=== PATIENT | male | born 1935 | race Native Hawaiian/Other Pacific Islander ===

== ENCOUNTER 2018-02-07 10:33 | Inpatient (IN) ==
[2018-02-07 11:56] LABS: Baso % (Auto) 0.3 % (0.0-2.0); Eos % (Auto) 0.6 % (0.0-4.0); Hematocrit 24.8 % (39.0-51.0); Hemoglobin 8.3 gm/dL (13.0-17.0); Lymph # (Auto) 0.7 th/mm3 (1.0-4.8); Lymph % (Auto) 27.5 % (9.0-44.0); Mean Corpuscular HGB Conc 33.6 % (32.0-36.0); Mean Corpuscular Hemoglobin 29.7 pg (27.0-34.0); Mean Corpuscular Volume 88.5 fL (80.0-100.0); Mean Platelet Volume 10.7 fL (7.0-11.0); Mono # (Auto) 0.2 th/mm3 (0.0-0.9); Mono % (Auto) 7.7 % (0.0-8.0); Neut # (Auto) 1.6 th/mm3 (1.8-7.7); Neut % (Auto) 63.9 % (16.0-70.0); Platelet Count 56 th/mm3 (150-450); Red Cell Distribution Width 16.5 % (11.6-17.2); White Blood Count 2.5 th/mm3 (4.0-11.0)
[2018-02-07 12:13] LABS: Calcium 8.4 mg/dL (8.5-10.1); Carbon Dioxide 24.5 meq/L (21.0-32.0)
[2018-02-07 12:18] LABS: Activated Partial Thrombo Time 25.7 sec (23.4-31.7); INR 1.1 Ratio; Prothrombin Time 10.8 sec (9.8-11.6)
[2018-02-07 13:12] LABS: Blast Cells 1 % (0-0); Lymphocytes 36 % (9-44); Metamyelocytes 1 % (0-1); Monocytes 6 % (0-8); Myelocytes 3 % (0-0); Ovalocytes 2+; Platelet Morphology Normal (Normal); Tallied Nucleated RBC 1 (0-0)
--- NOTE | 2018-02-07 14:23 | P.CONCA ---
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 Patient reports for the past couple of weeks he has been having chest tightness with shortness of breath, he was in [place] last month,and symptoms developed shortly after he returned. Patient was scheduled for outpatient heart catheterization today however his preop labs revealed anemia and renal insufficiency. Hematology has been consulted. We will hold off on heart catheterization pending hematology workup. Review of Systems All other systems reviewed negative except as stated in HPI PMFSH - History History Provided By: Patient - Medical History Medical History: Medical History (Last Reviewed 02/07/18 @ 17:43 by Jose Miguel Weldon MD) Afib COPD (chronic obstructive pulmonary disease) Carotid stenosis Chest pain Diabetes Edema Fatigue Glaucoma HLD (hyperlipidemia) HTN (hypertension) Osteoarthritis of right knee SOB (shortness of breath) - Surgical History Surgical History: Surgical History (Last Reviewed 02/07/18 @ 17:43 by Jose Miguel Weldon MD) Hx of CABG - Social History I have reviewed the patient's Social History: Yes - Tobacco History Second Hand Smoke Exposure: No Tobacco Use In Past 30 Days: Yes (Chews loose leaf tobacco) Smoking Status: Never smoker - Alcohol History How Often Do You Have a Drink Containing Alcohol: Never - Travel History History of Recent Travel: Yes (Recent travel to [place]) Medications and Allergies Allergies Allergy/AdvReac Type Severity Reaction Status Date / Time No Known Allergies Allergy Verified 02/07/18 11:24 Home Medications Medication Instructions Recorded Confirmed Type Multi Vitamin 1 cap PO DAILY 02/07/18 02/07/18 History aspirin 81 mg PO DAILY 02/07/18 02/07/18 History atorvastatin 40 mg PO DAILY 02/07/18 02/07/18 History clonidine HCl 0.1 mg PO DAILY 02/07/18 02/07/18 History clopidogrel [Plavix] 75 mg PO DAILY 02/07/18 02/07/18 History enalapril maleate 20 mg PO BID 02/07/18 02/07/18 History famotidine 20 mg PO DAILY 02/07/18 02/07/18 History glipizide-metformin 1 tab PO BID 02/07/18 02/07/18 History isosorbide mononitrate 60 mg PO DAILY 02/07/18 02/07/18 History metoprolol tartrate 25 mg PO BID 02/07/18 02/07/18 History omeprazole 40 mg PO DAILY 02/07/18 02/07/18 History ranolazine [Ranexa] 500 mg PO Q12H 02/07/18 02/07/18 History ropinirole [Requip] 1 mg PO HS 02/07/18 02/07/18 History sitagliptin [Januvia] 100 mg PO DAILY 02/07/18 02/07/18 History solifenacin [Vesicare] 5 mg PO DAILY 02/07/18 02/07/18 History torsemide 20 mg PO DAILY 02/07/18 02/07/18 History umeclidinium-vilanterol [Anoro 1 inh INHALATION Q24H 02/07/18 02/07/18 History Ellipta] Active Medications: Active Medications Sodium Chloride (Ns Inj) 1,000 mls @ 30 mls/hr IV.SIG .Q24H [facility] Exam Vital signs: Vital Signs 02/07/18 11:20 Temperature 97.9 F Pulse Rate 49 L Respiratory Rate 16 Blood Pressure 104/52 L Pulse Oximetry 100 Intake & Output 02/06/18 02/07/18 02/07/18 18:59 06:59 18:59 Weight 68 kg Other: Weight On Admission 68 kg - Constitutional no acute distress, chronically ill appearing - Routine HEENT Exam Head: Present: normocephalic Eye: Present: PERRL, normal accommodation ENT: Present: mucous membranes moist - Routine Neck Exam Present: supple - Routine Respiratory Exam Present: CTA bilaterally - Routine Cardiovascular Exam Present: RRR - Routine Abdominal Exam Present: soft - Routine Skin Exam Present: intact - Routine Neurological Exam Present: alert, oriented X3 Results 02/07/18 11:15 02/07/18 11:15 Coagulation 02/07/18 Range/Units 11:15 PT 10.8 (9.8-11.6) sec APTT 25.7 (23.4-31.7) sec CBC 02/07/18 Range/Units 11:15 WBC 2.5 L (4.0-11.0) th/mm3 RBC 2.80 L (4.50-5.90) mil/mm3 Hgb 8.3 L (13.0-17.0) gm/dL Hct 24.8 L (39.0-51.0) % Plt Count 56 L (150-450) th/mm3 Neut # (Auto) 1.6 L (1.8-7.7) th/mm3 Lymph # (Auto) 0.7 L (1.0-4.8) th/mm3 [place] # (Auto) 0.2 (0.0-0.9) th/mm3 Eos # (Auto) 0.0 (0.0-0.4) th/mm3 Baso # (Auto) 0.0 (0.0-0.2) th/mm3 Comprehensive Metabolic Panel 02/07/18 Range/Units 11:15 Sodium 140 (136-145) meq/L Potassium 5.0 (3.5-5.1) meq/L Chloride 108 H (98-107) meq/L Carbon Dioxide 24.5 (21.0-32.0) meq/L BUN 54 H (7-18) mg/dL Creatinine 2.10 H (0.60-1.30) mg/dL Calcium 8.4 L (8.5-10.1) mg/dL Intake and Output 02/06/18 02/07/18 02/07/18 22:59 06:59 14:59 Other: Weight 68 kg Weight On Admission 68 kg Patient Weight 02/08/18 06:59 Weight 68 kg Assessment and Plan - Plan Assessment ASHD Chest pain HTN Pancytopenia-Anemia Renal insufficiency Carotid stenosis Afib Plan Will hold off on heart cath at this time, pending hematology workup. On Imdur Pending hematology evaluation. Will stop plavix due to low platelets. Creatinine increased today 2.10, increased risk for heart cath. Will avoid nephro toxic agents. Will also consult nephrology for evaluation. History of post op Afib-no known Afib since 2014. History of left CEA, continues on statin and aspirin. Will stop plavix due to low platelets and hgb. Patient was seen and evaluated by Dr. Pena who participated in care management and decision making. The exam, history, and the medical decision-making described in the above note were completed with the assistance of the mid-level provider. I reviewed and agree with the findings presented. I attest that I had a [id number] encounter with the patient on the same day, and personally performed and documented my assessment and findings in the medical record. Overall stable CV , ?cause of pancytopenia.
--- NOTE | 2018-02-07 16:07 | P.HP ---
History of Present Illness Service: [facility] Primary Care Physician: Dr Phil Gay Chief Complaint: Chest pain History of Present Illness: 82-year-old gentleman who is a patient of with PMHx significant for HTN, HLD, arthrosclerotic heart disease s/p CABG x3 vessels, left carotid stenosis, a.fib, COPD, OA, and prolonged chewing tobacco use. Per cardiology's note patient underwent Lexiscan stress test on 01/26 which revealed kash- infarct ischemia, for this reason he was scheduled for heart catheterization today. He had preop labs done which revealed pancytopenia as well as elevated creatinine. His catheterization has been place on hold for this reason. Hematology and nephrology services consulted. Patient is seen and examined in Docu with grandson present at bedside. Patient reports that for the past month he has been experiencing a "heaviness" in his chest that is more noticeable in the mornings and with activity. He reports that this heaviness will resolve with rest he also endorses SOB with these episodes. He denies any recent dizziness, lightheadedness, palpitations, headaches, vision changes, N/V/D or dysuria or trouble urinating. Patient does not report any black or tarry stools , no epistaxis or easy bruising. He does report that he has noticed that his voice has changed and is requesting to see an oncologist. He tells me he would like this looked at since this is new and is concerned for malignancy, he is a daily tobacco chewer. Review of Systems All other systems reviewed negative [facility] - History History Provided By: Patient, Medical Record - Medical History Medical History: Medical History (Last Updated 02/07/18 @ 16:16 by Ricardo Cobb) Afib COPD (chronic obstructive pulmonary disease) Carotid stenosis Chest pain Diabetes Edema Fatigue Glaucoma HLD (hyperlipidemia) HTN (hypertension) Osteoarthritis of right knee SOB (shortness of breath) - Surgical History Surgical History: Surgical History (Last Reviewed 02/07/18 @ 16:16 by Ricardo Cobb) Hx of CABG - Family History Family History: Family History (Last Updated 02/07/18 @ 16:16 by Ricardo Cobb) Mother Diabetes mellitus Mother Myocardial infarct - Social History I have reviewed the patient's Social History: Yes - Tobacco History Second Hand Smoke Exposure: No Tobacco Use In Past 30 Days: Yes (Chews loose leaf tobacco daily for 70yrs) Smoking Status: Never smoker - Alcohol History How Often Do You Have a Drink Containing Alcohol: Never - Travel History History of Recent Travel: Yes (Recent travel to [place]) Medications and Allergies Active Medications: Active Medications Atorvastatin Calcium (Lipitor) 40 mg PO DAILY [facility] Sodium Chloride (Ns Inj) 1,000 mls @ 30 mls/hr IV.SIG .Q24H [facility] Non-Formulary Medication (Multi Vitamin) 1 cap PO DAILY [facility] Non-Formulary Medication (Omeprazole [Omeprazole]) 40 mg PO DAILY [facility] Non-Formulary Medication (Solifenacin [Vesicare]) 5 mg PO DAILY [facility] Ropinirole HCl (Requip) 1 mg PO HS [facility] Umeclidinium/Vilanterol (Anoro-Ellipta 62.5/25 Mcg Inh) puff INH Q24H [facility] Allergies Allergy/AdvReac Type Severity Reaction Status Date / Time No Known Allergies Allergy Verified 02/07/18 11:24 Home Medications Medication Instructions Recorded Confirmed Type Multi Vitamin 1 cap PO DAILY 02/07/18 02/07/18 History aspirin 81 mg PO DAILY 02/07/18 02/07/18 History atorvastatin 40 mg PO DAILY 02/07/18 02/07/18 History clonidine HCl 0.1 mg PO DAILY 02/07/18 02/07/18 History clopidogrel [Plavix] 75 mg PO DAILY 02/07/18 02/07/18 History enalapril maleate 20 mg PO BID 02/07/18 02/07/18 History famotidine 20 mg PO DAILY 02/07/18 02/07/18 History glipizide-metformin 1 tab PO BID 02/07/18 02/07/18 History isosorbide mononitrate 60 mg PO DAILY 02/07/18 02/07/18 History metoprolol tartrate 25 mg PO BID 02/07/18 02/07/18 History omeprazole 40 mg PO DAILY 02/07/18 02/07/18 History ranolazine [Ranexa] 500 mg PO Q12H 02/07/18 02/07/18 History ropinirole [Requip] 1 mg PO HS 02/07/18 02/07/18 History sitagliptin [Januvia] 100 mg PO DAILY 02/07/18 02/07/18 History solifenacin [Vesicare] 5 mg PO DAILY 02/07/18 02/07/18 History torsemide 20 mg PO DAILY 02/07/18 02/07/18 History umeclidinium-vilanterol [Anoro 1 inh INHALATION Q24H 02/07/18 02/07/18 History Ellipta] Exam Vital signs: Vital Signs 02/07/18 11:20 Temperature 97.9 F Pulse Rate 49 L Respiratory Rate 16 Blood Pressure 104/52 L Pulse Oximetry 100 Intake & Output 02/06/18 02/07/18 02/07/18 18:59 06:59 18:59 Weight 68 kg Other: Weight On Admission 68 kg Narrative: GENERAL: Well nourished, well developed male resting in bed in no acute distress. SKIN: Warm and dry. HEAD: Atraumatic. Normocephalic. EYES: Pupils equal and round. No scleral icterus. No injection or drainage. ENT: No nasal bleeding or discharge. Mucous membranes pink and moist. NECK: Trachea midline. No JVD. CARDIOVASCULAR: Regular rate and rhythm. RESPIRATORY: No accessory muscle use. Clear to auscultation. Breath sounds equal bilaterally. GASTROINTESTINAL: Abdomen soft, non-tender, nondistended. + bowel sounds. MUSCULOSKELETAL: Extremities without clubbing, cyanosis, or edema. No obvious deformities. NEUROLOGICAL: Awake and alert, oriented x3. No obvious cranial nerve deficits. Motor grossly within normal limits. Five out of 5 muscle strength in the arms and legs. Normal speech. PSYCHIATRIC: Appropriate mood and affect; insight and judgment normal. Results - Labs CBC & Chem 7: 02/07/18 11:15 02/07/18 11:15 Labs: Laboratory Results - last 24 hr 02/07/18 02/07/18 02/07/18 11:15 11:15 11:15 WBC 2.5 L RBC 2.80 L Hgb 8.3 L Hct 24.8 L MCV 88.5 MCH 29.7 MCHC 33.6 RDW 16.5 Plt Count 56 L MPV 10.7 Prelim Diff (Auto) Slide review pending Neut % (Auto) 63.9 Lymph % (Auto) 27.5 Jay % (Auto) 7.7 Eos % (Auto) 0.6 Baso % (Auto) 0.3 Neut # (Auto) 1.6 L Lymph # (Auto) 0.7 L Jay # (Auto) 0.2 Eos # (Auto) 0.0 Baso # (Auto) 0.0 WBC Differential Manual diff final Seg Neuts % (Manual) 52 Band Neuts % (Manual) 1 Lymphocytes % (Manual) 36 Monocytes % (Manual) 6 Metamyelocytes % (Man) 1 Myelocytes % (Man) 3 H Blast Cells % (Manual) 1 H Abs Neuts (Manual) 1.4 L Nucleated RBCs/100 WBC 1 H Differential Comment . Platelet Estimate Low L Platelet Morphology Normal Ovalocytes 2+ H PT 10.8 INR 1.1 APTT 25.7 Sodium 140 Potassium 5.0 Chloride 108 H Carbon Dioxide 24.5 Anion Gap 8 BUN 54 H Creatinine 2.10 H Estimated GFR 30 L Random Glucose 187 H Calcium 8.4 L Caprini VTE Risk Assessment Caprini VTE Risk Assessment: Moderate/High Risk (score >= 2) VTE Pharmacological Exception Reason: High risk for bleeding Caprini Risk Assessment Model: Point Value = 1 Point Value = 2 Point Value = 3 Point Value = 5 Age 41-60 Minor surgery BMI > 25 kg/m2 Swollen legs Varicose veins or History of unexplained or recurrent spontaneous Oral contraceptives or hormone replacement Sepsis (< 1 month) Serious lung disease, including pneumonia (< 1 month) Abnormal pulmonary function Acute myocardial infarction Congestive heart failure (< 1 month) History of inflammatory bowel disease Medical patient at bed rest Age 61-74 Arthroscopic surgery Major open surgery (> 45 min) Laparoscopic surgery (> 45 min) Malignancy Confined to bed (> 72 hours) Immobilizing plaster cast Central venous access Age >= 75 History of VTE Family history of VTE Factor V Leiden Prothrombin [id number] Lupus anticoagulant Anticardiolipin antibodies Elevated serum homocysteine Heparin-induced thrombocytopenia Other congenital or acquired thrombophilia Stroke (< 1 month) Elective arthroplasty Hip, pelvis, or leg fracture Acute spinal cord injury (< 1 month) Prophylaxis Regimen: Total Risk Factor Score Risk Level Prophylaxis Regimen 0-1 Low Early ambulation 2 Moderate Order ONE of the following: *Sequential Compression Device (SCD) *Heparin 5000 units SQ BID 3-4 Higher Order ONE of the following medications: *Heparin 5000 units SQ TID *Enoxaparin/Lovenox 40 mg SQ daily (WT < 150 kg, CrCl > 30 mL/min) *Enoxaparin/Lovenox 30 mg SQ daily (WT < 150 kg, CrCl > 10-29 mL/min) *Enoxaparin/Lovenox 30 mg SQ BID (WT < 150 kg, CrCl > 30 mL/min) AND/OR *Sequential Compression Device (SCD) 5 or more Highest Order ONE of the following medications: *Heparin 5000 units SQ TID (Preferred with Epidurals) *Enoxaparin/Lovenox 40 mg SQ daily (WT < 150 kg, CrCl > 30 mL/min) *Enoxaparin/Lovenox 30 mg SQ daily (WT < 150 kg, CrCl > 10-29 mL/min) *Enoxaparin/Lovenox 30 mg SQ BID (WT < 150 kg, CrCl > 30 mL/min) AND *Sequential Compression Device (SCD) Assessment and Plan - Plan 82-year-old gentleman who is a patient of with PMHx significant for HTN, HLD, arthrosclerotic heart disease s/p CABG x3 vessels, left carotid stenosis, a.fib, COPD, OA, and prolonged chewing tobacco use who presents to [facility] [place] for scheduled heart catheterization. Preop labs revealed pancytopenia and elevated creatinine, heart cath place on hold. Angina - Per cardiology's note patient underwent Lexiscan stress test on 01/26 which revealed kash-infarct ischemia. Scheduled heart cath placed on hold due to the following below. - HR and BP on the lower side, will defer Ranexa, isosorbide, and metoprolol per cardiology recommendations. Pancytopenia - WBC 2.5, H&H 8.3/24.8 (normocytic), PLT's 56 -No reports of bleeding, check hemoccult stool, iron studies - Hematology consulted for further workup, appreciate assistance - Hold Plavix and ASA - Monitor for bleeding, CBC in a.m SHASHA - Creatine 2.1, BUN 54 no baseline labs in EMR - Hold metformin/glipizide, Januvia, enalapril - Consult to nephrology, appreciate assistance -Avoid nephrotoxins, follow renal function HTN, chronic HLD/CAD -HR and BP on low side, hold BB, and lisinopril - Continue Lipitor -PRN Clonidine - Monitor on tele DM -Hold oral diabetic meds due to SHASHA - cardia and diabetic diet - ISS with accu-checks for glycemic control Change in voice - No reported weight loss by patient - Hem/onc consulted, ? possibly related to anemia, patient with long history of chewing tobacco use. COPD, chronic but stable -Continue Anoro-Elipta, PRN nebs - PT eval and treat DVT prophylaxis-SCD's, no chemical prophylaxis due to thrombocytopenia Discussed Condition With: Patient and grandson at bedside.
[2018-02-07] MEDS ORDERED: Bisacodyl 10 MG Supp RECTAL PRN (16:08)
[2018-02-07] MEDS ORDERED: Acetaminophen 325 MG Tablet PO PRN (16:08)
[2018-02-07] MEDS ORDERED: Dextrose 50% in Water 50 ML Vial IV.PUSH PRN (16:40)
--- NOTE | 2018-02-07 17:46 | P.CONNP ---
History of Present Illness Service: Nephrology Consult date: 02/07/18 Requesting Physician: Lianna Pena Reason for Consult: Chronic kidney disease with acute renal failure Primary Care Provider: Dr Phil Gay Chief Complaint: Chest pain History of Present Illness: Patient is a 82-year-old male with history of diabetes which is long-standing, he said he has a AMI long time ago after that he has been feeling better however lately he has developed chest pain and shortness of breath, patient has history of chewing tobacco, he said he has chronic kidney disease but it was stable and he has not seen any kidney specialist, he does have a history of prostate cancer status post radiation and he said his PSA was 0. Review of Systems Constitutional: Denies anorexia, Denies body ache(s), Denies chills, Denies daytime sleepiness, Denies excessive sweating, Denies fatigue, Denies fever(s), Denies headache(s), Denies increased appetite, Denies lack of energy, Denies malaise, Denies night sweats, Denies weakness, Denies weight gain, Denies weight loss, Denies other Eyes: Denies blind spots, Denies blurry vision, Denies bulging eyes, Denies change in vision, Denies double vision, Denies discharge, Denies dry eyes, Denies floaters, Denies irritation, Denies itchy eyes, Denies loss of vision, Denies pain, Denies requires corrective lenses, Denies sensitivity to light, Denies other Ears, Nose, Mouth, and Throat: Denies abnormal hearing, Denies bleeding gums, Denies bad breath, Denies change in voice, Denies dental pain, Denies difficulty swallowing, Denies dizziness, Denies dry mouth, Denies ear discharge , Denies ear pain, Denies facial pain, Denies headache(s), Denies hearing loss, Denies hoarseness, Denies lip swelling, Denies nosebleed, Denies mouth lesions, Denies mouth pain, Denies nasal congestion, Denies nasal discharge, Denies nasal obstruction, Denies nasal trauma, Denies neck lump, Denies neck pain, Denies nose pain, Denies pain with swallowing, Denies poor balance, Denies post nasal drip, Denies ringing in the ears, Denies sinus pain, Denies sinus pressure , Denies sore throat, Denies throat swelling, Denies tongue swelling, Denies other Cardiovascular: Reports chest pain, Reports shortness of breath with activity Respiratory: Reports shortness of breath Genitourinary: Denies blood in semen, Denies blood in urine, Denies decreased urination, Denies difficulty urinating, Denies difficulty with ejaculations, Denies erectile dysfunction, Denies genital lesions, Denies genital pain, Denies painful urination, Denies side pain, Denies frequent nighttime urination , Denies painful ejaculations, Denies penile discharge, Denies scrotal swelling , Denies testicle lump, Denies testicle pain, Denies urinary frequency, Denies urinary hesitancy, Denies urinary incontinence, Denies urinary urgency, Denies other Musculoskeletal: Denies abnormal walking, Denies back pain, Denies body aches, Denies decreased muscle mass, Denies deformity, Denies joint pain, Denies joint swelling, Denies limited joint movement, Denies loss of height, Denies muscle cramps, Denies muscle weakness, Denies neck pain, Denies numbness, Denies radiating pain into limb, Denies stiffness, Denies tingling, Denies other Skin/Breast: Denies acne, Denies bleeding lesions, Denies boil, Denies breast swelling, Denies breast skin changes, Denies breast pain, Denies breast lump, Denies change in breast shape, Denies change in hair, Denies change in skin color, Denies changing lesions, Denies dry skin, Denies excessive hair growth, Denies hair loss, Denies itching, Denies lesions, Denies nail changes, Denies new lesions, Denies nipple discharge, Denies non-healing lesions, Denies redness , Denies sensitivity to light, Denies rash, Denies skin pain, Denies skin ulcer , Denies sores, Denies stretch moss, Denies unusual bruising, Denies wounds, Denies yellowing of the skin, Denies other Psychiatric: Denies abnormal sleep pattern, Denies anxiety, Denies behavioral changes, Denies change in appetite, Denies change in sex drive, Denies confusion , Denies depression, Denies difficulty concentrating, Denies hearing things others do not hear, Denies hopelessness, Denies irritability, Denies lack of enjoyment, Denies memory loss, Denies mood swings, Denies panic attacks, Denies paranoia, Denies seeing things others do not see, Denies sensing things others do not sense, Denies tactile hallucinations, Denies thoughts of hurting/killing others, Denies thoughts of hurting/killing yourself, Denies other Endocrine: Denies cold intolerance, Denies excessive sweating, Denies flushing, Denies heat intolerance, Denies increased hunger, Denies increased thirst, Denies increased urination, Denies rapid, pounding, or irregular heartbeat, Denies other Hematologic/Lymphatic: Denies easy bleeding, Denies easy bruising, Denies enlarged lymph nodes, Denies other Allergic/Immunologic: Denies GI upset with certain foods, Denies hives, Denies itchy eyes, Denies lip swelling, Denies seasonal runny nose, Denies throat swelling, Denies tongue swelling, Denies wheezing, Denies other PMFSH - History History Provided By: Patient, Medical Record - Medical History Medical History: Medical History (Last Reviewed 02/07/18 @ 17:43 by Jose Miguel Weldon MD) Afib COPD (chronic obstructive pulmonary disease) Carotid stenosis Chest pain Diabetes Edema Fatigue Glaucoma HLD (hyperlipidemia) HTN (hypertension) Osteoarthritis of right knee SOB (shortness of breath) - Surgical History Surgical History: Surgical History (Last Reviewed 02/07/18 @ 17:43 by Jose Miguel Weldon MD) Hx of CABG - Family History Family History: Family History (Last Reviewed 02/07/18 @ 17:43 by Jose Miguel Weldon MD) Mother Diabetes mellitus Mother Myocardial infarct - Social History I have reviewed the patient's Social History: Yes - Tobacco History Second Hand Smoke Exposure: No Tobacco Use In Past 30 Days: Yes (Chews loose leaf tobacco daily for 70yrs) Smoking Status: Never smoker - Alcohol History How Often Do You Have a Drink Containing Alcohol: Never - Travel History History of Recent Travel: Yes (Recent travel to [place]) Medications and Allergies Active Medications: Active Medications Acetaminophen (Tylenol) 650 mg PO Q4H PRN PRN Reason: Temp > 100.4 Atorvastatin Calcium (Lipitor) 40 mg PO DAILY ANDREA Bisacodyl (Dulcolax Supp) 10 mg RECTAL DAILY PRN PRN Reason: SEVERE CONSITIPATION Clonidine HCl (Catapres) 0.1 mg PO Q6H PRN PRN Reason: SBP>160, DBP>90 Dextrose (D50w Vial) 50 ml IV.PUSH UNSCH PRN PRN Reason: PER HYPOGLYCEMIA PROTOCOL Glucagon (Glucagon Inj) 1 mg OTHER PRN PRN PRN Reason: for Hypoglycemia Protocol Sodium Chloride (Ns Inj) 1,000 mls @ 30 mls/hr IV.SIG .Q24H [facility] Insulin Aspart (Novolog Insulin Correctional Sugar Inj) 0 unit SQ ACHS ANDREA; Protocol Lactulose (Lactulose Liq) 30 ml PO DAILY PRN PRN Reason: SEVERE CONSITIPATION Multivitamins (Theragran) 1 tab PO DAILY [facility] Ondansetron HCl (Zofran Inj) 4 mg IV.PUSH Q6H PRN PRN Reason: NAUSEA OR VOMITING Pantoprazole Sodium (Protonix) 40 mg PO DAILY [facility] Ropinirole HCl (Requip) 1 mg PO HS [facility] Senna/Docusate Sodium (Kyleigh-Colace) 1 tab PO BID [facility] Sennosides (Senokot) 17.2 mg PO Q12H PRN PRN Reason: Moderate Constipation Tolterodine Tartrate (Detrol La) 2 mg PO DAILY [facility] Umeclidinium/Vilanterol (Anoro-Ellipta 62.5/25 Mcg Inh) 1 puff INH Q24H [facility] Allergies Allergy/AdvReac Type Severity Reaction Status Date / Time No Known Allergies Allergy Verified 02/07/18 11:24 Home Medications Medication Instructions Recorded Confirmed Type Multi Vitamin 1 cap PO DAILY 02/07/18 02/07/18 History aspirin 81 mg PO DAILY 02/07/18 02/07/18 History atorvastatin 40 mg PO DAILY 02/07/18 02/07/18 History clonidine HCl 0.1 mg PO DAILY 02/07/18 02/07/18 History clopidogrel [Plavix] 75 mg PO DAILY 02/07/18 02/07/18 History enalapril maleate 20 mg PO BID 02/07/18 02/07/18 History famotidine 20 mg PO DAILY 02/07/18 02/07/18 History glipizide-metformin 1 tab PO BID 02/07/18 02/07/18 History isosorbide mononitrate 60 mg PO DAILY 02/07/18 02/07/18 History metoprolol tartrate 25 mg PO BID 02/07/18 02/07/18 History omeprazole 40 mg PO DAILY 02/07/18 02/07/18 History ranolazine [Ranexa] 500 mg PO Q12H 02/07/18 02/07/18 History ropinirole [Requip] 1 mg PO HS 02/07/18 02/07/18 History sitagliptin [Januvia] 100 mg PO DAILY 02/07/18 02/07/18 History solifenacin [Vesicare] 5 mg PO DAILY 02/07/18 02/07/18 History torsemide 20 mg PO DAILY 02/07/18 02/07/18 History umeclidinium-vilanterol [Anoro 1 inh INHALATION Q24H 02/07/18 02/07/18 History Ellipta] Exam Vital signs: Vital Signs 02/07/18 11:20 02/07/18 17:08 Temperature 97.9 F 97.4 F L Pulse Rate 49 L 63 Respiratory Rate 16 18 Blood Pressure 104/52 L 142/73 H Pulse Oximetry 100 100 Intake & Output 02/06/18 02/07/18 02/07/18 18:59 06:59 18:59 Weight 68 kg Other: Weight On Admission 68 kg Narrative: GENERAL: Well-nourished, well-developed patient. SKIN: Warm and dry. HEAD: Normocephalic. EYES: No scleral icterus. No injection or drainage. NECK: Supple, trachea midline. No JVD or lymphadenopathy. CARDIOVASCULAR: Regular rate and rhythm without murmurs, gallops, or rubs. RESPIRATORY: Breath sounds equal bilaterally. No accessory muscle use. GASTROINTESTINAL: Abdomen soft, non-tender, nondistended. EXTREMITIES: As above NEUROLOGICAL: Awake, alert, and oriented x 3. Non-focal. Results - Lab Results 02/08/18 07:35 02/08/18 07:35 Most recent lab results Calcium 8.4 mg/dL (8.5-10.1) L 02/07/18 11:15 Assessment and Plan - Assessment (1) Acute renal failure Code(s): N17.9 - Acute kidney failure, unspecified Status: Acute (2) Chronic kidney disease Code(s): N18.9 - Chronic kidney disease, unspecified Status: Acute (3) Diabetes Code(s): E11.9 - Type 2 diabetes mellitus without complications Status: Acute (4) Hypertension Code(s): I10 - Essential (primary) hypertension Status: Acute (5) Coronary artery disease Code(s): I25.10 - Atherosclerotic heart disease of [place] coronary artery without angina pectoris Status: Acute (6) Pancytopenia Code(s): D61.818 - Other pancytopenia Status: Acute - Plan Patient needs investigation and I ordered urine test, check for urine protein loss ultrasound of the kidney RAY protein electrophoresis Serum complements Asked him to hydrate himself Monitor kidney function was He will avoid nephrotoxic agents if possible Risk of dye study is associated with acute renal failure about 20-25% chance of worsening and 1% chance of dialysis Continue to monitor
[2018-02-07] MEDS: Insulin NovoLOG Aspart Correctional Sugar Inj SQ SCH ×2 (18:00→20:56)
[2018-02-07] MEDS: Sod Chloride 0.9% Inj 1,000 ML IV.SIG SCH (18:03)
[2018-02-07] MEDS: Umeclindinium 62.5 MCG/Vilanterol 25 MCG Inhaler INH SCH (18:03)
[2018-02-07 19:11] LABS: Bilirubin,Urine Negative (Negative); Clarity,Urine Clear (Clear); Color,Urine Yellow (Yellw/Straw); Glucose,Urine (UA) 50 mg/dL (Negative); Hyaline Casts,Urine 9 /lpf (0-3); Leukocyte Esterase,Urine Negative (Negative); Nitrite,Urine Negative (Negative); Specific Gravity,Urine 1.016 (1.002-1.035)
[2018-02-07 19:12] LABS: Protein/Creatinine Ratio,Urine 0.31 (0.00-0.14)
[2018-02-07 20:36] LABS: Activated Partial Thrombo Time 26.8 sec (23.4-31.7); INR 1.1 Ratio; Prothrombin Time 10.8 sec (9.8-11.6)
--- NOTE | 2018-02-07 20:38 | MB ---
cc: Shaye Valencia MD DATE: 02/07/2018 CHIEF COMPLAINT: 1. Pancytopenia. 2. Anemia. 3. Thrombocytopenia. 4. Leukopenia. 5. Early cells including blasts on differential. HISTORY OF PRESENT ILLNESS: Mr. Palacio is an 82-year-old gentleman with a history of hypertension, hyperlipidemia, coronary artery disease, status post 3-vessel CABG, left carotid artery stenosis, atrial fibrillation, COPD, osteoarthritis, who was sent to the hospital for evaluation of cardiac issues. He underwent a stress test which revealed kash-infarct ischemia and was scheduled for a heart catheterization. Preop labs showed pancytopenia and elevated creatinine and the heart catheterization was subsequently placed on hold. Nephrology service has been consulted and Dr. Weldon has stopped by to see the patient. The patient reports that he has been in his baseline state of health. He reports that he has chest heaviness and chest pressure. He denies any fever, chills, drenching night sweats, lymphadenopathy. He reports that he follows closely with a primary care doctor and has his labs checked regularly with no abnormalities. REVIEW OF SYSTEMS: As above in the HPI, all others negative. PAST MEDICAL HISTORY: Hypertension, hyperlipidemia, coronary artery disease, status post 3-vessel CABG, left carotid artery stenosis, atrial fibrillation, COPD, osteoarthritis, chewing tobacco. FAMILY HISTORY: No known family history of malignancy. SOCIAL HISTORY: The patient reports a good support system. He is chewing tobacco. Denies smoking tobacco and denies alcohol use. HOME MEDICATIONS: Include: 1. Atorvastatin. 2. Multivitamin. 3. Omeprazole. 4. VESIcare. 5. Ropinirole. 6. Anoro Ellipta. PHYSICAL EXAMINATION: VITAL SIGNS: Temperature 97.4, pulse 63, respiratory rate 18, blood pressure 142/73, pulse oximetry 100% on room air. GENERAL: Elderly man in no distress, resting comfortably in bed. HEAD: Normocephalic, atraumatic. EYES: PERRLA. EOMI. OROPHARYNX: Clear. NECK: Supple. No palpable lymphadenopathy. CARDIOVASCULAR: Regular rate and rhythm. No murmurs. RESPIRATORY: Clear to auscultation bilaterally. ABDOMEN: Protuberant but soft, nontender, nondistended. Bowel sounds present. EXTREMITIES: No edema. NEUROLOGIC: Grossly nonfocal. PSYCHIATRIC: Appropriate mood and affect. LABORATORY STUDIES: Significant for a creatinine of 2.1. Iron, total iron binding capacity and percent sat are within normal limits. Coags including PT, INR, PTT within normal limits. White blood cell count 2.5, hemoglobin 8.3, MCV 88.5, platelet count 56,000, ANC of 1.6. Metamyelocytes, myelocytes, blasts present on differential. ASSESSMENT: Pancytopenia. PLAN: We will check vitamin B12, folate, copper. He is on no medications that would cause pancytopenia. He is on no new medications. He does not have any history of alcohol abuse. We will check a CT-guided bone marrow as given early cells present on differential. This is highly suspicious for an underlying bone marrow disorder, especially acute leukemia. We will also check fibrinogen, uric acid, LDH, pathology for a peripheral smear review. Inpatient oncology service will continue to follow. MD MECHE Waggoner/joi , 06:48 PM , 06:56 PM
[2018-02-07 20:40] LABS: Albumin 3.3 g/dL (3.4-5.0); Uric Acid 10.1 mg/dl (2.6-7.2)
--- NOTE | 2018-02-07 20:51 | ECG ---
Date Performed: 02/07/2018 Time Performed: 10:53:18 PTAGE: 82 years EKG: Sinus bradycardia. IV conduction defect Inferior/lateral ST-T changes Abnormal ECG NO PREVIOUS TRACING DOCTOR: Natan Sherman Interpretating Date/Time 02/07/2018 20:50:54
[2018-02-07] MEDS: Senna/Docusate Sodium 8.6/50 MG Tablet PO SCH (20:56)
[2018-02-07 21:06] LABS: Folate 11.4 ng/mL (3.1-17.5); Total Protein 7.2 g/dL (6.4-8.2)
[2018-02-08] MEDS ORDERED: fentaNYL Citrate Inj 250 MCG/5 ML Ampul ONE (08:53)
[2018-02-08 09:00] LABS: Baso % (Auto) 0.3 % (0.0-2.0); Eos % (Auto) 0.1 % (0.0-4.0); Hematocrit 27.8 % (39.0-51.0); Lymph # (Auto) 0.8 th/mm3 (1.0-4.8); Lymph % (Auto) 21.5 % (9.0-44.0); Mean Corpuscular HGB Conc 32.4 % (32.0-36.0); Mean Corpuscular Hemoglobin 28.8 pg (27.0-34.0); Mean Corpuscular Volume 88.8 fL (80.0-100.0); Mean Platelet Volume 10.7 fL (7.0-11.0); Mono # (Auto) 0.4 th/mm3 (0.0-0.9); Mono % (Auto) 9.5 % (0.0-8.0); Neut # (Auto) 2.6 th/mm3 (1.8-7.7); Neut % (Auto) 68.6 % (16.0-70.0); Platelet Count 55 th/mm3 (150-450); Red Blood Count 3.13 mil/mm3 (4.50-5.90); Red Cell Distribution Width 16.6 % (11.6-17.2); White Blood Count 3.8 th/mm3 (4.0-11.0)
[2018-02-08 09:33] LABS: Calcium 8.8 mg/dL (8.5-10.1); Carbon Dioxide 22.9 meq/L (21.0-32.0); Phosphorus 3.3 mg/dL (2.5-4.9); Potassium 4.9 meq/L (3.5-5.1)
[2018-02-08 09:46] LABS: Burr Cells 1+; Dohle Bodies Present; Lymphocytes 20 % (9-44); Metamyelocytes 1 % (0-1); Monocytes 9 % (0-8); Myelocytes 2 % (0-0); Ovalocytes 2+; Promyelocyte 2 % (0-0); Tallied Nucleated RBC 1 (0-0); Toxic Granulation 1+
[2018-02-08 10:13] LABS: Hepatitits B Surface Antigen Nonreactive (Nonreactive)
[2018-02-08 10:42] LABS: Hepatitis A IgM Antibody Nonreactive (Nonreactive)
[2018-02-08 11:20] LABS: Iron Stain Bone Marrow Done
[2018-02-08] MEDS: Insulin NovoLOG Aspart Correctional Sugar Inj SQ SCH ×4 (11:48→20:33)
[2018-02-08] MEDS: Sod Chloride 0.9% Inj 1,000 ML IV.SIG SCH (11:49)
[2018-02-08] MEDS: Senna/Docusate Sodium 8.6/50 MG Tablet PO SCH ×2 (11:58→20:32)
[2018-02-08] MEDS: Tolterodine Tartrate LA 2 MG Capsule PO SCH (11:58)
--- NOTE | 2018-02-08 12:55 | US ---
EXAM DATE: 02/08/2018 12:46 PM EST AGE/SEX: 82 years / Male INDICATIONS: Increased BUN/Creatinine. CLINICAL DATA: This is the patient's initial encounter. Patient reports that signs and symptoms have been present for 1 day and indicates a pain score of 0/10. MEDICAL/SURGICAL HISTORY: Chronic obstructive pulmonary disease. Diabetes. Hypercholesterolem ia. Hypertension. Osteoarthritis of the right knee. Glaucoma. Edema. Left Carotid stenosis. Atria l fibrillation. CABG. COMPARISON: No prior exams available for comparison. MEASUREMENTS: Right Kidney:__8.0 x 4.1 x 4.2 cm Left Kidney:__10.3 x 5.4 x 4.7 cm FINDINGS: Right Kidney: The right kidney is small in size with cortical thinning. The echogenicity of the kidne y is equal to that of the adjacent liver. There is no focal mass or hydronephrosis. Left Kidney: The left kidney is larger than left with mild cortical thinning. There is no focal mass or hydronephrosis. Bladder: Within normal limits given the degree of distension. Other: None. CONCLUSION: 1. No hydronephrosis. 2. Increased echogenicity characteristic of medical renal disease. 3. Right kidney is small and atrophic in appearance. There is mild cortical thinning in the left kid sil. Electronically signed by: Osvaldo Corral MD 02/08/2018 12:53 PM EST
[2018-02-08] MEDS: Torsemide 20 MG Tablet PO SCH (13:50)
--- NOTE | 2018-02-08 15:00 | P.PNONC ---
Subjective Interval history: Afebrile. Patient status post bone marrow biopsy today. He has no complaints at this time. Denies pain. Denies bleeding. No N/V/D. Objective Vital Signs/Intake & Output: Vital Signs 02/07/18 17:08 02/07/18 20:00 02/08/18 00:00 Temperature 97.4 F L 98.4 F 98.6 F Pulse Rate 63 57 L 51 L Respiratory Rate 18 18 18 Blood Pressure 142/73 H 145/75 H 113/55 L Pulse Oximetry 100 99 98 02/08/18 04:00 02/08/18 07:00 02/08/18 08:04 Temperature 98.8 F 98.4 F Pulse Rate 62 66 74 Respiratory Rate 18 18 Blood Pressure 144/68 H 159/78 H Pulse Oximetry 98 93 L 02/08/18 10:05 02/08/18 10:20 02/08/18 10:35 Temperature 98.9 F Pulse Rate 74 93 H 85 Respiratory Rate 20 18 18 Blood Pressure 164/74 H 157/72 H 142/70 H Pulse Oximetry 93 L 97 02/08/18 11:00 02/08/18 11:17 02/08/18 11:59 Temperature 97.9 F Pulse Rate 135 H 70 Respiratory Rate 18 18 Blood Pressure 135/70 152/77 H Pulse Oximetry 97 91 L 02/08/18 13:49 Temperature Pulse Rate Respiratory Rate Blood Pressure 194/94 H Pulse Oximetry Intake & Output 02/07/18 02/08/18 02/08/18 18:59 06:59 18:59 Output Total 300 / 300 Balance -300 / -300 Weight 68 kg 68 kg Output: Urine 300 / 300 Other: Date of Last Bowel Movement 02/05/18 02/05/18 02/05/18 Weight On Admission 68 kg Result Diagrams: 02/08/18 07:35 02/08/18 07:35 Laboratory Results: Laboratory Results - last 24 hr 02/07/18 02/07/18 02/07/18 11:15 11:15 17:16 WBC RBC Hgb Hct MCV MCH MCHC RDW Plt Count MPV Prelim Diff (Auto) Neut % (Auto) Lymph % (Auto) [place] % (Auto) Eos % (Auto) Baso % (Auto) Neut # (Auto) Lymph # (Auto) [place] # (Auto) Eos # (Auto) Baso # (Auto) WBC Differential Seg Neuts % (Manual) Band Neuts % (Manual) Lymphocytes % (Manual) Monocytes % (Manual) Basophils % (Manual) Metamyelocytes % (Man) Myelocytes % (Man) Promyelocytes % (Man) Abs Neuts (Manual) Nucleated RBCs/100 WBC Differential Comment Toxic Granulation Dohle Bodies Platelet Estimate Platelet Morphology Ovalocytes Johnny Cells Smear Path Review Haptoglobin PT INR APTT Fibrinogen Sodium Potassium Chloride Carbon Dioxide Anion Gap BUN Creatinine Estimated GFR POC Glucose 260 H Random Glucose Uric Acid Calcium Phosphorus Iron 129 TIBC 274 % Saturation 47.0 Ferritin Total Bilirubin Direct Bilirubin Indirect Bilirubin AST ALT Alkaline Phosphatase Lactate Dehydrogenase Total Protein Total Protein (PEP) Albumin Vitamin B12 Folate PTH Intact Urine Color Urine Clarity Urine pH Ur Specific [place] Urine Protein Urine Glucose (UA) Urine Ketones Urine Occult Blood Urine Nitrate Urine Bilirubin Urine Urobilinogen Ur Leukocyte Esterase Urine RBC Urine WBC Hyaline Casts Micro UA Comment Ur Microscopic Review Urine Culture Comments Ur Random Creatinine U Random Total Protein Protein/Creatinin Ratio Complement C3 Complement C4 Hepatitis A IgM Ab Hep Bs Antigen Hep B Core IgM Ab Hep C IgG Ab 02/07/18 02/07/18 02/07/18 18:25 18:25 19:52 WBC RBC Hgb Hct MCV MCH MCHC RDW Plt Count MPV Prelim Diff (Auto) Neut % (Auto) Lymph % (Auto) [place] % (Auto) Eos % (Auto) Baso % (Auto) Neut # (Auto) Lymph # (Auto) [place] # (Auto) Eos # (Auto) Baso # (Auto) WBC Differential Seg Neuts % (Manual) Band Neuts % (Manual) Lymphocytes % (Manual) Monocytes % (Manual) Basophils % (Manual) Metamyelocytes % (Man) Myelocytes % (Man) Promyelocytes % (Man) Abs Neuts (Manual) Nucleated RBCs/100 WBC Differential Comment Toxic Granulation Dohle Bodies Platelet Estimate Platelet Morphology Ovalocytes Johnny Cells Smear Path Review Haptoglobin PT 10.8 INR 1.1 APTT 26.8 Fibrinogen 334 Sodium Potassium Chloride Carbon Dioxide Anion Gap BUN Creatinine Estimated GFR POC Glucose Random Glucose Uric Acid Calcium Phosphorus Iron TIBC % Saturation Ferritin Total Bilirubin Direct Bilirubin Indirect Bilirubin AST ALT Alkaline Phosphatase Lactate Dehydrogenase Total Protein Total Protein (PEP) Albumin Vitamin B12 Folate PTH Intact Urine Color Yellow Urine Clarity Clear Urine pH 5.0 Ur Specific [place] 1.016 Urine Protein Negative Urine Glucose (UA) 50 Urine Ketones Negative Urine Occult Blood Negative Urine Nitrate Negative Urine Bilirubin Negative Urine Urobilinogen Less than 2 Ur Leukocyte Esterase Negative Urine RBC 1 Urine WBC Less than 1 Hyaline Casts 9 Micro UA Comment Culture not ind Ur Microscopic Review Not Reportable Urine Culture Comments Culture not ind Ur Random Creatinine 93 U Random Total Protein 28.7 H Protein/Creatinin Ratio 0.31 H Complement C3 Complement C4 Hepatitis A IgM Ab Hep Bs Antigen Hep B Core IgM Ab Hep C IgG Ab 02/07/18 02/07/18 02/08/18 19:52 20:44 07:35 WBC 3.8 L D RBC 3.13 L Hgb 9.0 L Hct 27.8 L MCV 88.8 MCH 28.8 MCHC 32.4 RDW 16.6 Plt Count 55 L MPV 10.7 Prelim Diff (Auto) Slide review pending Neut % (Auto) 68.6 Lymph % (Auto) 21.5 [place] % (Auto) 9.5 H Eos % (Auto) 0.1 Baso % (Auto) 0.3 Neut # (Auto) 2.6 Lymph # (Auto) 0.8 L [place] # (Auto) 0.4 Eos # (Auto) 0.0 Baso # (Auto) 0.0 WBC Differential Manual diff final Seg Neuts % (Manual) 61 Band Neuts % (Manual) 4 Lymphocytes % (Manual) 20 Monocytes % (Manual) 9 H Basophils % (Manual) 1 Metamyelocytes % (Man) 1 Myelocytes % (Man) 2 H Promyelocytes % (Man) 2 H Abs Neuts (Manual) 2.7 Nucleated RBCs/100 WBC 1 H Differential Comment . Toxic Granulation 1+ H Dohle Bodies Present H Platelet Estimate Low L Platelet Morphology Enlarged H Ovalocytes 2+ H Johnny Cells 1+ H Smear Path Review Haptoglobin 322 H PT INR APTT Fibrinogen Sodium Potassium Chloride Carbon Dioxide Anion Gap BUN Creatinine Estimated GFR POC Glucose 208 H Random Glucose Uric Acid 10.1 H Calcium Phosphorus Iron TIBC % Saturation Ferritin 254 Total Bilirubin 0.4 Direct Bilirubin 0.2 Indirect Bilirubin 0.2 AST 6 L ALT 17 Alkaline Phosphatase 64 Lactate Dehydrogenase 133 Total Protein 7.2 Total Protein (PEP) Albumin 3.3 L Vitamin B12 606 Folate 11.4 PTH Intact Urine Color Urine Clarity Urine pH Ur Specific [place] Urine Protein Urine Glucose (UA) Urine Ketones Urine Occult Blood Urine Nitrate Urine Bilirubin Urine Urobilinogen Ur Leukocyte Esterase Urine RBC Urine WBC Hyaline Casts Micro UA Comment Ur Microscopic Review Urine Culture Comments Ur Random Creatinine U Random Total Protein Protein/Creatinin Ratio Complement C3 Complement C4 Hepatitis A IgM Ab Hep Bs Antigen Hep B Core IgM Ab Hep C IgG Ab 02/08/18 02/08/18 02/08/18 07:35 07:35 08:06 WBC RBC Hgb Hct MCV MCH MCHC RDW Plt Count MPV Prelim Diff (Auto) Neut % (Auto) Lymph % (Auto) [place] % (Auto) Eos % (Auto) Baso % (Auto) Neut # (Auto) Lymph # (Auto) [place] # (Auto) Eos # (Auto) Baso # (Auto) WBC Differential Seg Neuts % (Manual) Band Neuts % (Manual) Lymphocytes % (Manual) Monocytes % (Manual) Basophils % (Manual) Metamyelocytes % (Man) Myelocytes % (Man) Promyelocytes % (Man) Abs Neuts (Manual) Nucleated RBCs/100 WBC Differential Comment Toxic Granulation Dohle Bodies Platelet Estimate Platelet Morphology Ovalocytes Johnny Cells Smear Path Review Haptoglobin PT INR APTT Fibrinogen Sodium 141 Potassium 4.9 Chloride 107 Carbon Dioxide 22.9 Anion Gap 11 BUN 43 H Creatinine 1.66 H Estimated GFR 40 L POC Glucose 210 H Random Glucose 136 H Uric Acid Calcium 8.8 Phosphorus 3.3 Iron TIBC % Saturation Ferritin Total Bilirubin Direct Bilirubin Indirect Bilirubin AST ALT Alkaline Phosphatase Lactate Dehydrogenase Total Protein Total Protein (PEP) 7.4 Albumin Vitamin B12 Folate PTH Intact 82.8 H Urine Color Urine Clarity Urine pH Ur Specific [place] Urine Protein Urine Glucose (UA) Urine Ketones Urine Occult Blood Urine Nitrate Urine Bilirubin Urine Urobilinogen Ur Leukocyte Esterase Urine RBC Urine WBC Hyaline Casts Micro UA Comment Ur Microscopic Review Urine Culture Comments Ur Random Creatinine U Random Total Protein Protein/Creatinin Ratio Complement C3 111 Complement C4 32 Hepatitis A IgM Ab Nonreactive Hep Bs Antigen Nonreactive Hep B Core IgM Ab Nonreactive Hep C IgG Ab Nonreactive 02/08/18 11:19 WBC RBC Hgb Hct MCV MCH MCHC RDW Plt Count MPV Prelim Diff (Auto) Neut % (Auto) Lymph % (Auto) [place] % (Auto) Eos % (Auto) Baso % (Auto) Neut # (Auto) Lymph # (Auto) [place] # (Auto) Eos # (Auto) Baso # (Auto) WBC Differential Seg Neuts % (Manual) Band Neuts % (Manual) Lymphocytes % (Manual) Monocytes % (Manual) Basophils % (Manual) Metamyelocytes % (Man) Myelocytes % (Man) Promyelocytes % (Man) Abs Neuts (Manual) Nucleated RBCs/100 WBC Differential Comment Toxic Granulation Dohle Bodies Platelet Estimate Platelet Morphology Ovalocytes [place] Cells Smear Path Review Haptoglobin PT INR APTT Fibrinogen Sodium Potassium Chloride Carbon Dioxide Anion Gap BUN Creatinine Estimated GFR POC Glucose 181 H Random Glucose Uric Acid Calcium Phosphorus Iron TIBC % Saturation Ferritin Total Bilirubin Direct Bilirubin Indirect Bilirubin AST ALT Alkaline Phosphatase Lactate Dehydrogenase Total Protein Total Protein (PEP) Albumin Vitamin B12 Folate PTH Intact Urine Color Urine Clarity Urine pH Ur Specific [place] Urine Protein Urine Glucose (UA) Urine Ketones Urine Occult Blood Urine Nitrate Urine Bilirubin Urine Urobilinogen Ur Leukocyte Esterase Urine RBC Urine WBC Hyaline Casts Micro UA Comment Ur Microscopic Review Urine Culture Comments Ur Random Creatinine U Random Total Protein Protein/Creatinin Ratio Complement C3 Complement C4 Hepatitis A IgM Ab Hep Bs Antigen Hep B Core IgM Ab Hep C IgG Ab Imaging Studies: Impressions Abdomen/Bladder Ultrasound 02/08/18 00:00 CONCLUSION: 1. No hydronephrosis. 2. Increased echogenicity characteristic of medical renal disease. 3. Right kidney is small and atrophic in appearance. There is mild cortical thinning in the left kidney. Medications: Active Medications Generic Name Dose Route Start Last Admin Trade Name Freq PRN Reason Stop Dose Admin Atorvastatin Calcium 40 mg 02/08/18 09:00 02/08/18 12:01 Lipitor PO 40 mg DAILY ANDREA Administration Clonidine HCl 0.1 mg 02/07/18 16:40 02/08/18 13:50 Catapres PO 0.1 mg Q6H PRN Administration SBP>160, DBP>90 Sodium Chloride 1,000 mls @ 30 mls/hr 02/07/18 12:00 02/08/18 11:49 Ns Inj IV.SIG Not Given .Q24H ANDREA Insulin Aspart 0 unit 02/07/18 17:45 02/08/18 11:58 Novolog Insulin Correctional Sugar Inj SQ 1 unit ACHS ANDREA Administration Protocol Lactulose 30 ml 02/07/18 16:08 02/08/18 11:58 Lactulose Liq PO 30 ml DAILY PRN Administration SEVERE CONSITIPATION Multivitamins 1 tab 02/08/18 09:00 02/08/18 11:58 Theragran PO 1 tab DAILY ANDREA Administration Pantoprazole Sodium 40 mg 02/08/18 09:00 02/08/18 11:58 Protonix PO 40 mg DAILY ANDREA Administration Ropinirole HCl 1 mg 02/07/18 21:00 02/07/18 20:57 Requip PO 1 mg HS ANDREA Administration Senna/Docusate Sodium 1 tab 02/07/18 21:00 02/08/18 11:58 Kyleigh-Colace PO 1 tab BID ANDREA Administration Tolterodine Tartrate 2 mg 02/08/18 09:00 02/08/18 11:58 Detrol La PO 2 mg DAILY ANDREA Administration Torsemide 20 mg 02/08/18 10:00 02/08/18 13:50 Demadex PO 20 mg DAILY ANDREA Administration Umeclidinium/Vilanterol 1 puff 02/07/18 16:00 02/07/18 18:03 Anoro-Ellipta 62.5/25 Mcg Inh INH Not Given Q24H ANDREA Objective Remarks: GENERAL: Well-nourished, well-developed elderly male patient, in no acute distress. SKIN: Warm and dry. 2 x 2 gauze dressing to posterior iliac crest, dry/intact. No swelling, erythema. HEAD: Normocephalic. EYES: No scleral icterus. No injection or drainage. NECK: Supple, trachea midline. CARDIOVASCULAR: Regular rate and rhythm without murmurs. RESPIRATORY: Breath sounds equal bilaterally. No accessory muscle use. GASTROINTESTINAL: Abdomen soft, non-tender, nondistended. EXTREMITIES: No cyanosis, or edema. MUSCULOSKELETAL: Adequate muscle tone. NEUROLOGICAL: No obvious focal deficit. Awake, alert, and oriented x3. PSYCHIATRIC: Appropriate mood and affect; insight and judgment normal. Assessment/Plan - Plan Mr. Palacio is a pleasant 82-year-old gentleman with an extensive cardiac history. He was scheduled for heart catheterization when pre-op blood work revealed pancytopenia and elevated creatinine. Heme/Onc was consulted for pancytopenia. Recommendations: 1. Pancytopenia, with early cells present on differential, highly suspicious for an underlying bone marrow disorder especially leukemia. Patient underwent bone marrow biopsy this a.m. and we will await these results. 2. Elevated creatinine, nephrology consulted. 3. Disease, management per cardiology. 4. Repeat CBC in the a.m. - Attending Statement The exam, history, and the medical decision-making described in the above note were completed with the assistance of the mid-level provider. I reviewed and agree with the findings presented. I attest that I had a [id number] encounter with the patient on the same day, and personally performed and documented my assessment and findings in the medical record. Resting comfortably in bed, getting ready to work with physical therapy. He is s/pt bone marrow biopsy with results pending. Nephrology and Cardiology team following.
--- NOTE | 2018-02-08 15:04 | P.PNCA ---
Subjective Interval history: Pt resting in bed, denies any acute complaints overnight. He denies any chest pain or SOB at rest, however he reports chest pressure and SOB if he walks more than 15 feet. Bone marrow biopsy completed this AM, results pending. BP is elevated, will resume home BP med and isosorbide. Hematology and nephrology workup in progress. The exam, history, and the medical decision-making described in the above note were completed with the assistance of the mid-level provider. I reviewed and agree with the findings presented. I attest that I had a [id number] encounter with the patient on the same day, and personally performed and documented my assessment and findings in the medical record. Overall stable cv may have myelofibrosis or leukemia. Medications and Allergies Allergies Allergy/AdvReac Type Severity Reaction Status Date / Time No Known Allergies Allergy Verified 02/07/18 11:24 Home Medications Medication Instructions Recorded Confirmed Type Multi Vitamin 1 cap PO DAILY 02/07/18 02/07/18 History aspirin 81 mg PO DAILY 02/07/18 02/07/18 History atorvastatin 40 mg PO DAILY 02/07/18 02/07/18 History clonidine HCl 0.1 mg PO DAILY 02/07/18 02/07/18 History clopidogrel [Plavix] 75 mg PO DAILY 02/07/18 02/07/18 History enalapril maleate 20 mg PO BID 02/07/18 02/07/18 History famotidine 20 mg PO DAILY 02/07/18 02/07/18 History glipizide-metformin 1 tab PO BID 02/07/18 02/07/18 History isosorbide mononitrate 60 mg PO DAILY 02/07/18 02/07/18 History metoprolol tartrate 25 mg PO BID 02/07/18 02/07/18 History omeprazole 40 mg PO DAILY 02/07/18 02/07/18 History ranolazine [Ranexa] 500 mg PO Q12H 02/07/18 02/07/18 History ropinirole [Requip] 1 mg PO HS 02/07/18 02/07/18 History sitagliptin [Januvia] 100 mg PO DAILY 02/07/18 02/07/18 History solifenacin [Vesicare] 5 mg PO DAILY 02/07/18 02/07/18 History torsemide 20 mg PO DAILY 02/07/18 02/07/18 History umeclidinium-vilanterol [Anoro 1 inh INHALATION Q24H 02/07/18 02/07/18 History Ellipta] Active Medications: Active Medications Acetaminophen (Tylenol) 650 mg PO Q4H PRN PRN Reason: Temp > 100.4 Atorvastatin Calcium (Lipitor) 40 mg PO DAILY [facility] Last Admin: 02/08/18 12:01 Dose: 40 mg Bisacodyl (Dulcolax Supp) 10 mg RECTAL DAILY PRN PRN Reason: SEVERE CONSITIPATION Clonidine HCl (Catapres) 0.1 mg PO Q6H PRN PRN Reason: SBP>160, DBP>90 Last Admin: 02/08/18 13:50 Dose: 0.1 mg Dextrose (D50w Vial) 50 ml IV.PUSH UNSCH PRN PRN Reason: PER HYPOGLYCEMIA PROTOCOL Enalapril Maleate (Vasotec) 10 mg PO BID [facility] Glucagon (Glucagon Inj) 1 mg OTHER PRN PRN PRN Reason: for Hypoglycemia Protocol Sodium Chloride (Ns Inj) 1,000 mls @ 30 mls/hr IV.SIG .Q24H [facility] Last Admin: 02/08/18 11:49 Dose: Not Given Insulin Aspart (Novolog Insulin Correctional Sugar Inj) 0 unit SQ ACHS [facility]; Protocol Last Admin: 02/08/18 11:58 Dose: 1 unit Isosorbide Mononitrate (Imdur) 120 mg PO DAILY@0700 [facility] Lactulose (Lactulose Liq) 30 ml PO DAILY PRN PRN Reason: SEVERE CONSITIPATION Last Admin: 02/08/18 11:58 Dose: 30 ml Metoprolol Tartrate (Lopressor) 25 mg PO BID [facility] Multivitamins (Theragran) 1 tab PO DAILY [facility] Last Admin: 02/08/18 11:58 Dose: 1 tab Ondansetron HCl (Zofran Inj) 4 mg IV.PUSH Q6H PRN PRN Reason: NAUSEA OR VOMITING Pantoprazole Sodium (Protonix) 40 mg PO DAILY [facility] Last Admin: 02/08/18 11:58 Dose: 40 mg Ropinirole HCl (Requip) 1 mg PO HS [facility] Last Admin: 02/07/18 20:57 Dose: 1 mg Senna/Docusate Sodium ([place]igh-Colace) 1 tab PO BID [facility] Last Admin: 02/08/18 11:58 Dose: 1 tab Sennosides (Senokot) 17.2 mg PO Q12H PRN PRN Reason: Moderate Constipation Tolterodine Tartrate (Detrol La) 2 mg PO DAILY [facility] Last Admin: 02/08/18 11:58 Dose: 2 mg Torsemide (Demadex) 20 mg PO DAILY [facility] Last Admin: 02/08/18 13:50 Dose: 20 mg Umeclidinium/Vilanterol (Anoro-Ellipta 62.5/25 Mcg Inh) 1 puff INH Q24H [facility] Last Admin: 02/07/18 18:03 Dose: Not Given Physical Exam Vital signs: Vital Signs 02/07/18 17:08 02/07/18 20:00 02/08/18 00:00 Temperature 97.4 F L 98.4 F 98.6 F Pulse Rate 63 57 L 51 L Respiratory Rate 18 18 18 Blood Pressure 142/73 H 145/75 H 113/55 L Pulse Oximetry 100 99 98 02/08/18 04:00 02/08/18 07:00 02/08/18 08:04 Temperature 98.8 F 98.4 F Pulse Rate 62 66 74 Respiratory Rate 18 18 Blood Pressure 144/68 H 159/78 H Pulse Oximetry 98 93 L 02/08/18 10:05 02/08/18 10:20 02/08/18 10:35 Temperature 98.9 F Pulse Rate 74 93 H 85 Respiratory Rate 20 18 18 Blood Pressure 164/74 H 157/72 H 142/70 H Pulse Oximetry 93 L 97 02/08/18 11:00 02/08/18 11:17 02/08/18 11:59 Temperature 97.9 F Pulse Rate 135 H 70 Respiratory Rate 18 18 Blood Pressure 135/70 152/77 H Pulse Oximetry 97 91 L 02/08/18 13:49 Temperature Pulse Rate Respiratory Rate Blood Pressure 194/94 H Pulse Oximetry Intake & Output 02/07/18 02/08/18 02/08/18 18:59 06:59 18:59 Output Total 300 / 300 Balance -300 / -300 Weight 68 kg 68 kg Output: Urine 300 / 300 Other: Date of Last Bowel Movement 02/05/18 02/05/18 02/05/18 Weight On Admission 68 kg - Constitutional no acute distress, average body habitus, chronically ill appearing, cooperative - Routine HEENT Exam Head: Present: normocephalic, atraumatic Eye: Present: PERRL, normal accommodation ENT: Present: mucous membranes moist - Routine Neck Exam Present: supple - Routine Respiratory Exam Present: diminished air movement - Routine Cardiovascular Exam Present: RRR - Routine Abdominal Exam Present: soft - Routine Skin Exam Present: intact, ecchymosis - Routine Neurological Exam Present: alert, oriented X3 - Detailed Neurological Exam: Coma Scale Eye Opening: Spontaneous Verbal Response: Oriented Motor Response: Obey commands Grisel Coma Scale Total: 15 - Routine Psychiatric Exam Present: normal affect Results 02/08/18 07:35 02/08/18 07:35 Cardiac Enzymes 02/07/18 Range/Units 19:52 AST 6 L (15-37) U/L Lactate Dehydrogenase 133 (87-241) U/L Coagulation 02/07/18 02/07/18 Range/Units 11:15 19:52 PT 10.8 10.8 (9.8-11.6) sec APTT 25.7 26.8 (23.4-31.7) sec CBC 02/07/18 02/08/18 Range/Units 11:15 07:35 WBC 2.5 L 3.8 L D (4.0-11.0) th/mm3 RBC 2.80 L 3.13 L (4.50-5.90) mil/mm3 Hgb 8.3 L 9.0 L (13.0-17.0) gm/dL Hct 24.8 L 27.8 L (39.0-51.0) % Plt Count 56 L 55 L (150-450) th/mm3 Neut # (Auto) 1.6 L 2.6 (1.8-7.7) th/mm3 Lymph # (Auto) 0.7 L 0.8 L (1.0-4.8) th/mm3 [place] # (Auto) 0.2 0.4 (0.0-0.9) th/mm3 Eos # (Auto) 0.0 0.0 (0.0-0.4) th/mm3 Baso # (Auto) 0.0 0.0 (0.0-0.2) th/mm3 Comprehensive Metabolic Panel 02/07/18 02/07/18 02/08/18 Range/Units 11:15 19:52 07:35 Sodium 140 141 (136-145) meq/L Potassium 5.0 4.9 (3.5-5.1) meq/L Chloride 108 H 107 (98-107) meq/L Carbon Dioxide 24.5 22.9 (21.0-32.0) meq/L BUN 54 H 43 H (7-18) mg/dL Creatinine 2.10 H 1.66 H (0.60-1.30) mg/dL Calcium 8.4 L 8.8 (8.5-10.1) mg/dL Direct Bilirubin 0.2 (0.0-0.2) mg/dL Indirect Bilirubin 0.2 (0.0-0.8) mg/dL AST 6 L (15-37) U/L ALT 17 (12-78) U/L Alkaline Phosphatase 64 (45-117) U/L Total Protein 7.2 (6.4-8.2) g/dL Albumin 3.3 L (3.4-5.0) g/dL Intake and Output 02/07/18 02/08/18 02/08/18 22:59 06:59 14:59 Output Total 300 / 300 Balance -300 / -300 Output: Urine 300 / 300 Other: Date of Last Bowel Movement 02/05/18 02/05/18 Weight 68 kg - Imaging and Cardiology Imaging: Impressions Abdomen/Bladder Ultrasound 02/08/18 00:00 CONCLUSION: 1. No hydronephrosis. 2. Increased echogenicity characteristic of medical renal disease. 3. Right kidney is small and atrophic in appearance. There is mild cortical thinning in the left kidney. Assessment and Plan - Plan Assessment ASHD Chest pain HTN Pancytopenia-Anemia Renal insufficiency Carotid stenosis Afib Plan Will hold off on heart cath at this time, currently stable from a CV standpoint , pending hematology workup. Will resume imdur and home BP medications. Pending hematology evaluation. Per hematology, there is high suspicion for an underlying bone marrow disorder, especially acute leukemia. Bone marrow biopsy pending. Nephrology following. Will avoid nephro toxic agents. History of post op Afib-no known Afib since 2014. History of left CEA, continues on statin. ASA and plavix on hold due to pancytopenia. Appreciate hematologies input. Patient was seen and evaluated by Dr. Jamidar who participated in care management and decision making. Code Status: Full Code Discussed Condition With: BENJAMIN
--- NOTE | 2018-02-08 15:07 | P.PNNP ---
Subjective Interval history: had Bone marrow Biopsy Physical Exam Vital signs: Vital Signs 02/07/18 17:08 02/07/18 20:00 02/08/18 00:00 Temperature 97.4 F L 98.4 F 98.6 F Pulse Rate 63 57 L 51 L Respiratory Rate 18 18 18 Blood Pressure 142/73 H 145/75 H 113/55 L Pulse Oximetry 100 99 98 02/08/18 04:00 02/08/18 07:00 02/08/18 08:04 Temperature 98.8 F 98.4 F Pulse Rate 62 66 74 Respiratory Rate 18 18 Blood Pressure 144/68 H 159/78 H Pulse Oximetry 98 93 L 02/08/18 10:05 02/08/18 10:20 02/08/18 10:35 Temperature 98.9 F Pulse Rate 74 93 H 85 Respiratory Rate 20 18 18 Blood Pressure 164/74 H 157/72 H 142/70 H Pulse Oximetry 93 L 97 02/08/18 11:00 02/08/18 11:17 02/08/18 11:59 Temperature 97.9 F Pulse Rate 135 H 70 Respiratory Rate 18 18 Blood Pressure 135/70 152/77 H Pulse Oximetry 97 91 L 02/08/18 13:49 Temperature Pulse Rate Respiratory Rate Blood Pressure 194/94 H Pulse Oximetry Intake & Output 02/07/18 02/08/18 02/08/18 18:59 06:59 18:59 Output Total 300 / 300 Balance -300 / -300 Weight 68 kg 68 kg Output: Urine 300 / 300 Other: Date of Last Bowel Movement 02/05/18 02/05/18 02/05/18 Weight On Admission 68 kg Narrative: GENERAL: Well-nourished, well-developed patient. SKIN: Warm and dry. HEAD: Normocephalic. EYES: No scleral icterus. No injection or drainage. NECK: Supple, trachea midline. No JVD or lymphadenopathy. CARDIOVASCULAR: Regular rate and rhythm without murmurs, gallops, or rubs. RESPIRATORY: Breath sounds equal bilaterally. No accessory muscle use. GASTROINTESTINAL: Abdomen soft, non-tender, nondistended. EXTREMITIES: As above NEUROLOGICAL: Awake, alert, and oriented x 3. Non-focal. Assessment and Plan - Assessment (1) Acute renal failure Code(s): N17.9 - Acute kidney failure, unspecified Status: Acute (2) Chronic kidney disease Code(s): N18.9 - Chronic kidney disease, unspecified Status: Acute (3) Diabetes Code(s): E11.9 - Type 2 diabetes mellitus without complications Status: Acute (4) Hypertension Code(s): I10 - Essential (primary) hypertension Status: Acute (5) Coronary artery disease Code(s): I25.10 - Atherosclerotic heart disease of [place] coronary artery without angina pectoris Status: Acute (6) Pancytopenia Code(s): D61.818 - Other pancytopenia Status: Acute - Plan Patient told about ultrasound of the kidney smaller Rt kidney Bone marrow Biopsy done wait for results cr 1.6 improved Risk of dye study is associated with acute renal failure about 20-25% chance of worsening and 1% chance of dialysis Continue to monitor
[2018-02-08] MEDS: Umeclindinium 62.5 MCG/Vilanterol 25 MCG Inhaler INH SCH (15:28)
--- NOTE | 2018-02-08 15:51 | IR ---
EXAM DATE: 02/08/2018 10:08 AM EST AGE/SEX: 82 years / Male INDICATIONS: Patient presents with pancytopenia here for bone marrow biopsy for suspected leukemia. CLINICAL DATA: This is the patient's initial encounter. Patient reports that signs and symptoms have been present for 1 day and indicates a pain score of 0/10. MEDICAL/SURGICAL HISTORY: Chronic obstructive pulmonary disease. Diabetes. Hypertension. Carmen b, Carotid stenosis, Edema, Glaucoma, HLD, Osteoarthritis of right knee, SOB CABG. COMPARISON: No prior exams available for comparison. FLUORO TIME (min): 1.9 IMAGE SERIES: 2 SEDATION TIME (min): 30 MEDICATION(S): 1.5mg midazolam (Versed) IV 75mcg fentanyl (Sublimaze) IV DEVICE(s): 11 gauge bone biopsy needle SPECIMEN(S): Core specimen(s) obtained and submitted to laboratory for pathologic evaluation. . . PROCEDURE : 1. Fluoroscopically guided bone marrow aspirate and biopsy. 2. Conscious sedation with continuous EKG and Oximetry monitoring. The risks, benefits and alternatives to the procedure were explained and verbal and written consent w as obtained. The site was prepped in sterile fashion. Full sterile technique was used, including cap, mask, steri le gloves and gown and a large sterile sheet. Hand hygiene and 2% chlorhexidine and/or betadine/alco hol prep was utilized per protocol for cutaneous antisepsis. The skin and subcutaneous tissues were infiltrated with local anesthetic solution. With fluoroscopic guidance an 11-gauge bone marrow biopsy needle was advanced into the right iliac kajal ne and core biopsy was obtained. Next, 3 bone marrow aspirates were performed. All samples were submi tted to pathology. Conscious sedation was performed with the prescribed dosages and duration as above in the presence of an independent trained radiology nurse to assist in the monitoring of the patient. EKG and oximetry remained stable throughout the procedure. CONCLUSION: 1. Uncomplicated fluoroscopic guided bone marrow aspirate. 2. Uncomplicated fluoroscopic guided bone marrow biopsy. Electronically signed by: Demario Rodas MD 02/08/2018 3:50 PM EST
--- NOTE | 2018-02-08 18:51 | P.PNIM ---
Subjective Interval history: Patient is in no acute distress. He is sitting upright in bed eating dinner. He does not have any complaints currently. No complaints of chest pain no shortness of breath. Physical Exam Vital signs: Vital Signs 02/07/18 20:00 02/08/18 00:00 02/08/18 04:00 Temperature 98.4 F 98.6 F 98.8 F Pulse Rate 57 L 51 L 62 Respiratory Rate 18 18 18 Blood Pressure 145/75 H 113/55 L 144/68 H Pulse Oximetry 99 98 98 02/08/18 07:00 02/08/18 08:04 02/08/18 10:05 Temperature 98.4 F 98.9 F Pulse Rate 66 74 74 Respiratory Rate 18 20 Blood Pressure 159/78 H 164/74 H Pulse Oximetry 93 L 02/08/18 10:20 02/08/18 10:35 02/08/18 11:00 Temperature Pulse Rate 93 H 85 Respiratory Rate 18 18 18 Blood Pressure 157/72 H 142/70 H 135/70 Pulse Oximetry 93 L 97 97 02/08/18 11:17 02/08/18 11:59 02/08/18 13:49 Temperature 97.9 F Pulse Rate 135 H 70 Respiratory Rate 18 Blood Pressure 152/77 H 194/94 H Pulse Oximetry 91 L 02/08/18 15:00 02/08/18 15:26 Temperature 99.3 F Pulse Rate 68 69 Respiratory Rate 18 Blood Pressure 125/65 Pulse Oximetry 92 L Intake & Output 02/07/18 02/08/18 02/08/18 18:59 06:59 18:59 Intake Total 800 / 800 Output Total 300 / 300 400 / 400 Balance -300 / -300 400 / 400 Weight 68 kg 68 kg Intake: Oral 800 / 800 Output: Urine 300 / 300 400 / 400 Other: # Voids 1 Date of Last Bowel Movement 02/05/18 02/05/18 02/08/18 # Bowel Movements 1 Weight On Admission 68 kg Narrative: General patient in no acute distress HEENT extraocular movements are intact, clear oropharyngeal mucosa, no JVD Cardiovascular S1-S2 audible, RRR, no murmurs rubs or gallops Respiratory clear to auscultation bilaterally Abdomen soft, nontender, nondistended, normal bowel sounds Extremities no edema 2+ distal pulses in bilateral upper and lower extremities Neuro cranial nerves II through XII intact Results - Labs CBC & Chem 7: 02/08/18 07:35 02/08/18 07:35 Laboratory Results - last 24 hr 02/07/18 02/07/18 02/07/18 11:15 18:25 18:25 WBC RBC Hgb Hct MCV MCH MCHC RDW Plt Count MPV Prelim Diff (Auto) Neut % (Auto) Lymph % (Auto) [place] % (Auto) Eos % (Auto) Baso % (Auto) Neut # (Auto) Lymph # (Auto) [place] # (Auto) Eos # (Auto) Baso # (Auto) WBC Differential Seg Neuts % (Manual) Band Neuts % (Manual) Lymphocytes % (Manual) Monocytes % (Manual) Basophils % (Manual) Metamyelocytes % (Man) Myelocytes % (Man) Promyelocytes % (Man) Abs Neuts (Manual) Nucleated RBCs/100 WBC Differential Comment Toxic Granulation Dohle Bodies Platelet Estimate Platelet Morphology Ovalocytes [place] Cells Smear Path Review Haptoglobin PT INR APTT Fibrinogen Sodium Potassium Chloride Carbon Dioxide Anion Gap BUN Creatinine Estimated GFR POC Glucose Random Glucose Uric Acid Calcium Phosphorus Ferritin Total Bilirubin Direct Bilirubin Indirect Bilirubin AST ALT Alkaline Phosphatase Lactate Dehydrogenase Total Protein Total Protein (PEP) Albumin Vitamin B12 Folate PTH Intact Urine Color Yellow Urine Clarity Clear Urine pH 5.0 Ur Specific [place] 1.016 Urine Protein Negative Urine Glucose (UA) 50 Urine Ketones Negative Urine Occult Blood Negative Urine Nitrate Negative Urine Bilirubin Negative Urine Urobilinogen Less than 2 Ur Leukocyte Esterase Negative Urine RBC 1 Urine WBC Less than 1 Hyaline Casts 9 Micro UA Comment Culture not ind Ur Microscopic Review Not Reportable Urine Culture Comments Culture not ind Ur Random Creatinine 93 U Random Total Protein 28.7 H Protein/Creatinin Ratio 0.31 H Complement C3 Complement C4 Hepatitis A IgM Ab Hep Bs Antigen Hep B Core IgM Ab Hep C IgG Ab 02/07/18 02/07/18 02/07/18 19:52 19:52 20:44 WBC RBC Hgb Hct MCV MCH MCHC RDW Plt Count MPV Prelim Diff (Auto) Neut % (Auto) Lymph % (Auto) [place] % (Auto) Eos % (Auto) Baso % (Auto) Neut # (Auto) Lymph # (Auto) [place] # (Auto) Eos # (Auto) Baso # (Auto) WBC Differential Seg Neuts % (Manual) Band Neuts % (Manual) Lymphocytes % (Manual) Monocytes % (Manual) Basophils % (Manual) Metamyelocytes % (Man) Myelocytes % (Man) Promyelocytes % (Man) Abs Neuts (Manual) Nucleated RBCs/100 WBC Differential Comment Toxic Granulation Dohle Bodies Platelet Estimate Platelet Morphology Ovalocytes [place] Cells Smear Path Review Haptoglobin 322 H PT 10.8 INR 1.1 APTT 26.8 Fibrinogen 334 Sodium Potassium Chloride Carbon Dioxide Anion Gap BUN Creatinine Estimated GFR POC Glucose 208 H Random Glucose Uric Acid 10.1 H Calcium Phosphorus Ferritin 254 Total Bilirubin 0.4 Direct Bilirubin 0.2 Indirect Bilirubin 0.2 AST 6 L ALT 17 Alkaline Phosphatase 64 Lactate Dehydrogenase 133 Total Protein 7.2 Total Protein (PEP) Albumin 3.3 L Vitamin B12 606 Folate 11.4 PTH Intact Urine Color Urine Clarity Urine pH Ur Specific [place] Urine Protein Urine Glucose (UA) Urine Ketones Urine Occult Blood Urine Nitrate Urine Bilirubin Urine Urobilinogen Ur Leukocyte Esterase Urine RBC Urine WBC Hyaline Casts Micro UA Comment Ur Microscopic Review Urine Culture Comments Ur Random Creatinine U Random Total Protein Protein/Creatinin Ratio Complement C3 Complement C4 Hepatitis A IgM Ab Hep Bs Antigen Hep B Core IgM Ab Hep C IgG Ab 02/08/18 02/08/18 02/08/18 07:35 07:35 07:35 WBC 3.8 L D RBC 3.13 L Hgb 9.0 L Hct 27.8 L MCV 88.8 MCH 28.8 MCHC 32.4 RDW 16.6 Plt Count 55 L MPV 10.7 Prelim Diff (Auto) Slide review pending Neut % (Auto) 68.6 Lymph % (Auto) 21.5 [place] % (Auto) 9.5 H Eos % (Auto) 0.1 Baso % (Auto) 0.3 Neut # (Auto) 2.6 Lymph # (Auto) 0.8 L [place] # (Auto) 0.4 Eos # (Auto) 0.0 Baso # (Auto) 0.0 WBC Differential Manual diff final Seg Neuts % (Manual) 61 Band Neuts % (Manual) 4 Lymphocytes % (Manual) 20 Monocytes % (Manual) 9 H Basophils % (Manual) 1 Metamyelocytes % (Man) 1 Myelocytes % (Man) 2 H Promyelocytes % (Man) 2 H Abs Neuts (Manual) 2.7 Nucleated RBCs/100 WBC 1 H Differential Comment . Toxic Granulation 1+ H Dohle Bodies Present H Platelet Estimate Low L Platelet Morphology Enlarged H Ovalocytes 2+ H [place] Cells 1+ H Smear Path Review Haptoglobin PT INR APTT Fibrinogen Sodium 141 Potassium 4.9 Chloride 107 Carbon Dioxide 22.9 Anion Gap 11 BUN 43 H Creatinine 1.66 H Estimated GFR 40 L POC Glucose Random Glucose 136 H Uric Acid Calcium 8.8 Phosphorus 3.3 Ferritin Total Bilirubin Direct Bilirubin Indirect Bilirubin AST ALT Alkaline Phosphatase Lactate Dehydrogenase Total Protein Total Protein (PEP) 7.4 Albumin Vitamin B12 Folate PTH Intact 82.8 H Urine Color Urine Clarity Urine pH Ur Specific [place] Urine Protein Urine Glucose (UA) Urine Ketones Urine Occult Blood Urine Nitrate Urine Bilirubin Urine Urobilinogen Ur Leukocyte Esterase Urine RBC Urine WBC Hyaline Casts Micro UA Comment Ur Microscopic Review Urine Culture Comments Ur Random Creatinine U Random Total Protein Protein/Creatinin Ratio Complement C3 111 Complement C4 32 Hepatitis A IgM Ab Nonreactive Hep Bs Antigen Nonreactive Hep B Core IgM Ab Nonreactive Hep C IgG Ab Nonreactive 02/08/18 02/08/18 02/08/18 08:06 11:19 16:40 WBC RBC Hgb Hct MCV MCH MCHC RDW Plt Count MPV Prelim Diff (Auto) Neut % (Auto) Lymph % (Auto) [place] % (Auto) Eos % (Auto) Baso % (Auto) Neut # (Auto) Lymph # (Auto) [place] # (Auto) Eos # (Auto) Baso # (Auto) WBC Differential Seg Neuts % (Manual) Band Neuts % (Manual) Lymphocytes % (Manual) Monocytes % (Manual) Basophils % (Manual) Metamyelocytes % (Man) Myelocytes % (Man) Promyelocytes % (Man) Abs Neuts (Manual) Nucleated RBCs/100 WBC Differential Comment Toxic Granulation Dohle Bodies Platelet Estimate Platelet Morphology Ovalocytes [place] Cells Smear Path Review Haptoglobin PT INR APTT Fibrinogen Sodium Potassium Chloride Carbon Dioxide Anion Gap BUN Creatinine Estimated GFR POC Glucose 210 H 181 H 210 H Random Glucose Uric Acid Calcium Phosphorus Ferritin Total Bilirubin Direct Bilirubin Indirect Bilirubin AST ALT Alkaline Phosphatase Lactate Dehydrogenase Total Protein Total Protein (PEP) Albumin Vitamin B12 Folate PTH Intact Urine Color Urine Clarity Urine pH Ur Specific [place] Urine Protein Urine Glucose (UA) Urine Ketones Urine Occult Blood Urine Nitrate Urine Bilirubin Urine Urobilinogen Ur Leukocyte Esterase Urine RBC Urine WBC Hyaline Casts Micro UA Comment Ur Microscopic Review Urine Culture Comments Ur Random Creatinine U Random Total Protein Protein/Creatinin Ratio Complement C3 Complement C4 Hepatitis A IgM Ab Hep Bs Antigen Hep B Core IgM Ab Hep C IgG Ab - Imaging Impressions Abdomen/Bladder Ultrasound 02/08/18 00:00 CONCLUSION: 1. No hydronephrosis. 2. Increased echogenicity characteristic of medical renal disease. 3. Right kidney is small and atrophic in appearance. There is mild cortical thinning in the left kidney. Biopsy,Fluoroscopy Guided 02/08/18 00:00 CONCLUSION: 1. Uncomplicated fluoroscopic guided bone marrow aspirate. 2. Uncomplicated fluoroscopic guided bone marrow biopsy. Assessment and Plan - Plan This patient is a 82-year-old male with a diagnosis of hypertension, dyslipidemia, atherosclerotic heart disease status post CABG x3, left carotid artery stenosis, atrial fibrillation, COPD, osteoarthritis. The patient had a cardiac stress test which was positive. The patient is scheduled for a cardiac catheterization. 1. Angina 2. Acute kidney injury on CKD The patient currently does not have any chest pain. Recent Lexiscan was positive and the patient was admitted for cardiac catheterization. The patient presented with an elevated serum creatinine of 2.1. Baseline serum creatinine is unknown. Was on IV fluids and currently is serum creatinine has improved to 1.6. We will follow-up a.m. labs and continue to monitor his creatinine. Cardiology is also following the patient and is holding off on the cardiac catheterization at this time given the patient's acute kidney injury. I will follow-up with cardiology for the recommendations. Continue statin, beta-karoline, Imdur. Aspirin and Plavix are on hold currently due to pancytopenia. Platelet count 55,000. Will follow up with heme oncology further Recs. Nephrology following Avoid nephrotoxic agents 3. Pancytopenia Heme oncology following. There is a suspicion for an underlying bone marrow disorder, possibly leukemia. The patient underwent bone marrow biopsy today will await those results. We will follow-up with him oncology for the recommendations. Follow-up a.m. labs. No pharmacotherapy for DVT prophylaxis the patient is thrombocytopenic
[2018-02-08] MEDS: Metoprolol Tartrate 25 MG Tablet PO SCH (20:32)
[2018-02-09 05:14] LABS: Hematocrit 23.9 % (39.0-51.0); Hemoglobin 8.2 gm/dL (13.0-17.0); Mean Corpuscular HGB Conc 34.4 % (32.0-36.0); Mean Corpuscular Hemoglobin 29.6 pg (27.0-34.0); Mean Platelet Volume 10.4 fL (7.0-11.0); Platelet Count 52 th/mm3 (150-450); Red Blood Count 2.78 mil/mm3 (4.50-5.90); Red Cell Distribution Width 16.1 % (11.6-17.2)
[2018-02-09 05:29] LABS: Calcium 8.3 mg/dL (8.5-10.1); Carbon Dioxide 22.8 meq/L (21.0-32.0); Magnesium 2.4 mg/dL (1.5-2.5); Potassium 4.4 meq/L (3.5-5.1)
[2018-02-09] MEDS ORDERED: Isosorbide Mononitrate 60 MG ER 24HR Tablet (Imdur) PO SCH (07:00)
[2018-02-09 07:46] LABS: Lymphocytes 15 % (9-44); Metamyelocytes 3 % (0-1); Monocytes 8 % (0-8); Myelocytes 3 % (0-0); Tallied Nucleated RBC 3 (0-0)
[2018-02-09 07:47] LABS: Ovalocytes 2+; Platelet Morphology Normal (Normal)
[2018-02-09] MEDS: Isosorbide Mononitrate 60 MG ER 24HR Tablet (Imdur) PO SCH (09:47)
[2018-02-09] MEDS: Metoprolol Tartrate 25 MG Tablet PO SCH ×2 (09:48→20:28)
[2018-02-09] MEDS: Senna/Docusate Sodium 8.6/50 MG Tablet PO SCH ×2 (09:48→20:28)
[2018-02-09] MEDS: Tolterodine Tartrate LA 2 MG Capsule PO SCH (09:48)
[2018-02-09] MEDS: Insulin NovoLOG Aspart Correctional Sugar Inj SQ SCH ×4 (09:48→20:30)
[2018-02-09] MEDS: Torsemide 20 MG Tablet PO SCH (09:48)
--- NOTE | 2018-02-09 10:15 | P.PNONC ---
Subjective Interval history: T-max 100.7 F. Patient denies pain at biopsy site. Denies bleeding. No complaints at this time. Pathology pending. Objective Vital Signs/Intake & Output: Vital Signs 02/08/18 10:20 02/08/18 10:35 02/08/18 11:00 Temperature Pulse Rate 93 H 85 Respiratory Rate 18 18 18 Blood Pressure 157/72 H 142/70 H 135/70 Pulse Oximetry 93 L 97 97 02/08/18 11:17 02/08/18 11:59 02/08/18 13:49 Temperature 97.9 F Pulse Rate 135 H 70 Respiratory Rate 18 Blood Pressure 152/77 H 194/94 H Pulse Oximetry 91 L 02/08/18 15:00 02/08/18 15:26 02/08/18 19:00 Temperature 99.3 F Pulse Rate 68 69 84 Respiratory Rate 18 Blood Pressure 125/65 Pulse Oximetry 92 L 02/08/18 20:00 02/08/18 21:00 02/08/18 22:00 Temperature 99.9 F H Pulse Rate 80 82 78 Respiratory Rate 18 Blood Pressure 136/63 Pulse Oximetry 96 02/08/18 23:00 02/09/18 00:00 02/09/18 01:00 Temperature 100.7 F H Pulse Rate 72 75 68 Respiratory Rate 18 Blood Pressure 103/46 L Pulse Oximetry 97 02/09/18 02:00 02/09/18 03:00 02/09/18 04:00 Temperature 98.0 F Pulse Rate 69 69 73 Respiratory Rate 18 Blood Pressure 88/52 L Pulse Oximetry 95 02/09/18 05:00 02/09/18 06:00 02/09/18 08:26 Temperature 97.5 F L Pulse Rate 68 69 65 Respiratory Rate 16 Blood Pressure 112/62 Pulse Oximetry 98 Intake & Output 02/08/18 02/09/18 02/09/18 18:59 06:59 18:59 Intake Total 800 / 800 240 / 240 Output Total 400 / 400 250 / 250 Balance 400 / 400 -10 / -10 Weight 68.2 kg Intake: Oral 800 / 800 240 / 240 Output: Urine 400 / 400 250 / 250 Other: # Voids 1 1 Date of Last Bowel Movement 02/08/18 02/08/18 # Bowel Movements 1 Result Diagrams: 02/09/18 04:50 02/09/18 04:50 Laboratory Results: Laboratory Results - last 24 hr 02/08/18 02/08/18 02/08/18 07:35 11:19 16:40 WBC RBC Hgb Hct MCV MCH MCHC RDW Plt Count MPV Prelim Diff (Auto) WBC Differential Seg Neuts % (Manual) Band Neuts % (Manual) Lymphocytes % (Manual) Monocytes % (Manual) Metamyelocytes % (Man) Myelocytes % (Man) Abs Neuts (Manual) Nucleated RBCs/100 WBC Differential Comment Platelet Estimate Platelet Morphology Ovalocytes Sodium Potassium Chloride Carbon Dioxide Anion Gap BUN Creatinine Estimated GFR POC Glucose 181 H 210 H Random Glucose Calcium Magnesium PTH Intact 82.8 H Hepatitis A IgM Ab Nonreactive Hep Bs Antigen Nonreactive Hep B Core IgM Ab Nonreactive Hep C IgG Ab Nonreactive 02/08/18 02/09/18 02/09/18 19:51 04:50 04:50 WBC 6.0 D RBC 2.78 L Hgb 8.2 L Hct 23.9 L MCV 86.0 MCH 29.6 MCHC 34.4 RDW 16.1 Plt Count 52 L MPV 10.4 Prelim Diff (Auto) Manual diff required WBC Differential Manual diff final Seg Neuts % (Manual) 63 Band Neuts % (Manual) 8 H Lymphocytes % (Manual) 15 Monocytes % (Manual) 8 Metamyelocytes % (Man) 3 H Myelocytes % (Man) 3 H Abs Neuts (Manual) 4.6 Nucleated RBCs/100 WBC 3 H Differential Comment . Platelet Estimate Low L Platelet Morphology Normal Ovalocytes 2+ H Sodium 137 Potassium 4.4 Chloride 104 Carbon Dioxide 22.8 Anion Gap 10 BUN 39 H Creatinine 1.81 H Estimated GFR 36 L POC Glucose 309 H Random Glucose 203 H Calcium 8.3 L Magnesium 2.4 PTH Intact Hepatitis A IgM Ab Hep Bs Antigen Hep B Core IgM Ab Hep C IgG Ab 02/09/18 08:17 WBC RBC Hgb Hct MCV MCH MCHC RDW Plt Count MPV Prelim Diff (Auto) WBC Differential Seg Neuts % (Manual) Band Neuts % (Manual) Lymphocytes % (Manual) Monocytes % (Manual) Metamyelocytes % (Man) Myelocytes % (Man) Abs Neuts (Manual) Nucleated RBCs/100 WBC Differential Comment Platelet Estimate Platelet Morphology Ovalocytes Sodium Potassium Chloride Carbon Dioxide Anion Gap BUN Creatinine Estimated GFR POC Glucose 204 H Random Glucose Calcium Magnesium PTH Intact Hepatitis A IgM Ab Hep Bs Antigen Hep B Core IgM Ab Hep C IgG Ab Imaging Studies: Impressions Abdomen/Bladder Ultrasound 02/08/18 00:00 CONCLUSION: 1. No hydronephrosis. 2. Increased echogenicity characteristic of medical renal disease. 3. Right kidney is small and atrophic in appearance. There is mild cortical thinning in the left kidney. Biopsy,Fluoroscopy Guided 02/08/18 00:00 CONCLUSION: 1. Uncomplicated fluoroscopic guided bone marrow aspirate. 2. Uncomplicated fluoroscopic guided bone marrow biopsy. Medications: Active Medications Generic Name Dose Route Start Last Admin Trade Name Freq PRN Reason Stop Dose Admin Acetaminophen 650 mg 02/07/18 16:08 02/08/18 23:29 Tylenol PO 650 mg Q4H PRN Administration Temp > 100.4 Atorvastatin Calcium 40 mg 02/08/18 09:00 02/09/18 09:48 Lipitor PO 40 mg DAILY ANDREA Administration Clonidine HCl 0.1 mg 02/07/18 16:40 02/08/18 13:50 Catapres PO 0.1 mg Q6H PRN Administration SBP>160, DBP>90 Enalapril Maleate 5 mg 02/09/18 09:45 02/09/18 09:48 Vasotec PO 5 mg BID ANDREA Administration Sodium Chloride 1,000 mls @ 30 mls/hr 02/07/18 12:00 02/08/18 11:49 Ns Inj IV.SIG Not Given .Q24H [facility] Insulin Aspart 0 unit 02/07/18 17:45 02/09/18 09:48 Novolog Insulin Correctional Sugar Inj SQ 3 unit ACHS ANDREA Administration Protocol Isosorbide Mononitrate 60 mg 02/09/18 09:00 02/09/18 09:47 Imdur PO 60 mg DAILY@0900 ANDREA Administration Lactulose 30 ml 02/07/18 16:08 02/08/18 11:58 Lactulose Liq PO 30 ml DAILY PRN Administration [employer] Metoprolol Tartrate 25 mg 02/08/18 10:00 02/09/18 09:48 Lopressor PO Not Given BID [facility] Multivitamins 1 tab 02/08/18 09:00 02/09/18 09:47 Theragran PO 1 tab DAILY ANDREA Administration Pantoprazole Sodium 40 mg 02/08/18 09:00 02/09/18 09:48 Protonix PO 40 mg DAILY ANDREA Administration Ropinirole HCl 1 mg 02/07/18 21:00 02/08/18 21:39 Requip PO 1 mg HS ANDREA Administration Senna/Docusate Sodium 1 tab 02/07/18 21:00 02/09/18 09:48 Kyleigh-Colace PO 1 tab BID ANDREA Administration Tolterodine Tartrate 2 mg 02/08/18 09:00 02/09/18 09:48 Detrol La PO 2 mg DAILY ANDREA Administration Torsemide 20 mg 02/08/18 10:00 02/09/18 09:48 Demadex PO 20 mg DAILY ANDREA Administration Umeclidinium/Vilanterol 1 puff 02/07/18 16:00 02/08/18 15:28 Anoro-Ellipta 62.5/25 Mcg Inh INH 1 puff Q24H ANDREA Administration Objective Remarks: GENERAL: Well-nourished, well-developed elderly male patient, in no acute distress. SKIN: Warm and dry. 2 x 2 gauze dressing to posterior iliac crest, dry/intact. No swelling, erythema. HEAD: Normocephalic. EYES: No scleral icterus. No injection or drainage. NECK: Supple, trachea midline. CARDIOVASCULAR: Regular rate and rhythm without murmurs. RESPIRATORY: Breath sounds equal bilaterally. Nonlabored at rest. GASTROINTESTINAL: Abdomen soft, non-tender, nondistended. EXTREMITIES: No cyanosis, or edema. MUSCULOSKELETAL: Adequate muscle tone. NEUROLOGICAL: No obvious focal deficit. Awake, alert, and oriented x3. PSYCHIATRIC: Appropriate mood and affect; insight and judgment normal. Assessment/Plan - Plan Mr. Palacio is a pleasant 82-year-old gentleman with an extensive cardiac history. He was scheduled for heart catheterization when pre-op blood work revealed pancytopenia and elevated creatinine. Heme/Onc was consulted for pancytopenia. Recommendations: 1. Pancytopenia, with early cells present on differential, highly suspicious for an underlying bone marrow disorder especially leukemia. Patient underwent bone marrow biopsy yesterday, pathology pending. 2. Elevated creatinine, nephrology consulted. 3. Continue to monitor CBC. Monitor for bleeding. Await pathology findings. 4. Discussed with Dr. Valencia, pt may remain on asa and plavix, per cardiology recommendation, with current platelet count of 51,000. Continue to monitor and this may need to be adjusted if platelets continue to decrease. - Attending Statement The exam, history, and the medical decision-making described in the above note were completed with the assistance of the mid-level provider. I reviewed and agree with the findings presented. I attest that I had a [id number] encounter with the patient on the same day, and personally performed and documented my assessment and findings in the medical record. Resting comfortably in bed in no distress. Family at bedside. Discussed pathology and bone marrow with patient. MDS; chromosome report pending. Will need to initiate Vidaza in the outpatient setting. Will discuss cardiac cath and antiplatlet agents with Dr. Pena tomorrow.
[2018-02-09] MEDS: Sod Chloride 0.9% Inj 1,000 ML IV.SIG SCH (12:59)
--- NOTE | 2018-02-09 13:37 | P.PNIM ---
Subjective Interval history: Patient says he has poor appetite. No nausea, no vomiting. He denies any chest pain overnight. Physical Exam Vital signs: Vital Signs 02/08/18 13:49 02/08/18 15:00 02/08/18 15:26 Temperature 99.3 F Pulse Rate 68 69 Respiratory Rate 18 Blood Pressure 194/94 H 125/65 Pulse Oximetry 92 L 02/08/18 19:00 02/08/18 20:00 02/08/18 21:00 Temperature 99.9 F H Pulse Rate 84 80 82 Respiratory Rate 18 Blood Pressure 136/63 Pulse Oximetry 96 02/08/18 22:00 02/08/18 23:00 02/09/18 00:00 Temperature 100.7 F H Pulse Rate 78 72 75 Respiratory Rate 18 Blood Pressure 103/46 L Pulse Oximetry 97 02/09/18 01:00 02/09/18 02:00 02/09/18 03:00 Temperature Pulse Rate 68 69 69 Respiratory Rate Blood Pressure Pulse Oximetry 02/09/18 04:00 02/09/18 05:00 02/09/18 06:00 Temperature 98.0 F Pulse Rate 73 68 69 Respiratory Rate 18 Blood Pressure 88/52 L Pulse Oximetry 95 02/09/18 08:26 Temperature 97.5 F L Pulse Rate 65 Respiratory Rate 16 Blood Pressure 112/62 Pulse Oximetry 98 Intake & Output 02/08/18 02/09/18 02/09/18 18:59 06:59 18:59 Intake Total 800 / 800 240 / 240 Output Total 400 / 400 250 / 250 Balance 400 / 400 -10 / -10 Weight 68.2 kg Intake: Oral 800 / 800 240 / 240 Output: Urine 400 / 400 250 / 250 Other: # Voids 1 1 Date of Last Bowel Movement 02/08/18 02/08/18 # Bowel Movements 1 Narrative: General patient in no acute distress, no chest pain, no shortness of breath HEENT extraocular movements are intact, clear oropharyngeal mucosa, no JVD Cardiovascular S1-S2 audible, RRR, no murmurs rubs or gallops Respiratory clear to auscultation bilaterally Abdomen soft, nontender, nondistended, normal bowel sounds Extremities no edema 2+ distal pulses in bilateral upper and lower extremities Neuro cranial nerves II through XII intact Results - Labs CBC & Chem 7: 02/09/18 04:50 02/09/18 04:50 Laboratory Results - last 24 hr 02/08/18 02/08/18 02/09/18 16:40 19:51 04:50 WBC RBC Hgb Hct MCV MCH MCHC RDW Plt Count MPV Prelim Diff (Auto) WBC Differential Seg Neuts % (Manual) Band Neuts % (Manual) Lymphocytes % (Manual) Monocytes % (Manual) Metamyelocytes % (Man) Myelocytes % (Man) Abs Neuts (Manual) Nucleated RBCs/100 WBC Differential Comment Platelet Estimate Platelet Morphology Ovalocytes Sodium 137 Potassium 4.4 Chloride 104 Carbon Dioxide 22.8 Anion Gap 10 BUN 39 H Creatinine 1.81 H Estimated GFR 36 L POC Glucose 210 H 309 H Random Glucose 203 H Calcium 8.3 L Magnesium 2.4 02/09/18 02/09/18 02/09/18 04:50 08:17 12:15 WBC 6.0 D RBC 2.78 L Hgb 8.2 L Hct 23.9 L MCV 86.0 MCH 29.6 MCHC 34.4 RDW 16.1 Plt Count 52 L MPV 10.4 Prelim Diff (Auto) Manual diff required WBC Differential Manual diff final Seg Neuts % (Manual) 63 Band Neuts % (Manual) 8 H Lymphocytes % (Manual) 15 Monocytes % (Manual) 8 Metamyelocytes % (Man) 3 H Myelocytes % (Man) 3 H Abs Neuts (Manual) 4.6 Nucleated RBCs/100 WBC 3 H Differential Comment . Platelet Estimate Low L Platelet Morphology Normal Ovalocytes 2+ H Sodium Potassium Chloride Carbon Dioxide Anion Gap BUN Creatinine Estimated GFR POC Glucose 204 H 183 H Random Glucose Calcium Magnesium - Imaging Impressions Biopsy,Fluoroscopy Guided 02/08/18 00:00 CONCLUSION: 1. Uncomplicated fluoroscopic guided bone marrow aspirate. 2. Uncomplicated fluoroscopic guided bone marrow biopsy. Assessment and Plan - Plan This patient is a 82-year-old male with a diagnosis of hypertension, dyslipidemia, atherosclerotic heart disease status post CABG x3, left carotid artery stenosis, atrial fibrillation, COPD, osteoarthritis. The patient had a cardiac stress test which was positive. The patient is scheduled for a cardiac catheterization. 1. Angina 2. Acute kidney injury on CKD The patient currently does not have any chest pain. Recent Lexiscan was positive and the patient was admitted for cardiac catheterization. The patient presented with an elevated serum creatinine of 2.1. Baseline serum creatinine is unknown. Serum creatinine 1.8 today. IV fluids rate increased. We will follow-up a.m. labs and continue to monitor his creatinine. Nephrology following Continue statin, beta-karoline, Imdur. Restart aspirin. Plavix currently on hold. Will follow up with hem onc. Nephrology following Avoid nephrotoxic agents 3. Pancytopenia Heme oncology following. There is a suspicion for an underlying bone marrow disorder, possibly leukemia. The patient underwent bone marrow biopsy yesterday will await those results. We will follow-up with him oncology for the recommendations. Follow-up a.m. labs. No pharmacotherapy for DVT prophylaxis the patient is thrombocytopenic
--- NOTE | 2018-02-09 14:44 | P.PNCA ---
Subjective Interval history: Pt sitting up in bed. Family at bedside. He denies any acute complaints. Continues to have exertional chest discomfort and SOB, no discomfort with rest. Hematological workup in progress. Medications and Allergies Allergies Allergy/AdvReac Type Severity Reaction Status Date / Time No Known Allergies Allergy Verified 02/07/18 11:24 Home Medications Medication Instructions Recorded Confirmed Type Multi Vitamin 1 cap PO DAILY 02/07/18 02/07/18 History aspirin 81 mg PO DAILY 02/07/18 02/07/18 History atorvastatin 40 mg PO DAILY 02/07/18 02/07/18 History clonidine HCl 0.1 mg PO DAILY 02/07/18 02/07/18 History clopidogrel [Plavix] 75 mg PO DAILY 02/07/18 02/07/18 History enalapril maleate 20 mg PO BID 02/07/18 02/07/18 History famotidine 20 mg PO DAILY 02/07/18 02/07/18 History glipizide-metformin 1 tab PO BID 02/07/18 02/07/18 History isosorbide mononitrate 60 mg PO DAILY 02/07/18 02/07/18 History metoprolol tartrate 25 mg PO BID 02/07/18 02/07/18 History omeprazole 40 mg PO DAILY 02/07/18 02/07/18 History ranolazine [Ranexa] 500 mg PO Q12H 02/07/18 02/07/18 History ropinirole [Requip] 1 mg PO HS 02/07/18 02/07/18 History sitagliptin [Januvia] 100 mg PO DAILY 02/07/18 02/07/18 History solifenacin [Vesicare] 5 mg PO DAILY 02/07/18 02/07/18 History torsemide 20 mg PO DAILY 02/07/18 02/07/18 History umeclidinium-vilanterol [Anoro 1 inh INHALATION Q24H 02/07/18 02/07/18 History Ellipta] Active Medications: Active Medications Acetaminophen (Tylenol) 650 mg PO Q4H PRN PRN Reason: Temp > 100.4 Last Admin: 02/08/18 23:29 Dose: 650 mg Aspirin (Aspirin Chew) 81 mg PO DAILY [facility] Atorvastatin Calcium (Lipitor) 40 mg PO DAILY [facility] Last Admin: 02/09/18 09:48 Dose: 40 mg Bisacodyl (Dulcolax Supp) 10 mg RECTAL DAILY PRN PRN Reason: SEVERE CONSITIPATION Clonidine HCl (Catapres) 0.1 mg PO Q6H PRN PRN Reason: SBP>160, DBP>90 Last Admin: 02/08/18 13:50 Dose: 0.1 mg Dextrose (D50w Vial) 50 ml IV.PUSH UNSCH PRN PRN Reason: PER HYPOGLYCEMIA PROTOCOL Enalapril Maleate (Vasotec) 5 mg PO BID [facility] Last Admin: 02/09/18 09:48 Dose: 5 mg Glucagon (Glucagon Inj) 1 mg OTHER PRN PRN PRN Reason: for Hypoglycemia Protocol Sodium Chloride (Ns Inj) 1,000 mls @ 100 mls/hr IV.SIG .Q10H [facility] Last Admin: 02/09/18 12:59 Dose: 30 mls/hr Insulin Aspart (Novolog Insulin Correctional Sugar Inj) 0 unit SQ ACHS [facility]; Protocol Last Admin: 02/09/18 12:58 Dose: 1 unit Isosorbide Mononitrate (Imdur) 60 mg PO DAILY@0900 [facility] Last Admin: 02/09/18 09:47 Dose: 60 mg Lactulose (Lactulose Liq) 30 ml PO DAILY PRN PRN Reason: SEVERE CONSITIPATION Last Admin: 02/08/18 11:58 Dose: 30 ml Metoprolol Tartrate (Lopressor) 25 mg PO BID [facility] Last Admin: 02/09/18 09:48 Dose: Not Given Multivitamins (Theragran) 1 tab PO DAILY [facility] Last Admin: 02/09/18 09:47 Dose: 1 tab Ondansetron HCl (Zofran Inj) 4 mg IV.PUSH Q6H PRN PRN Reason: NAUSEA OR VOMITING Pantoprazole Sodium (Protonix) 40 mg PO DAILY [facility] Last Admin: 02/09/18 09:48 Dose: 40 mg Ropinirole HCl (Requip) 1 mg PO HS [facility] Last Admin: 02/08/18 21:39 Dose: 1 mg Senna/Docusate Sodium (Kyleigh-Colace) 1 tab PO BID [facility] Last Admin: 02/09/18 09:48 Dose: 1 tab Sennosides (Senokot) 17.2 mg PO Q12H PRN PRN Reason: Moderate Constipation Tolterodine Tartrate (Detrol La) 2 mg PO DAILY [facility] Last Admin: 02/09/18 09:48 Dose: 2 mg Torsemide (Demadex) 20 mg PO DAILY [facility] Last Admin: 02/09/18 09:48 Dose: 20 mg Umeclidinium/Vilanterol (Anoro-Ellipta 62.5/25 Mcg Inh) 1 puff INH Q24H [facility] Last Admin: 02/08/18 15:28 Dose: 1 puff Physical Exam Vital signs: Vital Signs 02/08/18 15:00 02/08/18 15:26 02/08/18 19:00 Temperature 99.3 F Pulse Rate 68 69 84 Respiratory Rate 18 Blood Pressure 125/65 Pulse Oximetry 92 L 02/08/18 20:00 02/08/18 21:00 02/08/18 22:00 Temperature 99.9 F H Pulse Rate 80 82 78 Respiratory Rate 18 Blood Pressure 136/63 Pulse Oximetry 96 02/08/18 23:00 02/09/18 00:00 02/09/18 01:00 Temperature 100.7 F H Pulse Rate 72 75 68 Respiratory Rate 18 Blood Pressure 103/46 L Pulse Oximetry 97 02/09/18 02:00 02/09/18 03:00 02/09/18 04:00 Temperature 98.0 F Pulse Rate 69 69 73 Respiratory Rate 18 Blood Pressure 88/52 L Pulse Oximetry 95 02/09/18 05:00 02/09/18 06:00 02/09/18 08:26 Temperature 97.5 F L Pulse Rate 68 69 65 Respiratory Rate 16 Blood Pressure 112/62 Pulse Oximetry 98 Intake & Output 02/08/18 02/09/18 02/09/18 18:59 06:59 18:59 Intake Total 800 / 800 240 / 240 Output Total 400 / 400 250 / 250 Balance 400 / 400 -10 / -10 Weight 68.2 kg Intake: Oral 800 / 800 240 / 240 Output: Urine 400 / 400 250 / 250 Other: # Voids 1 1 Date of Last Bowel Movement 02/08/18 02/08/18 # Bowel Movements 1 - Constitutional no acute distress - Routine HEENT Exam Head: Present: normocephalic, atraumatic Eye: Present: EOMI, PERRL, normal accommodation ENT: Present: mucous membranes moist - Routine Neck Exam Present: supple - Routine Respiratory Exam Present: CTA bilaterally - Routine Cardiovascular Exam Present: RRR - Routine Abdominal Exam Present: soft - Routine Skin Exam Present: intact - Routine Neurological Exam Present: alert, oriented X3 - Detailed Neurological Exam: Coma Scale Eye Opening: Spontaneous Verbal Response: Oriented Motor Response: Obey commands [place] Coma Scale Total: 15 - Routine Psychiatric Exam Present: normal affect Results 02/09/18 04:50 02/09/18 04:50 Cardiac Enzymes 02/07/18 Range/Units 19:52 AST 6 L (15-37) U/L Lactate Dehydrogenase 133 (87-241) U/L Coagulation 02/07/18 Range/Units 19:52 PT 10.8 (9.8-11.6) sec APTT 26.8 (23.4-31.7) sec CBC 02/08/18 02/09/18 Range/Units 07:35 04:50 WBC 3.8 L D 6.0 D (4.0-11.0) th/mm3 RBC 3.13 L 2.78 L (4.50-5.90) mil/mm3 Hgb 9.0 L 8.2 L (13.0-17.0) gm/dL Hct 27.8 L 23.9 L (39.0-51.0) % Plt Count 55 L 52 L (150-450) th/mm3 Neut # (Auto) 2.6 (1.8-7.7) th/mm3 Lymph # (Auto) 0.8 L (1.0-4.8) th/mm3 Centre # (Auto) 0.4 (0.0-0.9) th/mm3 Eos # (Auto) 0.0 (0.0-0.4) th/mm3 Baso # (Auto) 0.0 (0.0-0.2) th/mm3 Comprehensive Metabolic Panel 02/07/18 02/08/18 02/09/18 Range/Units 19:52 07:35 04:50 Sodium 141 137 (136-145) meq/L Potassium 4.9 4.4 (3.5-5.1) meq/L Chloride 107 104 (98-107) meq/L Carbon Dioxide 22.9 22.8 (21.0-32.0) meq/L BUN 43 H 39 H (7-18) mg/dL Creatinine 1.66 H 1.81 H (0.60-1.30) mg/dL Calcium 8.8 8.3 L (8.5-10.1) mg/dL Direct Bilirubin 0.2 (0.0-0.2) mg/dL Indirect Bilirubin 0.2 (0.0-0.8) mg/dL AST 6 L (15-37) U/L ALT 17 (12-78) U/L Alkaline Phosphatase 64 (45-117) U/L Total Protein 7.2 (6.4-8.2) g/dL Albumin 3.3 L (3.4-5.0) g/dL Intake and Output 02/08/18 02/09/18 02/09/18 22:59 06:59 14:59 Intake Total 800 / 800 240 / 240 Output Total 400 / 400 250 / 250 Balance 400 / 400 -10 / -10 Intake: Oral 800 / 800 240 / 240 Output: Urine 400 / 400 250 / 250 Other: # Voids 1 1 Date of Last Bowel Movement 02/08/18 # Bowel Movements 1 Weight 68.2 kg - Imaging and Cardiology Imaging: Impressions Abdomen/Bladder Ultrasound 02/08/18 00:00 CONCLUSION: 1. No hydronephrosis. 2. Increased echogenicity characteristic of medical renal disease. 3. Right kidney is small and atrophic in appearance. There is mild cortical thinning in the left kidney. Biopsy,Fluoroscopy Guided 02/08/18 00:00 CONCLUSION: 1. Uncomplicated fluoroscopic guided bone marrow aspirate. 2. Uncomplicated fluoroscopic guided bone marrow biopsy. Assessment and Plan - Plan Assessment ASHD Chest pain HTN Pancytopenia-Anemia Renal insufficiency Carotid stenosis Afib Plan Will hold off on heart cath at this time, currently stable from a CV standpoint , pending hematology workup. Continue Imdur. Pending hematology evaluation. Per hematology, there is high suspicion for an underlying bone marrow disorder, especially acute leukemia. Bone marrow biopsy pending. Nephrology following. Will avoid nephro toxic agents. History of post op Afib-no known Afib since 2014. History of left CEA, continues on statin. ASA and plavix on hold due to pancytopenia. Patient was seen and evaluated by Dr. Pena who participated in care management and decision making. The exam, history, and the medical decision-making described in the above note were completed with the assistance of the mid-level provider. I reviewed and agree with the findings presented. I attest that I had a [id number] encounter with the patient on the same day, and personally performed and documented my assessment and findings in the medical record.Overall doing better await hematological mahmood. Code Status: Full Code Discussed Condition With: Family, Dr. Pena, and RN
[2018-02-09] MEDS: Umeclindinium 62.5 MCG/Vilanterol 25 MCG Inhaler INH SCH (18:39)
[2018-02-10 07:23] LABS: Hematocrit 23.2 % (39.0-51.0); Hemoglobin 7.7 gm/dL (13.0-17.0); Mean Corpuscular HGB Conc 33.4 % (32.0-36.0); Mean Corpuscular Volume 86.8 fL (80.0-100.0); Mean Platelet Volume 9.8 fL (7.0-11.0); Platelet Count 39 th/mm3 (150-450); Red Blood Count 2.67 mil/mm3 (4.50-5.90); Red Cell Distribution Width 16.5 % (11.6-17.2); White Blood Count 2.3 th/mm3 (4.0-11.0)
[2018-02-10 07:55] LABS: Calcium 8.2 mg/dL (8.5-10.1); Carbon Dioxide 22.7 meq/L (21.0-32.0); Magnesium 2.3 mg/dL (1.5-2.5)
[2018-02-10 08:48] LABS: Lymphocytes 33 % (9-44); Metamyelocytes 3 % (0-1); Monocytes 10 % (0-8); Myelocytes 2 % (0-0); Ovalocytes 2+; Promyelocyte 1 % (0-0)
[2018-02-10 08:49] LABS: Platelet Morphology Normal (Normal)
[2018-02-10] MEDS: Torsemide 20 MG Tablet PO SCH (08:57)
[2018-02-10] MEDS: Tolterodine Tartrate LA 2 MG Capsule PO SCH (08:57)
[2018-02-10] MEDS: Isosorbide Mononitrate 60 MG ER 24HR Tablet (Imdur) PO SCH ×2 (08:57→21:37)
[2018-02-10] MEDS: Senna/Docusate Sodium 8.6/50 MG Tablet PO SCH ×2 (08:57→21:37)
[2018-02-10] MEDS: Metoprolol Tartrate 25 MG Tablet PO SCH ×2 (08:57→21:37)
[2018-02-10] MEDS ORDERED: Sodium Chlor 0.9% Inj 250 ML IV.SIG SCH (10:00)
[2018-02-10] MEDS: Insulin NovoLOG Aspart Correctional Sugar Inj SQ SCH ×4 (10:28→21:37)
--- NOTE | 2018-02-10 10:33 | P.PNONC ---
Subjective Interval history: Patient with no complaints at this time. He is aware of his pathology findings of MDS. Discussed blood transfusion per cardiology request for angina. Also discussed recommendations for 1 antiplatelet. Patient reports he is taking aspirin and Plavix for many years. Denies any bleeding. Objective Vital Signs/Intake & Output: Vital Signs 02/09/18 11:00 02/09/18 12:00 02/09/18 13:00 Temperature 98.0 F Pulse Rate 55 L 55 L 66 Respiratory Rate 16 Blood Pressure 147/67 H Pulse Oximetry 98 02/09/18 14:00 02/09/18 14:46 02/09/18 16:00 Temperature 98.1 F Pulse Rate 72 61 64 Respiratory Rate 18 Blood Pressure 151/75 H Pulse Oximetry 98 02/09/18 17:00 02/09/18 18:00 02/09/18 19:00 Temperature Pulse Rate 66 72 83 Respiratory Rate Blood Pressure Pulse Oximetry 02/09/18 20:00 02/09/18 21:00 02/09/18 22:00 Temperature 98.0 F Pulse Rate 86 76 66 Respiratory Rate 18 Blood Pressure 148/63 H Pulse Oximetry 98 02/09/18 23:00 02/10/18 00:00 02/10/18 01:00 Temperature 98.3 F Pulse Rate 68 67 65 Respiratory Rate 18 Blood Pressure 124/68 Pulse Oximetry 99 02/10/18 02:00 02/10/18 03:00 02/10/18 04:00 Temperature 98.2 F Pulse Rate 66 77 75 Respiratory Rate 18 Blood Pressure 112/53 L Pulse Oximetry 99 02/10/18 05:00 02/10/18 06:00 02/10/18 08:00 Temperature Pulse Rate 74 76 74 Respiratory Rate 20 Blood Pressure 171/72 H Pulse Oximetry 100 Intake & Output 02/09/18 02/10/18 02/10/18 18:59 06:59 18:59 Intake Total 1200 / 1200 240 / 240 Output Total 400 / 400 325 / 325 Balance 800 / 800 -85 / -85 Weight 68 kg Intake: Oral 1200 / 1200 240 / 240 Output: Urine 400 / 400 325 / 325 Other: Date of Last Bowel Movement 02/08/18 02/08/18 Result Diagrams: 02/10/18 06:57 02/10/18 06:57 Laboratory Results: Laboratory Results - last 24 hr 02/07/18 02/08/18 02/08/18 19:52 07:35 08:42 WBC RBC Hgb Hct MCV MCH MCHC RDW Plt Count MPV Prelim Diff (Auto) WBC Differential Seg Neuts % (Manual) Band Neuts % (Manual) Lymphocytes % (Manual) Monocytes % (Manual) Metamyelocytes % (Man) Myelocytes % (Man) Promyelocytes % (Man) Abs Neuts (Manual) Differential Comment Platelet Estimate Platelet Morphology Ovalocytes Sodium Potassium Chloride Carbon Dioxide Anion Gap BUN Creatinine Estimated GFR POC Glucose Random Glucose Calcium Magnesium Albumin (PEP) 3.96 Albumin/Globulin Ratio 1.15 L Qcufm-3-Qzidrobcn 0.26 Ntqci-6-Pgaobcnlk 1.19 H Beta Globulins 0.77 Gamma Globulins 1.22 Copper 107 Marrow Immunophenotype 02/09/18 02/09/18 02/09/18 12:15 18:39 19:46 WBC RBC Hgb Hct MCV MCH MCHC RDW Plt Count MPV Prelim Diff (Auto) WBC Differential Seg Neuts % (Manual) Band Neuts % (Manual) Lymphocytes % (Manual) Monocytes % (Manual) Metamyelocytes % (Man) Myelocytes % (Man) Promyelocytes % (Man) Abs Neuts (Manual) Differential Comment Platelet Estimate Platelet Morphology Ovalocytes Sodium Potassium Chloride Carbon Dioxide Anion Gap BUN Creatinine Estimated GFR POC Glucose 183 H 185 H 274 H Random Glucose Calcium Magnesium Albumin (PEP) Albumin/Globulin Ratio Nkqnf-4-Aiqngkmef Bhpgs-9-Pcnpfpiel Beta Globulins Gamma Globulins Copper Marrow Immunophenotype 02/10/18 02/10/18 06:57 06:57 WBC 2.3 L RBC 2.67 L Hgb 7.7 L Hct 23.2 L MCV 86.8 MCH 29.0 MCHC 33.4 RDW 16.5 Plt Count 39 L MPV 9.8 Prelim Diff (Auto) Manual diff required WBC Differential Manual diff final Seg Neuts % (Manual) 49 Band Neuts % (Manual) 2 Lymphocytes % (Manual) 33 Monocytes % (Manual) 10 H Metamyelocytes % (Man) 3 H Myelocytes % (Man) 2 H Promyelocytes % (Man) 1 H Abs Neuts (Manual) 1.3 L Differential Comment . Platelet Estimate Low L Platelet Morphology Normal Ovalocytes 2+ H Sodium 140 Potassium 4.0 Chloride 106 Carbon Dioxide 22.7 Anion Gap 11 BUN 38 H Creatinine 1.43 H Estimated GFR 47 L POC Glucose Random Glucose 166 H Calcium 8.2 L Magnesium 2.3 Albumin (PEP) Albumin/Globulin Ratio Dapcm-1-Ucxshmhcw Gcuik-1-Udwfnohpq Beta Globulins Gamma Globulins Copper Marrow Immunophenotype Medications: Active Medications Generic Name Dose Route Start Last Admin Trade Name Freq PRN Reason Stop Dose Admin Acetaminophen 650 mg 02/07/18 16:08 02/08/18 23:29 Tylenol PO 650 mg Q4H PRN Administration Temp > 100.4 Aspirin 81 mg 02/09/18 13:45 02/10/18 08:57 Aspirin Chew PO 81 mg DAILY [facility] Administration Atorvastatin Calcium 40 mg 02/08/18 09:00 02/10/18 08:57 Lipitor PO 40 mg DAILY [facility] Administration Clonidine HCl 0.1 mg 02/07/18 16:40 02/08/18 13:50 Catapres PO 0.1 mg Q6H PRN Administration SBP>160, DBP>90 Enalapril Maleate 5 mg 02/09/18 09:45 02/10/18 08:54 Vasotec PO 5 mg BID [facility] Administration Sodium Chloride 1,000 mls @ 100 mls/hr 02/07/18 12:00 02/09/18 12:59 Ns Inj IV.SIG 30 mls/hr .Q10H [facility] Administration Insulin Aspart 0 unit 02/07/18 17:45 02/09/18 20:30 Novolog Insulin Correctional Sugar Inj SQ 5 unit ACHS [facility] Administration Protocol Isosorbide Mononitrate 60 mg 02/09/18 09:00 02/10/18 08:57 Imdur PO 60 mg DAILY@0900 [facility] Administration Lactulose 30 ml 02/07/18 16:08 02/08/18 11:58 Lactulose Liq PO 30 ml DAILY PRN Administration SEVERE CONSITIPATION Metoprolol Tartrate 25 mg 02/08/18 10:00 02/10/18 08:57 Lopressor PO 25 mg BID [facility] Administration Multivitamins 1 tab 02/08/18 09:00 02/10/18 08:57 Theragran PO 1 tab DAILY [facility] Administration Pantoprazole Sodium 40 mg 02/08/18 09:00 02/10/18 08:57 Protonix PO 40 mg DAILY [facility] Administration Ropinirole HCl 1 mg 02/07/18 21:00 02/09/18 20:37 Requip PO 1 mg HS [facility] Administration Senna/Docusate Sodium 1 tab 02/07/18 21:00 02/10/18 08:57 Kyleigh-Colace PO 1 tab BID [facility] Administration Tolterodine Tartrate 2 mg 02/08/18 09:00 02/10/18 08:57 Detrol La PO 2 mg DAILY [facility] Administration Torsemide 20 mg 02/08/18 10:00 02/10/18 08:57 Demadex PO 20 mg DAILY [facility] Administration Umeclidinium/Vilanterol 1 puff 02/07/18 16:00 02/09/18 18:39 Anoro-Ellipta 62.5/25 Mcg Inh INH 1 puff Q24H [facility] Administration Objective Remarks: GENERAL: Well-nourished, well-developed elderly male patient, in no acute distress. SKIN: Warm and dry. HEAD: Normocephalic. EYES: No scleral icterus. No injection or drainage. NECK: Supple, trachea midline. CARDIOVASCULAR: Regular rate and rhythm without murmurs. RESPIRATORY: Breath sounds equal bilaterally. Nonlabored at rest. GASTROINTESTINAL: Abdomen soft, non-tender, nondistended. EXTREMITIES: No cyanosis, or edema. MUSCULOSKELETAL: Adequate muscle tone. NEUROLOGICAL: No obvious focal deficit. Awake, alert, and oriented x3. PSYCHIATRIC: Appropriate mood and affect; insight and judgment normal. Assessment/Plan - Plan Mr. Palacio is a pleasant 82-year-old gentleman with an extensive cardiac history. He was scheduled for heart catheterization when pre-op blood work revealed pancytopenia and elevated creatinine. Heme/Onc was consulted for pancytopenia. Recommendations: 1. 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 Patient will follow-up in the outpatient clinic for treatment. 2. Elevated creatinine, nephrology consulted. 3. Patient is cleared from oncology standpoint to proceed with cardiac treatment as determined by shoe maker. We recommend only 1 antiplatelet medication. Discussed with Dr. Pena. He has requested we transfuse the patient with 2 units PRBC for angina and then discharge and follow-up with him in his clinic. 4. Patient cleared for discharge from an oncology standpoint after he receives his 2 units PRBCs, he should follow-up with Dr Valencia in outpatient clinic in one week. Patient will continue to monitor for bleeding and notify MD immediately. - Attending Statement The exam, history, and the medical decision-making described in the above note were completed with the assistance of the mid-level provider. I reviewed and agree with the findings presented. I attest that I had a [id number] encounter with the patient on the same day, and personally performed and documented my assessment and findings in the medical record. 83 yoM with MDS, found to have pancytopenia on admission with bone marrow results showing MDS. Will treat in the outpatient setting with Vidaza. chromosome analysis pending.
[2018-02-10] MEDS: Sod Chloride 0.9% Inj 1,000 ML IV.SIG SCH (12:02)
--- NOTE | 2018-02-10 13:57 | P.PNCA ---
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 He denies any acute complaints. Continues to have chest tightness and SOB with minimal exertion, symptoms resolve with rest. Hgb and platelets continue to drop. Pathology findings reveal MDS. 2 units PRBCs ordered to see if it helps with patients current symptoms. Medications and Allergies Allergies Allergy/AdvReac Type Severity Reaction Status Date / Time No Known Allergies Allergy Verified 02/07/18 11:24 Home Medications Medication Instructions Recorded Confirmed Type Multi Vitamin 1 cap PO DAILY 02/07/18 02/07/18 History aspirin 81 mg PO DAILY 02/07/18 02/07/18 History atorvastatin 40 mg PO DAILY 02/07/18 02/07/18 History clonidine HCl 0.1 mg PO DAILY 02/07/18 02/07/18 History clopidogrel [Plavix] 75 mg PO DAILY 02/07/18 02/07/18 History enalapril maleate 20 mg PO BID 02/07/18 02/07/18 History famotidine 20 mg PO DAILY 02/07/18 02/07/18 History glipizide-metformin 1 tab PO BID 02/07/18 02/07/18 History isosorbide mononitrate 60 mg PO DAILY 02/07/18 02/07/18 History metoprolol tartrate 25 mg PO BID 02/07/18 02/07/18 History omeprazole 40 mg PO DAILY 02/07/18 02/07/18 History ranolazine [Ranexa] 500 mg PO Q12H 02/07/18 02/07/18 History ropinirole [Requip] 1 mg PO HS 02/07/18 02/07/18 History sitagliptin [Januvia] 100 mg PO DAILY 02/07/18 02/07/18 History solifenacin [Vesicare] 5 mg PO DAILY 02/07/18 02/07/18 History torsemide 20 mg PO DAILY 02/07/18 02/07/18 History umeclidinium-vilanterol [Anoro 1 inh INHALATION Q24H 02/07/18 02/07/18 History Ellipta] Active Medications: Active Medications Acetaminophen (Tylenol) 650 mg PO Q4H PRN PRN Reason: Temp > 100.4 Last Admin: 02/08/18 23:29 Dose: 650 mg Acetaminophen (Tylenol) 650 mg PO Q4H PRN PRN Reason: SEE LABEL COMMENTS Aspirin (Aspirin Chew) 81 mg PO DAILY [facility] Last Admin: 02/10/18 08:57 Dose: 81 mg Atorvastatin Calcium (Lipitor) 40 mg PO DAILY [facility] Last Admin: 02/10/18 08:57 Dose: 40 mg Bisacodyl (Dulcolax Supp) 10 mg RECTAL DAILY PRN PRN Reason: SEVERE CONSITIPATION Clonidine HCl (Catapres) 0.1 mg PO Q6H PRN PRN Reason: SBP>160, DBP>90 Last Admin: 02/08/18 13:50 Dose: 0.1 mg Dextrose (D50w Vial) 50 ml IV.PUSH UNSCH PRN PRN Reason: PER HYPOGLYCEMIA PROTOCOL Diphenhydramine HCl (Benadryl) 25 mg PO Q4H PRN PRN Reason: SEE LABEL COMMENTS Enalapril Maleate (Vasotec) 5 mg PO BID [facility] Last Admin: 02/10/18 08:54 Dose: 5 mg Glucagon (Glucagon Inj) 1 mg OTHER PRN PRN PRN Reason: for Hypoglycemia Protocol Sodium Chloride (Ns Inj) 1,000 mls @ 100 mls/hr IV.SIG .Q10H [facility] Last Admin: 02/10/18 12:02 Dose: Not Given Sodium Chloride (Ns Inj) 250 mls @ 15 mls/hr IV.SIG ONCE [facility] Stop: 02/11/18 02:39 Last Admin: 02/10/18 12:01 Dose: 15 mls/hr Insulin Aspart (Novolog Insulin Correctional Sugar Inj) 0 unit SQ ACHS [facility]; Protocol Last Admin: 02/10/18 13:39 Dose: Not Given Isosorbide Mononitrate (Imdur) 60 mg PO DAILY@0900 [facility] Last Admin: 02/10/18 08:57 Dose: 60 mg Lactulose (Lactulose Liq) 30 ml PO DAILY PRN PRN Reason: SEVERE CONSITIPATION Last Admin: 02/08/18 11:58 Dose: 30 ml Metoprolol Tartrate (Lopressor) 25 mg PO BID [facility] Last Admin: 02/10/18 08:57 Dose: 25 mg Multivitamins (Theragran) 1 tab PO DAILY [facility] Last Admin: 02/10/18 08:57 Dose: 1 tab Ondansetron HCl (Zofran Inj) 4 mg IV.PUSH Q6H PRN PRN Reason: NAUSEA OR VOMITING Pantoprazole Sodium (Protonix) 40 mg PO DAILY [facility] Last Admin: 02/10/18 08:57 Dose: 40 mg Ropinirole HCl (Requip) 1 mg PO HS [facility] Last Admin: 02/09/18 20:37 Dose: 1 mg Senna/Docusate Sodium (Kyleigh-Colace) 1 tab PO BID [facility] Last Admin: 02/10/18 08:57 Dose: 1 tab Sennosides (Senokot) 17.2 mg PO Q12H PRN PRN Reason: Moderate Constipation Tolterodine Tartrate (Detrol La) 2 mg PO DAILY [facility] Last Admin: 02/10/18 08:57 Dose: 2 mg Torsemide (Demadex) 20 mg PO DAILY [facility] Last Admin: 02/10/18 08:57 Dose: 20 mg Umeclidinium/Vilanterol (Anoro-Ellipta 62.5/25 Mcg Inh) 1 puff INH Q24H [facility] Last Admin: 02/09/18 18:39 Dose: 1 puff Physical Exam Vital signs: Vital Signs 02/09/18 14:00 02/09/18 14:46 02/09/18 16:00 Temperature 98.1 F Pulse Rate 72 61 64 Respiratory Rate 18 Blood Pressure 151/75 H Pulse Oximetry 98 02/09/18 17:00 02/09/18 18:00 02/09/18 19:00 Temperature Pulse Rate 66 72 83 Respiratory Rate Blood Pressure Pulse Oximetry 02/09/18 20:00 02/09/18 21:00 02/09/18 22:00 Temperature 98.0 F Pulse Rate 86 76 66 Respiratory Rate 18 Blood Pressure 148/63 H Pulse Oximetry 98 02/09/18 23:00 02/10/18 00:00 02/10/18 01:00 Temperature 98.3 F Pulse Rate 68 67 65 Respiratory Rate 18 Blood Pressure 124/68 Pulse Oximetry 99 02/10/18 02:00 02/10/18 03:00 02/10/18 04:00 Temperature 98.2 F Pulse Rate 66 77 75 Respiratory Rate 18 Blood Pressure 112/53 L Pulse Oximetry 99 02/10/18 05:00 02/10/18 06:00 02/10/18 08:00 Temperature Pulse Rate 74 76 74 Respiratory Rate 20 Blood Pressure 171/72 H Pulse Oximetry 100 02/10/18 11:44 Temperature 98.1 F Pulse Rate 76 Respiratory Rate 18 Blood Pressure 142/76 H Pulse Oximetry 98 Intake & Output 02/09/18 02/10/18 02/10/18 18:59 06:59 18:59 Intake Total 1200 / 1200 240 / 240 Output Total 400 / 400 325 / 325 Balance 800 / 800 -85 / -85 Weight 68 kg Intake: Oral 1200 / 1200 240 / 240 Output: Urine 400 / 400 325 / 325 Other: Date of Last Bowel Movement 02/08/18 02/08/18 - Constitutional no acute distress, average body habitus - Routine HEENT Exam Head: Present: normocephalic, atraumatic Eye: Present: EOMI, PERRL, normal accommodation ENT: Present: mucous membranes moist - Routine Neck Exam Present: supple - Routine Respiratory Exam Present: CTA bilaterally - Routine Cardiovascular Exam Present: RRR - Routine Abdominal Exam Present: soft - Routine Skin Exam Present: intact - Routine Neurological Exam Present: alert, oriented X3 - Detailed Neurological Exam: Coma Scale Eye Opening: Spontaneous Verbal Response: Oriented Motor Response: Obey commands Grisel Coma Scale Total: 15 - Routine Psychiatric Exam Present: normal affect Results 02/11/18 09:50 02/11/18 09:50 CBC 02/09/18 02/10/18 Range/Units 04:50 06:57 WBC 6.0 D 2.3 L (4.0-11.0) th/mm3 RBC 2.78 L 2.67 L (4.50-5.90) mil/mm3 Hgb 8.2 L 7.7 L (13.0-17.0) gm/dL Hct 23.9 L 23.2 L (39.0-51.0) % Plt Count 52 L 39 L (150-450) th/mm3 Comprehensive Metabolic Panel 02/09/18 02/10/18 Range/Units 04:50 06:57 Sodium 137 140 (136-145) meq/L Potassium 4.4 4.0 (3.5-5.1) meq/L Chloride 104 106 (98-107) meq/L Carbon Dioxide 22.8 22.7 (21.0-32.0) meq/L BUN 39 H 38 H (7-18) mg/dL Creatinine 1.81 H 1.43 H (0.60-1.30) mg/dL Calcium 8.3 L 8.2 L (8.5-10.1) mg/dL Intake and Output 02/09/18 02/10/18 02/10/18 22:59 06:59 14:59 Intake Total 1200 / 1200 240 / 240 Output Total 400 / 400 325 / 325 Balance 800 / 800 -85 / -85 Intake: Oral 1200 / 1200 240 / 240 Output: Urine 400 / 400 325 / 325 Other: Date of Last Bowel Movement 02/08/18 Weight 68 kg - Imaging and Cardiology Imaging: Impressions Biopsy,Fluoroscopy Guided 02/08/18 00:00 CONCLUSION: 1. Uncomplicated fluoroscopic guided bone marrow aspirate. 2. Uncomplicated fluoroscopic guided bone marrow biopsy. Assessment and Plan - Plan Assessment ASHD Chest pain HTN Pancytopenia Renal insufficiency Carotid stenosis Afib MDS Plan -Continues to have exertional chest tightness and SOB. EKGS reviewed by Dr. Pena. 2 units PRBCs ordered to see if his angina symptoms improve. Long discussion had with patient and family. If symptoms persist despite transfusion will consider heart cath tomorrow. Pt and family understands that he is at a high risk due to renal insufficiency, low hgb, low platelets. Will hold NPO. -Pathology reveals MDS, pt aware of findings. Plan for outpatient treatment. -Nephrology following. Will avoid nephro toxic agents. Creatinine is stable, 1.43 today. -History of post op Afib-no known Afib since 2014. -History of left CEA, continues on statin. Aspirin resumed. Patient was seen and evaluated by Dr. Pena who participated in care management and decision making. The exam, history, and the medical decision-making described in the above note were completed with the assistance of the mid-level provider. I reviewed and agree with the findings presented. I attest that I had a [id number] encounter with the patient on the same day, and personally performed and documented my assessment and findings in the medical record. At high risk for cath with MDS and high creatinine and low platelets Code Status: Full Code Discussed Condition With: Dr. Pena, Ling SEYMOUR, and BENJAMIN
[2018-02-10] MEDS: Acetaminophen 325 MG Tablet PO PRN ×2 (14:25→18:19)
[2018-02-10] MEDS: Umeclindinium 62.5 MCG/Vilanterol 25 MCG Inhaler INH SCH (16:48)
--- NOTE | 2018-02-10 17:13 | P.PNNP ---
Subjective Interval history: Patient having packed red blood cell was diagnosed with MDS Physical Exam Vital signs: Vital Signs 02/09/18 18:00 02/09/18 19:00 02/09/18 20:00 Temperature 98.0 F Pulse Rate 72 83 86 Respiratory Rate 18 Blood Pressure 148/63 H Pulse Oximetry 98 02/09/18 21:00 02/09/18 22:00 02/09/18 23:00 Temperature Pulse Rate 76 66 68 Respiratory Rate Blood Pressure Pulse Oximetry 02/10/18 00:00 02/10/18 01:00 02/10/18 02:00 Temperature 98.3 F Pulse Rate 67 65 66 Respiratory Rate 18 Blood Pressure 124/68 Pulse Oximetry 99 02/10/18 03:00 02/10/18 04:00 02/10/18 05:00 Temperature 98.2 F Pulse Rate 77 75 74 Respiratory Rate 18 Blood Pressure 112/53 L Pulse Oximetry 99 02/10/18 06:00 02/10/18 08:00 02/10/18 11:44 Temperature 98.1 F Pulse Rate 76 74 76 Respiratory Rate 20 18 Blood Pressure 171/72 H 142/76 H Pulse Oximetry 100 98 02/10/18 14:54 02/10/18 15:13 Temperature 97.9 F 97.8 F Pulse Rate 71 89 Respiratory Rate 18 18 Blood Pressure 169/78 H 137/70 Pulse Oximetry 99 96 Intake & Output 02/09/18 02/10/18 02/10/18 18:59 06:59 18:59 Intake Total 1200 / 1200 240 / 240 0 / 0 Output Total 400 / 400 325 / 325 Balance 800 / 800 -85 / -85 0 / 0 Weight 68 kg Intake: Oral 1200 / 1200 240 / 240 Intake (Blood Product) Amt 0 / 0 Rbc As-3 Leukoreduced Unit 0 / 0 [id number] Output: Urine 400 / 400 325 / 325 Other: Date of Last Bowel Movement 02/08/18 02/08/18 02/10/18 Narrative: General patient in no acute distress, no chest pain, no shortness of breath HEENT extraocular movements are intact, clear oropharyngeal mucosa, no JVD Cardiovascular S1-S2 audible, RRR, no murmurs rubs or gallops Respiratory clear to auscultation bilaterally Abdomen soft, nontender, nondistended, normal bowel sounds Extremities no edema 2+ distal pulses in bilateral upper and lower extremities Neuro cranial nerves II through XII intact Assessment and Plan - Assessment (1) Acute renal failure Code(s): N17.9 - Acute kidney failure, unspecified Status: Acute (2) Chronic kidney disease Code(s): N18.9 - Chronic kidney disease, unspecified Status: Acute (3) Diabetes Code(s): E11.9 - Type 2 diabetes mellitus without complications Status: Acute (4) Hypertension Code(s): I10 - Essential (primary) hypertension Status: Acute (5) Coronary artery disease Code(s): I25.10 - Atherosclerotic heart disease of [place] coronary artery without angina pectoris Status: Acute (6) Pancytopenia Code(s): D61.818 - Other pancytopenia Status: Acute - Plan Patient told about ultrasound of the kidney smaller Rt kidney Bone marrow Biopsy done showed MDS hematology is following cr 1.4 improved Risk of dye study is associated with acute renal failure about 20-25% chance of worsening and 1% chance of dialysis Possible heart catheterization tomorrow keep him well-hydrated Getting packed red blood cell Continue to monitor
[2018-02-11 00:39] VITALS: RESP 16
[2018-02-11] MEDS: Sod Chloride 0.9% Inj 1,000 ML IV.SIG SCH ×2 (00:43→10:20)
[2018-02-11 04:47] VITALS: BP 155/85; PULSE 65; TEMP 97.4; O2SAT 98
[2018-02-11] MEDS: Isosorbide Mononitrate 60 MG ER 24HR Tablet (Imdur) PO SCH (06:17)
--- NOTE | 2018-02-11 08:05 | P.PNCA ---
Subjective Interval history: Patient resting in bed comfortably this morning. He reports he was able to ambulate in the hallways last night and back and forth to the bathroom with no chest tightness or shortness of breath. A.m. labs are still pending. If labs are stable, will plan to discharge home and see in office next week. Medications and Allergies Allergies Allergy/AdvReac Type Severity Reaction Status Date / Time No Known Allergies Allergy Verified 02/07/18 11:24 Home Medications Medication Instructions Recorded Confirmed Type Multi Vitamin 1 cap PO DAILY 02/07/18 02/07/18 History aspirin 81 mg PO DAILY 02/07/18 02/07/18 History atorvastatin 40 mg PO DAILY 02/07/18 02/07/18 History clonidine HCl 0.1 mg PO DAILY 02/07/18 02/07/18 History clopidogrel [Plavix] 75 mg PO DAILY 02/07/18 02/07/18 History enalapril maleate 20 mg PO BID 02/07/18 02/07/18 History famotidine 20 mg PO DAILY 02/07/18 02/07/18 History glipizide-metformin 1 tab PO BID 02/07/18 02/07/18 History isosorbide mononitrate 60 mg PO DAILY 02/07/18 02/07/18 History metoprolol tartrate 25 mg PO BID 02/07/18 02/07/18 History omeprazole 40 mg PO DAILY 02/07/18 02/07/18 History ranolazine [Ranexa] 500 mg PO Q12H 02/07/18 02/07/18 History ropinirole [Requip] 1 mg PO HS 02/07/18 02/07/18 History sitagliptin [Januvia] 100 mg PO DAILY 02/07/18 02/07/18 History solifenacin [Vesicare] 5 mg PO DAILY 02/07/18 02/07/18 History torsemide 20 mg PO DAILY 02/07/18 02/07/18 History umeclidinium-vilanterol [Anoro 1 inh INHALATION Q24H 02/07/18 02/07/18 History Ellipta] Active Medications: Active Medications Acetaminophen (Tylenol) 650 mg PO Q4H PRN PRN Reason: Temp > 100.4 Last Admin: 02/08/18 23:29 Dose: 650 mg Aspirin (Aspirin Chew) 81 mg PO DAILY [facility] Last Admin: 02/10/18 08:57 Dose: 81 mg Atorvastatin Calcium (Lipitor) 40 mg PO DAILY [facility] Last Admin: 02/10/18 08:57 Dose: 40 mg Bisacodyl (Dulcolax Supp) 10 mg RECTAL DAILY PRN PRN Reason: SEVERE CONSITIPATION Clonidine HCl (Catapres) 0.1 mg PO Q6H PRN PRN Reason: SBP>160, DBP>90 Last Admin: 02/08/18 13:50 Dose: 0.1 mg Dextrose (D50w Vial) 50 ml IV.PUSH UNSCH PRN PRN Reason: PER HYPOGLYCEMIA PROTOCOL Enalapril Maleate (Vasotec) 5 mg PO BID [facility] Last Admin: 02/10/18 21:37 Dose: 5 mg Glucagon (Glucagon Inj) 1 mg OTHER PRN PRN PRN Reason: for Hypoglycemia Protocol Sodium Chloride (Ns Inj) 1,000 mls @ 100 mls/hr IV.SIG .Q10H [facility] Last Infusion: 02/11/18 06:17 Dose: 30 mls/hr Insulin Aspart (Novolog Insulin Correctional Sugar Inj) 0 unit SQ ACHS [facility]; Protocol Last Admin: 02/10/18 21:37 Dose: 5 unit Isosorbide Mononitrate (Imdur) 60 mg PO BID@0700,2100 [facility] Last Admin: 02/11/18 06:17 Dose: 60 mg Lactulose (Lactulose Liq) 30 ml PO DAILY PRN PRN Reason: SEVERE CONSITIPATION Last Admin: 02/08/18 11:58 Dose: 30 ml Metoprolol Tartrate (Lopressor) 25 mg PO BID [facility] Last Admin: 02/10/18 21:37 Dose: 25 mg Multivitamins (Theragran) 1 tab PO DAILY [facility] Last Admin: 02/10/18 08:57 Dose: 1 tab Ondansetron HCl (Zofran Inj) 4 mg IV.PUSH Q6H PRN PRN Reason: NAUSEA OR VOMITING Pantoprazole Sodium (Protonix) 40 mg PO DAILY [facility] Last Admin: 02/10/18 08:57 Dose: 40 mg Ropinirole HCl (Requip) 1 mg PO HS [facility] Last Admin: 02/10/18 21:37 Dose: 1 mg Senna/Docusate Sodium (Kyleigh-Colace) 1 tab PO BID [facility] Last Admin: 02/10/18 21:37 Dose: 1 tab Sennosides (Senokot) 17.2 mg PO Q12H PRN PRN Reason: Moderate Constipation Tolterodine Tartrate (Detrol La) 2 mg PO DAILY [facility] Last Admin: 02/10/18 08:57 Dose: 2 mg Torsemide (Demadex) 20 mg PO DAILY [facility] Last Admin: 02/10/18 08:57 Dose: 20 mg Umeclidinium/Vilanterol (Anoro-Ellipta 62.5/25 Mcg Inh) 1 puff INH Q24H [facility] Last Admin: 02/10/18 16:48 Dose: 1 puff Physical Exam Vital signs: Vital Signs 02/10/18 11:44 02/10/18 14:54 02/10/18 15:13 Temperature 98.1 F 97.9 F 97.8 F Pulse Rate 76 71 89 Respiratory Rate 18 18 18 Blood Pressure 142/76 H 169/78 H 137/70 Pulse Oximetry 98 99 96 02/10/18 18:14 02/10/18 20:00 02/10/18 21:57 Temperature 98.1 F 97.7 F Pulse Rate 79 67 78 Respiratory Rate 18 20 Blood Pressure 180/81 H 164/77 H Pulse Oximetry 97 100 02/11/18 00:00 02/11/18 04:00 Temperature 98 F 97.4 F L Pulse Rate 51 L 65 Respiratory Rate 16 16 Blood Pressure 145/73 H 155/85 H Pulse Oximetry 100 98 Intake & Output 02/10/18 02/11/18 02/11/18 18:59 06:59 18:59 Intake Total 1660 / 1660 2399 / 2399 Output Total 350 / 350 Balance 1660 / 1660 2049 / 2049 Weight 64.4 kg Intake: IV 1519 / 1519 NS Inj 1,000 ML @ 100 mls/hr IV 1269 / 1269 .SIG .Q10H [facility] Rx#:[id number] NS Inj 250 ML @ 15 mls/hr IV. 250 / 250 SIG ONCE [facility] Rx#:[id number] Oral 1260 / 1260 480 / 480 Intake (Blood Product) Amt 400 / 400 400 / 400 Rbc As-3 Leukoreduced Unit 400 / 400 [id number] Rbc As-3 Leukoreduced Unit 0 / 0 400 / 400 [id number] Output: Urine 350 / 350 Other: # Voids 5 1 Date of Last Bowel Movement 02/10/18 02/10/18 # Bowel Movements 1 0 - Constitutional no acute distress, average body habitus - Routine HEENT Exam Head: Present: normocephalic, atraumatic Eye: Present: EOMI, PERRL, normal accommodation ENT: Present: mucous membranes moist - Routine Neck Exam Present: supple - Routine Respiratory Exam Present: CTA bilaterally - Routine Cardiovascular Exam Present: RRR - Routine Abdominal Exam Present: soft - Routine Skin Exam Present: intact - Routine Neurological Exam Present: alert, oriented X3 - Detailed Neurological Exam: Coma Scale Eye Opening: Spontaneous Verbal Response: Oriented Motor Response: Obey commands Grisel Coma Scale Total: 15 - Routine Psychiatric Exam Present: normal affect Results 02/11/18 09:50 02/11/18 09:50 CBC 02/10/18 Range/Units 06:57 WBC 2.3 L (4.0-11.0) th/mm3 RBC 2.67 L (4.50-5.90) mil/mm3 Hgb 7.7 L (13.0-17.0) gm/dL Hct 23.2 L (39.0-51.0) % Plt Count 39 L (150-450) th/mm3 Comprehensive Metabolic Panel 02/10/18 Range/Units 06:57 Sodium 140 (136-145) meq/L Potassium 4.0 (3.5-5.1) meq/L Chloride 106 (98-107) meq/L Carbon Dioxide 22.7 (21.0-32.0) meq/L BUN 38 H (7-18) mg/dL Creatinine 1.43 H (0.60-1.30) mg/dL Calcium 8.2 L (8.5-10.1) mg/dL Intake and Output 02/10/18 02/11/18 02/11/18 22:59 06:59 14:59 Intake Total 3060 / 3060 999 / 999 Output Total 350 / 350 Balance 3060 / 3060 649 / 649 Intake: IV 1000 / 1000 519 / 519 NS Inj 1,000 ML @ 100 mls/hr IV 1000 / 1000 269 / 269 .SIG .Q10H [facility] Rx#:[id number] NS Inj 250 ML @ 15 mls/hr IV. 250 / 250 SIG ONCE [facility] Rx#:[id number] Oral 1260 / 1260 480 / 480 Intake (Blood Product) Amt 800 / 800 Rbc As-3 Leukoreduced Unit 400 / 400 [id number] Rbc As-3 Leukoreduced Unit 400 / 400 [id number] Output: Urine 350 / 350 Other: # Voids 5 1 Date of Last Bowel Movement 02/10/18 # Bowel Movements 1 0 Weight 64.4 kg Assessment and Plan - Plan Assessment ASHD Chest pain HTN Pancytopenia Renal insufficiency Carotid stenosis Afib MDS Plan -Patient received 2 units of packed red blood cells yesterday, reports he was able to ambulate in the hallway into the restroom with no exertional chest tightness or shortness of breath. Pending a.m. lab results, will plan to discharge home and follow-up in office next week. -Pathology reveals MDS, pt aware of findings. Plan for outpatient treatment. -Nephrology following. Will avoid nephro toxic agents. Creatinine improved -History of post op Afib-no known Afib since 2014. -History of left CEA, continues on statin. Aspirin resumed. DC home on isosorbide, ASA, BB, MAGDALENE, and statin. Will see in office next week. Patient was seen and evaluated by Dr. Pena who participated in care management and decision making. The exam, history, and the medical decision-making described in the above note were completed with the assistance of the mid-level provider. I reviewed and agree with the findings presented. I attest that I had a [id number] encounter with the patient on the same day, and personally performed and documented my assessment and findings in the medical record. Overall no chest pain. will try medical rx if faila and has angina will proceed with high risk cath. Code Status: Full Code Discussed Condition With: Dr. Pena, RN
[2018-02-11] MEDS: Metoprolol Tartrate 25 MG Tablet PO SCH (08:24)
[2018-02-11] MEDS: Tolterodine Tartrate LA 2 MG Capsule PO SCH (08:24)
[2018-02-11] MEDS: Senna/Docusate Sodium 8.6/50 MG Tablet PO SCH (08:24)
[2018-02-11] MEDS: Torsemide 20 MG Tablet PO SCH (08:24)
--- NOTE | 2018-02-11 08:49 | P.PNIM ---
Subjective Interval history: Nursing denies any acute changes overnight, however patient did complain of some acute chest pain today. EKG was performed which and apparently reviewed which showed no significant change from the prior EKG. Patient himself confirms that the chest pain is better now and affirms/identifies it when I palpate heavily on his sternum. Physical Exam Vital signs: Vital Signs 02/10/18 11:44 02/10/18 14:54 02/10/18 15:13 Temperature 98.1 F 97.9 F 97.8 F Pulse Rate 76 71 89 Respiratory Rate 18 18 18 Blood Pressure 142/76 H 169/78 H 137/70 Pulse Oximetry 98 99 96 02/10/18 18:14 02/10/18 20:00 02/10/18 21:57 Temperature 98.1 F 97.7 F Pulse Rate 79 67 78 Respiratory Rate 18 20 Blood Pressure 180/81 H 164/77 H Pulse Oximetry 97 100 02/11/18 00:00 02/11/18 04:00 Temperature 98 F 97.4 F L Pulse Rate 51 L 65 Respiratory Rate 16 16 Blood Pressure 145/73 H 155/85 H Pulse Oximetry 100 98 Intake & Output 02/10/18 02/11/18 02/11/18 18:59 06:59 18:59 Intake Total 1660 / 1660 2399 / 2399 Output Total 350 / 350 Balance 1660 / 1660 2049 / 2049 Weight 64.4 kg Intake: IV 1519 / 1519 NS Inj 1,000 ML @ 100 mls/hr IV 1269 / 1269 .SIG .Q10H ANDREA Rx#:[id number] NS Inj 250 ML @ 15 mls/hr IV. 250 / 250 SIG ONCE ANDREA Rx#:[id number] Oral 1260 / 1260 480 / 480 Intake (Blood Product) Amt 400 / 400 400 / 400 Rbc As-3 Leukoreduced Unit 400 / 400 [id number] Rbc As-3 Leukoreduced Unit 0 / 0 400 / 400 [id number] Output: Urine 350 / 350 Other: # Voids 5 1 Date of Last Bowel Movement 02/10/18 02/10/18 # Bowel Movements 1 0 Narrative: Tenderness noted upon sternal palpation Otherwise heart sounds regular rate rhythm, no murmurs Clear lungs bilaterally, unlabored breathing Sitting up in bed at this time, no acute distress, Results - Labs CBC & Chem 7: 02/10/18 06:57 02/10/18 06:57 Laboratory Results - last 24 hr 02/08/18 02/10/18 02/10/18 07:35 06:57 11:47 Prelim Diff (Auto) Manual diff required WBC Differential Manual diff final Seg Neuts % (Manual) 49 Band Neuts % (Manual) 2 Lymphocytes % (Manual) 33 Monocytes % (Manual) 10 H Metamyelocytes % (Man) 3 H Myelocytes % (Man) 2 H Promyelocytes % (Man) 1 H Abs Neuts (Manual) 1.3 L Platelet Estimate Low L Platelet Morphology Normal Ovalocytes 2+ H POC Glucose 363 H PEP Pathologist Comment Blood Type Antibody Screen MTS Gel Crossmatch Bld Prod Order Comment 02/10/18 02/10/18 02/10/18 12:32 16:46 20:52 Prelim Diff (Auto) WBC Differential Seg Neuts % (Manual) Band Neuts % (Manual) Lymphocytes % (Manual) Monocytes % (Manual) Metamyelocytes % (Man) Myelocytes % (Man) Promyelocytes % (Man) Abs Neuts (Manual) Platelet Estimate Platelet Morphology Ovalocytes POC Glucose 433 H 293 H PEP Pathologist Comment Blood Type AB Positive Antibody Screen Negative MTS Gel Crossmatch See Detail Bld Prod Order Comment Y 02/11/18 08:22 Prelim Diff (Auto) WBC Differential Seg Neuts % (Manual) Band Neuts % (Manual) Lymphocytes % (Manual) Monocytes % (Manual) Metamyelocytes % (Man) Myelocytes % (Man) Promyelocytes % (Man) Abs Neuts (Manual) Platelet Estimate Platelet Morphology Ovalocytes POC Glucose 177 H PEP Pathologist Comment Blood Type Antibody Screen MTS Gel Crossmatch Bld Prod Order Comment Microbiology 02/09/18 00:30 Blood - Peripheral Aerobic Blood Culture - Preliminary No growth in 1 day 02/09/18 00:30 Blood - Peripheral Anaerobic Blood Culture - Preliminary No growth in 1 day Assessment and Plan - Plan This patient is a 82-year-old male with a diagnosis of hypertension, dyslipidemia, atherosclerotic heart disease status post CABG x3, left carotid artery stenosis, atrial fibrillation, COPD, osteoarthritis. The patient had a cardiac stress test which was positive. The patient is scheduled for a cardiac catheterization. Angina Acute kidney injury on CKD -Kidney function improved with IV fluids -Nephrology following -Cardiology following, will reassess patient once transfusion is done -Continue statin, beta-karoline, Imdur, aspirin, enalapril CP - costochondritis, supportive care Pancytopenia -Heme oncology following, can follow palpation. Status post bone marrow biopsy, showing myelodysplastic syndrome Cleared to be placed on one antiplatelet per oncology should patient warrant antiplatelet therapy per cardiology No pharmacotherapy for DVT prophylaxis the patient is thrombocytopenic SCDs
[2018-02-11 10:19] LABS: Hematocrit 33.7 % (39.0-51.0); Hemoglobin 11.3 gm/dL (13.0-17.0); Mean Corpuscular HGB Conc 33.6 % (32.0-36.0); Mean Corpuscular Volume 86.3 fL (80.0-100.0); Mean Platelet Volume 10.1 fL (7.0-11.0); Platelet Count 47 th/mm3 (150-450); Red Cell Distribution Width 15.6 % (11.6-17.2)
[2018-02-11] MEDS: Insulin NovoLOG Aspart Correctional Sugar Inj SQ SCH ×2 (10:20→12:50)
[2018-02-11 10:28] LABS: Activated Partial Thrombo Time 28.1 sec (23.4-31.7); INR 1.1 Ratio; Prothrombin Time 10.7 sec (9.8-11.6)
[2018-02-11 10:33] LABS: Calcium 8.2 mg/dL (8.5-10.1); Carbon Dioxide 26.3 meq/L (21.0-32.0); Potassium 4.4 meq/L (3.5-5.1)
[2018-02-11 10:55] LABS: Monocytes 3 % (0-8); Myelocytes 5 % (0-0); Tallied Nucleated RBC 1 (0-0)
[2018-02-11 10:56] LABS: Dohle Bodies Present; Lymphocytes 18 % (9-44)
[2018-02-11 10:57] LABS: Acanthocytes Occ; Burr Cells 1+
[2018-02-11 10:58] LABS: Platelet Morphology Normal (Normal)
--- NOTE | 2018-02-11 14:46 | P.PNNP ---
Subjective Interval history: Patient is being discharged no procedure was done his chest pain has improved Physical Exam Vital signs: Vital Signs 02/10/18 14:54 02/10/18 15:13 02/10/18 18:14 Temperature 97.9 F 97.8 F 98.1 F Pulse Rate 71 89 79 Respiratory Rate 18 18 18 Blood Pressure 169/78 H 137/70 180/81 H Pulse Oximetry 99 96 97 02/10/18 20:00 02/10/18 21:57 02/11/18 00:00 Temperature 97.7 F 98 F Pulse Rate 67 78 51 L Respiratory Rate 20 16 Blood Pressure 164/77 H 145/73 H Pulse Oximetry 100 100 02/11/18 04:00 Temperature 97.4 F L Pulse Rate 65 Respiratory Rate 16 Blood Pressure 155/85 H Pulse Oximetry 98 Intake & Output 02/10/18 02/11/18 02/11/18 18:59 06:59 18:59 Intake Total 1660 / 1660 2399 / 2399 Output Total 350 / 350 Balance 1660 / 1660 2049 / 2049 Weight 64.4 kg Intake: IV 1519 / 1519 NS Inj 1,000 ML @ 100 mls/hr IV 1269 / 1269 .SIG .Q10H ANDREA Rx#:[id number] NS Inj 250 ML @ 15 mls/hr IV. 250 / 250 SIG ONCE ANDREA Rx#:[id number] Oral 1260 / 1260 480 / 480 Intake (Blood Product) Amt 400 / 400 400 / 400 Rbc As-3 Leukoreduced Unit 400 / 400 [id number] Rbc As-3 Leukoreduced Unit 0 / 0 400 / 400 [id number] Output: Urine 350 / 350 Other: # Voids 5 1 Date of Last Bowel Movement 02/10/18 02/10/18 02/10/18 # Bowel Movements 1 0 Narrative: Tenderness noted upon sternal palpation Otherwise heart sounds regular rate rhythm, no murmurs Clear lungs bilaterally, unlabored breathing Sitting up in bed at this time, no acute distress, Assessment and Plan - Assessment (1) Acute renal failure Code(s): N17.9 - Acute kidney failure, unspecified Status: Acute (2) Chronic kidney disease Code(s): N18.9 - Chronic kidney disease, unspecified Status: Acute (3) Diabetes Code(s): E11.9 - Type 2 diabetes mellitus without complications Status: Acute (4) Hypertension Code(s): I10 - Essential (primary) hypertension Status: Acute (5) Coronary artery disease Code(s): I25.10 - Atherosclerotic heart disease of [place] coronary artery without angina pectoris Status: Acute (6) Pancytopenia Code(s): D61.818 - Other pancytopenia Status: Acute - Plan Patient told about ultrasound of the kidney smaller Rt kidney Bone marrow Biopsy done showed MDS hematology is following cr 1.38 improved Risk of dye study is associated with acute renal failure about 20-25% chance of worsening and 1% chance of dialysis Possible heart catheterization postponed Hemoglobin improved Discussed with him not to take nonsteroidal anti-inflammatory drugs Follow-up as outpatient
--- NOTE | 2018-02-11 15:58 | ECG ---
Date Performed: 02/10/2018 Time Performed: 10:53:32 PTAGE: 82 years EKG: CONSIDER ACUTE ST ELEVATION VA Sinus rhythm . Leftward axis IV conduction defect Inferior ST elevation, CONSIDER ACUTE INFARCT Ant/septal and lat eral ST-T changes may be due to myocardial ischemia Compared to previous tracing, HR has increased so mewhat and some ST depression anteriorly suggestive of ischemia Abnormal ECG NO PREVIOUS TRACING DOCTOR: Lianna Pena Interpretating Date/Time 02/11/2018 15:57:04
--- NOTE | 2018-02-12 08:28 | P.DS ---
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 Per cardiology's note patient underwent Lexiscan stress test on 01/26 which revealed kash- infarct ischemia, for this reason he was scheduled for heart catheterization today. He had preop labs done which revealed pancytopenia as well as elevated creatinine. His catheterization has been place on hold for this reason. Hematology and nephrology services consulted. Patient is seen and examined in Docu with grandson present at bedside. Patient reports that for the past month he has been experiencing a "heaviness" in his chest that is more noticeable in the mornings and with activity. He reports that this heaviness will resolve with rest he also endorses SOB with these episodes. He denies any recent dizziness, lightheadedness, palpitations, headaches, vision changes, N/V/D or dysuria or trouble urinating. Patient does not report any black or tarry stools , no epistaxis or easy bruising. He does report that he has noticed that his voice has changed and is requesting to see an oncologist. He tells me he would like this looked at since this is new and is concerned for malignancy, he is a daily tobacco chewer. DS: Medications - Discharge Medications Prescriptions: enalapril maleate 5 mg PO BID #30 tab DS: Summary Hospital Course: Patient was admitted after being found out to have pancytopenia that he was getting prepared for heart catheterization. Hematology was consulted, ultimately diagnosed myelodysplastic syndrome after bone marrow biopsy. Nephrology had been consulted for renal insufficiency, initiated medical renal disease workup with blood work. Patient's chest pain remained stable and eventually improved. Patient remained thrombocytopenic but his platelets remained in the 40s-50s. Patient did not demonstrate any signs of unstable angina while in-house after receiving a unit of blood. Ultimately cardiology opted to follow-up with patient closely as an outpatient. Patient has met maximal benefit from hospitalization is clinically stable for discharge. - Time Spent with Patient Total time spent providing and/or coordinating discharge services: Less than 30 minutes - Quality: VTE Deep Vein Thrombosis/Pulmonary Embolism Present on Admission: No Exam Vital signs: Intake & Output 02/11/18 02/12/18 02/12/18 18:59 06:59 18:59 Other: Date of Last Bowel Movement 02/10/18 Narrative: Heart sounds regular rate rhythm, no murmurs clear lungs bilaterally, unlabored breathing Results Procedures completed during hospitalization: Bone marrow biopsy Labs on day of discharge: Labs from last 24 hours 02/11/18 02/11/18 02/11/18 12:45 09:50 09:50 WBC RBC Hgb Hct MCV MCH MCHC RDW Plt Count MPV Prelim Diff (Auto) WBC Differential Seg Neuts % (Manual) Band Neuts % (Manual) Lymphocytes % (Manual) Monocytes % (Manual) Basophils % (Manual) Myelocytes % (Man) Abs Neuts (Manual) Nucleated RBCs/100 WBC Differential Comment Dohle Bodies Platelet Estimate Platelet Morphology Johnny Cells Acanthocytes (Spur) PT 10.7 INR 1.1 APTT 28.1 Sodium 141 Potassium 4.4 Chloride 108 H Carbon Dioxide 26.3 Anion Gap 7 BUN 30 H Creatinine 1.38 H Estimated GFR 49 L POC Glucose 354 H Random Glucose 167 H Calcium 8.2 L 02/11/18 02/11/18 09:50 08:22 WBC 3.0 L RBC 3.90 L Hgb 11.3 L D Hct 33.7 L MCV 86.3 MCH 29.0 MCHC 33.6 RDW 15.6 Plt Count 47 L MPV 10.1 Prelim Diff (Auto) Manual diff required WBC Differential Manual diff final Seg Neuts % (Manual) 69 Band Neuts % (Manual) 4 Lymphocytes % (Manual) 18 Monocytes % (Manual) 3 Basophils % (Manual) 1 Myelocytes % (Man) 5 H Abs Neuts (Manual) 2.3 Nucleated RBCs/100 WBC 1 H Differential Comment . Dohle Bodies Present H Platelet Estimate Low L Platelet Morphology Normal Johnny Cells 1+ H Acanthocytes (Spur) Occ H PT INR APTT Sodium Potassium Chloride Carbon Dioxide Anion Gap BUN Creatinine Estimated GFR POC Glucose 177 H Random Glucose Calcium Preliminary micro results at discharge 02/09/18 00:30 Aerobic Blood Culture - Preliminary Blood - Peripheral No growth in 2 days Anaerobic Blood Culture - Preliminary No growth in 2 days - Impressions ITS Impressions Abdomen/Bladder Ultrasound 02/08/18 00:00 CONCLUSION: 1. No hydronephrosis. 2. Increased echogenicity characteristic of medical renal disease. 3. Right kidney is small and atrophic in appearance. There is mild cortical thinning in the left kidney. Biopsy,Fluoroscopy Guided 02/08/18 00:00 CONCLUSION: 1. Uncomplicated fluoroscopic guided bone marrow aspirate. 2. Uncomplicated fluoroscopic guided bone marrow biopsy. Discharge Plan - Discharge Disposition Patient Disposition: Discharge Home - Discharge Condition Condition: Stable - Discharge Order Discharge Orders: Discharge Order (Routine); Ordered 02/11/18 Ordered By: Salvador oLpez Cardiology Clear for Discharge (Routine); Ordered 02/11/18 Ordered By: Lesli Ortiz - Physicians Team Attending Provider: Salvador Lopez Other Providers: Jose Miguel Weldon MD ; Shaye Valencia ; Lianna Pena MD ; Apofore - Rxs /Orders / Referrals /Forms Prescriptions: New enalapril maleate 10 mg Tablet 5 mg PO BID Qty: 30 RF: 0 Continue aspirin 81 mg Tablet,Chewable 81 mg PO DAILY atorvastatin 40 mg Tablet 40 mg PO DAILY clonidine HCl 0.1 mg Tablet 0.1 mg PO DAILY famotidine 20 mg Tablet 20 mg PO DAILY glipizide-metformin 5-500 mg Tablet 1 tab PO BID isosorbide mononitrate 60 mg Tablet Extended Release 24 Hr 60 mg PO DAILY metoprolol tartrate 25 mg Tablet 25 mg PO BID Multi Vitamin 1 cap PO DAILY omeprazole 40 mg Capsule,Delayed Release(Dr/Ec) 40 mg PO DAILY ranolazine [Ranexa] 500 mg Tablet Extended Release 12 Hr 500 mg PO Q12H ropinirole [Requip] 1 mg Tablet 1 mg PO HS sitagliptin [Januvia] 100 mg Tablet 100 mg PO DAILY solifenacin [Vesicare] 5 mg Tablet 5 mg PO DAILY torsemide 20 mg Tablet 20 mg PO DAILY umeclidinium-vilanterol [Anoro Ellipta] 62.5-25 mcg/actuation Blister With Device 1 inh INHALATION Q24H Discontinued clopidogrel [Plavix] 75 mg Tablet 75 mg PO DAILY enalapril maleate 20 mg Tablet 20 mg PO BID Referrals: Dr Phil Gay MD [Other] - See Instructions Lianna Pena MD [Physician] - See Instructions (Follow up in one week. Please call for an appointment.) Shaye Valencia [Physician] - See Instructions (Follow up in clinic in one week. Call for an appointment.) - Discharge Instructions Patient Printed Instructions: Enalapril (By mouth), Costochondritis (DC), Myelodysplastic Syndromes (GEN), Heart Catheterization (DC), Pancytopenia (GEN)
== END 2018-02-11 15:24 | disposition home or self-care (01) ==
LOC: HDOC 10:33 → HDIC 10:38 → HCIN 17:25
PROVIDERS: ADMIT Hospitalist; ATTEND Hospitalist

== ENCOUNTER 2018-03-01 11:43 | Inpatient (IN) ==
[2018-03-01] MEDS ORDERED: Dextrose 50% in Water 50 ML Vial IV.PUSH PRN (20:22)
[2018-03-01] MEDS ORDERED: Bisacodyl 10 MG Supp RECTAL PRN (20:22)
--- NOTE | 2018-03-01 20:42 | P.HP ---
History of Present Illness Service: [facility] Primary Care Physician: UNKNOWN History of Present Illness: 82-year-old male with a past medical history significant for A. fib, myelodysplastic syndrome, coronary artery disease, congestive heart failure, COPD, diabetes, hypertension and hyperlipidemia presents to the emergency department as a direct admission. The patient reports that he was sent by both Dr. Pena and Dr. Valencia for evaluation of anemia prior to a planned cardiac catheterization tomorrow. The patient reports that he had routine lab work done yesterday and was called stating that he needed to come to the hospital for transfusion prior to his catheterization. He does not have his lab work results with him and reports that they were done at an outside lab. Patient denies any chest pain at this time. He endorses shortness of breath that is worse with exertion. No abdominal pain. No nausea/vomiting/diarrhea. No focal neurologic deficits. The patient has required multiple transfusions in the past for anemia, most recently on 02/22 for a hemoglobin of 7.9. Inpatient Certification: I certify that the inpatient services were ordered in accordance with Medicare regulations governing the order. This includes certification that hospital inpatient services are reasonable and necessary and in the case of services not specified as inpatient-only under 42 CFR 419.22(n), that they are appropriately provided as inpatient services in accordance to with the 2-midnight benchmark under 43 CFR 412.3(e) Estimated Total Length of Stay (Days): 2 Plans for Post Hospital Care: Not yet determined Review of Systems All other systems reviewed negative except as stated in [facility] - History History Provided By: Patient, Family Member, Medical Record - Medical History Medical History: Medical History (Last Reviewed 03/01/18 @ 20:37 by Alda Hayes MD) Abnormal nuclear stress test Anemia Arteriosclerotic heart disease (ASHD) CHF (congestive heart failure) Lower extremity edema Myelodysplastic syndrome Afib COPD (chronic obstructive pulmonary disease) Carotid stenosis Chest pain Diabetes Edema Fatigue Glaucoma HLD (hyperlipidemia) HTN (hypertension) Osteoarthritis of right knee SOB (shortness of breath) - Surgical History Surgical History: Surgical History (Last Reviewed 03/01/18 @ 20:37 by Alda Hayes MD) Stented coronary artery Hx of CABG - Family History Family History: Family History (Last Reviewed 03/01/18 @ 20:37 by Alda Hayes MD) Mother Diabetes mellitus Mother Myocardial infarct - Tobacco History Second Hand Smoke Exposure: No Smoking Status: Never smoker - Alcohol History How Often Do You Have a Drink Containing Alcohol: Never - Substance Use History Substance History: No History of Abuse - Travel History History of Recent Travel: Yes (Recent travel to [place]) - Immunization History Tetanus Immunization: >5 Years Hx Influenza Vaccine This Season: Yes Medications and Allergies Active Medications: Active Medications Acetaminophen (Tylenol) 650 mg PO Q4H PRN PRN Reason: Temp > 100.4 Al Hydroxide/Mg Hydroxide (Milk Of Magnesia Liq) 30 ml PO Q12H PRN PRN Reason: Mild Constipation Aspirin (Aspirin Chew) 81 mg PO DAILY [facility] Atorvastatin Calcium (Lipitor) 40 mg PO DAILY [facility] Bisacodyl (Dulcolax Supp) 10 mg RECTAL DAILY PRN PRN Reason: SEVERE CONSITIPATION Clonidine HCl (Clonidine (Nicu) 20 Mcg/Ml Liq) 100 mcg PO DAILY [facility] Clopidogrel Bisulfate (Plavix) 75 mg PO DAILY [facility] Dextrose (D50w Vial) 50 ml IV.PUSH UNSCH PRN PRN Reason: PER HYPOGLYCEMIA PROTOCOL Famotidine (Pepcid) 20 mg PO DAILY [facility] Glucagon (Glucagon Inj) 1 mg OTHER PRN PRN PRN Reason: for Hypoglycemia Protocol Insulin Aspart (Novolog Insulin Correctional Sugar Inj) 0 unit SQ ACHS AND 3AM ANDREA; Protocol Isosorbide Mononitrate (Imdur) 120 mg PO DAILY [facility] Lactulose (Lactulose Liq) 30 ml PO DAILY PRN PRN Reason: SEVERE CONSITIPATION Metoprolol Tartrate (Lopressor) 25 mg PO BID [facility] Non-Formulary Medication (Enalapril Maleate [Enalapril Maleate]) 20 mg PO BID [facility] Non-Formulary Medication (Omeprazole [Omeprazole]) 40 mg PO DAILY [facility] Ondansetron HCl (Zofran Inj) 4 mg IV.PUSH Q6H PRN PRN Reason: NAUSEA OR VOMITING Ranolazine (Ranexa) 500 mg PO Q12H [facility] Ropinirole HCl (Requip) 1 mg PO HS [facility] Senna/Docusate Sodium (Kyleigh-Colace) 1 tab PO BID [facility] Sennosides (Senokot) 17.2 mg PO Q12H PRN PRN Reason: Moderate Constipation Torsemide (Demadex) 20 mg PO DAILY [facility] Umeclidinium/Vilanterol (Anoro-Ellipta 62.5/25 Mcg Inh) inhalation INH Q24H [facility] Allergies Allergy/AdvReac Type Severity Reaction Status Date / Time No Known Allergies Allergy Verified 02/07/18 11:24 Home Medications Medication Instructions Recorded Confirmed Type Multi Vitamin 1 cap PO DAILY 02/07/18 03/01/18 History aspirin 81 mg PO DAILY 02/07/18 03/01/18 History atorvastatin 40 mg PO DAILY 02/07/18 03/01/18 History clonidine HCl 0.1 mg PO DAILY 02/07/18 03/01/18 History clopidogrel [Plavix] 75 mg PO DAILY 02/07/18 02/07/18 History enalapril maleate 20 mg PO BID 02/07/18 03/01/18 History famotidine 20 mg PO DAILY 02/07/18 03/01/18 History glipizide-metformin 1 tab PO BID 02/07/18 03/01/18 History isosorbide mononitrate 120 mg PO DAILY 02/07/18 03/01/18 History metoprolol tartrate 25 mg PO BID 02/07/18 03/01/18 History omeprazole 40 mg PO DAILY 02/07/18 03/01/18 History ranolazine [Ranexa] 500 mg PO Q12H 02/07/18 03/01/18 History ropinirole [Requip] 1 mg PO HS 02/07/18 03/01/18 History sitagliptin [Januvia] 100 mg PO DAILY 02/07/18 03/01/18 History solifenacin [Vesicare] 5 mg PO DAILY 02/07/18 03/01/18 History torsemide 20 mg PO DAILY 02/07/18 03/01/18 History umeclidinium-vilanterol [Anoro 1 inh INHALATION Q24H 02/07/18 03/01/18 History Ellipta] clopidogrel [Plavix] 75 mg PO DAILY 03/01/18 03/01/18 History Exam Vital signs: Vital Signs 03/01/18 20:00 Temperature 97.7 F Pulse Rate 77 Respiratory Rate 16 Blood Pressure 125/58 L Pulse Oximetry 95 Intake & Output 03/01/18 03/01/18 03/02/18 06:59 18:59 06:59 Weight 67.132 kg Other: Weight On Admission 67.261 kg Narrative: Gen.: No acute distress Head: Normocephalic. Atraumatic. EENT: Pupils equal round and reactive to light. Nose without drainage. Airway intact. Throat without injection. Cardiovascular: Regular rate and rhythm. No murmurs, rubs or gallops. Respiratory: Lungs clear to auscultation bilaterally. No wheezes or rhonchi. Abdomen: Soft, nontender, nondistended. No peritoneal signs. Musculoskeletal: No gross deformities. No edema. Skin: No obvious rashes or erythema. Neuro: Sensory and motor grossly intact. Cranial nerves II through XII grossly intact. Caprini VTE Risk Assessment Caprini VTE Risk Assessment: Moderate/High Risk (score >= 2) Caprini Risk Assessment Model: Point Value = 1 Point Value = 2 Point Value = 3 Point Value = 5 Age 41-60 Minor surgery BMI > 25 kg/m2 Swollen legs Varicose veins or History of unexplained or recurrent spontaneous Oral contraceptives or hormone replacement Sepsis (< 1 month) Serious lung disease, including pneumonia (< 1 month) Abnormal pulmonary function Acute myocardial infarction Congestive heart failure (< 1 month) History of inflammatory bowel disease Medical patient at bed rest Age 61-74 Arthroscopic surgery Major open surgery (> 45 min) Laparoscopic surgery (> 45 min) Malignancy Confined to bed (> 72 hours) Immobilizing plaster cast Central venous access Age >= 75 History of VTE Family history of VTE Factor V Leiden Prothrombin [id number] Lupus anticoagulant Anticardiolipin antibodies Elevated serum homocysteine Heparin-induced thrombocytopenia Other congenital or acquired thrombophilia Stroke (< 1 month) Elective arthroplasty Hip, pelvis, or leg fracture Acute spinal cord injury (< 1 month) Prophylaxis Regimen: Total Risk Factor Score Risk Level Prophylaxis Regimen 0-1 Low Early ambulation 2 Moderate Order ONE of the following: *Sequential Compression Device (SCD) *Heparin 5000 units SQ BID 3-4 Higher Order ONE of the following medications: *Heparin 5000 units SQ TID *Enoxaparin/Lovenox 40 mg SQ daily (WT < 150 kg, CrCl > 30 mL/min) *Enoxaparin/Lovenox 30 mg SQ daily (WT < 150 kg, CrCl > 10-29 mL/min) *Enoxaparin/Lovenox 30 mg SQ BID (WT < 150 kg, CrCl > 30 mL/min) AND/OR *Sequential Compression Device (SCD) 5 or more Highest Order ONE of the following medications: *Heparin 5000 units SQ TID (Preferred with Epidurals) *Enoxaparin/Lovenox 40 mg SQ daily (WT < 150 kg, CrCl > 30 mL/min) *Enoxaparin/Lovenox 30 mg SQ daily (WT < 150 kg, CrCl > 10-29 mL/min) *Enoxaparin/Lovenox 30 mg SQ BID (WT < 150 kg, CrCl > 30 mL/min) AND *Sequential Compression Device (SCD) Assessment and Plan - Plan Assessment/plan: 1. Myelodysplastic syndrome/anemia Stat CBC pending, transfuse if needed Patient's oncologist consulted, Dr. Valencia, appreciate assistance 2. Coronary artery disease Plan for cardiac catheterization tomorrow with Dr. Pena Continue home aspirin/Plavix 3. Atrial fibrillation Patient not on systemic anticoagulation Continue home metoprolol 4. CHF Cardiology consulted as above Continue home medications 5. COPD/hypertension/ Continue home medications FEN N.p.o. Electrolytes: Pending Holding pharmacologic anticoagulation for MDS/anemia
[2018-03-01 21:46] LABS: Hematocrit 24.7 % (39.0-51.0); Hemoglobin 8.4 gm/dL (13.0-17.0); Mean Corpuscular HGB Conc 33.9 % (32.0-36.0); Mean Corpuscular Hemoglobin 30.1 pg (27.0-34.0); Mean Corpuscular Volume 88.7 fL (80.0-100.0); Mean Platelet Volume 11.2 fL (7.0-11.0); Platelet Count 42 th/mm3 (150-450); Red Blood Count 2.79 mil/mm3 (4.50-5.90); Red Cell Distribution Width 15.7 % (11.6-17.2); White Blood Count 4.7 th/mm3 (4.0-11.0)
[2018-03-01 21:59] LABS: Activated Partial Thrombo Time 31.4 sec (23.4-31.7); INR 1.1 Ratio; Prothrombin Time 11.3 sec (9.8-11.6)
[2018-03-01 22:15] LABS: Albumin 2.7 g/dL (3.4-5.0); Anion Gap 9 meq/L (5-15); Aspartate Aminotransferase 22 U/L (15-37); Blood Urea Nitrogen 60 mg/dL (7-18); Calcium 8.3 mg/dL (8.5-10.1); Carbon Dioxide 19.7 meq/L (21.0-32.0); Chloride 108 meq/L (98-107); Glomerular Filtration Rate 37 mL/min (>89); Glucose,Random 134 mg/dL (74-106); Potassium 4.9 meq/L (3.5-5.1); Sodium 137 meq/L (136-145)
[2018-03-01 22:16] LABS: Alanine Aminotransferase 30 U/L (12-78)
[2018-03-01 22:18] LABS: Alkaline Phosphatase 54 U/L (45-117); Total Protein 6.9 g/dL (6.4-8.2)
[2018-03-01] MEDS: Insulin NovoLOG Aspart Correctional Sugar Inj SQ SCH (22:20)
[2018-03-01] MEDS ORDERED: Acetaminophen 325 MG Tablet PO PRN (22:31)
[2018-03-01 22:42] LABS: Blast Cells 2 % (0-0); Lymphocytes 19 % (9-44); Monocytes 12 % (0-8); Tallied Nucleated RBC 5 (0-0)
[2018-03-01 22:45] LABS: Acanthocytes 1+; Dohle Bodies Present; Ovalocytes 1+; Toxic Granulation 1+
[2018-03-01 22:46] LABS: Platelet Morphology Normal (Normal)
[2018-03-01] MEDS: Umeclindinium 62.5 MCG/Vilanterol 25 MCG Inhaler INH SCH (23:10)
[2018-03-01] MEDS: Metoprolol Tartrate 25 MG Tablet PO SCH (23:11)
[2018-03-01] MEDS: Senna/Docusate Sodium 8.6/50 MG Tablet PO SCH (23:12)
[2018-03-01] MEDS: Ranolazine 500 MG 12HR ER Tablet PO SCH (23:42)
[2018-03-02] MEDS: Sodium Chlor 0.9% Inj 250 ML IV.SIG SCH ×2 (02:03→11:50)
[2018-03-02] MEDS: Insulin NovoLOG Aspart Correctional Sugar Inj SQ SCH ×5 (04:28→21:53)
[2018-03-02 08:17] LABS: Baso % (Auto) 0.1 % (0.0-2.0); Eos % (Auto) 0.1 % (0.0-4.0); Hematocrit 26.4 % (39.0-51.0); Hemoglobin 9.1 gm/dL (13.0-17.0); Lymph # (Auto) 0.9 th/mm3 (1.0-4.8); Lymph % (Auto) 24.6 % (9.0-44.0); Mean Corpuscular HGB Conc 34.4 % (32.0-36.0); Mean Corpuscular Hemoglobin 30.3 pg (27.0-34.0); Mean Corpuscular Volume 88.1 fL (80.0-100.0); Mean Platelet Volume 11.6 fL (7.0-11.0); Mono # (Auto) 0.4 th/mm3 (0.0-0.9); Mono % (Auto) 9.4 % (0.0-8.0); Neut # (Auto) 2.5 th/mm3 (1.8-7.7); Neut % (Auto) 65.8 % (16.0-70.0); Platelet Count 39 th/mm3 (150-450); Red Blood Count 2.99 mil/mm3 (4.50-5.90); Red Cell Distribution Width 15.5 % (11.6-17.2); White Blood Count 3.9 th/mm3 (4.0-11.0)
[2018-03-02 08:37] LABS: Alkaline Phosphatase 48 U/L (45-117); Total Protein 6.2 g/dL (6.4-8.2)
[2018-03-02 08:43] LABS: Alanine Aminotransferase 23 U/L (12-78); Albumin 2.4 g/dL (3.4-5.0); Anion Gap 10 meq/L (5-15); Aspartate Aminotransferase 11 U/L (15-37); Blood Urea Nitrogen 59 mg/dL (7-18); Calcium 8.4 mg/dL (8.5-10.1); Carbon Dioxide 20.3 meq/L (21.0-32.0); Chloride 109 meq/L (98-107); Glomerular Filtration Rate 43 mL/min (>89); Glucose,Random 130 mg/dL (74-106); Potassium 5.3 meq/L (3.5-5.1); Sodium 139 meq/L (136-145)
[2018-03-02 09:21] LABS: Blast Cells 2 % (0-0); Lymphocytes 24 % (9-44); Metamyelocytes 2 % (0-1); Monocytes 10 % (0-8); Myelocytes 5 % (0-0); Platelet Morphology Normal (Normal); Tallied Nucleated RBC 1 (0-0)
[2018-03-02 09:22] LABS: Acanthocytes Occ; Burr Cells 1+; Ovalocytes 1+
--- NOTE | 2018-03-02 09:22 | P.CONCA ---
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 Weldon, non insulin dependent DM, hypertension, hyperlipidemia, carotid stenosis, shortness of breath, recent abnormal nuclear stress test showing moderate kyleigh-infarct ischemia, patient was also recently diagnosed with MDS, he is following with Dr. Shaye Valencia. Patient was recently in the hospital, scheduled for outpatient heart catheterization when he was found to have pancytopenia, on his last admission patient's chest pain resolved after receiving blood transfusion. Patient was seen in our office on February 18, he reported that he continued to have episodes of chest pain and elected to proceed with heart catheterization. Patient continues to have low platelets, he was instructed to come to the hospital yesterday for blood transfusion. Patient received 1 unit of PRBCs last night, platelets are [address] Pena will transfuse 1 additional unit of PRBCs. Upon examination patient does not appear to be in any acute distress. Creatinine is 1.56 this a.m. Risk of heart cath discussed in detail with patient and family member, patient elects to proceed. Review of Systems Cardiovascular: Reports chest pain with activity, Reports shortness of breath with activity PMFSH - History History Provided By: Patient, Family Member, Medical Record - Medical History Medical History: Medical History (Last Reviewed 03/01/18 @ 20:37 by Alda Hayes MD) Abnormal nuclear stress test Anemia Arteriosclerotic heart disease (ASHD) CHF (congestive heart failure) Lower extremity edema Myelodysplastic syndrome Afib COPD (chronic obstructive pulmonary disease) Carotid stenosis Chest pain Diabetes Edema Fatigue Glaucoma HLD (hyperlipidemia) HTN (hypertension) Osteoarthritis of right knee SOB (shortness of breath) - Surgical History Surgical History: Surgical History (Last Reviewed 03/01/18 @ 20:37 by Alda Hayes MD) Stented coronary artery Hx of CABG - Family History Family History: Family History (Last Reviewed 03/01/18 @ 20:37 by Alda Hayes MD) Mother Diabetes mellitus Mother Myocardial infarct - Tobacco History Second Hand Smoke Exposure: No Smoking Status: Never smoker - Alcohol History How Often Do You Have a Drink Containing Alcohol: Never - Substance Use History Substance History: No History of Abuse - Travel History History of Recent Travel: Yes (Recent travel to [place]) Recent Travel in the [place] Within the Last 8 Weeks: No Recent Travel Out of the Country Within the Last 8 Weeks: No - Immunization History Tetanus Immunization: >5 Years Hx Influenza Vaccine This Season: Yes Medications and Allergies Allergies Allergy/AdvReac Type Severity Reaction Status Date / Time No Known Allergies Allergy Verified 02/07/18 11:24 Home Medications Medication Instructions Recorded Confirmed Type Multi Vitamin 1 cap PO DAILY 02/07/18 03/01/18 History aspirin 81 mg PO DAILY 02/07/18 03/01/18 History atorvastatin 40 mg PO DAILY 02/07/18 03/01/18 History clonidine HCl 0.1 mg PO DAILY 02/07/18 03/01/18 History clopidogrel [Plavix] 75 mg PO DAILY 02/07/18 03/02/18 History enalapril maleate 20 mg PO BID 02/07/18 03/01/18 History famotidine 20 mg PO DAILY 02/07/18 03/01/18 History glipizide-metformin 1 tab PO BID 02/07/18 03/01/18 History isosorbide mononitrate 120 mg PO DAILY 02/07/18 03/01/18 History metoprolol tartrate 25 mg PO BID 02/07/18 03/01/18 History omeprazole 40 mg PO DAILY 02/07/18 03/01/18 History ranolazine [Ranexa] 500 mg PO Q12H 02/07/18 03/01/18 History ropinirole [Requip] 1 mg PO HS 02/07/18 03/01/18 History sitagliptin [Januvia] 100 mg PO DAILY 02/07/18 03/01/18 History solifenacin [Vesicare] 5 mg PO DAILY 02/07/18 03/01/18 History torsemide 20 mg PO DAILY 02/07/18 03/01/18 History umeclidinium-vilanterol [Anoro 1 inh INHALATION Q24H 02/07/18 03/01/18 History Ellipta] clopidogrel [Plavix] 75 mg PO DAILY 03/01/18 03/01/18 History Active Medications: Active Medications Acetaminophen (Tylenol) 650 mg PO Q4H PRN PRN Reason: Temp > 100.4 Acetaminophen (Tylenol) 650 mg PO Q4H PRN PRN Reason: SEE LABEL COMMENTS Al Hydroxide/Mg Hydroxide (Milk Of Magnesia Liq) 30 ml PO Q12H PRN PRN Reason: Mild Constipation Aspirin (Aspirin Chew) 81 mg PO DAILY [facility] Atorvastatin Calcium (Lipitor) 40 mg PO DAILY [facility] Bisacodyl (Dulcolax Supp) 10 mg RECTAL DAILY PRN PRN Reason: SEVERE CONSITIPATION Clonidine HCl (Catapres) 0.1 mg PO DAILY [facility] Clopidogrel Bisulfate (Plavix) 75 mg PO DAILY [facility] Dextrose (D50w Vial) 50 ml IV.PUSH UNSCH PRN PRN Reason: PER HYPOGLYCEMIA PROTOCOL Diphenhydramine HCl (Benadryl) 25 mg PO Q4H PRN PRN Reason: SEE LABEL COMMENTS Diphenhydramine HCl (Benadryl) 50 mg PO BOTTLE PACKER [facility] Stop: 03/06/18 09:14 Enalapril Maleate (Vasotec) 20 mg PO BID [facility] Last Admin: 03/01/18 23:12 Dose: 20 mg Famotidine (Pepcid) 20 mg PO DAILY [facility] Glucagon (Glucagon Inj) 1 mg OTHER PRN PRN PRN Reason: for Hypoglycemia Protocol Sodium Chloride (Ns Inj) 250 mls @ 15 mls/hr IV.SIG ONCE ANDREA Stop: 03/02/18 15:39 Last Infusion: 03/02/18 04:38 Dose: Infused Sodium Chloride (Ns Inj) 250 mls @ 15 mls/hr IV.SIG ONCE ANDREA Stop: 03/03/18 02:39 Insulin Aspart (Novolog Insulin Correctional Sugar Inj) 0 unit SQ ACHS AND 3AM ANDREA; Protocol Last Admin: 03/02/18 08:33 Dose: Not Given Isosorbide Mononitrate (Imdur) 120 mg PO DAILY [facility] Lactulose (Lactulose Liq) 30 ml PO DAILY PRN PRN Reason: SEVERE CONSITIPATION Metoprolol Tartrate (Lopressor) 25 mg PO BID [facility] Last Admin: 03/01/18 23:11 Dose: 25 mg Ondansetron HCl (Zofran Inj) 4 mg IV.PUSH Q6H PRN PRN Reason: NAUSEA OR VOMITING Pantoprazole Sodium (Protonix) 40 mg PO DAILY [facility] Ranolazine (Ranexa) 500 mg PO Q12HR [facility] Last Admin: 03/01/18 23:42 Dose: 500 mg Ropinirole HCl (Requip) 1 mg PO HS [facility] Last Admin: 03/01/18 23:11 Dose: 1 mg Senna/Docusate Sodium (Kyleigh-Colace) 1 tab PO BID [facility] Last Admin: 03/01/18 23:12 Dose: 1 tab Sennosides (Senokot) 17.2 mg PO Q12H PRN PRN Reason: Moderate Constipation Torsemide (Demadex) 20 mg PO DAILY [facility] Umeclidinium/Vilanterol (Anoro-Ellipta 62.5/25 Mcg Inh) 1 inhalation INH Q24H [facility] Last Admin: 03/01/18 23:10 Dose: 1 inhalation Exam Vital signs: Vital Signs 03/01/18 20:00 03/02/18 00:00 03/02/18 01:56 Temperature 97.7 F 97.9 F 98.1 F Pulse Rate 77 70 71 Respiratory Rate 16 12 16 Blood Pressure 125/58 L 109/56 L 110/59 L Pulse Oximetry 95 89 L 97 03/02/18 02:13 03/02/18 04:00 03/02/18 07:36 Temperature 97.9 F 97.6 F 97.8 F Pulse Rate 69 60 71 Respiratory Rate 15 16 16 Blood Pressure 115/60 113/58 L 139/61 Pulse Oximetry 95 100 99 Intake & Output 03/01/18 03/02/18 03/02/18 18:59 06:59 18:59 Intake Total 895 / 895 Balance 895 / 895 Weight 67.132 kg 67.132 kg Intake: IV 15 NS Inj 250 ML @ 15 mls/hr IV. 15 15 SIG ONCE [facility] Rx#:[id number] Oral 480 / 480 Intake (Blood Product) Amt 400 / 400 Rbc As-3 Leukoreduced Unit 400 / 400 [id number] Other: # Voids 0 Date of Last Bowel Movement 03/01/18 Weight On Admission 67.261 kg - Constitutional no acute distress, chronically ill appearing - Routine HEENT Exam Head: Present: normocephalic Eye: Present: EOMI, PERRL, normal accommodation ENT: Present: mucous membranes moist - Routine Neck Exam Present: supple - Routine Respiratory Exam Present: diminished air movement - Routine Cardiovascular Exam Present: RRR - Routine Abdominal Exam Present: soft - Routine Skin Exam Present: intact - Routine Neurological Exam Present: alert, oriented X3 Results 03/02/18 08:07 03/02/18 08:07 Cardiac Enzymes 03/01/18 03/02/18 Range/Units 21:40 08:07 AST 22 11 L (15-37) U/L Coagulation 03/01/18 03/01/18 Range/Units 21:40 21:40 PT 11.3 (9.8-11.6) sec APTT 31.4 Cancelled (23.4-31.7) sec CBC 03/01/18 03/02/18 Range/Units 21:40 08:07 WBC 4.7 3.9 L (4.0-11.0) th/mm3 RBC 2.79 L 2.99 L (4.50-5.90) mil/mm3 Hgb 8.4 L 9.1 L (13.0-17.0) gm/dL Hct 24.7 L 26.4 L (39.0-51.0) % Plt Count 42 L 39 L (150-450) th/mm3 Neut # (Auto) 2.5 (1.8-7.7) th/mm3 Lymph # (Auto) 0.9 L (1.0-4.8) th/mm3 Gilliam # (Auto) 0.4 (0.0-0.9) th/mm3 Eos # (Auto) 0.0 (0.0-0.4) th/mm3 Baso # (Auto) 0.0 (0.0-0.2) th/mm3 Comprehensive Metabolic Panel 03/01/18 03/02/18 Range/Units 21:40 08:07 Sodium 137 139 (136-145) meq/L Potassium 4.9 5.3 H (3.5-5.1) meq/L Chloride 108 H 109 H (98-107) meq/L Carbon Dioxide 19.7 L 20.3 L (21.0-32.0) meq/L BUN 60 H 59 H (7-18) mg/dL Creatinine 1.79 H 1.56 H (0.60-1.30) mg/dL Calcium 8.3 L 8.4 L (8.5-10.1) mg/dL AST 22 11 L (15-37) U/L ALT 30 23 (12-78) U/L Alkaline Phosphatase 54 48 (45-117) U/L Total Protein 6.9 6.2 L D (6.4-8.2) g/dL Albumin 2.7 L 2.4 L (3.4-5.0) g/dL Intake and Output 03/01/18 03/02/18 03/02/18 22:59 06:59 14:59 Intake Total 895 / 895 Balance 895 / 895 Intake: IV NS Inj 250 ML @ 15 mls/hr IV. SIG ONCE [facility] Rx#:[id number] Oral 480 / 480 Intake (Blood Product) Amt 400 / 400 Rbc As-3 Leukoreduced Unit 400 / 400 [id number] Other: # Voids 0 Date of Last Bowel Movement 03/01/18 Weight 67.132 kg 67.132 kg Weight On Admission 67.261 kg Assessment and Plan - Plan ASHD Chest pain Myelodysplastic syndrome CKD We will plan to proceed with heart catheterization today. 1 additional unit of PRBCs ordered we will plan to recheck CBC. Creatinine at patient's baseline 1.56, will monitor closely. Patient and family member understand the risk of heart catheterization including bleeding stroke renal failure heart attack, and elect to proceed. Patient was seen and evaluated by Dr. Pena who participated in care management and decision making. The exam, history, and the medical decision-making described in the above note were completed with the assistance of the mid-level provider. I reviewed and agree with the findings presented. I attest that I had a [id number] encounter with the patient on the same day, and personally performed and documented my assessment and findings in the medical record. Very sick pt with MDS thrombocytopenia with angina and sob , will transfuse one more unit and proceed with cath. Code Status: Full code Discussed Condition With: Dr. Pena, RN and patients family member
[2018-03-02] MEDS: Isosorbide Mononitrate 60 MG ER 24HR Tablet (Imdur) PO SCH (09:27)
[2018-03-02] MEDS: Pantoprazole Sodium 20 MG DR Tablet PO SCH (09:28)
[2018-03-02] MEDS: Metoprolol Tartrate 25 MG Tablet PO SCH ×2 (09:28→21:52)
[2018-03-02] MEDS: Ranolazine 500 MG 12HR ER Tablet PO SCH ×2 (09:28→21:52)
[2018-03-02] MEDS: Famotidine 20 MG Tablet PO SCH (09:28)
[2018-03-02] MEDS: Senna/Docusate Sodium 8.6/50 MG Tablet PO SCH ×2 (09:28→21:52)
[2018-03-02] MEDS: Torsemide 20 MG Tablet PO SCH (09:28)
[2018-03-02] MEDS ORDERED: Sodium Chlor 0.9% Inj 250 ML IV.SIG SCH ×2 (10:00→11:00)
--- NOTE | 2018-03-02 11:47 | P.PNIM ---
Subjective Interval history: Heart catheterization pending for today. No complaints of chest pain or new complaints of the patient when seen today. No reports of active bleed. Physical Exam Vital signs: Vital Signs 03/01/18 20:00 03/02/18 00:00 03/02/18 01:56 Temperature 97.7 F 97.9 F 98.1 F Pulse Rate 77 70 71 Respiratory Rate 16 12 16 Blood Pressure 125/58 L 109/56 L 110/59 L Pulse Oximetry 95 89 L 97 03/02/18 02:13 03/02/18 04:00 03/02/18 07:36 Temperature 97.9 F 97.6 F 97.8 F Pulse Rate 69 60 71 Respiratory Rate 15 16 16 Blood Pressure 115/60 113/58 L 139/61 Pulse Oximetry 95 100 99 Intake & Output 03/01/18 03/02/18 03/02/18 18:59 06:59 18:59 Intake Total 895 / 895 Balance 895 / 895 Weight 67.132 kg 67.132 kg Intake: IV 15 15 NS Inj 250 ML @ 15 mls/hr IV. 15 15 SIG ONCE [facility] Rx#:[id number] Oral 480 / 480 Intake (Blood Product) Amt 400 / 400 Rbc As-3 Leukoreduced Unit 400 / 400 [id number] Other: # Voids 0 Date of Last Bowel Movement 03/01/18 Weight On Admission 67.261 kg Narrative: GENERAL: NAD, A&Ox3 HEAD: Normocephalic. NECK: Supple, trachea midline. No lymphadenopathy. EYES: No scleral icterus. No injection or drainage. CARDIOVASCULAR: Regular rate and rhythm without murmurs, gallops, or rubs. RESPIRATORY: Breath sounds equal bilaterally. No accessory muscle use. GASTROINTESTINAL: Abdomen soft, non-tender, nondistended. MUSCULOSKELETAL: No cyanosis, or edema. SKIN: Warm and dry. NEURO: No focal neurological deficits. Results - Labs CBC & Chem 7: 03/02/18 08:07 03/02/18 08:07 Laboratory Results - last 24 hr 03/01/18 03/01/18 03/01/18 21:40 21:40 21:40 WBC 4.7 RBC 2.79 L Hgb 8.4 L Hct 24.7 L MCV 88.7 MCH 30.1 MCHC 33.9 RDW 15.7 Plt Count 42 L MPV 11.2 H Prelim Diff (Auto) Manual diff required Neut % (Auto) Lymph % (Auto) Barren % (Auto) Eos % (Auto) Baso % (Auto) Neut # (Auto) Lymph # (Auto) Barren # (Auto) Eos # (Auto) Baso # (Auto) WBC Differential Manual diff final Seg Neuts % (Manual) 65 Band Neuts % (Manual) 1 Lymphocytes % (Manual) 19 Monocytes % (Manual) 12 H Basophils % (Manual) 1 Metamyelocytes % (Man) Myelocytes % (Man) Blast Cells % (Manual) 2 H Abs Neuts (Manual) 3.1 Nucleated RBCs/100 WBC 5 H Differential Comment . Toxic Granulation 1+ H Dohle Bodies Present H Platelet Estimate Low L Platelet Morphology Normal Ovalocytes 1+ H Johnny Cells Acanthocytes (Spur) 1+ H PT 11.3 INR 1.1 APTT 31.4 Sodium 137 Potassium 4.9 Chloride 108 H Carbon Dioxide 19.7 L Anion Gap 9 BUN 60 H Creatinine 1.79 H Estimated GFR 37 L POC Glucose Random Glucose 134 H Calcium 8.3 L Total Bilirubin 0.8 AST 22 ALT 30 Alkaline Phosphatase 54 Total Protein 6.9 Albumin 2.7 L Blood Type Antibody Screen MTS Gel Crossmatch Bld Prod Order Comment 03/01/18 03/01/18 03/02/18 21:40 23:15 04:07 WBC RBC Hgb Hct MCV MCH MCHC RDW Plt Count MPV Prelim Diff (Auto) Neut % (Auto) Lymph % (Auto) Barren % (Auto) Eos % (Auto) Baso % (Auto) Neut # (Auto) Lymph # (Auto) Barren # (Auto) Eos # (Auto) Baso # (Auto) WBC Differential Seg Neuts % (Manual) Band Neuts % (Manual) Lymphocytes % (Manual) Monocytes % (Manual) Basophils % (Manual) Metamyelocytes % (Man) Myelocytes % (Man) Blast Cells % (Manual) Abs Neuts (Manual) Nucleated RBCs/100 WBC Differential Comment Toxic Granulation Dohle Bodies Platelet Estimate Platelet Morphology Ovalocytes Johnny Cells Acanthocytes (Spur) PT INR APTT Cancelled Sodium Potassium Chloride Carbon Dioxide Anion Gap BUN Creatinine Estimated GFR POC Glucose 154 H Random Glucose Calcium Total Bilirubin AST ALT Alkaline Phosphatase Total Protein Albumin Blood Type AB Positive Antibody Screen Negative MTS Gel Crossmatch See Detail Bld Prod Order Comment 03/02/18 03/02/18 03/02/18 08:07 08:07 08:16 WBC 3.9 L RBC 2.99 L Hgb 9.1 L Hct 26.4 L MCV 88.1 MCH 30.3 MCHC 34.4 RDW 15.5 Plt Count 39 L MPV 11.6 H Prelim Diff (Auto) Slide review pending Neut % (Auto) 65.8 Lymph % (Auto) 24.6 Barren % (Auto) 9.4 H Eos % (Auto) 0.1 Baso % (Auto) 0.1 Neut # (Auto) 2.5 Lymph # (Auto) 0.9 L Barren # (Auto) 0.4 Eos # (Auto) 0.0 Baso # (Auto) 0.0 WBC Differential Manual diff final Seg Neuts % (Manual) 53 Band Neuts % (Manual) 4 Lymphocytes % (Manual) 24 Monocytes % (Manual) 10 H Basophils % (Manual) Metamyelocytes % (Man) 2 H Myelocytes % (Man) 5 H Blast Cells % (Manual) 2 H Abs Neuts (Manual) 2.5 Nucleated RBCs/100 WBC 1 H Differential Comment . Toxic Granulation Dohle Bodies Platelet Estimate Low L Platelet Morphology Normal Ovalocytes 1+ H Windsor Cells 1+ H Acanthocytes (Spur) Occ H PT INR APTT Sodium 139 Potassium 5.3 H Chloride 109 H Carbon Dioxide 20.3 L Anion Gap 10 BUN 59 H Creatinine 1.56 H Estimated GFR 43 L POC Glucose 149 H Random Glucose 130 H Calcium 8.4 L Total Bilirubin 1.3 H AST 11 L ALT 23 Alkaline Phosphatase 48 Total Protein 6.2 L D Albumin 2.4 L Blood Type Antibody Screen MTS Gel Crossmatch Bld Prod Order Comment 03/02/18 10:37 WBC RBC Hgb Hct MCV MCH MCHC RDW Plt Count MPV Prelim Diff (Auto) Neut % (Auto) Lymph % (Auto) Barren % (Auto) Eos % (Auto) Baso % (Auto) Neut # (Auto) Lymph # (Auto) Barren # (Auto) Eos # (Auto) Baso # (Auto) WBC Differential Seg Neuts % (Manual) Band Neuts % (Manual) Lymphocytes % (Manual) Monocytes % (Manual) Basophils % (Manual) Metamyelocytes % (Man) Myelocytes % (Man) Blast Cells % (Manual) Abs Neuts (Manual) Nucleated RBCs/100 WBC Differential Comment Toxic Granulation Dohle Bodies Platelet Estimate Platelet Morphology Ovalocytes Johnny Cells Acanthocytes (Spur) PT INR APTT Sodium Potassium Chloride Carbon Dioxide Anion Gap BUN Creatinine Estimated GFR POC Glucose Random Glucose Calcium Total Bilirubin AST ALT Alkaline Phosphatase Total Protein Albumin Blood Type Antibody Screen MTS Gel Crossmatch See Detail Bld Prod Order Comment Assessment and Plan - Plan 82-year-old male admitted secondary to known coronary artery disease with chest symptoms in the presence of acute myelodysplastic syndrome. Myelodysplastic syndrome anemia Upward trend in hemoglobin level today Platelet count remains low follow CBC Transfuse if needed Oncology following Coronary artery disease Heart catheterization planned for today Cardiology following Continue aspirin Continue Plavix Atrial fibrillation CHF Due to anemia no systemic anticoagulation at this point Metoprolol on hold COPD hypertension Continue home medications DVT prophylaxis No anticoagulations due to degree of anemia
[2018-03-02] MEDS ORDERED: Lidocaine PF 1% Inj 30 ML Vial ONE (13:19)
[2018-03-02] MEDS ORDERED: fentaNYL Citrate Inj 100 MCG/2 ML Ampul ONE (13:20)
[2018-03-02] MEDS ORDERED: Heparin/NS PF Inj 500 ML ONE (13:20)
--- NOTE | 2018-03-02 14:35 | CATHPROC ---
[facility] HIS Report Study Information Study Number Admission Scheduled Start Study Start [id number] Mar 01 2018 5:38PM 03/02/2018 Mar 02 2018 1:06PM [place] [facility] Electrophysiology Study Admit Source Facility Department Other [facility] - Sap Administrator Physician and Clinical Staff Initial MD Pena, Lianna Supervisor Speech Sosa Marion,BENJAMIN Other cathlab, cathlab Recorder Gertrudis Conde,RT(R) TECH2 Scrub Theo Mckeon,RT(R) Procedures Performed Procedure Location (Site) Vessel Name Coronary Angiograms LCA Left Coronary Coronary Angiograms RCA Right Coronary Coronary Angiograms CONCEPCION-LAD Left Coronary Coronary Angiograms Gft. Stump 1 SVG Graft Coronary Angiograms Gft. Stump 2 SVG Graft Wire insertion Fem Art (right) Femoral Art Equipment Time Aeroplane Pilot Description Size Mfg Part Number Used/Scraped CATHETER, FR4 JOSE [id number] 13:38 ANGIO-DYNAMICS FR 4 Used 65CM *[id number] TRANSDUCER, TRUWAVE [id number] 13:18 TrumpIT * Used W/STOCKCOCK *[id number] INTRODUCER SET, 13:18 [employer] FR 5 [id number] *[id number] Used MICROPUNCTURE STIFF 538-476 *[id number] 538-460 *[id number] 538-420 *[id number] 670-084-00 *[id number] 538-442 *[id number] 538-453S *[id number] 538-453S *[id number] 13:18 [employer] BLANKET,WARM AIR CCL * Used *[id number] 13:18 [employer] PACK, CCL CUSTOM * Used *[id number] 13:18 Xapo PACER PEN, SKIN DUAL W/ RULER * Used *[id number] 13:18 Ritot WIRE, 3MMJ .035 180CM 180CM Used *[id number] PROBE COVER, STERILE [id number] 13:18 [employer] * Used ULTRASOUND W/ GEL *[id number] 13:18 NAMIC MANIFOLD, 4 PORT * Used *[id number] 13:18 NYCOMED OMNIPAQUE, 350 MG, 150ML 150ML [id number] Used [id number] 13:18 TERUMO MEDICAL SHEATH, FR4 TERUMO (10CM) FR 4 Used *[id number] History: Current Medications Medication Dosage/Unit Route Frequency Last Date/Time Taken ASA PLAVIX Beta Geoff Imdur LIPITOR LOPRESSOR History: Allergies Allergy Reaction No Known Allergies History: Risk Factors Family History of Hypertension Dyslipidemia Previous DC Previous Heart Failure Premature CAD Yes Yes Yes No Yes Prior Valve Prior PCI Prior CABG Prior CABGDate Surgery No No Yes 04/05/2014 Cerebrovascular Peripheral Artery Chronic Lung On Dialysis Diabetes Diabetes Therapy Disease Disease Disease Yes No No Yes Yes Oral History: Symptoms/Diagnosis Selection Items Chest pain History: CV Disease Selection Items Known CAD History: Stress Tests Stress or Imaging Studies Performed Yes Standard Exercise Stress Test No Stress Echo No Stress Test SPECT Stress Test SPECT Result Stress Test SPECT Ischemia Risk/Extent Yes Positive Intermediate Stress Test CMR No Cardiac CTA Coronary Calcium Score No No History: Other Disease Selection Items CAD COPD HTN History: Other Current Smoker No Labs Hgb (g/dl) Hct (%) WBC (l/cumm) Platelets (thousands) 11.60-17.00 35.00-51.00 4.00-11.00 150.00-450.00 9.1 26.4 3.9 39 Glucose (mg/dl) BUN (mg/dl) Creatinine (mg/dl) BUN:Creatinine (1:x) 74.00-106.00 7.00-18.00 0.50-1.30 10.00-20.00 130 59 1.5 39.3 Na (meq/l) K (meq/l) 136.00-145.00 3.50-5.10 139 5.3 PT (sec) PTT (sec) INR (PTT:PT) 9.80-11.60 24.30-30.10 0.90-1.10 11.3 31.4 1.1 CPK-MB (ng/ML) 0.50-3.60 Not Drawn Medication Medication Total Dose (Bolus/Oral) Medication Total Dosage/Unit 1% XYLOCAINE 20 mL FENTANYL 50 mcg VERSED 1 mg Medications (Bolus/Oral) Medication Time Given Dosage/Unit Administered By Reason VERSED 03/02/2018 1:35:47 PM 1 mg Sosa Marion 1 mg VERSED given in lab by Sosa Marion RN in Left Antecubital via Peripheral IV. FENTANYL 03/02/2018 1:36:03 PM 25 mcg Sosa Marion 25 mcg FENTANYL given in lab by Sosa Marion RN in Right Antecubital via Peripheral IV. 1% XYLOCAINE 03/02/2018 1:39:58 PM 20 mL Lianna Pena 20 mL 1% XYLOCAINE given in lab by Lianna Pena in Right Groin via Subcutaneous. FENTANYL 03/02/2018 2:01:05 PM 25 mcg Sosa Marion 25 mcg FENTANYL given in lab by Sosa Marion RN in Right Antecubital via Peripheral IV. Medication (Drip) Medication Time Given Dosage/Unit Concentration/Unit Diluent (ml) Solution IV Solutions 03/02/2018 1:05:54 PM 0 mL (IV) 500 NaCl .9 Patient arrived on IV Solutions via Peripheral IV. Pump/Drip Flow = 20 ml/hr using NaCl .9. IV Solutions 03/02/2018 1:14:45 PM 0 mL (IV) 500 NaCl .9 IV Solutions given in lab by Sosa Marion RN in Right Antecubital via Peripheral IV. Pump/Drip Willem w = 20 ml/hr using NaCl .9. Initial Case Assessment Cardiovascular HR Rhythm NIBP Chest Pain 61 sr 128/67 0 Edema Present Skin color Skin None Normal Warm Dry Circulatory - Right Pulses Dorsalis Pedis Femoral 2 2 Scale (0,1,2,3,4,d) Circulatory - Left Pulses Dorsalis Pedis Femoral 2 2 Scale (0,1,2,3,4,d) Neurological State Oriented to time-place- Alert Moves all extremities person Respiration - General Respiration Rate SpO2 (%) (B/min) 15 100 Final Case Assessment Cardiovascular HR Rhythm NIBP Chest Pain 67 sr 126/70 0 Edema Present Skin color Skin None Normal Warm Dry Circulatory - Right Pulses Dorsalis Pedis Femoral 2 2 Scale (0,1,2,3,4,d) Circulatory - Left Pulses Dorsalis Pedis Femoral 2 2 Scale (0,1,2,3,4,d) Neurological State Oriented to time-place- Alert Moves all extremities person Respiration - General Respiration Rate SpO2 (%) (B/min) 18 100 Chronological Log Time Study Chronological Log 13:05:39 Patient arrived via Bed. 13:05:40 Patient Name, D.O.B, / Armband Verified By R.N. 13:05:40 Consent signed by the physician and the patient and verified by the Sap Administrator staff. 13:05:41 Pre-op and post- op instructions given; patient acknowledges understanding of instructions. 13:05:45 Presedation assessment performed by Sap Administrator RN. 13:05:48 Patient has been NPO for More than 6Hrs. 13:05:49 Skin Breakdown-none per patient 13:05:50 Patient Warmer Placed on the Table. 13:05:51 Shane Prominences Protected 13:05:53 A # 20 IV was noted in the Antecubital (right). Grade = 0 13:05:54 Patient arrived on IV Solutions via Peripheral IV. Pump/Drip Flow = 20 ml/hr using NaCl .9. 13:05:55 History and physical on the chart or being dictated. Assessment: Initial Case, HR=61 BPM, Rhythm=sr, EMRM=962/67 mmhg, Chest Pain=0, Edema=None, Col or=Normal, Skin = Warm, Dry Right Pulses: Farshad Ped=2, Femoral=2 13:05:56 Left Pulses: Farshad Ped=2, Femoral=2 Neurological: State=Alert, Ox3, GONZALES Respiration: Resp=15 B/min, TmN0=420 % 13:08:58 Pt arrived with a blood infusion in progress. 13:12:40 Sosa Rodriguez will be starting a new IV in the right arm. Vitals capture started with the following parameters, Patient=Adult, Interval=5 min, Initial Pr pkoclo=278 mmHg, 13:13:05 Deflation Rate=5 mmHg, Cuff placed on Left Arm 13:13:34 A # 20 IV was noted in the Antecubital (right). Grade = 0 13:14:24 HR=93 bpm, EFPF=134/39 mmhg, SpO2=96.0 %, Resp=15 B/min, Pain=0, Adriano=10, Deluca=2 IV Solutions given in lab by Sosa Marion, RN in Right Antecubital via Peripheral IV. Pump/Dr ip Flow = 20 ml/hr using 14:45 NaCl .9. 13:15:00 Reference ECG taken 13:18:36 HR=63 bpm, DNWG=386/77 mmhg, SpO2=95.0 %, Resp=17 B/min, Pain=0, Adriano=10, Deluca=2 13:23:41 HR=62 bpm, ZNWJ=765/72 mmhg, SpO2=97.0 %, Resp=20 B/min, Pain=0, Adriano=10, Deluca=2 13:28:14 paged 13:28:38 HR=62 bpm, YKIG=813/67 mmhg, SpO2=97.0 %, Resp=21 B/min, Pain=0, Adriano=10, Deluca=2 13:29:24 Pressure channel 1 zeroed. 13:33:39 HR=60 bpm, RTBK=975/64 mmhg, KjP6=838.0 %, Resp=15 B/min, Pain=0, Adriano=10, Deluca=2 13:34:20 MD arrived. 13:35:47 1 mg VERSED given in lab by Sosa Marion RN in Left Antecubital via Peripheral IV. 13:36:03 25 mcg FENTANYL given in lab by Sosa Marion, BENJAMIN in Right Antecubital via Peripheral IV. 13:38:34 HR=64 bpm, SHGO=872/88 mmhg, SpO2=99 %, Resp=20 B/min, Pain=0, Adriano=10, Deluca=2 Time Out. Correct patient, correct procedure, correct physician, labs, allergies, and equipment verified with crime laboratory analyst 13:39:48 team present. Fire risk assesment completed (see hard stop sheet for coding). Time Out Conc urred by and individual staff in procedure. 13:39:58 20 mL 1% XYLOCAINE given in lab by Lianna Pena in Right Groin via Subcutaneous. 13:40:52 Case Start 13:42:00 Access site was Right Femoral Artery. A SHEATH, FR4 TERUMO (10CM) FR 4 was advanced into the Fem Art (right) using the Percutaneous t echnique. 13:42:07 obtained with a micropuncture kit. A JL 4.0 INFINITI CATHETER FR 4 was advanced over a wire. OMNIPAQUE, 350 MG, 150ML 150ML was us ed for 13:42:28 injections. 13:43:35 HR=63 bpm, ZJCO=892/67 mmhg, SpO2=99.0 %, Resp=20 B/min, Pain=0, Adriano=10, Deluca=2 Recorded Pressure: Ao, HR=63, Condition=Condition 1 13:43:43 (Aorta) Ao 106/50/71 13:44:01 The LCA was injected and visualized at various angles. OMNIPAQUE, 350 MG, 150ML 150ML used . 13:47:07 Catheter was removed A 3DRC INFINITI CATHETER FR 4 was advanced over a wire. OMNIPAQUE, 350 MG, 150ML 150ML was used for 13:47:36 injections. 13:48:30 The RCA was injected and visualized at various angles. OMNIPAQUE, 350 MG, 150ML 150ML used . 13:48:36 HR=62 bpm, WFYS=451/71 mmhg, SpO2=99.0 %, Resp=22 B/min, Pain=0, Adriano=10, Deluca=2 13:53:41 HR=65 bpm, QISY=091/60 mmhg, SpO2=98.0 %, Resp=18 B/min, Pain=0, Adriano=10, Deluca=2 13:54:18 The Gft. Stump 1 was injected and visualized at various angles. OMNIPAQUE, 350 MG, 150ML 15 0ML used. 13:54:41 Catheter was removed A MPA-2 INFINITI CATHETER FR 4 was advanced over a wire. OMNIPAQUE, 350 MG, 150ML 150ML was use d for 13:54:43 injections. 13:55:36 The Gft. Stump 2 was injected and visualized at various angles. OMNIPAQUE, 350 MG, 150ML 15 0ML used. 13:57:44 A WIRE, 3MMJ .035 180CM 180CM was inserted via Fem Art (right). Recorded Pressure: LV, HR=65, Condition=Condition 1 13:58:17 (Left Ventricle) LV 108/12/26 13:58:38 HR=64 bpm, NXET=474/61 mmhg, SpO2=99.0 %, Resp=18 B/min, Pain=0, Adriano=10, Deluca=2 Recorded Pressure: LV, Ao, HR=65, Condition=Condition 1 13:59:30 (Left Ventricle) LV 106/15/29, (Aorta) Ao 105/50/72 13:59:56 Catheter was removed 14:01:05 25 mcg FENTANYL given in lab by Sosa Marion, RN in Right Antecubital via Peripheral IV. 14:01:11 A IM INFINITI CATHETER FR 4 was advanced over a wire. OMNIPAQUE, 350 MG, 150ML 150ML was u sed for injections. 14:01:53 The CONCEPCION-LAD was injected and visualized at various angles. OMNIPAQUE, 350 MG, 150ML 150ML used. 14:04:12 HR=65 bpm, KZHZ=425/72 mmhg, SpO2=98.0 %, Resp=20 B/min, Pain=0, Adriano=10, Deluca=2 14:06:57 Catheter was removed 14:07:17 Case End (Physician broke scrub) 14:07:22 Cine recording checked. 14:07:25 Sheath removed; pressure applied to access site by Theo RED 14:07:38 Catheter(s) removed without difficulty 14:08:38 HR=65 bpm, XOUU=989/71 mmhg, SpO2=99.0 %, Resp=23 B/min, Pain=0, Adriano=10, Deluca=2 14:13:41 HR=66 bpm, ENAV=827/70 mmhg, SpO2=98.0 %, Resp=24 B/min, Pain=0, Adriano=10, Deluca=2 Assessment: Final Case, HR=67 BPM, Rhythm=sr, REMQ=016/70 mmhg, Chest Pain=0, Edema=None, Snow r=Normal, Skin = Warm, Dry Right Pulses: Farshad Ped=2, Femoral=2 14:14:43 Left Pulses: Farshad Ped=2, Femoral=2 Neurological: State=Alert, Ox3, GONZALES Respiration: Resp=18 B/min, YiY4=243 % 14:15:20 No case complications noted. 14:15:24 Bedside Report will be given. 14:17:28 DOCU notified procedure complete, and will be returning soon. 14:18:40 HR=66 bpm, QKCL=414/77 mmhg, SpO2=99.0 %, Resp=21 B/min, Pain=0, Adriano=10, Deluca=2 14:19:56 [facility] 14:20:16 Vitals capture stopped. End Study - Contrast Media Used In Study Contrast Total Opened (mL) Total Used (mL) Total Wasted (mL) Omnipaque 65 65 0 End Study - Maximum Contrast Load Max Contrast Load (mL) 223.6 End Study - Radiation Exposure Fluoro Time (minutes) 7.7 End Study - Patient Disposition Complications Transferred To Telemetry Bed
[2018-03-02] MEDS ORDERED: Iohexol 350 MG/ML 100 ML Vial (for Cath Lab) IVCONTRAST ONE (15:31)
[2018-03-02] MEDS: Umeclindinium 62.5 MCG/Vilanterol 25 MCG Inhaler INH SCH (21:52)
--- NOTE | 2018-03-03 07:23 | MA ---
cc: Lianna Pena MD,Shaye Solano MD DATE: 03/02/2018 INDICATIONS FOR CATHETERIZATION: 1. Increasing angina. 2. 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 3. Increasing angina. 4. Left heart catheterization. 5. Internal mammary graft injection. 6. Saphenous vein graft injections. 7. LV gram. 8. Sedation with fentanyl and Versed. PROCEDURE: The patient was draped and prepped in usual manner. Right femoral artery was entered using a micropuncture needle with ultrasound via the 4-Divehi sheath. Left and right coronary catheters were used to evaluate the left and right coronary arteries. A multipurpose catheter was used to evaluate the left ventricle. Multiple angiograph views were carried out. At the end of the catheterization procedure, all catheters and sheaths were removed. Manual pressure was applied until good hemostasis was achieved. The patient returned to his room in stable condition. FINDINGS: LV gram: EF 40 to 45% INF basilar akinesis Coronaries: Left main had a distal left main stenosis of 90%. There was a large left anterior descending artery, which filled competitively via the internal mammary graft. See below. There was diffuse disease of all the branches of the left main. There was a medium sized OM1 and a medium sized intermediate ramus vessel, both of which had ostial disease about 90%. There was a large diagonal branch that was non-grafted that bifurcated into 2 sub branches. The ostium of the diagonal branch was 75% stenosis. The right coronary artery was a large, dominant vessel, diffusely diseased throughout its length. There was medium sized RV branch. There was evidence of a medium sized posterior descending artery and a medium to large posterolateral branch. Saphenous vein grafts. 1. Saphenous vein graft to the OM has had evidence of a prior stent that was totally occluded. 2. Saphenous vein graft to the right coronary. This also had evidence of an occluded stump. Internal mammary graft to the LAD. This had evidence of a kink in the proximal LAD that unkinked during inspiration ( see films). 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 Patent Claire graft. Discussed with Dr Maya and Dr Valencia in detail. PLAN: Consider bypass surgery to the first diagonal, the intermediate ramus, the OM, and either the posterior descending artery or the posterolateral branch. MD DANELLE Traylor/robert/deepali , 02:18 PM , 02:30 PM JACQUE
[2018-03-03 08:02] LABS: Hematocrit 31.1 % (39.0-51.0); Hemoglobin 10.4 gm/dL (13.0-17.0); Mean Corpuscular HGB Conc 33.5 % (32.0-36.0); Mean Corpuscular Hemoglobin 29.1 pg (27.0-34.0); Mean Corpuscular Volume 86.7 fL (80.0-100.0); Mean Platelet Volume 11.3 fL (7.0-11.0); Platelet Count 30 th/mm3 (150-450); Red Blood Count 3.59 mil/mm3 (4.50-5.90); Red Cell Distribution Width 16.8 % (11.6-17.2); White Blood Count 5.7 th/mm3 (4.0-11.0)
[2018-03-03] MEDS: Insulin NovoLOG Aspart Correctional Sugar Inj SQ SCH ×5 (08:34→22:25)
[2018-03-03 08:36] LABS: Calcium 8.5 mg/dL (8.5-10.1); Carbon Dioxide 19.6 meq/L (21.0-32.0); Potassium 5.4 meq/L (3.5-5.1)
[2018-03-03 08:43] LABS: Lymphocytes 9 % (9-44); Monocytes 7 % (0-8); Myelocytes 5 % (0-0); Tallied Nucleated RBC 5 (0-0)
[2018-03-03 08:44] LABS: Acanthocytes 1+; Ovalocytes 2+
[2018-03-03] MEDS: Metoprolol Tartrate 25 MG Tablet PO SCH ×2 (09:01→22:24)
[2018-03-03] MEDS: Isosorbide Mononitrate 60 MG ER 24HR Tablet (Imdur) PO SCH (09:01)
[2018-03-03] MEDS: Pantoprazole Sodium 20 MG DR Tablet PO SCH (09:02)
[2018-03-03] MEDS: Ranolazine 500 MG 12HR ER Tablet PO SCH ×2 (09:03→22:24)
[2018-03-03] MEDS: Torsemide 20 MG Tablet PO SCH (09:03)
[2018-03-03] MEDS: Senna/Docusate Sodium 8.6/50 MG Tablet PO SCH ×2 (09:04→22:25)
[2018-03-03] MEDS: Famotidine 20 MG Tablet PO SCH (09:04)
--- NOTE | 2018-03-03 10:07 | P.PN ---
Physical Exam Vital signs: Vital Signs 03/02/18 11:51 03/02/18 11:52 03/02/18 12:09 Temperature 97.7 F 97.7 F 97.7 F Pulse Rate 60 60 54 L Respiratory Rate 16 16 16 Blood Pressure 111/55 L 111/55 L 105/52 L Pulse Oximetry 94 L 95 03/02/18 14:32 03/02/18 18:45 03/02/18 19:00 Temperature 97.8 F Pulse Rate 77 77 Respiratory Rate 16 Blood Pressure 149/86 H Pulse Oximetry 99 93 L 03/02/18 20:00 03/02/18 21:00 03/02/18 22:00 Temperature 98.1 F Pulse Rate 74 72 69 Respiratory Rate 16 Blood Pressure 138/78 Pulse Oximetry 94 L 03/02/18 23:00 03/03/18 00:00 03/03/18 01:00 Temperature 97.8 F Pulse Rate 74 76 69 Respiratory Rate 16 Blood Pressure 142/81 H Pulse Oximetry 93 L 03/03/18 02:00 03/03/18 03:00 03/03/18 04:00 Temperature 98.2 F Pulse Rate 70 73 73 Respiratory Rate 18 Blood Pressure 123/67 Pulse Oximetry 92 L 03/03/18 05:00 03/03/18 06:00 Temperature Pulse Rate 62 75 Respiratory Rate Blood Pressure Pulse Oximetry Intake & Output 03/02/18 03/03/18 03/03/18 18:59 06:59 18:59 Intake Total 0 / 0 480 / 480 Output Total 700 / 700 Balance 0 / 0 -220 / -220 Weight 68.7 kg Intake: Oral 480 / 480 Intake (Blood Product) Amt 0 / 0 Rbc As-3 Leukoreduced Unit 0 / 0 [id number] Output: Urine 700 / 700 Results - Labs CBC & Chem 7: 03/03/18 07:11 03/03/18 07:11 Laboratory Results - last 24 hr 03/01/18 03/02/18 03/02/18 23:15 10:37 12:28 WBC RBC Hgb Hct MCV MCH MCHC RDW Plt Count MPV Prelim Diff (Auto) WBC Differential Seg Neuts % (Manual) Band Neuts % (Manual) Lymphocytes % (Manual) Monocytes % (Manual) Myelocytes % (Man) Abs Neuts (Manual) Nucleated RBCs/100 WBC Differential Comment Platelet Estimate Platelet Morphology Ovalocytes Acanthocytes (Spur) Keratocytes Sodium Potassium Chloride Carbon Dioxide Anion Gap BUN Creatinine Estimated GFR POC Glucose 170 H Random Glucose Calcium MTS Gel Crossmatch See Detail See Detail Bld Prod Order Comment 03/02/18 03/02/18 03/03/18 16:24 20:21 03:50 WBC RBC Hgb Hct MCV MCH MCHC RDW Plt Count MPV Prelim Diff (Auto) WBC Differential Seg Neuts % (Manual) Band Neuts % (Manual) Lymphocytes % (Manual) Monocytes % (Manual) Myelocytes % (Man) Abs Neuts (Manual) Nucleated RBCs/100 WBC Differential Comment Platelet Estimate Platelet Morphology Ovalocytes Acanthocytes (Spur) Keratocytes Sodium Potassium Chloride Carbon Dioxide Anion Gap BUN Creatinine Estimated GFR POC Glucose 177 H 193 H 216 H Random Glucose Calcium MTS Gel Crossmatch Bld Prod Order Comment 03/03/18 03/03/18 03/03/18 07:11 07:11 08:00 WBC 5.7 RBC 3.59 L Hgb 10.4 L Hct 31.1 L MCV 86.7 MCH 29.1 MCHC 33.5 RDW 16.8 Plt Count 30 L MPV 11.3 H Prelim Diff (Auto) Manual diff required WBC Differential Manual diff final Seg Neuts % (Manual) 78 H Band Neuts % (Manual) 1 Lymphocytes % (Manual) 9 Monocytes % (Manual) 7 Myelocytes % (Man) 5 H Abs Neuts (Manual) 4.8 Nucleated RBCs/100 WBC 5 H Differential Comment . Platelet Estimate Low L Platelet Morphology Enlarged H Ovalocytes 2+ H Acanthocytes (Spur) 1+ H Keratocytes Occ H Sodium 138 Potassium 5.4 H Chloride 108 H Carbon Dioxide 19.6 L Anion Gap 10 BUN 54 H Creatinine 1.61 H Estimated GFR 41 L POC Glucose 178 H Random Glucose 177 H Calcium 8.5 MTS Gel Crossmatch Bld Prod Order Comment
--- NOTE | 2018-03-03 10:18 | P.PN ---
Subjective Interval history: seen with daughter in law no complainsof chest pain/SOB at rest no melena /hematochezia./no reported bleeding Physical Exam Vital signs: Vital Signs 03/02/18 11:51 03/02/18 11:52 03/02/18 12:09 Temperature 97.7 F 97.7 F 97.7 F Pulse Rate 60 60 54 L Respiratory Rate 16 16 16 Blood Pressure 111/55 L 111/55 L 105/52 L Pulse Oximetry 94 L 95 03/02/18 14:32 03/02/18 18:45 03/02/18 19:00 Temperature 97.8 F Pulse Rate 77 77 Respiratory Rate 16 Blood Pressure 149/86 H Pulse Oximetry 99 93 L 03/02/18 20:00 03/02/18 21:00 03/02/18 22:00 Temperature 98.1 F Pulse Rate 74 72 69 Respiratory Rate 16 Blood Pressure 138/78 Pulse Oximetry 94 L 03/02/18 23:00 03/03/18 00:00 03/03/18 01:00 Temperature 97.8 F Pulse Rate 74 76 69 Respiratory Rate 16 Blood Pressure 142/81 H Pulse Oximetry 93 L 03/03/18 02:00 03/03/18 03:00 03/03/18 04:00 Temperature 98.2 F Pulse Rate 70 73 73 Respiratory Rate 18 Blood Pressure 123/67 Pulse Oximetry 92 L 03/03/18 05:00 03/03/18 06:00 Temperature Pulse Rate 62 75 Respiratory Rate Blood Pressure Pulse Oximetry Intake & Output 03/02/18 03/03/18 03/03/18 18:59 06:59 18:59 Intake Total 0 / 0 480 / 480 Output Total 700 / 700 Balance 0 / 0 -220 / -220 Weight 68.7 kg Intake: Oral 480 / 480 Intake (Blood Product) Amt 0 / 0 Rbc As-3 Leukoreduced Unit 0 / 0 [id number] Output: Urine 700 / 700 Narrative: GENERAL: NAD, A&Ox3 HEAD: Normocephalic. NECK: Supple, EYES: No scleral icterus. No injection or drainage. CARDIOVASCULAR: Regular rate RESPIRATORY: Breath sounds equal bilaterally. No accessory muscle use. GASTROINTESTINAL: Abdomen soft, non-tender, nondistended. MUSCULOSKELETAL: No cyanosis, or edema. SKIN: Warm and dry.no petechia right groin- no hematoma NEURO: No focal neurological deficits. Results - Labs CBC & Chem 7: 03/06/18 05:38 03/05/18 02:50 Laboratory Results - last 24 hr 03/01/18 03/02/18 03/02/18 23:15 10:37 12:28 WBC RBC Hgb Hct MCV MCH MCHC RDW Plt Count MPV Prelim Diff (Auto) WBC Differential Seg Neuts % (Manual) Band Neuts % (Manual) Lymphocytes % (Manual) Monocytes % (Manual) Myelocytes % (Man) Abs Neuts (Manual) Nucleated RBCs/100 WBC Differential Comment Platelet Estimate Platelet Morphology Ovalocytes Acanthocytes (Spur) Keratocytes Sodium Potassium Chloride Carbon Dioxide Anion Gap BUN Creatinine Estimated GFR POC Glucose 170 H Random Glucose Calcium MTS Gel Crossmatch See Detail See Detail Bld Prod Order Comment 03/02/18 03/02/18 03/03/18 16:24 20:21 03:50 WBC RBC Hgb Hct MCV MCH MCHC RDW Plt Count MPV Prelim Diff (Auto) WBC Differential Seg Neuts % (Manual) Band Neuts % (Manual) Lymphocytes % (Manual) Monocytes % (Manual) Myelocytes % (Man) Abs Neuts (Manual) Nucleated RBCs/100 WBC Differential Comment Platelet Estimate Platelet Morphology Ovalocytes Acanthocytes (Spur) Keratocytes Sodium Potassium Chloride Carbon Dioxide Anion Gap BUN Creatinine Estimated GFR POC Glucose 177 H 193 H 216 H Random Glucose Calcium MTS Gel Crossmatch Bld Prod Order Comment 03/03/18 03/03/18 03/03/18 07:11 07:11 08:00 WBC 5.7 RBC 3.59 L Hgb 10.4 L Hct 31.1 L MCV 86.7 MCH 29.1 MCHC 33.5 RDW 16.8 Plt Count 30 L MPV 11.3 H Prelim Diff (Auto) Manual diff required WBC Differential Manual diff final Seg Neuts % (Manual) 78 H Band Neuts % (Manual) 1 Lymphocytes % (Manual) 9 Monocytes % (Manual) 7 Myelocytes % (Man) 5 H Abs Neuts (Manual) 4.8 Nucleated RBCs/100 WBC 5 H Differential Comment . Platelet Estimate Low L Platelet Morphology Enlarged H Ovalocytes 2+ H Acanthocytes (Spur) 1+ H Keratocytes Occ H Sodium 138 Potassium 5.4 H Chloride 108 H Carbon Dioxide 19.6 L Anion Gap 10 BUN 54 H Creatinine 1.61 H Estimated GFR 41 L POC Glucose 178 H Random Glucose 177 H Calcium 8.5 MTS Gel Crossmatch Bld Prod Order Comment - Procedures 03/02- cardiac cath- severe 3V disease Assessment and Plan - Plan 82-year-old male admitted secondary to known coronary artery disease with chest symptoms in the presence of acute myelodysplastic syndrome. Myelodysplastic syndrome anemia -H H stable Platelet count remains low follow CBC Transfuse if needed Oncology following Coronary artery disease- severe 3V disease -on cath 03/02 Hypertension Cardiology following Continue aspirin/Lipitor 40 mg hs, LOpressor 25 mg bid, Enalapril 20 mg bid, Imdur 120 mg daily, Clonidine 0,1 mg daily, Ranexa,Demadex CVS consulted Atrial fibrillation- currently in SR CHF- not in failure Due to anemia no systemic anticoagulation at this point CKD -creatinine stable COPD hypertension Continue home medications DVT prophylaxis No anticoagulations due to degree of anemia continuebhome PPI, DC Pepcid with low platelet
--- NOTE | 2018-03-03 14:52 | P.PNCA ---
Subjective Interval history: Pt resting in bed, multiple family members in room with him. Pt reports he continues to have significant SOB with minimal exertion. He is pending evaluation with Dr. Maya, he also requests consultation with Dr. Shaye Valencia. Medications and Allergies Active Medications: Active Medications Acetaminophen (Tylenol) 650 mg PO Q4H PRN PRN Reason: Temp > 100.4 Acetaminophen (Tylenol) 650 mg PO Q4H PRN PRN Reason: SEE LABEL COMMENTS Al Hydroxide/Mg Hydroxide (Milk Of Magnesia Liq) 30 ml PO Q12H PRN PRN Reason: Mild Constipation Aspirin (Aspirin Chew) 81 mg PO DAILY [facility] Last Admin: 03/03/18 09:01 Dose: 81 mg Atorvastatin Calcium (Lipitor) 40 mg PO DAILY [facility] Last Admin: 03/03/18 09:03 Dose: 40 mg Bisacodyl (Dulcolax Supp) 10 mg RECTAL DAILY PRN PRN Reason: SEVERE CONSITIPATION Clonidine HCl (Catapres) 0.1 mg PO DAILY [facility] Last Admin: 03/03/18 09:03 Dose: 0.1 mg Dextrose (D50w Vial) 50 ml IV.PUSH UNSCH PRN PRN Reason: PER HYPOGLYCEMIA PROTOCOL Diphenhydramine HCl (Benadryl) 25 mg PO Q4H PRN PRN Reason: SEE LABEL COMMENTS Diphenhydramine HCl (Benadryl) 50 mg PO TEST [employer] [facility] Stop: 03/06/18 09:14 Enalapril Maleate (Vasotec) 20 mg PO BID [facility] Last Admin: 03/03/18 09:02 Dose: 20 mg Glucagon (Glucagon Inj) 1 mg OTHER PRN PRN PRN Reason: for Hypoglycemia Protocol Insulin Aspart (Novolog Insulin Correctional Sugar Inj) 0 unit SQ ACHS AND 3AM ANDREA; Protocol Last Admin: 03/03/18 12:29 Dose: 3 unit Isosorbide Mononitrate (Imdur) 120 mg PO DAILY [facility] Last Admin: 03/03/18 09:01 Dose: 120 mg Lactulose (Lactulose Liq) 30 ml PO DAILY PRN PRN Reason: SEVERE CONSITIPATION Last Admin: 03/03/18 11:17 Dose: 30 ml Metoprolol Tartrate (Lopressor) 25 mg PO BID [facility] Last Admin: 03/03/18 09:01 Dose: 25 mg Ondansetron HCl (Zofran Inj) 4 mg IV.PUSH Q6H PRN PRN Reason: NAUSEA OR VOMITING Pantoprazole Sodium (Protonix) 40 mg PO DAILY [facility] Last Admin: 03/03/18 09:02 Dose: 40 mg Ranolazine (Ranexa) 500 mg PO Q12HR [facility] Last Admin: 03/03/18 09:03 Dose: 500 mg Ropinirole HCl (Requip) 1 mg PO HS [facility] Last Admin: 03/02/18 21:52 Dose: 1 mg Senna/Docusate Sodium (Kyleigh-Colace) 1 tab PO BID [facility] Last Admin: 03/03/18 09:04 Dose: 1 tab Sennosides (Senokot) 17.2 mg PO Q12H PRN PRN Reason: Moderate Constipation Torsemide (Demadex) 20 mg PO DAILY [facility] Last Admin: 03/03/18 09:03 Dose: 20 mg Umeclidinium/Vilanterol (Anoro-Ellipta 62.5/25 Mcg Inh) 1 inhalation INH Q24H [facility] Last Admin: 03/02/18 21:52 Dose: 1 inhalation Allergies Allergy/AdvReac Type Severity Reaction Status Date / Time No Known Allergies Allergy Verified 02/07/18 11:24 Home Medications Medication Instructions Recorded Confirmed Type Multi Vitamin 1 cap PO DAILY 02/07/18 03/01/18 History aspirin 81 mg PO DAILY 02/07/18 03/01/18 History atorvastatin 40 mg PO DAILY 02/07/18 03/01/18 History clonidine HCl 0.1 mg PO DAILY 02/07/18 03/01/18 History clopidogrel [Plavix] 75 mg PO DAILY 02/07/18 03/02/18 History enalapril maleate 20 mg PO BID 02/07/18 03/01/18 History famotidine 20 mg PO DAILY 02/07/18 03/01/18 History glipizide-metformin 1 tab PO BID 02/07/18 03/01/18 History isosorbide mononitrate 120 mg PO DAILY 02/07/18 03/01/18 History metoprolol tartrate 25 mg PO BID 02/07/18 03/01/18 History omeprazole 40 mg PO DAILY 02/07/18 03/01/18 History ranolazine [Ranexa] 500 mg PO Q12H 02/07/18 03/01/18 History ropinirole [Requip] 1 mg PO HS 02/07/18 03/01/18 History sitagliptin [Januvia] 100 mg PO DAILY 02/07/18 03/01/18 History solifenacin [Vesicare] 5 mg PO DAILY 02/07/18 03/01/18 History torsemide 20 mg PO DAILY 02/07/18 03/01/18 History umeclidinium-vilanterol [Anoro 1 inh INHALATION Q24H 02/07/18 03/01/18 History Ellipta] clopidogrel [Plavix] 75 mg PO DAILY 03/01/18 03/01/18 History Physical Exam Vital signs: Vital Signs 03/02/18 18:45 03/02/18 19:00 03/02/18 20:00 Temperature 97.8 F 98.1 F Pulse Rate 77 77 74 Respiratory Rate 16 16 Blood Pressure 149/86 H 138/78 Pulse Oximetry 93 L 94 L 03/02/18 21:00 03/02/18 22:00 03/02/18 23:00 Temperature Pulse Rate 72 69 74 Respiratory Rate Blood Pressure Pulse Oximetry 03/03/18 00:00 03/03/18 01:00 03/03/18 02:00 Temperature 97.8 F Pulse Rate 76 69 70 Respiratory Rate 16 Blood Pressure 142/81 H Pulse Oximetry 93 L 03/03/18 03:00 03/03/18 04:00 03/03/18 05:00 Temperature 98.2 F Pulse Rate 73 73 62 Respiratory Rate 18 Blood Pressure 123/67 Pulse Oximetry 92 L 03/03/18 06:00 03/03/18 07:00 03/03/18 08:00 Temperature 98.2 F Pulse Rate 75 74 76 Respiratory Rate 20 Blood Pressure 138/77 Pulse Oximetry 93 L 03/03/18 09:00 03/03/18 10:00 03/03/18 11:00 Temperature Pulse Rate 78 74 67 Respiratory Rate Blood Pressure Pulse Oximetry 03/03/18 12:00 03/03/18 13:00 03/03/18 14:00 Temperature 97.7 F Pulse Rate 58 L 74 66 Respiratory Rate 18 Blood Pressure 138/76 Pulse Oximetry 92 L Intake & Output 03/02/18 03/03/18 03/03/18 18:59 06:59 18:59 Intake Total 0 / 0 480 / 480 Output Total 700 / 700 Balance 0 / 0 -220 / -220 Weight 68.7 kg Intake: Oral 480 / 480 Intake (Blood Product) Amt 0 / 0 Rbc As-3 Leukoreduced Unit 0 / 0 [id number] Output: Urine 700 / 700 Other: Date of Last Bowel Movement 03/01/18 - Constitutional no acute distress - Routine HEENT Exam Head: Present: normocephalic, atraumatic Eye: Present: EOMI, PERRL, normal accommodation ENT: Present: mucous membranes moist - Routine Neck Exam Present: supple - Routine Respiratory Exam Present: CTA bilaterally - Routine Cardiovascular Exam Present: RRR - Routine Abdominal Exam Present: soft - Routine Skin Exam Present: intact - Routine Neurological Exam Present: alert, oriented X3 - Detailed Neurological Exam: Coma Scale Eye Opening: Spontaneous Verbal Response: Oriented Motor Response: Obey commands Delta Coma Scale Total: 15 - Routine Psychiatric Exam Present: normal affect Results 03/03/18 07:11 03/03/18 07:11 Cardiac Enzymes 03/01/18 03/02/18 Range/Units 21:40 08:07 AST 22 11 L (15-37) U/L Coagulation 03/01/18 03/01/18 Range/Units 21:40 21:40 PT 11.3 (9.8-11.6) sec APTT 31.4 Cancelled (23.4-31.7) sec CBC 03/01/18 03/02/18 03/03/18 Range/Units 21:40 08:07 07:11 WBC 4.7 3.9 L 5.7 (4.0-11.0) th/mm3 RBC 2.79 L 2.99 L 3.59 L (4.50-5.90) mil/mm3 Hgb 8.4 L 9.1 L 10.4 L (13.0-17.0) gm/dL Hct 24.7 L 26.4 L 31.1 L (39.0-51.0) % Plt Count 42 L 39 L 30 L (150-450) th/mm3 Neut # (Auto) 2.5 (1.8-7.7) th/mm3 Lymph # (Auto) 0.9 L (1.0-4.8) th/mm3 [place] # (Auto) 0.4 (0.0-0.9) th/mm3 Eos # (Auto) 0.0 (0.0-0.4) th/mm3 Baso # (Auto) 0.0 (0.0-0.2) th/mm3 Comprehensive Metabolic Panel 03/01/18 03/02/18 03/03/18 Range/Units 21:40 08:07 07:11 Sodium 137 139 138 (136-145) meq/L Potassium 4.9 5.3 H 5.4 H (3.5-5.1) meq/L Chloride 108 H 109 H 108 H (98-107) meq/L Carbon Dioxide 19.7 L 20.3 L 19.6 L (21.0-32.0) meq/L BUN 60 H 59 H 54 H (7-18) mg/dL Creatinine 1.79 H 1.56 H 1.61 H (0.60-1.30) mg/dL Calcium 8.3 L 8.4 L 8.5 (8.5-10.1) mg/dL AST 22 11 L (15-37) U/L ALT 30 23 (12-78) U/L Alkaline Phosphatase 54 48 (45-117) U/L Total Protein 6.9 6.2 L D (6.4-8.2) g/dL Albumin 2.7 L 2.4 L (3.4-5.0) g/dL Intake and Output 03/02/18 03/03/18 03/03/18 22:59 06:59 14:59 Intake Total 480 / 480 Output Total 700 / 700 Balance -220 / -220 Intake: Oral 480 / 480 Output: Urine 700 / 700 Other: Date of Last Bowel Movement 03/01/18 Weight 68.7 kg Assessment and Plan - Plan Assessment ASHD Chest pain Myelodysplastic syndrome CKD Plan Status post heart cath yesterday. Results and options discussed with patient and family. Awaiting consult with Dr. Zulma Valencia consulted. Will continue to follow renal function. The patient was seen and evaluated by Dr. Pena who participated in care, management and decision making. Code Status: Full Code Discussed Condition With: Dr. ePna, patient and family
[2018-03-03] MEDS ORDERED: Sodium Polystyrene Sulfonate/Sorbitol Liq 15 GM/60 ML UDC PO ONE (16:42)
[2018-03-03] MEDS: Umeclindinium 62.5 MCG/Vilanterol 25 MCG Inhaler INH SCH (22:24)
--- NOTE | 2018-03-03 22:35 | MB ---
cc: Shaye Valencia MD DATE: 03/03/2018 CHIEF COMPLAINT: 1. Myelodysplastic syndrome. 2. Anemia. 3. Thrombocytopenia. HISTORY OF PRESENT ILLNESS: Mr. Palacio is an 82-year-old gentleman with a history of coronary artery disease, status post CABG in 2014, stent placement in 2014; chronic kidney disease; diabetes; hypertension; hyperlipidemia; carotid stenosis and myelodysplastic syndrome, who was admitted to the hospital for shortness of breath and heart catheterization. He was recently hospitalized and scheduled for outpatient heart catheterization when he was found to have pancytopenia and was admitted for chest pain. He is followed by Dr. Pena and was found to have a positive outpatient stress. Bone marrow biopsy performed from 02/08/2018 showed myelodysplastic syndrome with excess blasts. Flow cytometry shows left-sided myelopoiesis, increased myeloblasts, 9% of analyzed cells concerning for a high-grade myeloid neoplasm. Morphologic findings include increased cellularity for age with dysmorphic myeloid, erythroid and megakaryocytic maturation. Blasts are estimated at 5% of cells and ring sideroblasts are noted in the aspirate iron. Cytogenetics from that time with normal karyotype of 46 XY. He is admitted to the hospital with progressively worsening shortness of breath. He underwent heart catheterization under the direction of Dr. Pena and was found to have severe 3-vessel coronary artery disease with occluded grafts x 2. CT surgery consult is pending. PAST MEDICAL HISTORY: Myelodysplastic syndrome, atrial fibrillation, diabetes, hypertension, hyperlipidemia. PAST SURGICAL HISTORY: History of coronary artery stent placement, history of CABG. FAMILY HISTORY: Diabetes and heart disease. SOCIAL HISTORY: Denies tobacco, alcohol, or illegal drug use. ROS as above in HPI HOSPITAL MEDICATIONS: Include: 1. Clonidine. 2. Plavix. 3. Enalapril. 4. Famotidine. 5. Imdur. 6. Metoprolol. 7. Protonix. 8. Ropinirole. 9. Docusate. 10. Senna. 11. Torsemide. PHYSICAL EXAMINATION: VITAL SIGNS: Temperature 97.4, pulse 68, respiratory rate 18, blood pressure 123/75. GENERAL: Chronically ill-appearing man, in no distress. HEENT: Head is normocephalic, atraumatic. Eyes: PERRLA, EOMI. No scleral icterus. NECK: Supple. No palpable lymphadenopathy. CARDIOVASCULAR: Regular rate and rhythm. No murmurs. RESPIRATORY: Clear to auscultation bilaterally. ABDOMEN: Soft, nontender, nondistended. Bowel sounds present. EXTREMITIES: No edema. NEUROLOGIC: Grossly nonfocal. PSYCHIATRIC: Appropriate mood and affect. LABORATORY STUDIES: White blood cell count 5.7, hemoglobin 10.4, platelet count is 30,000. Chemistry studies with a creatinine of 1.61. ASSESSMENT AND PLAN: 1. Myelodysplastic syndrome, IPSS-R score of 5, which places the patient at high risk of disease, median survival in the absence of therapy is about 1-1/2 years. We have discussed with the patient and family treatment with Vidaza therapy. Discussed that this disease is not curable, but it is treatable. Discussed treatment with Vidaza therapy. Discussed that given heart disease, advanced age and kidney disease, the patient would not be an ideal candidate for bone marrow transplant. 2. Cytopenias due to disease. We would recommend keeping hemoglobin approximately 10 due to heart disease and symptoms, if he gets lower. 3. Chronic kidney disease. The patient's kidney disease is currently at his baseline. 4. Severe coronary artery disease. CT surgery consult is currently pending. Inpatient hematology service will continue to follow. MD MECHE Waggoner/sv/do , 07:26 PM , 07:34 PM JACQUE
[2018-03-04] MEDS: Insulin NovoLOG Aspart Correctional Sugar Inj SQ SCH ×5 (03:07→21:34)
[2018-03-04 06:25] LABS: Hematocrit 28.3 % (39.0-51.0); Hemoglobin 9.5 gm/dL (13.0-17.0); Mean Corpuscular HGB Conc 33.4 % (32.0-36.0); Mean Corpuscular Hemoglobin 29.2 pg (27.0-34.0); Mean Corpuscular Volume 87.4 fL (80.0-100.0); Mean Platelet Volume 10.3 fL (7.0-11.0); Platelet Count 22 th/mm3 (150-450); Red Blood Count 3.24 mil/mm3 (4.50-5.90); Red Cell Distribution Width 16.4 % (11.6-17.2); White Blood Count 4.2 th/mm3 (4.0-11.0)
[2018-03-04 06:51] LABS: Calcium 7.9 mg/dL (8.5-10.1); Carbon Dioxide 18.7 meq/L (21.0-32.0)
--- NOTE | 2018-03-04 08:39 | P.PNCA ---
Subjective Interval history: Patient resting in bed comfortably this a.m. no acute complaints overnight. Pending consult with CV surgery. Platelets are down to 28 this a.m. creatinine up to 1.65. Hematology is following. Medications and Allergies Active Medications: Active Medications Acetaminophen (Tylenol) 650 mg PO Q4H PRN PRN Reason: Temp > 100.4 Acetaminophen (Tylenol) 650 mg PO Q4H PRN PRN Reason: SEE LABEL COMMENTS Al Hydroxide/Mg Hydroxide (Milk Of Magnesia Liq) 30 ml PO Q12H PRN PRN Reason: Mild Constipation Aspirin (Aspirin Chew) 81 mg PO DAILY [facility] Last Admin: 03/03/18 09:01 Dose: 81 mg Atorvastatin Calcium (Lipitor) 40 mg PO DAILY [facility] Last Admin: 03/03/18 09:03 Dose: 40 mg Bisacodyl (Dulcolax Supp) 10 mg RECTAL DAILY PRN PRN Reason: SEVERE CONSITIPATION Clonidine HCl (Catapres) 0.1 mg PO DAILY [facility] Last Admin: 03/03/18 09:03 Dose: 0.1 mg Dextrose (D50w Vial) 50 ml IV.PUSH UNSCH PRN PRN Reason: PER HYPOGLYCEMIA PROTOCOL Diphenhydramine HCl (Benadryl) 25 mg PO Q4H PRN PRN Reason: SEE LABEL COMMENTS Diphenhydramine HCl (Benadryl) 50 mg PO [employer] [facility] Stop: 03/06/18 09:14 Enalapril Maleate (Vasotec) 20 mg PO BID [facility] Last Admin: 03/03/18 22:25 Dose: 20 mg Glucagon (Glucagon Inj) 1 mg OTHER PRN PRN PRN Reason: for Hypoglycemia Protocol Insulin Aspart (Novolog Insulin Correctional Sugar Inj) 0 unit SQ ACHS AND 3AM ANDREA; Protocol Last Admin: 03/04/18 03:07 Dose: Not Given Isosorbide Mononitrate (Imdur) 120 mg PO DAILY [facility] Last Admin: 03/03/18 09:01 Dose: 120 mg Lactulose (Lactulose Liq) 30 ml PO DAILY PRN PRN Reason: SEVERE CONSITIPATION Last Admin: 03/03/18 11:17 Dose: 30 ml Metoprolol Tartrate (Lopressor) 25 mg PO BID [facility] Last Admin: 03/03/18 22:24 Dose: 25 mg Ondansetron HCl (Zofran Inj) 4 mg IV.PUSH Q6H PRN PRN Reason: NAUSEA OR VOMITING Pantoprazole Sodium (Protonix) 40 mg PO DAILY [facility] Last Admin: 03/03/18 09:02 Dose: 40 mg Ranolazine (Ranexa) 500 mg PO Q12HR [facility] Last Admin: 03/03/18 22:24 Dose: 500 mg Ropinirole HCl (Requip) 1 mg PO HS [facility] Last Admin: 03/03/18 22:25 Dose: 1 mg Senna/Docusate Sodium (Kyleigh-Colace) 1 tab PO BID [facility] Last Admin: 03/03/18 22:25 Dose: 1 tab Sennosides (Senokot) 17.2 mg PO Q12H PRN PRN Reason: Moderate Constipation Torsemide (Demadex) 20 mg PO DAILY [facility] Last Admin: 03/03/18 09:03 Dose: 20 mg Umeclidinium/Vilanterol (Anoro-Ellipta 62.5/25 Mcg Inh) 1 inhalation INH Q24H [facility] Last Admin: 03/03/18 22:24 Dose: 1 inhalation Allergies Allergy/AdvReac Type Severity Reaction Status Date / Time No Known Allergies Allergy Verified 02/07/18 11:24 Home Medications Medication Instructions Recorded Confirmed Type Multi Vitamin 1 cap PO DAILY 02/07/18 03/01/18 History aspirin 81 mg PO DAILY 02/07/18 03/01/18 History atorvastatin 40 mg PO DAILY 02/07/18 03/01/18 History clonidine HCl 0.1 mg PO DAILY 02/07/18 03/01/18 History clopidogrel [Plavix] 75 mg PO DAILY 02/07/18 03/02/18 History enalapril maleate 20 mg PO BID 02/07/18 03/01/18 History famotidine 20 mg PO DAILY 02/07/18 03/01/18 History glipizide-metformin 1 tab PO BID 02/07/18 03/01/18 History isosorbide mononitrate 120 mg PO DAILY 02/07/18 03/01/18 History metoprolol tartrate 25 mg PO BID 02/07/18 03/01/18 History omeprazole 40 mg PO DAILY 02/07/18 03/01/18 History ranolazine [Ranexa] 500 mg PO Q12H 02/07/18 03/01/18 History ropinirole [Requip] 1 mg PO HS 02/07/18 03/01/18 History sitagliptin [Januvia] 100 mg PO DAILY 02/07/18 03/01/18 History solifenacin [Vesicare] 5 mg PO DAILY 02/07/18 03/01/18 History torsemide 20 mg PO DAILY 02/07/18 03/01/18 History umeclidinium-vilanterol [Anoro 1 inh INHALATION Q24H 02/07/18 03/01/18 History Ellipta] clopidogrel [Plavix] 75 mg PO DAILY 03/01/18 03/01/18 History Physical Exam Vital signs: Vital Signs 03/03/18 09:00 03/03/18 10:00 03/03/18 11:00 Temperature Pulse Rate 78 74 67 Respiratory Rate Blood Pressure Pulse Oximetry 03/03/18 12:00 03/03/18 13:00 03/03/18 14:00 Temperature 97.7 F Pulse Rate 58 L 74 66 Respiratory Rate 18 Blood Pressure 138/76 Pulse Oximetry 92 L 03/03/18 15:00 03/03/18 16:00 03/03/18 17:00 Temperature 97.4 F L Pulse Rate 62 68 75 Respiratory Rate 18 Blood Pressure 123/75 Pulse Oximetry 96 03/03/18 18:00 03/03/18 19:00 03/03/18 20:00 Temperature 97.3 F L Pulse Rate 69 71 73 Respiratory Rate 18 Blood Pressure 148/81 H Pulse Oximetry 92 L 03/03/18 21:00 03/03/18 22:00 03/03/18 23:00 Temperature Pulse Rate 71 78 82 Respiratory Rate Blood Pressure Pulse Oximetry 03/04/18 00:00 03/04/18 01:00 03/04/18 02:00 Temperature 98.0 F Pulse Rate 82 76 80 Respiratory Rate 16 Blood Pressure 143/69 H Pulse Oximetry 93 L 03/04/18 03:00 03/04/18 04:00 03/04/18 05:00 Temperature 98.6 F Pulse Rate 81 88 79 Respiratory Rate 16 Blood Pressure 108/63 Pulse Oximetry 93 L 03/04/18 06:00 03/04/18 08:00 Temperature 98.3 F Pulse Rate 77 84 Respiratory Rate 18 Blood Pressure 131/57 L Pulse Oximetry 92 L Intake & Output 03/03/18 03/04/18 03/04/18 18:59 06:59 18:59 Intake Total 720 / 720 480 / 480 Output Total 450 / 450 Balance 270 / 270 480 / 480 Weight 67.3 kg Intake: Oral 720 / 720 480 / 480 Output: Urine 450 / 450 Other: # Voids 1 3 Date of Last Bowel Movement 03/03/18 03/04/18 03/04/18 # Bowel Movements 2 2 - Constitutional no acute distress - Routine HEENT Exam Head: Present: normocephalic, atraumatic Eye: Present: EOMI, PERRL, normal accommodation ENT: Present: mucous membranes moist - Routine Neck Exam Present: supple - Routine Respiratory Exam Present: CTA bilaterally - Routine Cardiovascular Exam Present: RRR - Routine Abdominal Exam Present: soft - Routine Skin Exam Present: intact - Routine Neurological Exam Present: alert, oriented X3 - Detailed Neurological Exam: Coma Scale Eye Opening: Spontaneous Verbal Response: Oriented Motor Response: Obey commands Grisel Coma Scale Total: 15 - Routine Psychiatric Exam Present: normal affect Results 03/04/18 05:56 03/04/18 05:56 Cardiac Enzymes 03/02/18 Range/Units 08:07 AST 11 L (15-37) U/L CBC 03/02/18 03/03/18 03/04/18 Range/Units 08:07 07:11 05:56 WBC 3.9 L 5.7 4.2 (4.0-11.0) th/mm3 RBC 2.99 L 3.59 L 3.24 L (4.50-5.90) mil/mm3 Hgb 9.1 L 10.4 L 9.5 L (13.0-17.0) gm/dL Hct 26.4 L 31.1 L 28.3 L (39.0-51.0) % Plt Count 39 L 30 L 22 L (150-450) th/mm3 Neut # (Auto) 2.5 (1.8-7.7) th/mm3 Lymph # (Auto) 0.9 L (1.0-4.8) th/mm3 [place] # (Auto) 0.4 (0.0-0.9) th/mm3 Eos # (Auto) 0.0 (0.0-0.4) th/mm3 Baso # (Auto) 0.0 (0.0-0.2) th/mm3 Comprehensive Metabolic Panel 03/02/18 03/03/18 03/04/18 Range/Units 08:07 07:11 05:56 Sodium 139 138 138 (136-145) meq/L Potassium 5.3 H 5.4 H 4.0 D (3.5-5.1) meq/L Chloride 109 H 108 H 109 H (98-107) meq/L Carbon Dioxide 20.3 L 19.6 L 18.7 L (21.0-32.0) meq/L BUN 59 H 54 H 50 H (7-18) mg/dL Creatinine 1.56 H 1.61 H 1.65 H (0.60-1.30) mg/dL Calcium 8.4 L 8.5 7.9 L (8.5-10.1) mg/dL AST 11 L (15-37) U/L ALT 23 (12-78) U/L Alkaline Phosphatase 48 (45-117) U/L Total Protein 6.2 L D (6.4-8.2) g/dL Albumin 2.4 L (3.4-5.0) g/dL Intake and Output 03/03/18 03/04/18 03/04/18 22:59 06:59 14:59 Intake Total 720 / 720 480 / 480 Output Total 450 / 450 Balance 270 / 270 480 / 480 Intake: Oral 720 / 720 480 / 480 Output: Urine 450 / 450 Other: # Voids 1 3 Date of Last Bowel Movement 03/04/18 03/04/18 03/04/18 # Bowel Movements 2 2 Weight 67.3 kg Assessment and Plan - Plan Assessment ASHD Chest pain Myelodysplastic syndrome CKD Plan Awaiting CV consult. All options discussed in detail with patient and family. Hematology is following, platelets down to 22 this a.m. Will continue to follow renal function closely. The patient was seen and evaluated by Dr. Pena who participated in care, management and decision making. Code Status: Full Code Discussed Condition With: Dr. Pena, RN
[2018-03-04] MEDS: Pantoprazole Sodium 20 MG DR Tablet PO SCH (08:55)
[2018-03-04] MEDS: Ranolazine 500 MG 12HR ER Tablet PO SCH ×2 (08:56→21:33)
[2018-03-04] MEDS: Torsemide 20 MG Tablet PO SCH (08:56)
[2018-03-04] MEDS: Metoprolol Tartrate 25 MG Tablet PO SCH ×2 (08:57→21:33)
[2018-03-04] MEDS: Isosorbide Mononitrate 60 MG ER 24HR Tablet (Imdur) PO SCH (08:57)
[2018-03-04] MEDS: Senna/Docusate Sodium 8.6/50 MG Tablet PO SCH ×2 (08:57→21:33)
--- NOTE | 2018-03-04 09:57 | P.PN ---
Subjective Interval history: awake and alert, in no pain, no shrtness of breth no reported bleeding Physical Exam Vital signs: Vital Signs 03/03/18 10:00 03/03/18 11:00 03/03/18 12:00 Temperature 97.7 F Pulse Rate 74 67 58 L Respiratory Rate 18 Blood Pressure 138/76 Pulse Oximetry 92 L 03/03/18 13:00 03/03/18 14:00 03/03/18 15:00 Temperature Pulse Rate 74 66 62 Respiratory Rate Blood Pressure Pulse Oximetry 03/03/18 16:00 03/03/18 17:00 03/03/18 18:00 Temperature 97.4 F L Pulse Rate 68 75 69 Respiratory Rate 18 Blood Pressure 123/75 Pulse Oximetry 96 03/03/18 19:00 03/03/18 20:00 03/03/18 21:00 Temperature 97.3 F L Pulse Rate 71 73 71 Respiratory Rate 18 Blood Pressure 148/81 H Pulse Oximetry 92 L 03/03/18 22:00 03/03/18 23:00 03/04/18 00:00 Temperature 98.0 F Pulse Rate 78 82 82 Respiratory Rate 16 Blood Pressure 143/69 H Pulse Oximetry 93 L 03/04/18 01:00 03/04/18 02:00 03/04/18 03:00 Temperature Pulse Rate 76 80 81 Respiratory Rate Blood Pressure Pulse Oximetry 03/04/18 04:00 03/04/18 05:00 03/04/18 06:00 Temperature 98.6 F Pulse Rate 88 79 77 Respiratory Rate 16 Blood Pressure 108/63 Pulse Oximetry 93 L 03/04/18 07:00 03/04/18 08:00 03/04/18 09:00 Temperature 98.3 F Pulse Rate 76 78 87 Respiratory Rate 18 Blood Pressure 131/57 L Pulse Oximetry 92 L Intake & Output 03/03/18 03/04/18 03/04/18 18:59 06:59 18:59 Intake Total 720 / 720 480 / 480 Output Total 450 / 450 Balance 270 / 270 480 / 480 Weight 67.3 kg Intake: Oral 720 / 720 480 / 480 Output: Urine 450 / 450 Other: # Voids 1 3 Date of Last Bowel Movement 03/03/18 03/04/18 03/04/18 # Bowel Movements 2 2 Narrative: GENERAL: NAD, A&Ox3 HEAD: Normocephalic. NECK: Supple, EYES: No scleral icterus. No injection or drainage. CARDIOVASCULAR: Regular rate RESPIRATORY: Breath sounds equal bilaterally. No accessory muscle use. GASTROINTESTINAL: Abdomen soft, non-tender, nondistended. MUSCULOSKELETAL: No cyanosis, or edema. SKIN: Warm and dry.no petechia right groin- no hematoma NEURO: No focal neurological deficits. Results - Labs CBC & Chem 7: 03/06/18 05:38 03/05/18 02:50 Laboratory Results - last 24 hr 03/03/18 03/03/18 03/03/18 11:17 17:14 21:44 WBC RBC Hgb Hct MCV MCH MCHC RDW Plt Count MPV Sodium Potassium Chloride Carbon Dioxide Anion Gap BUN Creatinine Estimated GFR POC Glucose 202 H 162 H 233 H Random Glucose Calcium 03/04/18 03/04/18 03/04/18 05:56 05:56 07:32 WBC 4.2 RBC 3.24 L Hgb 9.5 L Hct 28.3 L MCV 87.4 MCH 29.2 MCHC 33.4 RDW 16.4 Plt Count 22 L MPV 10.3 Sodium 138 Potassium 4.0 D Chloride 109 H Carbon Dioxide 18.7 L Anion Gap 10 BUN 50 H Creatinine 1.65 H Estimated GFR 40 L POC Glucose 185 H Random Glucose 160 H Calcium 7.9 L - Procedures 03/02- cardiac cath- severe 3V disease Assessment and Plan - Plan 82-year-old male admitted secondary to known coronary artery disease with chest symptoms in the presence of acute myelodysplastic syndrome. Myelodysplastic syndrome anemia -H H stable Platelet count remains low follow CBC Transfuse if needed Oncology following Coronary artery disease- severe 3V disease -on cath 03/02 Hypertension Cardiology following Continue aspirin/Lipitor 40 mg hs, LOpressor 25 mg bid, Enalapril 20 mg bid, Imdur 120 mg daily, Clonidine 0,1 mg daily, Ranexa,Demadex [facility] consulted Atrial fibrillation- currently in SR CHF- not in failure Due to anemia no systemic anticoagulation at this point CKD- creatinine sable COPD hypertension Continue home medications DVT prophylaxis No anticoagulations due to degree of anemia continuebhome PPI, DC Pepcid with low platelet
--- NOTE | 2018-03-04 14:30 | P.PNCV ---
- Note Subjective/Hospital Course: pt seen and evaluated / full consult to follow sts risk score RISK SCORES Procedure: Isolated CAB CALCULATE Risk of Mortality: 5.369% Renal Failure: 10.692% Permanent Stroke: 0.678% Prolonged Ventilation: 12.823% DSW Infection: 0.528% Reoperation: 4.493% Morbidity or Mortality: 21.192% Short Length of Stay: 17.520% Long Length of Stay: 18.282% Objective: Vital Signs - 24 hr 03/03/18 15:00 03/03/18 16:00 03/03/18 17:00 Temperature 97.4 F L Pulse Rate 62 68 75 Respiratory Rate 18 Blood Pressure 123/75 Pulse Oximetry 96 03/03/18 18:00 03/03/18 19:00 03/03/18 20:00 Temperature 97.3 F L Pulse Rate 69 71 73 Respiratory Rate 18 Blood Pressure 148/81 H Pulse Oximetry 92 L 03/03/18 21:00 03/03/18 22:00 03/03/18 23:00 Temperature Pulse Rate 71 78 82 Respiratory Rate Blood Pressure Pulse Oximetry 03/04/18 00:00 03/04/18 01:00 03/04/18 02:00 Temperature 98.0 F Pulse Rate 82 76 80 Respiratory Rate 16 Blood Pressure 143/69 H Pulse Oximetry 93 L 03/04/18 03:00 03/04/18 04:00 03/04/18 05:00 Temperature 98.6 F Pulse Rate 81 88 79 Respiratory Rate 16 Blood Pressure 108/63 Pulse Oximetry 93 L 03/04/18 06:00 03/04/18 07:00 03/04/18 08:00 Temperature 98.3 F Pulse Rate 77 76 78 Respiratory Rate 18 Blood Pressure 131/57 L Pulse Oximetry 92 L 03/04/18 09:00 03/04/18 10:00 03/04/18 12:44 Temperature 97.9 F Pulse Rate 87 65 63 Respiratory Rate 20 Blood Pressure 109/59 L Pulse Oximetry 94 L 03/04/18 13:00 Temperature 98.2 F Pulse Rate 85 Respiratory Rate 20 Blood Pressure 115/65 Pulse Oximetry 95 Labs: Laboratory Results - last 12 hr 03/02/18 03/04/18 03/04/18 10:37 05:56 05:56 WBC 4.2 RBC 3.24 L Hgb 9.5 L Hct 28.3 L MCV 87.4 MCH 29.2 MCHC 33.4 RDW 16.4 Plt Count 22 L MPV 10.3 Sodium 138 Potassium 4.0 D Chloride 109 H Carbon Dioxide 18.7 L Anion Gap 10 BUN 50 H Creatinine 1.65 H Estimated GFR 40 L POC Glucose Random Glucose 160 H Calcium 7.9 L MTS Gel Crossmatch See Detail Bld Prod Order Comment 03/04/18 03/04/18 03/04/18 07:32 09:52 11:05 WBC RBC Hgb Hct MCV MCH MCHC RDW Plt Count MPV Sodium Potassium Chloride Carbon Dioxide Anion Gap BUN Creatinine Estimated GFR POC Glucose 185 H 260 H Random Glucose Calcium MTS Gel Crossmatch Bld Prod Order Comment Result Diagrams: 03/04/18 05:56 03/04/18 05:56
--- NOTE | 2018-03-04 15:23 | MB ---
cc: Peace Maya MD DATE: 03/04/2018 HISTORY OF PRESENT ILLNESS: This is an 82-year-old male who was apparently recently in the hospital, was scheduled for outpatient cardiac catheterization when he was found to have pancytopenia on his last admission. He had some chest pain, which resolved after receiving some blood transfusions. The patient was apparently followed by Hematology/Oncology. The patient presented to the emergency room as a direct admit and was told that he needed to come into the hospital for transfusion prior to his cardiac catheterization. The patient received 2 units of packed RBCs, 1 unit of platelets for initial hemoglobin of 8.4, hematocrit of 24, platelet count was 42. He underwent a cardiac catheterization by Dr. Pena and showed a 90% left main, mid distal LAD 95%. The CONCEPCION graft was patent to the LAD. The circumflex was 100%. The RCA had 2 spots of stenosis of 90% and the ramus was 95%. Further catheterization showed saphenous vein graft to the OM had evidence of prior stent that was totally occluded. The saphenous vein graft to the RCA showed evidence of an occluded stump. We were consulted to evaluate for redo coronary artery bypass grafting. His prior surgery was in 2014. He had a CABG x 3 with a CONCEPCION to the LAD, reverse saphenous vein graft to the distal RCA, reverse saphenous vein graft to the OM1. He also had a stent placed in 2014. PAST MEDICAL HISTORY: Includes paroxysmal atrial fibrillation, non-insulin dependent diabetes mellitus, hypertension, hyperlipidemia, carotid stenosis. He was recently diagnosed with myelodysplastic syndrome and is followed by Dr. Shaye Valencia and there is discussion of when to start chemotherapy with the patient. Other history includes diabetes mellitus type 2, COPD. PAST SURGICAL HISTORY: Coronary artery bypass grafting. He has had a stent placed. ALLERGIES: PATIENT HAS NO KNOWN ALLERGIES. HOME MEDICATIONS: 1. Plavix. 2. Enalapril. 3. Multivitamin. 4. Januvia. 5. VESIcare. 6. Glipizide/metformin. 7. Aspirin 81. 8. Atorvastatin 40. 9. Clonidine daily 0.1. 10. Imdur. 11. Metoprolol 25. 12. Omeprazole. 13. Ranexa. 14. Requip. 15. Demadex. 16. Anoro Ellipta. FAMILY HISTORY: Mother had [place]. Father had diabetes mellitus. SOCIAL HISTORY: Nonsmoker. No tobacco. Recent travel to [place]. REVIEW OF SYSTEMS: As above in HPI. The 12-system is unremarkable. PHYSICAL EXAMINATION: VITAL SIGNS: Blood pressure 115/60, heart rate of 80, afebrile. GENERAL: The patient is awake, alert. He does get short of breath with short sentences and speaks in short sentences. HEENT: Head is normocephalic, atraumatic. Pupils are equal and reactive. Oral mucosa pink. Tongue is very dry. NECK: Supple. No JVD. HEART: Heart sounds S1, S2. Regular rate and rhythm. No audible rubs, murmurs, or gallops. LUNGS: Clear to auscultation. No wheezes, rales or rhonchi. ABDOMEN: Soft, nontender. No masses or organomegaly. EXTREMITIES: Reveal trace edema with good distal pulses. LABORATORY DATA: Repeat lab work includes hemoglobin of 9.5, hematocrit of 28, white cell count of 4.2, platelet count of 22. The patient is to receive platelets this morning. INR 1.1. Chemistry reveals a sodium of 138, potassium 4.0, BUN of 50 with a creatinine of 1.65, glucose 160-260, AST of 11, ALT of 23. IMPRESSION: This is a patient with previous coronary artery bypass grafting in 2015 x 3, followed by stent placement in 2015. Also, history of atrial fibrillation, ejection fraction 40%, chronic kidney disease, diabetes mellitus on oral medication, hypertension, hyperlipidemia now status post heart catheterization showing a patent left internal mammary artery to the left anterior descending. He does have a saphenous vein graft to the obtuse marginal 1 occluded and the saphenous vein graft to the right coronary artery occluded. The patient's STS risk score of 6.28. He is very high risk with his myelodysplastic disorder. Again, further plan as per Dr. Maya. Possibly evaluate, sending the patient to a tertiary center for further evaluation. Dictated by Janny Gutierrez APRN Patient examined and chart reviewed on 03/04/2018. Findings discussed with the patient and his numerous family members. Agree with above. At this point, given his myelodysplasia, pancytopenia, chronic kidney disease, as well as other significant medical comorbidities, I think reoperative surgical intervention will carry a significant risk. He has a patent CONCEPCION to LAD as well , and there is a chance of injury to this graft during reentry. However, after lengthy discussion with the patient, he does not wish to go on the way he is with his significant limitations with the chest pain and shortness of breath and wishes to have any surgical intervention performed despite the increased risk. Will also send his imaging studies and chart to [place] for a second opinion. In the meantime will obtain a chest CT, vein mapping and preoperative testing. Thank you for allowing me to participate in the care of this very pleasant patient. MD REINA Ewing/tello , 02:41 PM , 02:50 PM MTDD
--- NOTE | 2018-03-04 17:35 | US ---
EXAM DATE: 03/04/2018 5:29 PM EST AGE/SEX: 82 years / Male INDICATIONS: Pre op Cardiac. CLINICAL DATA: This is the patient's initial encounter. Patient reports that signs and symptoms have been present for 1 day and indicates a pain score of 0/10. MEDICAL/SURGICAL HISTORY: Hypertension. Diabetes. Anemia. AFIB. ASHD. Carotid stenosis. COPD . Hyperlipedemia. Myelodyspastic syndrome. SOB. CABG. Stented coronary artery. COMPARISON: TLI, CTA CAROTID ARTERIES, 09/24/2015. . VELOCITY PARAMETERS: ICA/CCA Ratio: Right 2.59 , Left 1.44 ICA: Right 252 cm/sec, Left 231 cm/sec CCA: Right 97 cm/sec, Left 160 cm/sec ECA: Right 245 cm/sec, Left 179 cm/sec Vertebral: Right 77 cm/sec antegrade, Left 96 cm/sec antegrade FINDINGS: Right Carotid: Mild arteriosclerotic plaque is visualized.The waveforms are within normal limits. Th ere is elevated peak systolic velocity in the internal carotid artery and elevated ICA/CCA ratio. Left Carotid: Mild arteriosclerotic plaque is visualized. The waveforms are within normal limits. Th ere is elevated peak systolic velocity in the internal carotid artery. The ICA/CCA ratio is normal. Other: None. CONCLUSION: Mild plaque is seen in the grayscale images of the carotids bilaterally. However, there is elevated p eak systolic velocity in the internal carotid arteries bilaterally and elevated ICA/CCA ratio on the right. A more significant stenosis may be present. The carotid system could be further evaluated with a CTA of the neck. Electronically signed by: Oli Duek MD 03/04/2018 5:33 PM EST
--- NOTE | 2018-03-04 17:38 | US ---
EXAM DATE: 03/04/2018 5:34 PM EST AGE/SEX: 82 years / Male INDICATIONS: Pre op Cardiac. CLINICAL DATA: This is the patient's initial encounter. Patient reports that signs and symptoms have been present for 1 day and indicates a pain score of 0/10. MEDICAL/SURGICAL HISTORY: Hypertension. Diabetes. Anemia. AFIB. ASHD. Carotid stenosis. COPD . Hyperlipedemia. Myelodyspastic syndrome. SOB. CABG. Stented coronary artery. COMPARISON: No prior exams available for comparison. TECHNIQUE: Venous ultrasound of both lower extremities was performed from the inguinal ligament to t he proximal calf. Real-time, color Doppler and spectral tracing, compression and augmentation techni ques were used. FINDINGS: Right Leg: Normal compression of the deep venous system from the inguinal region to the proximal rikki f. No echogenic clot is seen. Normal response of the venous system to augmentation and respiration. Left Leg: Normal compression of the deep venous system from the inguinal region to the proximal calf . No echogenic clot is seen. Normal response of the venous system to augmentation and respiration. Other: None. CONCLUSION: 1. The study is negative for bilateral lower extremity deep venous thrombosis. Electronically signed by: Shin Ferguson MD 03/04/2018 5:36 PM EST
--- NOTE | 2018-03-04 17:45 | US ---
EXAM DATE: 03/04/2018 5:37 PM EST AGE/SEX: 82 years / Male INDICATIONS: Pre op Cardiac. CLINICAL DATA: This is the patient's initial encounter. Patient reports that signs and symptoms have been present for 1 day and indicates a pain score of 0/10. MEDICAL/SURGICAL HISTORY: Diabetes. Hypertension. Anemia. AFIB. ASHD. Carotid stenosis. COPD . Hyperlipedemia. Myelodyspastic syndrome. SOB. CABG. Stented coronary artery. COMPARISON: No prior exams available for comparison. MEASUREMENTS: RIGHT THIGH: Proximal:__2 mm Mid:__ 2 mm Distal:__2 mm LEFT THIGH: Proximal:__3 mm Mid:__2 mm Distal:__2 mm RIGHT CALF: Proximal:__1 mm Mid:__1 mm Distal:__1 mm LEFT CALF: Proximal:__Non-visualized Mid:__Non-visualized Distal:__Non-visualized FINDINGS: The venous system of the lower extremities are patent by color Doppler imaging. Measurements of the leg veins (in mm) are listed above. CONCLUSION: 1. Greater saphenous vein mapping has been performed with measurements above. Saphenous veins are sm all in caliber bilaterally. There is nonvisualization of the saphenous vein within the left calf. Electronically signed by: Shin Ferguson MD 03/04/2018 5:43 PM EST
--- NOTE | 2018-03-04 17:52 | P.PNONC ---
Subjective Interval history: Sitting in wheelchair. No distress. Looking forward to CT surgery consultation. Objective Vital Signs/Intake & Output: Vital Signs 03/03/18 18:00 03/03/18 19:00 03/03/18 20:00 Temperature 97.3 F L Pulse Rate 69 71 73 Respiratory Rate 18 Blood Pressure 148/81 H Pulse Oximetry 92 L 03/03/18 21:00 03/03/18 22:00 03/03/18 23:00 Temperature Pulse Rate 71 78 82 Respiratory Rate Blood Pressure Pulse Oximetry 03/04/18 00:00 03/04/18 01:00 03/04/18 02:00 Temperature 98.0 F Pulse Rate 82 76 80 Respiratory Rate 16 Blood Pressure 143/69 H Pulse Oximetry 93 L 03/04/18 03:00 03/04/18 04:00 03/04/18 05:00 Temperature 98.6 F Pulse Rate 81 88 79 Respiratory Rate 16 Blood Pressure 108/63 Pulse Oximetry 93 L 03/04/18 06:00 03/04/18 07:00 03/04/18 08:00 Temperature 98.3 F Pulse Rate 77 76 78 Respiratory Rate 18 Blood Pressure 131/57 L Pulse Oximetry 92 L 03/04/18 09:00 03/04/18 10:00 03/04/18 11:00 Temperature Pulse Rate 87 65 66 Respiratory Rate Blood Pressure Pulse Oximetry 03/04/18 12:00 03/04/18 12:44 03/04/18 13:00 Temperature 98.2 F 97.9 F 98.2 F Pulse Rate 64 63 64 Respiratory Rate 20 20 20 Blood Pressure 111/60 109/59 L 115/65 Pulse Oximetry 94 L 94 L 95 03/04/18 14:00 03/04/18 15:00 03/04/18 16:00 Temperature 98.3 F Pulse Rate 66 71 64 Respiratory Rate 18 Blood Pressure 121/66 Pulse Oximetry 97 Intake & Output 03/03/18 03/04/18 03/04/18 18:59 06:59 18:59 Intake Total 720 / 720 480 / 480 268 / 268 Output Total 450 / 450 Balance 270 / 270 480 / 480 268 / 268 Weight 67.3 kg Intake: Oral 720 / 720 480 / 480 Intake (Blood Product) Amt 268 / 268 Plt Pheresis B Leukoreduced 268 / 268 Unit [id number] Output: Urine 450 / 450 Other: # Voids 1 3 Date of Last Bowel Movement 03/03/18 03/04/18 03/04/18 # Bowel Movements 2 2 Result Diagrams: 03/06/18 05:38 03/07/18 05:38 Laboratory Results: Laboratory Results - last 24 hr 03/02/18 03/03/18 03/04/18 10:37 21:44 05:56 WBC 4.2 RBC 3.24 L Hgb 9.5 L Hct 28.3 L MCV 87.4 MCH 29.2 MCHC 33.4 RDW 16.4 Plt Count 22 L MPV 10.3 Sodium Potassium Chloride Carbon Dioxide Anion Gap BUN Creatinine Estimated GFR POC Glucose 233 H Random Glucose Calcium MTS Gel Crossmatch See Detail Bld Prod Order Comment 03/04/18 03/04/18 03/04/18 05:56 07:32 09:52 WBC RBC Hgb Hct MCV MCH MCHC RDW Plt Count MPV Sodium 138 Potassium 4.0 D Chloride 109 H Carbon Dioxide 18.7 L Anion Gap 10 BUN 50 H Creatinine 1.65 H Estimated GFR 40 L POC Glucose 185 H Random Glucose 160 H Calcium 7.9 L MTS Gel Crossmatch Bld Prod Order Comment 03/04/18 03/04/18 11:05 17:11 WBC RBC Hgb Hct MCV MCH MCHC RDW Plt Count MPV Sodium Potassium Chloride Carbon Dioxide Anion Gap BUN Creatinine Estimated GFR POC Glucose 260 H 175 H Random Glucose Calcium MTS Gel Crossmatch Bld Prod Order Comment Imaging Studies: Impressions Carotid Doppler Study 03/04/18 15:05 CONCLUSION: Mild plaque is seen in the grayscale images of the carotids bilaterally. However , there is elevated peak systolic velocity in the internal carotid arteries bilaterally and elevated ICA/CCA ratio on the right. A more significant stenosis may be present. The carotid system could be further evaluated with a CTA of the neck. Lower Extremity Ultrasound 03/04/18 15:05 CONCLUSION: 1. Greater saphenous vein mapping has been performed with measurements above. Saphenous veins are small in caliber bilaterally. There is nonvisualization of the saphenous vein within the left calf. Venous Doppler Study 03/04/18 15:05 CONCLUSION: 1. The study is negative for bilateral lower extremity deep venous thrombosis. Medications: Active Medications Generic Name Dose Route Start Last Admin Trade Name Freq PRN Reason Stop Dose Admin Aspirin 81 mg 03/02/18 09:00 03/04/18 10:01 Aspirin Chew PO 81 mg DAILY ANDREA Administration Atorvastatin Calcium 40 mg 03/02/18 09:00 03/04/18 08:55 Lipitor PO 40 mg DAILY ANDREA Administration Clonidine HCl 0.1 mg 03/02/18 09:00 03/04/18 08:56 Catapres PO 0.1 mg DAILY ANDREA Administration Enalapril Maleate 20 mg 03/01/18 21:00 03/04/18 08:54 Vasotec PO 20 mg BID ANDREA Administration Insulin Aspart 0 unit 03/01/18 21:00 03/04/18 17:21 Novolog Insulin Correctional Sugar Inj SQ 1 unit ACHS AND 3AM ANDREA Administration Protocol Isosorbide Mononitrate 120 mg 03/02/18 09:00 03/04/18 08:57 Imdur PO 120 mg DAILY ANDREA Administration Lactulose 30 ml 03/01/18 20:22 03/03/18 11:17 Lactulose Liq PO 30 ml DAILY PRN Administration SE[employer]ERE [employer]IP[employer] Metoprolol Tartrate 25 mg 03/01/18 21:00 03/04/18 08:57 Lopressor PO 25 mg BID ANDREA Administration Pantoprazole Sodium 40 mg 03/02/18 09:00 03/04/18 08:55 Protonix PO 40 mg DAILY ANDREA Administration Ranolazine 500 mg 03/01/18 21:45 03/04/18 08:56 Ranexa PO 500 mg Q12HR ANDREA Administration Ropinirole HCl 1 mg 03/01/18 21:00 03/03/18 22:25 Requip PO 1 mg HS ANDREA Administration Senna/Docusate Sodium 1 tab 03/01/18 21:00 03/04/18 08:57 Ykleigh-Colace PO Not Given BID [facility] Torsemide 20 mg 03/02/18 09:00 03/04/18 08:56 Demadex PO 20 mg DAILY ANDREA Administration Umeclidinium/Vilanterol 1 inhalation 03/01/18 21:00 03/03/18 22:24 Anoro-Ellipta 62.5/25 Mcg Inh INH 1 inhalation Q24H ANDREA Administration Objective Remarks: GENERAL: elderly man in no distress SKIN: Warm and dry. HEAD: Normocephalic. EYES: No scleral icterus. No injection or drainage. RESPIRATORY: No accessory muscle use. GASTROINTESTINAL: Abdomen soft, non-tender, nondistended. EXTREMITIES: No cyanosis, or edema. MUSCULOSKELETAL: Adequate muscle tone. NEUROLOGICAL: No obvious focal deficit. Awake, alert, and oriented x3. PSYCHIATRIC: Appropriate mood and affect; insight and judgment normal. Assessment/Plan - Plan 1. High risk MDS: Not a candidate for intensive chemotherapy or allo stem cell transplant due to age, CKD, heart disease. Holding initiation of Vidaza therapy due to cardiac disease. continue to follow. 2. Cytopenias: due to disease. Goal hemoglobin 10. Judicious transfusion. On antiplatelet agents. 3. Chronic renal disease: at baseline continue to trend. 4. 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 CT surgery following.
--- NOTE | 2018-03-04 18:25 | CT ---
EXAM DATE: 03/04/2018 6:12 PM EST AGE/SEX: 82 years / Male INDICATIONS: Shortness of breath. CLINICAL DATA: This is the patient's initial encounter. Patient reports that signs and symptoms have been present for 1 day and indicates a pain score of 0/10. MEDICAL/SURGICAL HISTORY: Diabetes. Chronic obstructive pulmonary disease. Cardiovascular disease . CABG. Coronary artery stent. RADIATION DOSE: 8.91 CTDI (mGy) COMPARISON: . TECHNIQUE: Multiple contiguous axial images were obtained through the chest without contrast. Image s were obtained in suspended respiration using multiple row detector helical technique. Using automa fatemeh exposure control and adjustment of the mA and/or kV according to patient size, radiation dose was kept as low as reasonably achievable to obtain optimal diagnostic quality images. DICOM format imag e data is available electronically for review and comparison. FINDINGS: Lungs: Bilateral alveolar infiltrates are present throughout both lungs right greater than left. Mediastinum: The patient is status post median sternotomy with postsurgical changes. Coronary artery calcifications are present. There is no adenopathy. The heart size is mildly enlarged. Pleurae: There are small bilateral pleural effusions right greater than left. Axillae: Unremarkable. Bony Structures: Osteopenia, degenerative change and mild scoliosis are present. There are postsurgi rikki changes status post median sternotomy. Miscellaneous: The examination was extended to include the upper abdomen, and both adrenal glands ar e normal in size and configuration. CONCLUSION: 1. Bilateral alveolar infiltrates right greater than left. This has an appearance most characteristi c of pulmonary edema. The findings could indicate congestive heart failure. 2. Bilateral pleural effusions right greater than left. 3. Status post median sternotomy. Electronically signed by: Osvaldo Corral MD 03/04/2018 6:23 PM EST
[2018-03-04] MEDS: Umeclindinium 62.5 MCG/Vilanterol 25 MCG Inhaler INH SCH (21:34)
[2018-03-05] MEDS: Insulin NovoLOG Aspart Correctional Sugar Inj SQ SCH ×4 (03:31→17:26)
[2018-03-05 03:40] LABS: Hematocrit 23.8 % (39.0-51.0); Hemoglobin 8.1 gm/dL (13.0-17.0); Mean Corpuscular HGB Conc 33.9 % (32.0-36.0); Mean Corpuscular Hemoglobin 29.3 pg (27.0-34.0); Mean Corpuscular Volume 86.5 fL (80.0-100.0); Mean Platelet Volume 10.7 fL (7.0-11.0); Platelet Count 25 th/mm3 (150-450); Red Blood Count 2.75 mil/mm3 (4.50-5.90); Red Cell Distribution Width 16.1 % (11.6-17.2); White Blood Count 3.6 th/mm3 (4.0-11.0)
[2018-03-05 04:11] LABS: Calcium 7.6 mg/dL (8.5-10.1); Carbon Dioxide 23.2 meq/L (21.0-32.0); Potassium 3.7 meq/L (3.5-5.1)
[2018-03-05] MEDS: Pantoprazole Sodium 20 MG DR Tablet PO SCH (09:25)
[2018-03-05] MEDS: Metoprolol Tartrate 25 MG Tablet PO SCH ×2 (09:26→22:40)
[2018-03-05] MEDS: Ranolazine 500 MG 12HR ER Tablet PO SCH ×2 (09:26→22:40)
[2018-03-05] MEDS: Torsemide 20 MG Tablet PO SCH (09:27)
[2018-03-05] MEDS: Isosorbide Mononitrate 60 MG ER 24HR Tablet (Imdur) PO SCH (09:27)
[2018-03-05] MEDS: Senna/Docusate Sodium 8.6/50 MG Tablet PO SCH ×2 (09:28→22:41)
--- NOTE | 2018-03-05 11:21 | P.PNONC ---
Subjective Interval history: Afebrile Patient not having any bleeding Has some mild shortness of breath Still unsure of the plan Asking questions about starting chemotherapy Objective Vital Signs/Intake & Output: Vital Signs 03/04/18 12:00 03/04/18 12:44 03/04/18 13:00 Temperature 98.2 F 97.9 F 98.2 F Pulse Rate 64 63 64 Respiratory Rate 20 20 20 Blood Pressure 111/60 109/59 L 115/65 Pulse Oximetry 94 L 94 L 95 03/04/18 14:00 03/04/18 15:00 03/04/18 16:00 Temperature 98.3 F Pulse Rate 66 71 64 Respiratory Rate 18 Blood Pressure 121/66 Pulse Oximetry 97 03/04/18 17:00 03/04/18 18:00 03/04/18 19:00 Temperature Pulse Rate 80 86 78 Respiratory Rate Blood Pressure Pulse Oximetry 03/04/18 20:00 03/04/18 21:00 03/04/18 22:00 Temperature 97.4 F L Pulse Rate 78 80 70 Respiratory Rate 18 Blood Pressure 135/72 Pulse Oximetry 96 03/04/18 23:00 03/05/18 00:00 03/05/18 01:00 Temperature 98.7 F Pulse Rate 59 L 62 65 Respiratory Rate 18 Blood Pressure 109/47 L Pulse Oximetry 97 03/05/18 02:00 03/05/18 03:00 03/05/18 04:00 Temperature 98.1 F Pulse Rate 63 72 74 Respiratory Rate 18 Blood Pressure 108/58 L Pulse Oximetry 97 03/05/18 05:00 03/05/18 06:00 03/05/18 07:00 Temperature Pulse Rate 86 70 76 Respiratory Rate Blood Pressure Pulse Oximetry 03/05/18 08:00 03/05/18 09:00 03/05/18 10:00 Temperature 99.0 F Pulse Rate 80 96 H 96 H Respiratory Rate 16 Blood Pressure 126/62 Pulse Oximetry 95 Intake & Output 03/04/18 03/05/18 03/05/18 18:59 06:59 18:59 Intake Total 1228 / 1228 720 / 720 Output Total 1150 / 1150 Balance 78 / 78 720 / 720 Weight 153 lb 14.122 oz Intake: Oral 960 / 960 720 / 720 Intake (Blood Product) Amt 268 / 268 Plt Pheresis B Leukoreduced 268 / 268 Unit [id number] Output: Urine 1150 / 1150 Other: # Voids 1 Date of Last Bowel Movement 03/04/18 03/04/18 Result Diagrams: 03/05/18 02:50 03/05/18 02:50 Laboratory Results: Laboratory Results - last 24 hr 03/02/18 03/04/18 03/04/18 10:37 09:52 17:11 WBC RBC Hgb Hct MCV MCH MCHC RDW Plt Count MPV Sodium Potassium Chloride Carbon Dioxide Anion Gap BUN Creatinine Estimated GFR POC Glucose 175 H Random Glucose Calcium Nasal Screen MRSA (PCR) MTS Gel Crossmatch See Detail Bld Prod Order Comment 03/04/18 03/04/18 03/05/18 21:26 23:30 02:50 WBC RBC Hgb Hct MCV MCH MCHC RDW Plt Count MPV Sodium 140 Potassium 3.7 Chloride 107 Carbon Dioxide 23.2 Anion Gap 10 BUN 45 H Creatinine 1.52 H Estimated GFR 44 L POC Glucose 274 H Random Glucose 144 H Calcium 7.6 L Nasal Screen MRSA (PCR) Not detected MTS Gel Crossmatch Bld Prod Order Comment 03/05/18 03/05/18 03/05/18 02:50 03:21 08:51 WBC 3.6 L RBC 2.75 L Hgb 8.1 L Hct 23.8 L MCV 86.5 MCH 29.3 MCHC 33.9 RDW 16.1 Plt Count 25 L MPV 10.7 Sodium Potassium Chloride Carbon Dioxide Anion Gap BUN Creatinine Estimated GFR POC Glucose 157 H 198 H Random Glucose Calcium Nasal Screen MRSA (PCR) MTS Gel Crossmatch Bld Prod Order Comment Imaging Studies: Impressions Chest CT 03/04/18 00:00 CONCLUSION: 1. Bilateral alveolar infiltrates right greater than left. This has an appearance most characteristic of pulmonary edema. The findings could indicate congestive heart failure. 2. Bilateral pleural effusions right greater than left. 3. Status post median sternotomy. Carotid Doppler Study 03/04/18 15:05 CONCLUSION: Mild plaque is seen in the grayscale images of the carotids bilaterally. However , there is elevated peak systolic velocity in the internal carotid arteries bilaterally and elevated ICA/CCA ratio on the right. A more significant stenosis may be present. The carotid system could be further evaluated with a CTA of the neck. Lower Extremity Ultrasound 03/04/18 15:05 CONCLUSION: 1. Greater saphenous vein mapping has been performed with measurements above. Saphenous veins are small in caliber bilaterally. There is nonvisualization of the saphenous vein within the left calf. Venous Doppler Study 03/04/18 15:05 CONCLUSION: 1. The study is negative for bilateral lower extremity deep venous thrombosis. Medications: Active Medications Generic Name Dose Route Start Last Admin Trade Name Freq PRN Reason Stop Dose Admin Aspirin 81 mg 03/02/18 09:00 03/05/18 09:27 Aspirin Chew PO 81 mg DAILY ANDREA Administration Atorvastatin Calcium 40 mg 03/02/18 09:00 03/05/18 09:27 Lipitor PO 40 mg DAILY ANDREA Administration Clonidine HCl 0.1 mg 03/02/18 09:00 03/05/18 09:30 Catapres PO 0.1 mg DAILY ANDREA Administration Enalapril Maleate 20 mg 03/01/18 21:00 03/05/18 09:26 Vasotec PO 20 mg BID ANDREA Administration Insulin Aspart 0 unit 03/01/18 21:00 03/05/18 09:25 Novolog Insulin Correctional Sugar Inj SQ 1 unit ACHS AND 3AM ANDREA Administration Protocol Isosorbide Mononitrate 120 mg 03/02/18 09:00 03/05/18 09:27 Imdur PO 120 mg DAILY ANDREA Administration Lactulose 30 ml 03/01/18 20:22 03/04/18 21:34 Lactulose Liq PO 30 ml DAILY PRN Administration SEVERE CONSITIPATION Metoprolol Tartrate 25 mg 03/01/18 21:00 03/05/18 09:26 Lopressor PO 25 mg BID ANDREA Administration Pantoprazole Sodium 40 mg 03/02/18 09:00 03/05/18 09:25 Protonix PO 40 mg DAILY ANDREA Administration Ranolazine 500 mg 03/01/18 21:45 03/05/18 09:26 Ranexa PO 500 mg Q12HR ANDREA Administration Ropinirole HCl 1 mg 03/01/18 21:00 03/04/18 21:33 Requip PO 1 mg HS ANDREA Administration Senna/Docusate Sodium 1 tab 03/01/18 21:00 03/05/18 09:28 Kyleigh-Colace PO Not Given BID ANDREA Sodium Chloride 2 ml 03/04/18 21:00 03/05/18 09:28 Ns Flush IV.FLUSH 2 ml BID ANDREA Administration Torsemide 20 mg 03/02/18 09:00 03/05/18 09:27 Demadex PO 20 mg DAILY ANDREA Administration Umeclidinium/Vilanterol 1 inhalation 03/01/18 21:00 03/04/18 21:34 Anoro-Ellipta 62.5/25 Mcg Inh INH 1 inhalation Q24H ANDREA Administration Objective Remarks: GENERAL: Older gentleman sitting up in bed watching TV in no acute distress SKIN: Warm and dry. HEAD: Normocephalic. EYES: No scleral icterus. No injection or drainage. NECK: Supple, trachea midline. No JVD or lymphadenopathy. CARDIOVASCULAR: Regular rate and rhythm without murmurs. RESPIRATORY: Breath sounds equal bilaterally. No accessory muscle use. GASTROINTESTINAL: Abdomen soft, non-tender, nondistended. EXTREMITIES: No cyanosis, or edema. MUSCULOSKELETAL: Adequate muscle tone. NEUROLOGICAL: No obvious focal deficit. Awake, alert, and oriented x3. 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 He has heart disease and needs CABG redo. 1. High risk MDS: Not a candidate for intensive chemotherapy or allo stem cell transplant due to age, CKD, heart disease. Holding initiation of Vidaza therapy due to cardiac disease. 2. Cytopenias: due to disease. Goal hemoglobin 10. Goal platelet count 50K. Judicious transfusion. On antiplatelet agents. 3. Chronic renal disease: at baseline continue to trend. 4. 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 CT surgery following for possible redo. According to notes patient may get transferred to [facility] for procedure. - Attending Statement The exam, history, and the medical decision-making described in the above note were completed with the assistance of the mid-level provider. I reviewed and agree with the findings presented. I attest that I had a [id number] encounter with the patient on the same day, and personally performed and documented my assessment and findings in the medical record. Patient still has chest pressure. He denies any bleeding. Platelet count trended down to 25, 000. His white blood cell count is stable and he is not neutropenic. Patient has some question regarding chemotherapy which we discussed. I told him the Vidaza may take months to see a response. He may be thinking about going to [facility] for the redo CABG procedure. We will give him transfusion if his platelets were below 20,000.
--- NOTE | 2018-03-05 13:06 | P.PN ---
Subjective Interval history: seen wioth daughter at bedside patient feels beter with 02NC no melena or hemaotchezia regported Physical Exam Vital signs: Vital Signs 03/04/18 14:00 03/04/18 15:00 03/04/18 16:00 Temperature 98.3 F Pulse Rate 66 71 64 Respiratory Rate 18 Blood Pressure 121/66 Pulse Oximetry 97 03/04/18 17:00 03/04/18 18:00 03/04/18 19:00 Temperature Pulse Rate 80 86 78 Respiratory Rate Blood Pressure Pulse Oximetry 03/04/18 20:00 03/04/18 21:00 03/04/18 22:00 Temperature 97.4 F L Pulse Rate 78 80 70 Respiratory Rate 18 Blood Pressure 135/72 Pulse Oximetry 96 03/04/18 23:00 03/05/18 00:00 03/05/18 01:00 Temperature 98.7 F Pulse Rate 59 L 62 65 Respiratory Rate 18 Blood Pressure 109/47 L Pulse Oximetry 97 03/05/18 02:00 03/05/18 03:00 03/05/18 04:00 Temperature 98.1 F Pulse Rate 63 72 74 Respiratory Rate 18 Blood Pressure 108/58 L Pulse Oximetry 97 03/05/18 05:00 03/05/18 06:00 03/05/18 07:00 Temperature Pulse Rate 86 70 76 Respiratory Rate Blood Pressure Pulse Oximetry 03/05/18 08:00 03/05/18 09:00 03/05/18 10:00 Temperature 99.0 F Pulse Rate 80 96 H 96 H Respiratory Rate 16 Blood Pressure 126/62 Pulse Oximetry 95 Intake & Output 03/04/18 03/05/18 03/05/18 18:59 06:59 18:59 Intake Total 1228 / 1228 720 / 720 Output Total 1150 / 1150 Balance 78 / 78 720 / 720 Weight 69.8 kg Intake: Oral 960 / 960 720 / 720 Intake (Blood Product) Amt 268 / 268 Plt Pheresis B Leukoreduced 268 / 268 Unit [id number] Output: Urine 1150 / 1150 Other: # Voids 1 Date of Last Bowel Movement 03/04/18 03/04/18 Narrative: GENERAL: NAD, A&Ox3, no acute distress EYES: anciteric CARDIOVASCULAR: Regular rate RESPIRATORY: Breath sounds equal bilaterally. No accessory muscle use. GASTROINTESTINAL: Abdomen soft, non-tender, nondistended. MUSCULOSKELETAL: No cyanosis, or edema. SKIN: Warm and dry.no petechia right groin- no hematoma NEURO: No focal neurological deficits. Results - Labs CBC & Chem 7: 03/06/18 05:38 03/05/18 02:50 Laboratory Results - last 24 hr 03/02/18 03/04/18 03/04/18 10:37 17:11 21:26 WBC RBC Hgb Hct MCV MCH MCHC RDW Plt Count MPV Sodium Potassium Chloride Carbon Dioxide Anion Gap BUN Creatinine Estimated GFR POC Glucose 175 H 274 H Random Glucose Calcium Nasal Screen MRSA (PCR) MTS Gel Crossmatch See Detail 03/04/18 03/05/18 03/05/18 23:30 02:50 02:50 WBC 3.6 L RBC 2.75 L Hgb 8.1 L Hct 23.8 L MCV 86.5 MCH 29.3 MCHC 33.9 RDW 16.1 Plt Count 25 L MPV 10.7 Sodium 140 Potassium 3.7 Chloride 107 Carbon Dioxide 23.2 Anion Gap 10 BUN 45 H Creatinine 1.52 H Estimated GFR 44 L POC Glucose Random Glucose 144 H Calcium 7.6 L Nasal Screen MRSA (PCR) Not detected MTS Gel Crossmatch 03/05/18 03/05/18 03/05/18 03:21 08:51 11:42 WBC RBC Hgb Hct MCV MCH MCHC RDW Plt Count MPV Sodium Potassium Chloride Carbon Dioxide Anion Gap BUN Creatinine Estimated GFR POC Glucose 157 H 198 H 307 H Random Glucose Calcium Nasal Screen MRSA (PCR) MTS Gel Crossmatch - Imaging Impressions Chest CT 03/04/18 00:00 CONCLUSION: 1. Bilateral alveolar infiltrates right greater than left. This has an appearance most characteristic of pulmonary edema. The findings could indicate congestive heart failure. 2. Bilateral pleural effusions right greater than left. 3. Status post median sternotomy. Carotid Doppler Study 03/04/18 15:05 CONCLUSION: Mild plaque is seen in the grayscale images of the carotids bilaterally. However , there is elevated peak systolic velocity in the internal carotid arteries bilaterally and elevated ICA/CCA ratio on the right. A more significant stenosis may be present. The carotid system could be further evaluated with a CTA of the neck. Lower Extremity Ultrasound 03/04/18 15:05 CONCLUSION: 1. Greater saphenous vein mapping has been performed with measurements above. Saphenous veins are small in caliber bilaterally. There is nonvisualization of the saphenous vein within the left calf. Venous Doppler Study 03/04/18 15:05 CONCLUSION: 1. The study is negative for bilateral lower extremity deep venous thrombosis. - Procedures 03/02- cardiac cath- severe 3V disease Assessment and Plan - Plan 82-year-old male admitted secondary to known coronary artery disease with chest symptoms in the presence of acute myelodysplastic syndrome. Myelodysplastic syndrome anemia -H H stable Platelet count remains low follow CBC blood production transfusion orders per Hematology Oncology following Coronary artery disease- severe 3V disease -on cath 03/02 Hypertension Cardiology following Continue aspirin/Lipitor 40 mg hs, LOpressor 25 mg bid, Enalapril 20 mg bid, Imdur 120 mg daily, Clonidine 0,1 mg daily, Ranexa,Demadex [facility] ff- ? Plan for eventual CABG but high risk Atrial fibrillation- currently in SR CHF- not in failure Due to anemia no systemic anticoagulation at this point CKD - creatinine stable COPD hypertension Continue home medications 02 NC 2 LPM we will do a walk test prior to DC if qualifies for home 02 DVT prophylaxis No anticoagulations due to degree of anemia continue home PPI, DC Pepcid with low platelet
[2018-03-05] MEDS: Umeclindinium 62.5 MCG/Vilanterol 25 MCG Inhaler INH SCH (22:41)
[2018-03-06] MEDS: Insulin NovoLOG Aspart Correctional Sugar Inj SQ SCH ×6 (00:11→21:25)
[2018-03-06 06:10] LABS: Hematocrit 24.5 % (39.0-51.0); Hemoglobin 8.2 gm/dL (13.0-17.0); Mean Corpuscular HGB Conc 33.4 % (32.0-36.0); Mean Corpuscular Hemoglobin 29.3 pg (27.0-34.0); Mean Corpuscular Volume 87.7 fL (80.0-100.0); Mean Platelet Volume 9.9 fL (7.0-11.0); Platelet Count 20 th/mm3 (150-450); Red Cell Distribution Width 16.3 % (11.6-17.2); White Blood Count 4.8 th/mm3 (4.0-11.0)
[2018-03-06 06:59] LABS: Blast Cells 2 % (0-0); Lymphocytes 14 % (9-44); Metamyelocytes 3 % (0-1); Monocytes 10 % (0-8); Ovalocytes 1+; Tallied Nucleated RBC 3 (0-0); Tear Drop Cells 1+
[2018-03-06 07:00] LABS: Acanthocytes Occ; Platelet Morphology Normal (Normal)
[2018-03-06] MEDS: Pantoprazole Sodium 20 MG DR Tablet PO SCH (09:00)
[2018-03-06] MEDS: Ranolazine 500 MG 12HR ER Tablet PO SCH ×2 (09:00→21:24)
[2018-03-06] MEDS: Isosorbide Mononitrate 60 MG ER 24HR Tablet (Imdur) PO SCH (09:00)
[2018-03-06] MEDS: Metoprolol Tartrate 25 MG Tablet PO SCH ×2 (09:01→21:24)
[2018-03-06] MEDS: Torsemide 20 MG Tablet PO SCH (09:01)
[2018-03-06] MEDS: Senna/Docusate Sodium 8.6/50 MG Tablet PO SCH ×2 (09:02→22:06)
--- NOTE | 2018-03-06 10:35 | P.PN ---
Subjective Interval history: awake and alert no chest pain at rest gets "tire", short of breath with minimal exertion afebrile, no reported melena or hematochezia, or any sings of bleeding Physical Exam Vital signs: Vital Signs 03/05/18 11:00 03/05/18 12:00 03/05/18 13:00 Temperature 98.0 F Pulse Rate 71 76 78 Respiratory Rate 16 Blood Pressure 100/54 L Pulse Oximetry 94 L 03/05/18 14:00 03/05/18 15:00 03/05/18 15:46 Temperature 98.1 F Pulse Rate 72 68 69 Respiratory Rate 18 Blood Pressure 107/58 L Pulse Oximetry 90 L 03/05/18 16:00 03/05/18 16:01 03/05/18 17:00 Temperature Pulse Rate 84 70 Respiratory Rate Blood Pressure Pulse Oximetry 96 03/05/18 18:00 03/05/18 19:00 03/05/18 20:00 Temperature Pulse Rate 93 H 83 84 Respiratory Rate Blood Pressure Pulse Oximetry 03/05/18 20:04 03/05/18 21:00 03/05/18 22:00 Temperature Pulse Rate 97 H 98 H Respiratory Rate Blood Pressure Pulse Oximetry 97 03/05/18 22:53 03/05/18 23:00 03/06/18 00:00 Temperature 96.2 F L Pulse Rate 78 106 H 100 H Respiratory Rate 18 Blood Pressure 129/79 Pulse Oximetry 93 L 03/06/18 01:00 03/06/18 02:00 03/06/18 03:00 Temperature Pulse Rate 80 82 85 Respiratory Rate Blood Pressure Pulse Oximetry 03/06/18 04:00 03/06/18 05:00 03/06/18 06:00 Temperature 98.9 F Pulse Rate 86 64 83 Respiratory Rate 20 Blood Pressure 105/65 Pulse Oximetry 92 L 03/06/18 07:00 03/06/18 08:00 03/06/18 08:59 Temperature 98.2 F Pulse Rate 83 88 82 Respiratory Rate 18 Blood Pressure 104/50 L 128/68 Pulse Oximetry 94 L 93 L 03/06/18 09:00 Temperature Pulse Rate Respiratory Rate Blood Pressure Pulse Oximetry 93 L Intake & Output 03/05/18 03/06/18 03/06/18 18:59 06:59 18:59 Intake Total 1020 / 1020 360 / 360 Output Total 1420 / 1420 200 / 200 Balance -400 / -400 160 / 160 Weight 69.4 kg Intake: Oral 1020 / 1020 360 / 360 Output: Urine 1420 / 1420 200 / 200 Other: Date of Last Bowel Movement 03/05/18 03/05/18 03/05/18 # Bowel Movements 1 Narrative: NAD, A&Ox3 HEAD: Normocephalic. NECK: Supple, EYES: No scleral icterus. No injection or drainage. CARDIOVASCULAR: Regular rate RESPIRATORY: Breath sounds equal bilaterally. No accessory muscle use. GASTROINTESTINAL: Abdomen soft, non-tender, nondistended. MUSCULOSKELETAL: No cyanosis, or edema. SKIN: Warm and dry.no petechia right groin- no hematoma NEURO: No focal neurological deficits. Results - Labs CBC & Chem 7: 03/06/18 05:38 03/05/18 02:50 Laboratory Results - last 24 hr 03/05/18 03/05/18 03/05/18 11:42 16:43 22:40 WBC RBC Hgb Hct MCV MCH MCHC RDW Plt Count MPV Prelim Diff (Auto) WBC Differential Seg Neuts % (Manual) Band Neuts % (Manual) Lymphocytes % (Manual) Monocytes % (Manual) Metamyelocytes % (Man) Blast Cells % (Manual) Abs Neuts (Manual) Nucleated RBCs/100 WBC Differential Comment Platelet Estimate Platelet Morphology Tear Drop Cells Ovalocytes Acanthocytes (Spur) Keratocytes POC Glucose 307 H 203 H 322 H 03/06/18 03/06/18 03/06/18 00:03 04:14 05:38 WBC 4.8 RBC 2.80 L Hgb 8.2 L Hct 24.5 L MCV 87.7 MCH 29.3 MCHC 33.4 RDW 16.3 Plt Count 20 L MPV 9.9 Prelim Diff (Auto) Manual diff required WBC Differential Manual diff final Seg Neuts % (Manual) 68 Band Neuts % (Manual) 3 Lymphocytes % (Manual) 14 Monocytes % (Manual) 10 H Metamyelocytes % (Man) 3 H Blast Cells % (Manual) 2 H Abs Neuts (Manual) 3.6 Nucleated RBCs/100 WBC 3 H Differential Comment . Platelet Estimate Low L Platelet Morphology Normal Tear Drop Cells 1+ H Ovalocytes 1+ H Acanthocytes (Spur) Occ H Keratocytes Occ H POC Glucose 265 H 203 H 03/06/18 08:17 WBC RBC Hgb Hct MCV MCH MCHC RDW Plt Count MPV Prelim Diff (Auto) WBC Differential Seg Neuts % (Manual) Band Neuts % (Manual) Lymphocytes % (Manual) Monocytes % (Manual) Metamyelocytes % (Man) Blast Cells % (Manual) Abs Neuts (Manual) Nucleated RBCs/100 WBC Differential Comment Platelet Estimate Platelet Morphology Tear Drop Cells Ovalocytes Acanthocytes (Spur) Keratocytes POC Glucose 198 H - Procedures 03/02- cardiac cath- severe 3V disease Assessment and Plan - Plan 82-year-old male admitted secondary to known coronary artery disease with chest symptoms in the presence of acute myelodysplastic syndrome. Myelodysplastic syndrome anemia -H H stable Platelet count remains low follow CBC Transfuse if needed Oncology following Coronary artery disease- severe 3V disease -on cath 03/02 Hypertension Cardiology following Continue aspirin/Lipitor 40 mg hs, LOpressor 25 mg bid, Enalapril 20 mg bid, Imdur 120 mg daily, Clonidine 0,1 mg daily, Ranexa,Demadex [facility] consulted d/w him- patient states was seen by Dr. Maya ? referral to another center [place] Atrial fibrillation- currently in SR CHF- not in failure Due to anemia no systemic anticoagulation at this point CKD -creatinine stable COPD hypertension Continue home medications arrange for home DC- will ask CM for assistance DVT prophylaxis No anticoagulations due to degree of anemia continue home PPI, DC Pepcid with low platelet
--- NOTE | 2018-03-06 11:06 | P.PNONC ---
Subjective Interval history: Afebrile No bleeding Patient reports he still has chest tightness only with exertion No other acute complaints Objective Vital Signs/Intake & Output: Vital Signs 03/05/18 12:00 03/05/18 13:00 03/05/18 14:00 Temperature 98.0 F Pulse Rate 76 78 72 Respiratory Rate 16 Blood Pressure 100/54 L Pulse Oximetry 94 L 03/05/18 15:00 03/05/18 15:46 03/05/18 16:00 Temperature 98.1 F Pulse Rate 68 69 84 Respiratory Rate 18 Blood Pressure 107/58 L Pulse Oximetry 90 L 03/05/18 16:01 03/05/18 17:00 03/05/18 18:00 Temperature Pulse Rate 70 93 H Respiratory Rate Blood Pressure Pulse Oximetry 96 03/05/18 19:00 03/05/18 20:00 03/05/18 20:04 Temperature Pulse Rate 83 84 Respiratory Rate Blood Pressure Pulse Oximetry 97 03/05/18 21:00 03/05/18 22:00 03/05/18 22:53 Temperature 96.2 F L Pulse Rate 97 H 98 H 78 Respiratory Rate 18 Blood Pressure 129/79 Pulse Oximetry 93 L 03/05/18 23:00 03/06/18 00:00 03/06/18 01:00 Temperature Pulse Rate 106 H 100 H 80 Respiratory Rate Blood Pressure Pulse Oximetry 03/06/18 02:00 03/06/18 03:00 03/06/18 04:00 Temperature 98.9 F Pulse Rate 82 85 86 Respiratory Rate 20 Blood Pressure 105/65 Pulse Oximetry 92 L 03/06/18 05:00 03/06/18 06:00 03/06/18 07:00 Temperature Pulse Rate 64 83 83 Respiratory Rate Blood Pressure Pulse Oximetry 03/06/18 08:00 03/06/18 08:59 03/06/18 09:00 Temperature 98.2 F Pulse Rate 78 82 86 Respiratory Rate 18 Blood Pressure 104/50 L 128/68 Pulse Oximetry 94 L 93 L 93 L 03/06/18 10:00 Temperature Pulse Rate 74 Respiratory Rate Blood Pressure Pulse Oximetry Intake & Output 03/05/18 03/06/18 03/06/18 18:59 06:59 18:59 Intake Total 1020 / 1020 360 / 360 Output Total 1420 / 1420 200 / 200 Balance -400 / -400 160 / 160 Weight 153 lb 0.013 oz Intake: Oral 1020 / 1020 360 / 360 Output: Urine 1420 / 1420 200 / 200 Other: Date of Last Bowel Movement 03/05/18 03/05/18 03/05/18 # Bowel Movements 1 Result Diagrams: 03/06/18 05:38 03/05/18 02:50 Laboratory Results: Laboratory Results - last 24 hr 03/05/18 03/05/18 03/05/18 11:42 16:43 22:40 WBC RBC Hgb Hct MCV MCH MCHC RDW Plt Count MPV Prelim Diff (Auto) WBC Differential Seg Neuts % (Manual) Band Neuts % (Manual) Lymphocytes % (Manual) Monocytes % (Manual) Metamyelocytes % (Man) Blast Cells % (Manual) Abs Neuts (Manual) Nucleated RBCs/100 WBC Differential Comment Platelet Estimate Platelet Morphology Tear Drop Cells Ovalocytes Acanthocytes (Spur) Keratocytes POC Glucose 307 H 203 H 322 H 03/06/18 03/06/18 03/06/18 00:03 04:14 05:38 WBC 4.8 RBC 2.80 L Hgb 8.2 L Hct 24.5 L MCV 87.7 MCH 29.3 MCHC 33.4 RDW 16.3 Plt Count 20 L MPV 9.9 Prelim Diff (Auto) Manual diff required WBC Differential Manual diff final Seg Neuts % (Manual) 68 Band Neuts % (Manual) 3 Lymphocytes % (Manual) 14 Monocytes % (Manual) 10 H Metamyelocytes % (Man) 3 H Blast Cells % (Manual) 2 H Abs Neuts (Manual) 3.6 Nucleated RBCs/100 WBC 3 H Differential Comment . Platelet Estimate Low L Platelet Morphology Normal Tear Drop Cells 1+ H Ovalocytes 1+ H Acanthocytes (Spur) Occ H Keratocytes Occ H POC Glucose 265 H 203 H 03/06/18 08:17 WBC RBC Hgb Hct MCV MCH MCHC RDW Plt Count MPV Prelim Diff (Auto) WBC Differential Seg Neuts % (Manual) Band Neuts % (Manual) Lymphocytes % (Manual) Monocytes % (Manual) Metamyelocytes % (Man) Blast Cells % (Manual) Abs Neuts (Manual) Nucleated RBCs/100 WBC Differential Comment Platelet Estimate Platelet Morphology Tear Drop Cells Ovalocytes Acanthocytes (Spur) Keratocytes POC Glucose 198 H Medications: Active Medications Generic Name Dose Route Start Last Admin Trade Name Freq PRN Reason Stop Dose Admin Aspirin 81 mg 03/02/18 09:00 03/06/18 09:01 Aspirin Chew PO 81 mg DAILY ANDREA Administration Atorvastatin Calcium 40 mg 03/02/18 09:00 03/06/18 09:01 Lipitor PO 40 mg DAILY ANDREA Administration Clonidine HCl 0.1 mg 03/02/18 09:00 03/05/18 09:30 Catapres PO 0.1 mg DAILY ANDREA Administration Enalapril Maleate 20 mg 03/01/18 21:00 03/06/18 09:02 Vasotec PO 20 mg BID ANDREA Administration Insulin Aspart 0 unit 03/01/18 21:00 03/06/18 09:01 Novolog Insulin Correctional Sugar Inj SQ 1 unit ACHS AND 3AM ANDREA Administration Protocol Isosorbide Mononitrate 120 mg 03/02/18 09:00 03/06/18 09:00 Imdur PO 120 mg DAILY ANDREA Administration Lactulose 30 ml 03/01/18 20:22 03/04/18 21:34 Lactulose Liq PO 30 ml DAILY PRN Administration SEVERE CONSITIPATION Metoprolol Tartrate 25 mg 03/01/18 21:00 03/06/18 09:01 Lopressor PO 25 mg BID ANDREA Administration Pantoprazole Sodium 40 mg 03/02/18 09:00 03/06/18 09:00 Protonix PO 40 mg DAILY ANDREA Administration Ranolazine 500 mg 03/01/18 21:45 03/06/18 09:00 Ranexa PO 500 mg Q12HR ANDREA Administration Ropinirole HCl 1 mg 03/01/18 21:00 03/05/18 22:40 Requip PO 1 mg HS ANDREA Administration Senna/Docusate Sodium 1 tab 03/01/18 21:00 03/06/18 09:02 Kyleigh-Colace PO Not Given BID [facility] Sodium Chloride 2 ml 03/04/18 21:00 03/06/18 09:02 Ns Flush IV.FLUSH 2 ml BID ANDREA Administration Torsemide 20 mg 03/02/18 09:00 03/06/18 09:01 Demadex PO 20 mg DAILY ANDREA Administration Umeclidinium/Vilanterol 1 inhalation 03/01/18 21:00 03/05/18 22:41 Anoro-Ellipta 62.5/25 Mcg Inh INH 1 inhalation Q24H ANDREA Administration Objective Remarks: GENERAL: Older gentleman sitting up in bed watching TV in no acute distress SKIN: Warm and dry. HEAD: Normocephalic. EYES: No scleral icterus. No injection or drainage. NECK: Supple, trachea midline. No JVD or lymphadenopathy. CARDIOVASCULAR: Regular rate and rhythm without murmurs. RESPIRATORY: Breath sounds equal bilaterally. No accessory muscle use. GASTROINTESTINAL: Abdomen soft, non-tender, nondistended. EXTREMITIES: No cyanosis, or edema. MUSCULOSKELETAL: Adequate muscle tone. NEUROLOGICAL: No obvious focal deficit. Awake, alert, and oriented x3. 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 He has heart disease and needs CABG redo. 1. 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 2. Platelet count 20,000 today. He is not having any bleeding. Plan to transfuse if he drops any further or for any bleeding. 3. Monitor CBC. Continue supportive care. - Attending Statement The exam, history, and the medical decision-making described in the above note were completed with the assistance of the mid-level provider. I reviewed and agree with the findings presented. I attest that I had a [id number] encounter with the patient on the same day, and personally performed and documented my assessment and findings in the medical record. Patient still has intermittent chest pain. He denies any bleeding. Platelet count trended down to 20,000. He does not need transfusion today unless he has signs of bleeding or if platelet count trended below 15,000. His daughter is at the bedside and she has many question regarding treatment of MDS which we discussed. We will discuss further with Dr. Valencia tomorrow regarding further management of the MDS. Continue monitor CBC.
[2018-03-06] MEDS: Umeclindinium 62.5 MCG/Vilanterol 25 MCG Inhaler INH SCH (21:25)
[2018-03-07] MEDS: Insulin NovoLOG Aspart Correctional Sugar Inj SQ SCH ×5 (04:06→23:05)
[2018-03-07 07:39] LABS: Carbon Dioxide 22.9 meq/L (21.0-32.0); Potassium 4.2 meq/L (3.5-5.1)
[2018-03-07] MEDS: Pantoprazole Sodium 20 MG DR Tablet PO SCH ×2 (09:10→18:43)
[2018-03-07] MEDS: Isosorbide Mononitrate 60 MG ER 24HR Tablet (Imdur) PO SCH (09:11)
[2018-03-07] MEDS: Ranolazine 500 MG 12HR ER Tablet PO SCH ×2 (09:11→20:13)
[2018-03-07] MEDS: Senna/Docusate Sodium 8.6/50 MG Tablet PO SCH ×2 (09:11→20:17)
[2018-03-07] MEDS: Metoprolol Tartrate 25 MG Tablet PO SCH ×2 (09:12→20:16)
[2018-03-07] MEDS: Torsemide 20 MG Tablet PO SCH (09:12)
--- NOTE | 2018-03-07 11:50 | P.PN ---
Subjective Interval history: no acute distress, at bedside Vs stable telemetry in SR some atypical chest pain - fleeting no nausea or vomiting Physical Exam Vital signs: Vital Signs 03/06/18 11:51 03/06/18 12:00 03/06/18 13:00 Temperature Pulse Rate 78 76 Respiratory Rate Blood Pressure Pulse Oximetry 94 L 03/06/18 13:15 03/06/18 14:00 03/06/18 15:00 Temperature Pulse Rate 74 82 Respiratory Rate Blood Pressure Pulse Oximetry 94 L 03/06/18 16:00 03/06/18 17:00 03/06/18 18:00 Temperature 97.8 F Pulse Rate 84 82 90 Respiratory Rate 18 Blood Pressure 125/67 Pulse Oximetry 96 03/06/18 19:00 03/06/18 20:00 03/06/18 21:00 Temperature 98.8 F Pulse Rate 94 H 96 H 102 H Respiratory Rate 20 Blood Pressure 151/83 H Pulse Oximetry 90 L 03/06/18 22:00 03/06/18 23:00 03/06/18 23:49 Temperature 99.1 F Pulse Rate 96 H 85 93 H Respiratory Rate 24 Blood Pressure 123/62 Pulse Oximetry 89 L 03/07/18 00:00 03/07/18 01:00 03/07/18 02:00 Temperature Pulse Rate 88 89 85 Respiratory Rate Blood Pressure Pulse Oximetry 03/07/18 03:00 03/07/18 04:00 03/07/18 04:12 Temperature 97.8 F Pulse Rate 84 88 Respiratory Rate 22 Blood Pressure 102/53 L Pulse Oximetry 94 L 93 L 03/07/18 05:00 03/07/18 06:00 03/07/18 07:00 Temperature Pulse Rate 80 93 H 96 H Respiratory Rate Blood Pressure Pulse Oximetry 03/07/18 08:00 03/07/18 09:00 03/07/18 10:00 Temperature 97.8 F Pulse Rate 69 78 68 Respiratory Rate 20 Blood Pressure 112/72 Pulse Oximetry 93 L 03/07/18 11:00 Temperature Pulse Rate 70 Respiratory Rate Blood Pressure Pulse Oximetry Intake & Output 03/06/18 03/07/18 03/07/18 18:59 06:59 18:59 Intake Total 980 / 980 300 / 300 Output Total 500 / 500 500 / 500 Balance 480 / 480 -200 / -200 Weight 69.9 kg Intake: Oral 980 / 980 300 / 300 Output: Urine 500 / 500 500 / 500 Other: Date of Last Bowel Movement 03/05/18 03/05/18 03/05/18 Narrative: NAD, A&Ox3 HEAD: Normocephalic. NECK: Supple, EYES: No scleral icterus. No injection or drainage. CARDIOVASCULAR: Regular rate RESPIRATORY: Breath sounds equal bilaterally. No accessory muscle use. GASTROINTESTINAL: Abdomen soft, non-tender, nondistended. MUSCULOSKELETAL: No cyanosis, or edema. SKIN: Warm and dry.no petechia right groin- no hematoma NEURO: No focal neurological deficits. Results - Labs CBC & Chem 7: 03/07/18 12:53 03/07/18 05:38 Laboratory Results - last 24 hr 03/06/18 03/06/18 03/06/18 11:49 17:20 21:20 Sodium Potassium Chloride Carbon Dioxide Anion Gap BUN Creatinine Estimated GFR POC Glucose 235 H 260 H 264 H Random Glucose Calcium 03/07/18 03/07/18 03/07/18 03:45 05:38 08:07 Sodium 137 Potassium 4.2 Chloride 106 Carbon Dioxide 22.9 Anion Gap 8 BUN 39 H Creatinine 1.49 H Estimated GFR 45 L POC Glucose 200 H 205 H Random Glucose 175 H Calcium 8.0 L - Procedures 03/02- cardiac cath- severe 3V disease Assessment and Plan - Plan 82-year-old male admitted secondary to known coronary artery disease with chest symptoms in the presence of acute myelodysplastic syndrome. Myelodysplastic syndrome anemia -H H stable. CBC now Platelet count remains low Transfuse if needed Oncology following- Dr. Valencia ff Coronary artery disease- severe 3V disease -on cath 03/02 Hypertension Cardiology following- Dr. Pena Continue aspirin/Lipitor 40 mg hs, LOpressor 25 mg bid, Enalapril 20 mg bid, Imdur 120 mg daily, Clonidine 0,1 mg daily, Ranexa,Demadex [facility] consulted- seen 03/04- awaiting final recommendations . records sent to [facility] for possible transfer [place] Atrial fibrillation- currently in SR CHF- not in failure Due to anemia no systemic anticoagulation at this point CKD -creatinine stable, non oliguric COPD hypertension Continue home medications arrange for home 02 on DC- will ask for assistance DVT prophylaxis No anticoagulations due to degree of anemia continue home PPI, DC Pepcid with low platelet
[2018-03-07 13:32] LABS: Hemoglobin 8.1 gm/dL (13.0-17.0); Mean Corpuscular HGB Conc 32.3 % (32.0-36.0); Mean Corpuscular Hemoglobin 29.5 pg (27.0-34.0); Mean Corpuscular Volume 91.2 fL (80.0-100.0); Mean Platelet Volume 10.5 fL (7.0-11.0); Red Blood Count 2.75 mil/mm3 (4.50-5.90); Red Cell Distribution Width 16.9 % (11.6-17.2); White Blood Count 12.7 th/mm3 (4.0-11.0)
[2018-03-07 13:39] LABS: Platelet Count 16 th/mm3 (150-450)
[2018-03-07 14:13] LABS: Blast Cells 1 % (0-0); Lymphocytes 8 % (9-44); Monocytes 14 % (0-8); Ovalocytes 1+; Tallied Nucleated RBC 6 (0-0); Toxic Granulation 1+
[2018-03-07 14:14] LABS: Acanthocytes Occ
--- NOTE | 2018-03-07 14:26 | P.PNCA ---
Subjective Interval history: Patient reports significant increase in SOB, symptoms started yesterday. Upon exam, pt is de-sating, in the 70s on 6 L nasal cannula. Resp paged STAT for breathing treatment. Chest xray and IV lasix ordered. Platelets down to 16 today. Medications and Allergies Allergies Allergy/AdvReac Type Severity Reaction Status Date / Time No Known Allergies Allergy Verified 02/07/18 11:24 Home Medications Medication Instructions Recorded Confirmed Type Multi Vitamin 1 cap PO DAILY 02/07/18 03/01/18 History aspirin 81 mg PO DAILY 02/07/18 03/01/18 History atorvastatin 40 mg PO DAILY 02/07/18 03/01/18 History clonidine HCl 0.1 mg PO DAILY 02/07/18 03/01/18 History clopidogrel [Plavix] 75 mg PO DAILY 02/07/18 03/02/18 History enalapril maleate 20 mg PO BID 02/07/18 03/01/18 History famotidine 20 mg PO DAILY 02/07/18 03/01/18 History glipizide-metformin 1 tab PO BID 02/07/18 03/01/18 History isosorbide mononitrate 120 mg PO DAILY 02/07/18 03/01/18 History metoprolol tartrate 25 mg PO BID 02/07/18 03/01/18 History omeprazole 40 mg PO DAILY 02/07/18 03/01/18 History ranolazine [Ranexa] 500 mg PO Q12H 02/07/18 03/01/18 History ropinirole [Requip] 1 mg PO HS 02/07/18 03/01/18 History sitagliptin [Januvia] 100 mg PO DAILY 02/07/18 03/01/18 History solifenacin [Vesicare] 5 mg PO DAILY 02/07/18 03/01/18 History torsemide 20 mg PO DAILY 02/07/18 03/01/18 History umeclidinium-vilanterol [Anoro 1 inh INHALATION Q24H 02/07/18 03/01/18 History Ellipta] clopidogrel [Plavix] 75 mg PO DAILY 03/01/18 03/01/18 History Active Medications: Active Medications Acetaminophen (Tylenol) 650 mg PO Q4H PRN PRN Reason: Temp > 100.4 Acetaminophen (Tylenol) 650 mg PO Q4H PRN PRN Reason: SEE LABEL COMMENTS Al Hydroxide/Mg Hydroxide (Milk Of Magnesia Liq) 30 ml PO Q12H PRN PRN Reason: Mild Constipation Aspirin (Aspirin Chew) 81 mg PO DAILY [facility] Last Admin: 03/07/18 09:10 Dose: 81 mg Atorvastatin Calcium (Lipitor) 40 mg PO DAILY [facility] Last Admin: 03/07/18 09:11 Dose: 40 mg Bisacodyl (Dulcolax Supp) 10 mg RECTAL DAILY PRN PRN Reason: SEVERE CONSITIPATION Clonidine HCl (Catapres) 0.1 mg PO DAILY PRN PRN Reason: HYPERTENSION Dextrose (D50w Vial) 50 ml IV.PUSH UNSCH PRN PRN Reason: PER HYPOGLYCEMIA PROTOCOL Diphenhydramine HCl (Benadryl) 25 mg PO Q4H PRN PRN Reason: SEE LABEL COMMENTS Enalapril Maleate (Vasotec) 20 mg PO BID [facility] Last Admin: 03/07/18 09:11 Dose: 20 mg Glucagon (Glucagon Inj) 1 mg OTHER PRN PRN PRN Reason: for Hypoglycemia Protocol Insulin Aspart (Novolog Insulin Correctional Sugar Inj) 0 unit SQ ACHS AND 3AM ANDREA; Protocol Last Admin: 03/07/18 12:37 Dose: 3 unit Isosorbide Mononitrate (Imdur) 120 mg PO DAILY [facility] Last Admin: 03/07/18 09:11 Dose: 120 mg Lactulose (Lactulose Liq) 30 ml PO DAILY PRN PRN Reason: SEVERE CONSITIPATION Last Admin: 03/06/18 21:25 Dose: 30 ml Metoprolol Tartrate (Lopressor) 25 mg PO BID [facility] Last Admin: 03/07/18 09:12 Dose: 25 mg Ondansetron HCl (Zofran Inj) 4 mg IV.PUSH Q6H PRN PRN Reason: NAUSEA OR VOMITING Pantoprazole Sodium (Protonix) 40 mg PO DAILY [facility] Last Admin: 03/07/18 09:10 Dose: 40 mg Ranolazine (Ranexa) 500 mg PO Q12HR [facility] Last Admin: 03/07/18 09:11 Dose: 500 mg Ropinirole HCl (Requip) 1 mg PO HS [facility] Last Admin: 03/06/18 21:24 Dose: 1 mg Senna/Docusate Sodium (Kyleigh-Colace) 1 tab PO BID [facility] Last Admin: 03/07/18 09:11 Dose: Not Given Sennosides (Senokot) 17.2 mg PO Q12H PRN PRN Reason: Moderate Constipation Sodium Chloride (Ns Flush) 2 ml IV.FLUSH BID [facility] Last Admin: 03/07/18 09:13 Dose: 2 ml Sodium Chloride (Ns Flush) 2 ml IV.FLUSH PRN PRN PRN Reason: FLUSH AFTER USING IV ACCESS Torsemide (Demadex) 20 mg PO DAILY [facility] Last Admin: 03/07/18 09:12 Dose: 20 mg Umeclidinium/Vilanterol (Anoro-Ellipta 62.5/25 Mcg Inh) 1 inhalation INH Q24H [facility] Last Admin: 03/06/18 21:25 Dose: 1 inhalation Physical Exam Vital signs: Vital Signs 03/06/18 15:00 03/06/18 16:00 03/06/18 17:00 Temperature 97.8 F Pulse Rate 82 84 82 Respiratory Rate 18 Blood Pressure 125/67 Pulse Oximetry 96 03/06/18 18:00 03/06/18 19:00 03/06/18 20:00 Temperature 98.8 F Pulse Rate 90 94 H 96 H Respiratory Rate 20 Blood Pressure 151/83 H Pulse Oximetry 90 L 03/06/18 21:00 03/06/18 22:00 03/06/18 23:00 Temperature Pulse Rate 102 H 96 H 85 Respiratory Rate Blood Pressure Pulse Oximetry 03/06/18 23:49 03/07/18 00:00 03/07/18 01:00 Temperature 99.1 F Pulse Rate 93 H 88 89 Respiratory Rate 24 Blood Pressure 123/62 Pulse Oximetry 89 L 03/07/18 02:00 03/07/18 03:00 03/07/18 04:00 Temperature 97.8 F Pulse Rate 85 84 88 Respiratory Rate 22 Blood Pressure 102/53 L Pulse Oximetry 94 L 03/07/18 04:12 03/07/18 05:00 03/07/18 06:00 Temperature Pulse Rate 80 93 H Respiratory Rate Blood Pressure Pulse Oximetry 93 L 03/07/18 07:00 03/07/18 08:00 03/07/18 09:00 Temperature 97.8 F Pulse Rate 96 H 69 78 Respiratory Rate 20 Blood Pressure 112/72 Pulse Oximetry 93 L 03/07/18 10:00 03/07/18 11:00 03/07/18 12:00 Temperature 97.7 F Pulse Rate 68 70 74 Respiratory Rate 20 Blood Pressure 92/54 L Pulse Oximetry 91 L Intake & Output 03/06/18 03/07/18 03/07/18 18:59 06:59 18:59 Intake Total 980 / 980 300 / 300 Output Total 500 / 500 500 / 500 Balance 480 / 480 -200 / -200 Weight 69.9 kg Intake: Oral 980 / 980 300 / 300 Output: Urine 500 / 500 500 / 500 Other: Date of Last Bowel Movement 03/05/18 03/05/18 03/05/18 - Constitutional moderate distress, chronically ill appearing - Routine HEENT Exam Head: Present: normocephalic, atraumatic Eye: Present: PERRL, normal accommodation ENT: Present: mucous membranes moist - Routine Neck Exam Present: supple - Routine Respiratory Exam Present: crackles - Routine Cardiovascular Exam Present: RRR - Routine Abdominal Exam Present: soft - Routine Skin Exam Present: intact - Routine Neurological Exam Present: alert, oriented X3 - Detailed Neurological Exam: Coma Scale Eye Opening: Spontaneous Verbal Response: Oriented Motor Response: Obey commands [place] Coma Scale Total: 15 - Routine Psychiatric Exam Present: normal affect Results 03/07/18 12:53 03/07/18 05:38 CBC 03/06/18 03/07/18 Range/Units 05:38 12:53 WBC 4.8 12.7 H (4.0-11.0) th/mm3 RBC 2.80 L 2.75 L (4.50-5.90) mil/mm3 Hgb 8.2 L 8.1 L (13.0-17.0) gm/dL Hct 24.5 L 25.0 L (39.0-51.0) % Plt Count 20 L 16 L* (150-450) th/mm3 Comprehensive Metabolic Panel 03/07/18 Range/Units 05:38 Sodium 137 (136-145) meq/L Potassium 4.2 (3.5-5.1) meq/L Chloride 106 (98-107) meq/L Carbon Dioxide 22.9 (21.0-32.0) meq/L BUN 39 H (7-18) mg/dL Creatinine 1.49 H (0.60-1.30) mg/dL Calcium 8.0 L (8.5-10.1) mg/dL Intake and Output 03/06/18 03/07/18 03/07/18 22:59 06:59 14:59 Intake Total 980 / 980 300 / 300 Output Total 500 / 500 500 / 500 Balance 480 / 480 -200 / -200 Intake: Oral 980 / 980 300 / 300 Output: Urine 500 / 500 500 / 500 Other: Date of Last Bowel Movement 03/05/18 03/05/18 03/05/18 Weight 69.9 kg Assessment and Plan - Plan Assessment ASHD Chest pain Myelodysplastic syndrome CKD Plan Flash pulmonary edema. Worsening SOB. Chest x-ray and STAT breathing treatment ordered. IV lasix given. Platelets down to 16, nurse advised to notify hematology. Creatinine at baseline CV has evaluated patient, his records have been sent to [facility] for evaluation, awaiting their recommendations. The patient was seen and evaluated by Dr. Pena who participated in care, management and decision making. The exam, history, and the medical decision-making described in the above note were completed with the assistance of the mid-level provider. I reviewed and agree with the findings presented. I attest that I had a [id number] encounter with the patient on the same day, and personally performed and documented my assessment and findings in the medical record. Discussed with Dr Raza and Dr Maya Code Status: Full Code Discussed Condition With: Dr. Pena, RN, Respiratory therapist, and family
--- NOTE | 2018-03-07 14:52 | P.PNCV ---
- Note Subjective/Hospital Course: pt seen and evaluated / full consult to follow sts risk score RISK SCORES Procedure: Isolated CAB CALCULATE Risk of Mortality: 5.369% Renal Failure: 10.692% Permanent Stroke: 0.678% Prolonged Ventilation: 12.823% DSW Infection: 0.528% Reoperation: 4.493% Morbidity or Mortality: 21.192% Short Length of Stay: 17.520% Long Length of Stay: 18.282% 82-year-old male who was apparently recently in the hospital, was scheduled for outpatient cardiac catheterization when he was found to have pancytopenia on his last admission. He had some chest pain, which resolved after receiving some blood transfusions. The patient was apparently followed by Hematology/ Oncology. The patient presented to the emergency room as a direct admit and was told that he needed to come into the hospital for transfusion prior to his cardiac catheterization. The patient received 2 units of packed RBCs, 1 unit of platelets for initial hemoglobin of 8.4, hematocrit of 24, platelet count was 42. He underwent a cardiac catheterization by Dr. Pena and showed a 90% left main, mid distal LAD 95%. The CONCEPCION graft was patent to the LAD. The circumflex was 100%. The RCA had 2 spots of stenosis of 90% and the ramus was 95%. Further catheterization showed saphenous vein graft to the OM had evidence of prior stent that was totally occluded. The saphenous vein graft to the RCA showed evidence of an occluded stump. We were consulted to evaluate for redo coronary artery bypass grafting. His prior surgery was in 2014. He had a CABG x 3 with a CONCEPCION to the LAD, reverse saphenous vein graft to the distal RCA, reverse saphenous vein graft to the OM1. He also had a stent placed in 2015. PAST MEDICAL HISTORY: Includes paroxysmal atrial fibrillation, non-insulin dependent diabetes mellitus, hypertension, hyperlipidemia, carotid stenosis. He was recently diagnosed with myelodysplastic syndrome and is followed by Dr. Shaye Valencia and there is discussion of when to start chemotherapy with the patient. Other history includes diabetes mellitus type 2, COPD. 03/07 pt high risk of mortality and co-morbities we have asked our colleague Dr Wes Raza to eval pt records to see if he would be accepted at [facility] in [place] for possible surgery pt is very SOB with any exertion , FEV1 0.99 47% predicted ECHO pending records and CD's have been forwarded to [place] Objective: Vital Signs - 24 hr 03/06/18 15:00 03/06/18 16:00 03/06/18 17:00 Temperature 97.8 F Pulse Rate 82 84 82 Respiratory Rate 18 Blood Pressure 125/67 Pulse Oximetry 96 03/06/18 18:00 03/06/18 19:00 03/06/18 20:00 Temperature 98.8 F Pulse Rate 90 94 H 96 H Respiratory Rate 20 Blood Pressure 151/83 H Pulse Oximetry 90 L 03/06/18 21:00 03/06/18 22:00 03/06/18 23:00 Temperature Pulse Rate 102 H 96 H 85 Respiratory Rate Blood Pressure Pulse Oximetry 03/06/18 23:49 03/07/18 00:00 03/07/18 01:00 Temperature 99.1 F Pulse Rate 93 H 88 89 Respiratory Rate 24 Blood Pressure 123/62 Pulse Oximetry 89 L 03/07/18 02:00 03/07/18 03:00 03/07/18 04:00 Temperature 97.8 F Pulse Rate 85 84 88 Respiratory Rate 22 Blood Pressure 102/53 L Pulse Oximetry 94 L 03/07/18 04:12 03/07/18 05:00 03/07/18 06:00 Temperature Pulse Rate 80 93 H Respiratory Rate Blood Pressure Pulse Oximetry 93 L 03/07/18 07:00 03/07/18 08:00 03/07/18 09:00 Temperature 97.8 F Pulse Rate 96 H 69 78 Respiratory Rate 20 Blood Pressure 112/72 Pulse Oximetry 93 L 03/07/18 10:00 03/07/18 11:00 03/07/18 12:00 Temperature 97.7 F Pulse Rate 68 70 74 Respiratory Rate 20 Blood Pressure 92/54 L Pulse Oximetry 91 L 03/07/18 13:00 03/07/18 14:00 Temperature Pulse Rate 71 68 Respiratory Rate Blood Pressure Pulse Oximetry GENERAL: pt clearly uncomfortable , desats with any exertion SKIN: Warm and dry. HEAD: Normocephalic. EYES: No scleral icterus. No injection or drainage. NECK: Supple, trachea midline. No JVD or lymphadenopathy. CARDIOVASCULAR: Regular rate and rhythm without murmurs, gallops, or rubs. RESPIRATORY: bibasilar crackles Breath sounds equal bilaterally. some use of accessory muscle use. GASTROINTESTINAL: Abdomen soft, non-tender, nondistended. MUSCULOSKELETAL: No cyanosis, mild edema lower ext BACK: Nontender without obvious deformity. No CVA tenderness. Labs: Laboratory Results - last 12 hr 03/07/18 03/07/18 03/07/18 03:45 05:38 08:07 WBC RBC Hgb Hct MCV MCH MCHC RDW Plt Count MPV Prelim Diff (Auto) WBC Differential Seg Neuts % (Manual) Lymphocytes % (Manual) Monocytes % (Manual) Blast Cells % (Manual) Abs Neuts (Manual) Nucleated RBCs/100 WBC Differential Comment Toxic Granulation Platelet Estimate Platelet Morphology Ovalocytes Acanthocytes (Spur) Sodium 137 Potassium 4.2 Chloride 106 Carbon Dioxide 22.9 Anion Gap 8 BUN 39 H Creatinine 1.49 H Estimated GFR 45 L POC Glucose 200 H 205 H Random Glucose 175 H Calcium 8.0 L 03/07/18 03/07/18 12:12 12:53 WBC 12.7 H RBC 2.75 L Hgb 8.1 L Hct 25.0 L MCV 91.2 D MCH 29.5 MCHC 32.3 RDW 16.9 Plt Count 16 L* MPV 10.5 Prelim Diff (Auto) Manual diff required WBC Differential Manual diff final Seg Neuts % (Manual) 77 H Lymphocytes % (Manual) 8 L Monocytes % (Manual) 14 H Blast Cells % (Manual) 1 H Abs Neuts (Manual) 9.8 H Nucleated RBCs/100 WBC 6 H Differential Comment . Toxic Granulation 1+ H Platelet Estimate Low L Platelet Morphology Enlarged H Ovalocytes 1+ H Acanthocytes (Spur) Occ H Sodium Potassium Chloride Carbon Dioxide Anion Gap BUN Creatinine Estimated GFR POC Glucose 236 H Random Glucose Calcium Result Diagrams: 03/07/18 12:53 03/07/18 05:38 [facility]
--- NOTE | 2018-03-07 15:06 | XR ---
EXAM DATE: 03/07/2018 2:50 PM EST AGE/SEX: 82 years / Male INDICATIONS: Shortness of breath. CLINICAL DATA: This is the patient's initial encounter. Patient reports that signs and symptoms have been present for 1 day and indicates a pain score of 0/10. MEDICAL/SURGICAL HISTORY: . Hypertension. Diabetes. Anemia. AFIB. ASHD. Carotid stenosis. COPD. Hyperlipidemia. Myelodysplastic syndrome. SOB. . CABG. Stented coronary artery. COMPARISON: [facility] [place]ST [place]/O CONTRAST, 03/04/2018. . FINDINGS: There is diffuse bilateral interstitial and airspace disease throughout both lung ghosh. The heart s ize is upper limits of normal. There appears to be small bilateral effusions. There is evidence of pr evious cardiothoracic surgery. The interstitial infiltrates appear to be increased compared to the pr ior CT scan. CONCLUSION: Bilateral interstitial and airspace disease characteristic of pulmonary edema versus pneumonia. Electronically signed by: Ronn Lao MD 03/07/2018 3:05 PM EST
[2018-03-07] MEDS ORDERED: Acetaminophen 325 MG Tablet PO PRN (15:12)
--- NOTE | 2018-03-07 15:41 | ECHRPT ---
Indication: CHEST PAIN CONCLUSIONS Normal left ventricular size. Wall thickness is normal. The left ventricular systolic function is the left ventricular systolic function is normal with an e stimated ejection fraction in the range of 60-65%. No regional wall motion abnormalities are present. Moderate mitral valve regurgitation. Mild to moderate aortic valve sclerosis and calcification is present. Trace aortic valve regurgitati on. There is mild to moderate tricuspid valve regurgitation. The estimated pulmonary arterial pressure is 50 mmHg. BP: / HR: Rhythm: Sinus MEASUREMENTS (Male / Female) Normal Values Technical Quality:Fair 2D ECHO LV Diastolic Diameter PLAX 4.8 cm 4.2 - 5.9 / 3.9 - 5.3 cm LV Systolic Diameter PLAX 3.9 cm IVS Diastolic Thickness 1.1 cm 0.6 - 1.0 / 0.6 - 0.9 cm LVPW Diastolic Thickness 1.0 cm 0.6 - 1.0 / 0.6 - 0.9 cm LV Relative Wall Thickness 0.4 RV Internal Dim ED PLAX 3.4 cm LVOT Diameter 1.8 cm Aortic Root Diameter 2.6 cm LA Systolic Diameter LX 4.5 cm 3.0 - 4.0 / 2.7 - 3.8 cm LV Ejection Fraction MOD 4C 51.1 % LV Ejection Fraction 4C AL 51.2 % M-MODE AV Cusp Separation MM 0.9 cm DOPPLER AV Peak Velocity 163.0 cm/s AV Peak Gradient 10.6 mmHg AV Mean Gradient 5.5 mmHg AV Velocity Time Integral 28.1 cm LVOT Peak Velocity 94.7 cm/s LVOT Peak Gradient 3.6 mmHg LVOT Velocity Time Integral 19.4 cm AV Area Cont Eq vti 1.8 cm AV Area Cont Eq pk 1.5 cm MV Peak Velocity 140.0 cm/s MV Peak Gradient 7.8 mmHg MV Mean Velocity 81.3 cm/s MV Mean Gradient 3.0 mmHg MR Peak Velocity 385.0 cm/s MR Peak Gradient 59.3 mmHg TR Peak Velocity 315.0 cm/s TR Peak Gradient 39.7 mmHg Right Atrial Pressure 10.0 mmHg Pulmonary Artery Systolic Pressu 49.7 mmHg Right Ventricular Systolic Press 49.7 mmHg PV Peak Velocity 104.0 cm/s PV Peak Gradient 4.3 mmHg FINDINGS LEFT VENTRICLE Normal left ventricular size. Wall thickness is normal. The left ventricular systolic function is the left ventricular systolic function is normal with an e stimated ejection fraction in the range of 60-65%. No regional wall motion abnormalities are present. RIGHT VENTRICLE Normal right ventricular size and systolic function. LEFT ATRIUM The left atrial size is normal. RIGHT ATRIUM The right atrial size is normal. ATRIAL SEPTUM Normal atrial septal thickness without atrial level shunting by limited color doppler interrogation. AORTA The aortic root and proximal ascending aorta are normal in size on limited imaging. MITRAL VALVE Moderate mitral valve regurgitation. AORTIC VALVE Mild to moderate aortic valve sclerosis and calcification is present. Trace aortic valve regurgitation. TRICUSPID VALVE There is mild to moderate tricuspid valve regurgitation. The estimated pulmonary arterial pressure is 50 mmHg. PULMONARY VALVE Mild pulmonary valve regurgitation. VESSELS The inferior vena cava is normal in size. PERICARDIUM No pericardial effusion. Jin Christensen MD (Electronically Signed) Final Date:07 March 2018 15:40
[2018-03-07] MEDS: Acetaminophen 325 MG Tablet PO PRN (15:59)
[2018-03-07] MEDS ORDERED: Sodium Chlor 0.9% Inj 250 ML IV.SIG SCH (16:00)
--- NOTE | 2018-03-07 20:05 | P.PNONC ---
Subjective Interval history: Resting comfortably in bed. Daughter at bedside. Worsening performance and respiratory status. Objective Vital Signs/Intake & Output: Vital Signs 03/06/18 21:00 03/06/18 22:00 03/06/18 23:00 Temperature Pulse Rate 102 H 96 H 85 Respiratory Rate Blood Pressure Pulse Oximetry 03/06/18 23:49 03/07/18 00:00 03/07/18 01:00 Temperature 99.1 F Pulse Rate 93 H 88 89 Respiratory Rate 24 Blood Pressure 123/62 Pulse Oximetry 89 L 03/07/18 02:00 03/07/18 03:00 03/07/18 04:00 Temperature 97.8 F Pulse Rate 85 84 88 Respiratory Rate 22 Blood Pressure 102/53 L Pulse Oximetry 94 L 03/07/18 04:12 03/07/18 05:00 03/07/18 06:00 Temperature Pulse Rate 80 93 H Respiratory Rate Blood Pressure Pulse Oximetry 93 L 03/07/18 07:00 03/07/18 08:00 03/07/18 09:00 Temperature 97.8 F Pulse Rate 96 H 69 78 Respiratory Rate 20 Blood Pressure 112/72 Pulse Oximetry 93 L 03/07/18 10:00 03/07/18 11:00 03/07/18 12:00 Temperature 97.7 F Pulse Rate 68 70 74 Respiratory Rate 20 Blood Pressure 92/54 L Pulse Oximetry 91 L 03/07/18 13:00 03/07/18 14:00 03/07/18 15:00 Temperature Pulse Rate 71 68 79 Respiratory Rate Blood Pressure Pulse Oximetry 03/07/18 16:00 03/07/18 16:01 03/07/18 17:00 Temperature 97.5 F L 97.5 F L Pulse Rate 81 80 84 Respiratory Rate 22 20 Blood Pressure 101/48 L 101/48 L Pulse Oximetry 93 L 93 L 03/07/18 18:00 03/07/18 19:40 Temperature Pulse Rate 89 Respiratory Rate Blood Pressure Pulse Oximetry 98 Intake & Output 03/07/18 03/07/18 03/08/18 06:59 18:59 06:59 Intake Total 300 / 300 777 / 777 Output Total 500 / 500 650 / 650 Balance -200 / -200 127 / 127 Weight 69.9 kg Intake: Oral 300 / 300 480 / 480 Intake (Blood Product) Amt 297 / 297 Plt Pheresis S Leukoreduced 297 / 297 Unit [id number] Output: Urine 500 / 500 650 / 650 Other: # Voids 1 Date of Last Bowel Movement 03/05/18 03/07/18 # Bowel Movements 1 Result Diagrams: 03/07/18 12:53 03/07/18 05:38 Laboratory Results: Laboratory Results - last 24 hr 03/02/18 03/06/18 03/07/18 10:37 21:20 03:45 WBC RBC Hgb Hct MCV MCH MCHC RDW Plt Count MPV Prelim Diff (Auto) WBC Differential Seg Neuts % (Manual) Lymphocytes % (Manual) Monocytes % (Manual) Blast Cells % (Manual) Abs Neuts (Manual) Nucleated RBCs/100 WBC Differential Comment Toxic Granulation Platelet Estimate Platelet Morphology Ovalocytes Acanthocytes (Spur) Sodium Potassium Chloride Carbon Dioxide Anion Gap BUN Creatinine Estimated GFR POC Glucose 264 H 200 H Random Glucose Calcium MTS Gel Crossmatch See Detail Bld Prod Order Comment 03/07/18 03/07/18 03/07/18 05:38 08:07 12:12 WBC RBC Hgb Hct MCV MCH MCHC RDW Plt Count MPV Prelim Diff (Auto) WBC Differential Seg Neuts % (Manual) Lymphocytes % (Manual) Monocytes % (Manual) Blast Cells % (Manual) Abs Neuts (Manual) Nucleated RBCs/100 WBC Differential Comment Toxic Granulation Platelet Estimate Platelet Morphology Ovalocytes Acanthocytes (Spur) Sodium 137 Potassium 4.2 Chloride 106 Carbon Dioxide 22.9 Anion Gap 8 BUN 39 H Creatinine 1.49 H Estimated GFR 45 L POC Glucose 205 H 236 H Random Glucose 175 H Calcium 8.0 L MTS Gel Crossmatch Bld Prod Order Comment 03/07/18 03/07/18 03/07/18 12:53 15:12 16:50 WBC 12.7 H RBC 2.75 L Hgb 8.1 L Hct 25.0 L MCV 91.2 D MCH 29.5 MCHC 32.3 RDW 16.9 Plt Count 16 L* MPV 10.5 Prelim Diff (Auto) Manual diff required WBC Differential Manual diff final Seg Neuts % (Manual) 77 H Lymphocytes % (Manual) 8 L Monocytes % (Manual) 14 H Blast Cells % (Manual) 1 H Abs Neuts (Manual) 9.8 H Nucleated RBCs/100 WBC 6 H Differential Comment . Toxic Granulation 1+ H Platelet Estimate Low L Platelet Morphology Enlarged H Ovalocytes 1+ H Acanthocytes (Spur) Occ H Sodium Potassium Chloride Carbon Dioxide Anion Gap BUN Creatinine Estimated GFR POC Glucose 295 H Random Glucose Calcium MTS Gel Crossmatch Bld Prod Order Comment Imaging Studies: Impressions Chest X-Ray 03/07/18 00:00 CONCLUSION: Bilateral interstitial and airspace disease characteristic of pulmonary edema versus pneumonia. Medications: Active Medications Generic Name Dose Route Start Last Admin Trade Name Freq PRN Reason Stop Dose Admin Acetaminophen 650 mg 03/01/18 20:22 03/07/18 15:59 Tylenol PO 650 mg Q4H PRN Administration Temp > 100.4 Atorvastatin Calcium 40 mg 03/02/18 09:00 03/07/18 09:11 Lipitor PO 40 mg DAILY ANDREA Administration Diphenhydramine HCl 25 mg 03/07/18 15:12 03/07/18 16:00 Benadryl PO 25 mg Q4H PRN Administration SEE LABEL COMMENTS Enalapril Maleate 20 mg 03/01/18 21:00 03/07/18 09:11 Vasotec PO 20 mg BID ANDREA Administration Furosemide 40 mg 03/07/18 18:00 03/07/18 17:24 Lasix Inj IV.PUSH 40 mg BID@0900,1800 ANDREA Administration Sodium Chloride 250 mls @ 15 mls/hr 03/07/18 16:00 03/07/18 16:07 Ns Inj IV.SIG 03/08/18 08:39 15 mls/hr ONCE ANDREA Administration Insulin Aspart 0 unit 03/01/18 21:00 03/07/18 17:24 Novolog Insulin Correctional Sugar Inj SQ 5 unit ACHS AND 3AM ANDREA Administration Protocol Isosorbide Mononitrate 120 mg 03/02/18 09:00 03/07/18 09:11 Imdur PO 120 mg DAILY ANDREA Administration Lactulose 30 ml 03/01/18 20:22 03/06/18 21:25 Lactulose Liq PO 30 ml DAILY PRN Administration SEVERE CONSITIPATION Metoprolol Tartrate 25 mg 03/01/18 21:00 03/07/18 09:12 Lopressor PO 25 mg BID ANDREA Administration Pantoprazole Sodium 20 mg 03/07/18 18:00 03/07/18 18:43 Protonix PO 20 mg DAILY ANDREA Administration Ranolazine 500 mg 03/01/18 21:45 03/07/18 09:11 Ranexa PO 500 mg Q12HR ANDREA Administration Ropinirole HCl 1 mg 03/01/18 21:00 03/06/18 21:24 Requip PO 1 mg HS ANDREA Administration Senna/Docusate Sodium 1 tab 03/01/18 21:00 03/07/18 09:11 Kyleigh-Colace PO Not Given BID ANDREA Sodium Chloride 2 ml 03/04/18 21:00 03/07/18 09:13 Ns Flush IV.FLUSH 2 ml BID ANDREA Administration Umeclidinium/Vilanterol 1 inhalation 03/01/18 21:00 03/06/18 21:25 Anoro-Ellipta 62.5/25 Mcg Inh INH 1 inhalation Q24H ANDREA Administration Objective Remarks: GENERAL: chronically ill appearing man SKIN: Warm and dry. HEAD: Normocephalic. EYES: No scleral icterus. No injection or drainage. CARDIOVASCULAR: Regular rate and rhythm without murmurs. RESPIRATORY: Breath sounds equal bilaterally. No accessory muscle use. 6 liters oxygen via nasal cannula GASTROINTESTINAL: Abdomen soft, non-tender, nondistended. EXTREMITIES: No cyanosis, or edema. MUSCULOSKELETAL: Adequate muscle tone. NEUROLOGICAL: No obvious focal deficit. Awake, alert, and oriented x3. PSYCHIATRIC: Appropriate mood and affect; insight and judgment normal. Assessment/Plan - Plan 1. High risk MDS: Not a candidate for intensive chemotherapy or allo stem cell transplant due to age, CKD, heart disease. Holding initiation of Vidaza therapy due to cardiac disease. Given declining performance and cardiac status patient is not currently a candidate for chemotherapy. 2. Cytopenias: due to disease. Goal hemoglobin 10. Judicious transfusion. On antiplatelet agents. 3. Chronic renal disease: at baseline continue to trend. 4. 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 high risk for surgery given comorbidities. Evaluation pending by CT surgeon at [facility].
[2018-03-07] MEDS: Umeclindinium 62.5 MCG/Vilanterol 25 MCG Inhaler INH SCH (20:13)
[2018-03-08] MEDS: Insulin NovoLOG Aspart Correctional Sugar Inj SQ SCH ×5 (04:03→20:24)
[2018-03-08 06:05] LABS: Hematocrit 21.5 % (39.0-51.0); Hemoglobin 7.1 gm/dL (13.0-17.0); Mean Corpuscular HGB Conc 33.2 % (32.0-36.0); Mean Corpuscular Hemoglobin 29.8 pg (27.0-34.0); Mean Corpuscular Volume 89.7 fL (80.0-100.0); Platelet Count 35 th/mm3 (150-450); Red Cell Distribution Width 17.1 % (11.6-17.2); White Blood Count 6.7 th/mm3 (4.0-11.0)
[2018-03-08 06:41] LABS: Carbon Dioxide 22.2 meq/L (21.0-32.0); Potassium 4.1 meq/L (3.5-5.1)
[2018-03-08 08:19] LABS: Blast Cells 2 % (0-0); Lymphocytes 7 % (9-44); Monocytes 11 % (0-8); Myelocytes 1 % (0-0); Tallied Nucleated RBC 3 (0-0)
[2018-03-08 08:20] LABS: Acanthocytes 1+; Dimorphic RBC Present; Ovalocytes 1+; Platelet Morphology Normal (Normal)
[2018-03-08] MEDS: Ranolazine 500 MG 12HR ER Tablet PO SCH (09:14)
[2018-03-08] MEDS: Senna/Docusate Sodium 8.6/50 MG Tablet PO SCH ×3 (09:14→23:00)
[2018-03-08] MEDS: Metoprolol Tartrate 25 MG Tablet PO SCH ×3 (09:16→23:00)
[2018-03-08] MEDS: Pantoprazole Sodium 20 MG DR Tablet PO SCH (09:18)
[2018-03-08] MEDS ORDERED: Isosorbide Mononitrate 60 MG ER 24HR Tablet (Imdur) PO SCH (09:25)
[2018-03-08] MEDS: Isosorbide Mononitrate 60 MG ER 24HR Tablet (Imdur) PO SCH (09:29)
--- NOTE | 2018-03-08 09:36 | P.PNCA ---
Subjective Interval history: Patient is lying in bed resting comfortably this morning. He reports that his shortness of breath has improved. Nurse reports good output overnight. Patient received platelets yesterday, nurse reports that PRBCs have been ordered for today. Patient's records have been sent to [facility] for evaluation. Patient denies any acute complaints this a.m. creatinine 1.86, will decrease IV Lasix to once a day. Medications and Allergies Allergies Allergy/AdvReac Type Severity Reaction Status Date / Time No Known Allergies Allergy Verified 02/07/18 11:24 Home Medications Medication Instructions Recorded Confirmed Type Multi Vitamin 1 cap PO DAILY 02/07/18 03/01/18 History aspirin 81 mg PO DAILY 02/07/18 03/01/18 History atorvastatin 40 mg PO DAILY 02/07/18 03/01/18 History clonidine HCl 0.1 mg PO DAILY 02/07/18 03/01/18 History clopidogrel [Plavix] 75 mg PO DAILY 02/07/18 03/02/18 History enalapril maleate 20 mg PO BID 02/07/18 03/01/18 History famotidine 20 mg PO DAILY 02/07/18 03/01/18 History glipizide-metformin 1 tab PO BID 02/07/18 03/01/18 History isosorbide mononitrate 120 mg PO DAILY 02/07/18 03/01/18 History metoprolol tartrate 25 mg PO BID 02/07/18 03/01/18 History omeprazole 40 mg PO DAILY 02/07/18 03/01/18 History ranolazine [Ranexa] 500 mg PO Q12H 02/07/18 03/01/18 History ropinirole [Requip] 1 mg PO HS 02/07/18 03/01/18 History sitagliptin [Januvia] 100 mg PO DAILY 02/07/18 03/01/18 History solifenacin [Vesicare] 5 mg PO DAILY 02/07/18 03/01/18 History torsemide 20 mg PO DAILY 02/07/18 03/01/18 History umeclidinium-vilanterol [Anoro 1 inh INHALATION Q24H 02/07/18 03/01/18 History Ellipta] clopidogrel [Plavix] 75 mg PO DAILY 03/01/18 03/01/18 History Active Medications: Active Medications Acetaminophen (Tylenol) 650 mg PO Q4H PRN PRN Reason: Temp > 100.4 Last Admin: 03/07/18 15:59 Dose: 650 mg Acetaminophen (Tylenol) 650 mg PO Q4H PRN PRN Reason: SEE LABEL COMMENTS Al Hydroxide/Mg Hydroxide (Milk Of Magnesia Liq) 30 ml PO Q12H PRN PRN Reason: Mild Constipation Atorvastatin Calcium (Lipitor) 40 mg PO DAILY [facility] Last Admin: 03/08/18 09:14 Dose: 40 mg Bisacodyl (Dulcolax Supp) 10 mg RECTAL DAILY PRN PRN Reason: SEVERE CONSITIPATION Clonidine HCl (Catapres) 0.1 mg PO DAILY PRN PRN Reason: HYPERTENSION Dextrose (D50w Vial) 50 ml IV.PUSH UNSCH PRN PRN Reason: PER HYPOGLYCEMIA PROTOCOL Diphenhydramine HCl (Benadryl) 25 mg PO Q4H PRN PRN Reason: SEE LABEL COMMENTS Last Admin: 03/07/18 16:00 Dose: 25 mg Furosemide (Lasix Inj) 40 mg IV.PUSH DAILY ANDREA Glucagon (Glucagon Inj) 1 mg OTHER PRN PRN PRN Reason: for Hypoglycemia Protocol Sodium Chloride (Ns Inj) 250 mls @ 15 mls/hr IV.SIG ONCE ANDREA Stop: 03/09/18 02:39 Insulin Aspart (Novolog Insulin Correctional Sugar Inj) 0 unit SQ ACHS AND 3AM ANDREA; Protocol Last Admin: 03/08/18 09:24 Dose: 3 unit Isosorbide Mononitrate (Imdur) 60 mg PO DAILY [facility] Lactulose (Lactulose Liq) 30 ml PO DAILY PRN PRN Reason: SEVERE CONSITIPATION Last Admin: 03/06/18 21:25 Dose: 30 ml Metoprolol Tartrate (Lopressor) 25 mg PO BID [facility] Last Admin: 03/08/18 09:16 Dose: Not Given Ondansetron HCl (Zofran Inj) 4 mg IV.PUSH Q6H PRN PRN Reason: NAUSEA OR VOMITING Pantoprazole Sodium (Protonix) 20 mg PO DAILY [facility] Last Admin: 03/08/18 09:18 Dose: 20 mg Ranolazine (Ranexa) 500 mg PO Q12HR [facility] Last Admin: 03/08/18 09:14 Dose: 500 mg Ropinirole HCl (Requip) 1 mg PO HS [facility] Last Admin: 03/07/18 20:14 Dose: 1 mg Senna/Docusate Sodium (Kyleigh-Colace) 1 tab PO BID [facility] Last Admin: 03/08/18 09:14 Dose: 1 tab Sennosides (Senokot) 17.2 mg PO Q12H PRN PRN Reason: Moderate Constipation Sodium Chloride (Ns Flush) 2 ml IV.FLUSH BID [facility] Last Admin: 03/08/18 09:16 Dose: 2 ml Sodium Chloride (Ns Flush) 2 ml IV.FLUSH PRN PRN PRN Reason: FLUSH AFTER USING IV ACCESS Umeclidinium/Vilanterol (Anoro-Ellipta 62.5/25 Mcg Inh) 1 inhalation INH Q24H [facility] Last Admin: 03/07/18 20:13 Dose: 1 inhalation Physical Exam Vital signs: Vital Signs 03/07/18 10:00 03/07/18 11:00 03/07/18 12:00 Temperature 97.7 F Pulse Rate 68 70 74 Respiratory Rate 20 Blood Pressure 92/54 L Pulse Oximetry 91 L 03/07/18 13:00 03/07/18 14:00 03/07/18 15:00 Temperature Pulse Rate 71 68 79 Respiratory Rate Blood Pressure Pulse Oximetry 03/07/18 16:00 03/07/18 16:01 03/07/18 17:00 Temperature 97.5 F L 97.5 F L Pulse Rate 81 80 84 Respiratory Rate 22 20 Blood Pressure 101/48 L 101/48 L Pulse Oximetry 93 L 93 L 03/07/18 18:00 03/07/18 19:00 03/07/18 19:40 Temperature Pulse Rate 89 92 H Respiratory Rate Blood Pressure Pulse Oximetry 98 03/07/18 20:00 03/07/18 21:00 03/07/18 22:00 Temperature 97.8 F Pulse Rate 84 84 84 Respiratory Rate 20 Blood Pressure 93/66 L Pulse Oximetry 97 03/07/18 23:00 03/08/18 00:00 03/08/18 01:00 Temperature 97.6 F Pulse Rate 84 86 84 Respiratory Rate 16 Blood Pressure 89/57 L Pulse Oximetry 95 03/08/18 02:00 03/08/18 03:00 03/08/18 04:00 Temperature 97.3 F L Pulse Rate 86 82 88 Respiratory Rate 16 Blood Pressure 82/52 L Pulse Oximetry 95 03/08/18 05:00 03/08/18 06:00 03/08/18 07:00 Temperature Pulse Rate 90 88 91 H Respiratory Rate Blood Pressure Pulse Oximetry 92 L 03/08/18 08:00 Temperature 97.4 F L Pulse Rate 90 Respiratory Rate 22 Blood Pressure 97/61 L Pulse Oximetry 92 L Intake & Output 03/07/18 03/08/18 03/08/18 18:59 06:59 18:59 Intake Total 777 / 777 240 / 240 Output Total 650 / 650 450 / 450 Balance 127 / 127 -210 / -210 Weight 69.1 kg Intake: Oral 480 / 480 240 / 240 Intake (Blood Product) Amt 297 / 297 Plt Pheresis S Leukoreduced 297 / 297 Unit [id number] Output: Urine 650 / 650 450 / 450 Other: # Voids 1 Date of Last Bowel Movement 03/07/18 03/07/18 # Bowel Movements 1 - Constitutional mild distress, chronically ill appearing - Routine HEENT Exam Head: Present: normocephalic, atraumatic Eye: Present: EOMI, PERRL, normal accommodation ENT: Present: mucous membranes moist - Routine Neck Exam Present: supple - Routine Respiratory Exam Present: rales, diminished air movement - Routine Cardiovascular Exam Present: RRR - Routine Abdominal Exam Present: soft - Routine Skin Exam Present: intact - Routine Neurological Exam Present: alert, oriented X3 - Detailed Neurological Exam: Coma Scale Eye Opening: Spontaneous Verbal Response: Oriented Motor Response: Obey commands Hector Coma Scale Total: 15 - Routine Psychiatric Exam Present: normal affect Results 03/09/18 03:39 03/09/18 03:39 CBC 03/07/18 03/08/18 Range/Units 12:53 05:50 WBC 12.7 H 6.7 (4.0-11.0) th/mm3 RBC 2.75 L 2.40 L (4.50-5.90) mil/mm3 Hgb 8.1 L 7.1 L (13.0-17.0) gm/dL Hct 25.0 L 21.5 L (39.0-51.0) % Plt Count 16 L* 35 L D (150-450) th/mm3 Comprehensive Metabolic Panel 03/07/18 03/08/18 Range/Units 05:38 05:50 Sodium 137 135 L (136-145) meq/L Potassium 4.2 4.1 (3.5-5.1) meq/L Chloride 106 104 (98-107) meq/L Carbon Dioxide 22.9 22.2 (21.0-32.0) meq/L BUN 39 H 58 H (7-18) mg/dL Creatinine 1.49 H 1.86 H (0.60-1.30) mg/dL Calcium 8.0 L 8.0 L (8.5-10.1) mg/dL Intake and Output 03/07/18 03/08/18 03/08/18 22:59 06:59 14:59 Intake Total 777 / 777 240 / 240 Output Total 650 / 650 450 / 450 Balance 127 / 127 -210 / -210 Intake: Oral 480 / 480 240 / 240 Intake (Blood Product) Amt 297 / 297 Plt Pheresis S Leukoreduced 297 / 297 Unit [id number] Output: Urine 650 / 650 450 / 450 Other: # Voids 1 Date of Last Bowel Movement 03/07/18 03/07/18 # Bowel Movements 1 Weight 69.1 kg - Imaging and Cardiology Imaging: Impressions Chest X-Ray 03/07/18 00:00 CONCLUSION: Bilateral interstitial and airspace disease characteristic of pulmonary edema versus pneumonia. Assessment and Plan - Plan Assessment ASHD Chest pain Myelodysplastic syndrome CKD Plan SOB has improved this AM. Platelets given yesterday, PRBCs ordered for today. Hematology following. Creatinine trending up, will decrease IV lasix and DC ranexa BP low, symptomatic. Medications adjusted. -CV has evaluated patient, his records have been sent to [facility] for evaluation, awaiting their recommendations. Dr. Pena has spoke to Dr. Maya and Dr. Raza in detail. The patient was seen and evaluated by Dr. Pena who participated in care, management and decision making. The exam, history, and the medical decision-making described in the above note were completed with the assistance of the mid-level provider. I reviewed and agree with the findings presented. I attest that I had a [id number] encounter with the patient on the same day, and personally performed and documented my assessment and findings in the medical record. await transfer to [facility] for cabg Code Status: Full Code Discussed Condition With: Dr. Pena, RN
[2018-03-08] MEDS ORDERED: Sodium Chlor 0.9% Inj 250 ML IV.SIG SCH (10:00)
[2018-03-08] MEDS: Acetaminophen 325 MG Tablet PO PRN (10:42)
--- NOTE | 2018-03-08 11:27 | P.PNIM ---
Subjective Interval history: Patient is in no acute distress when seen. However, his hemoglobin level is down to 7.1 this morning. Further transfusion needed. Further monitoring needed. Physical Exam Vital signs: Last Vital Signs Temp 97.5 F L 03/08/18 11:01 Pulse 101 H 03/08/18 11:01 Resp 20 03/08/18 11:01 BP 102/65 03/08/18 11:01 Pulse Ox 90 L 03/08/18 11:01 Intake & Output 03/06/18 03/07/18 03/08/18 03/09/18 06:59 06:59 06:59 06:59 Intake Total 1380 / 1380 1280 / 1280 1017 / 1017 400 / 400 Output Total 1620 / 1620 1000 / 1000 1100 / 1100 Balance -240 / -240 280 / 280 -83 / -83 400 / 400 Weight 69.4 kg 69.9 kg 69.1 kg Narrative: GENERAL: NAD, A&Ox3 HEAD: Normocephalic. NECK: Supple, trachea midline. No lymphadenopathy. EYES: No scleral icterus. No injection or drainage. CARDIOVASCULAR: Regular rate and rhythm without murmurs, gallops, or rubs. RESPIRATORY: Breath sounds equal bilaterally. No accessory muscle use. GASTROINTESTINAL: Abdomen soft, non-tender, nondistended. MUSCULOSKELETAL: No cyanosis, or edema. SKIN: Warm and dry. NEURO: No focal neurological deficits. Results Labs CBC & Chem 7: 03/08/18 05:50 03/08/18 05:50 Labs: Microbiology 03/07/18 05:38 Blood - Peripheral Aerobic Blood Culture - Preliminary No growth in 1 day 03/07/18 05:38 Blood - Peripheral Anaerobic Blood Culture - Preliminary No growth in 1 day 03/07/18 05:49 Blood - Peripheral Aerobic Blood Culture - Preliminary No growth in 1 day 03/07/18 05:49 Blood - Peripheral Anaerobic Blood Culture - Preliminary No growth in 1 day Imaging Imaging: Impressions Chest X-Ray 03/07/18 00:00 CONCLUSION: Bilateral interstitial and airspace disease characteristic of pulmonary edema versus pneumonia. Procedures Procedures: 03/02- cardiac cath- severe 3V disease Assessment and Plan Plan 82-year-old male admitted secondary to known coronary artery disease with chest symptoms in the presence of acute myelodysplastic syndrome. Hemoglobin 7.1 today. 2 units packed red blood cells will be transfused today. Myelodysplastic syndrome anemia Downward trend in hemoglobin today. Transfuse 2 more units packed red blood cells on 03/08/2019 Follow platelets follow CBC Transfuse further if needed Oncology following Coronary artery disease severe 3V disease on cath performed 03/02/18 Determination for possible CABG versus medical management Patient remains a poor surgical candidate Cardiology following Continue aspirin Continue Plavix Atrial fibrillation CHF Due to anemia no systemic anticoagulation at this point Metoprolol on hold CKD Slight increase in creatinine today Follow renal function Avoid nephrotoxins COPD hypertension Continue home medications DVT prophylaxis No anticoagulations due to degree of anemia Progress Note: Quality VTE Deep Vein Thrombosis/Pulmonary Embolism Present on Admission: No
--- NOTE | 2018-03-08 14:08 | P.PNONC ---
Subjective Interval history: Patient sitting up in bed, currently receiving blood transfusion. He reports feeling much better today. His breathing has improved. Discussed with RN, give Lasix 20 mg between 2 units PRBCs. She reports the patient had not urinated this a.m., after bladder scan she was going to straight cath him, however the patient stated he would try again to urinate approximately 500 mL. Objective Vital Signs/Intake & Output: Vital Signs 03/07/18 15:00 03/07/18 16:00 03/07/18 16:01 Temperature 97.5 F L 97.5 F L Pulse Rate 79 81 80 Respiratory Rate 22 20 Blood Pressure 101/48 L 101/48 L Pulse Oximetry 93 L 93 L 03/07/18 17:00 03/07/18 18:00 03/07/18 19:00 Temperature Pulse Rate 84 89 92 H Respiratory Rate Blood Pressure Pulse Oximetry 03/07/18 19:40 03/07/18 20:00 03/07/18 21:00 Temperature 97.8 F Pulse Rate 84 84 Respiratory Rate 20 Blood Pressure 93/66 L Pulse Oximetry 98 97 03/07/18 22:00 03/07/18 23:00 03/08/18 00:00 Temperature 97.6 F Pulse Rate 84 84 86 Respiratory Rate 16 Blood Pressure 89/57 L Pulse Oximetry 95 03/08/18 01:00 03/08/18 02:00 03/08/18 03:00 Temperature Pulse Rate 84 86 82 Respiratory Rate Blood Pressure Pulse Oximetry 03/08/18 04:00 03/08/18 05:00 03/08/18 06:00 Temperature 97.3 F L Pulse Rate 88 90 88 Respiratory Rate 16 Blood Pressure 82/52 L Pulse Oximetry 95 03/08/18 07:00 03/08/18 08:00 03/08/18 09:00 Temperature 97.4 F L Pulse Rate 91 H 90 95 H Respiratory Rate 22 Blood Pressure 97/61 L Pulse Oximetry 92 L 92 L 03/08/18 10:00 03/08/18 11:00 03/08/18 11:01 Temperature 97.5 F L Pulse Rate 99 H 100 H 101 H Respiratory Rate 20 Blood Pressure 102/65 Pulse Oximetry 90 L 03/08/18 11:17 03/08/18 12:00 03/08/18 13:00 Temperature 97.6 F 97.5 F L Pulse Rate 100 H 101 H 94 H Respiratory Rate 20 22 Blood Pressure 100/54 L 100/55 L Pulse Oximetry 90 L 94 L 03/08/18 13:53 03/08/18 13:56 Temperature 97.5 F L 97.6 F Pulse Rate 92 H 93 H Respiratory Rate 20 Blood Pressure 119/62 119/62 Pulse Oximetry 94 L 92 L Intake & Output 03/07/18 03/08/18 03/08/18 18:59 06:59 18:59 Intake Total 777 / 777 240 / 240 800 / 800 Output Total 650 / 650 450 / 450 Balance 127 / 127 -210 / -210 800 / 800 Weight 69.1 kg Intake: Oral 480 / 480 240 / 240 Other 400 / 400 Rbc As-3 Leukoreduced Unit 400 / 400 [id number] Intake (Blood Product) Amt 297 / 297 400 / 400 Plt Pheresis S Leukoreduced 297 / 297 Unit [id number] Rbc As-3 Leukoreduced Unit 400 / 400 [id number] Output: Urine 650 / 650 450 / 450 Other: # Voids 1 Date of Last Bowel Movement 03/07/18 03/07/18 # Bowel Movements 1 Result Diagrams: 03/09/18 03:39 03/09/18 03:39 Laboratory Results: Laboratory Results - last 24 hr 03/02/18 03/07/18 03/07/18 10:37 12:53 15:12 WBC RBC Hgb Hct MCV MCH MCHC RDW Plt Count MPV Prelim Diff (Auto) WBC Differential Manual diff final Seg Neuts % (Manual) 77 H Band Neuts % (Manual) Lymphocytes % (Manual) 8 L Monocytes % (Manual) 14 H Myelocytes % (Man) Blast Cells % (Manual) 1 H Abs Neuts (Manual) 9.8 H Nucleated RBCs/100 WBC 6 H Differential Comment Toxic Granulation 1+ H Platelet Estimate Low L Platelet Morphology Enlarged H Dimorphic RBCs Ovalocytes 1+ H Acanthocytes (Spur) Occ H Sodium Potassium Chloride Carbon Dioxide Anion Gap BUN Creatinine Estimated GFR POC Glucose Random Glucose Calcium Blood Type Antibody Screen MTS Gel Crossmatch See Detail Bld Prod Order Comment 03/07/18 03/07/18 03/08/18 16:50 22:01 04:00 WBC RBC Hgb Hct MCV MCH MCHC RDW Plt Count MPV Prelim Diff (Auto) WBC Differential Seg Neuts % (Manual) Band Neuts % (Manual) Lymphocytes % (Manual) Monocytes % (Manual) Myelocytes % (Man) Blast Cells % (Manual) Abs Neuts (Manual) Nucleated RBCs/100 WBC Differential Comment Toxic Granulation Platelet Estimate Platelet Morphology Dimorphic RBCs Ovalocytes Acanthocytes (Spur) Sodium Potassium Chloride Carbon Dioxide Anion Gap BUN Creatinine Estimated GFR POC Glucose 295 H 286 H 358 H Random Glucose Calcium Blood Type Antibody Screen MTS Gel Crossmatch Bld Prod Order Comment 03/08/18 03/08/18 03/08/18 05:50 05:50 07:45 WBC 6.7 RBC 2.40 L Hgb 7.1 L Hct 21.5 L MCV 89.7 MCH 29.8 MCHC 33.2 RDW 17.1 Plt Count 35 L D MPV 11.0 Prelim Diff (Auto) Manual diff required WBC Differential Manual diff final Seg Neuts % (Manual) 76 H Band Neuts % (Manual) 3 Lymphocytes % (Manual) 7 L Monocytes % (Manual) 11 H Myelocytes % (Man) 1 H Blast Cells % (Manual) 2 H Abs Neuts (Manual) 5.4 Nucleated RBCs/100 WBC 3 H Differential Comment . Toxic Granulation Platelet Estimate Low L Platelet Morphology Normal Dimorphic RBCs Present H Ovalocytes 1+ H Acanthocytes (Spur) 1+ H Sodium 135 L Potassium 4.1 Chloride 104 Carbon Dioxide 22.2 Anion Gap 9 BUN 58 H Creatinine 1.86 H Estimated GFR 35 L POC Glucose 241 H Random Glucose 267 H Calcium 8.0 L Blood Type Antibody Screen MTS Gel Crossmatch Bld Prod Order Comment 03/08/18 03/08/18 09:41 12:14 WBC RBC Hgb Hct MCV MCH MCHC RDW Plt Count MPV Prelim Diff (Auto) WBC Differential Seg Neuts % (Manual) Band Neuts % (Manual) Lymphocytes % (Manual) Monocytes % (Manual) Myelocytes % (Man) Blast Cells % (Manual) Abs Neuts (Manual) Nucleated RBCs/100 WBC Differential Comment Toxic Granulation Platelet Estimate Platelet Morphology Dimorphic RBCs Ovalocytes Acanthocytes (Spur) Sodium Potassium Chloride Carbon Dioxide Anion Gap BUN Creatinine Estimated GFR POC Glucose 279 H Random Glucose Calcium Blood Type AB Positive Antibody Screen Negative MTS Gel Crossmatch See Detail Bld Prod Order Comment Culture Results: Microbiology 03/07/18 05:38 Aerobic Blood Culture - Preliminary Blood - Peripheral No growth in 1 day Anaerobic Blood Culture - Preliminary No growth in 1 day 03/07/18 05:49 Aerobic Blood Culture - Preliminary Blood - Peripheral No growth in 1 day Anaerobic Blood Culture - Preliminary No growth in 1 day Imaging Studies: Impressions Chest X-Ray 03/07/18 00:00 CONCLUSION: Bilateral interstitial and airspace disease characteristic of pulmonary edema versus pneumonia. Medications: Active Medications Generic Name Dose Route Start Last Admin Trade Name Freq PRN Reason Stop Dose Admin Acetaminophen 650 mg 03/01/18 20:22 03/08/18 10:42 Tylenol PO 650 mg Q4H PRN Administration Temp > 100.4 Atorvastatin Calcium 40 mg 03/02/18 09:00 03/08/18 09:14 Lipitor PO 40 mg DAILY ANDREA Administration Sodium Chloride 250 mls @ 15 mls/hr 03/08/18 10:00 03/08/18 11:09 Ns Inj IV.SIG 03/09/18 02:39 15 mls/hr ONCE ANDREA Administration Insulin Aspart 0 unit 03/01/18 21:00 03/08/18 13:05 Novolog Insulin Correctional Sugar Inj SQ 5 unit ACHS AND 3AM ANDREA Administration Protocol Isosorbide Mononitrate 60 mg 03/08/18 09:25 03/08/18 10:15 Imdur PO 60 mg DAILY@0700 NADREA Administration Lactulose 30 ml 03/01/18 20:22 03/06/18 21:25 Lactulose Liq PO 30 ml DAILY PRN Administration SEVERE CONSITIPATION Metoprolol Tartrate 25 mg 03/01/18 21:00 03/08/18 09:16 Lopressor PO Not Given BID ANDREA Pantoprazole Sodium 20 mg 03/07/18 18:00 03/08/18 09:18 Protonix PO 20 mg DAILY ANDREA Administration Ropinirole HCl 1 mg 03/01/18 21:00 03/07/18 20:14 Requip PO 1 mg HS ANDREA Administration Senna/Docusate Sodium 1 tab 03/01/18 21:00 03/08/18 09:14 Kyleigh-Colace PO 1 tab BID ANDREA Administration Sodium Chloride 2 ml 03/04/18 21:00 03/08/18 09:16 Ns Flush IV.FLUSH 2 ml BID ANDREA Administration Umeclidinium/Vilanterol 1 inhalation 03/01/18 21:00 03/07/18 20:13 Anoro-Ellipta 62.5/25 Mcg Inh INH 1 inhalation Q24H ANDREA Administration Objective Remarks: GENERAL: Elderly male patient, in no acute distress. SKIN: Warm and dry. HEAD: Normocephalic. EYES: No scleral icterus. No injection or drainage. NECK: Supple, trachea midline. CARDIOVASCULAR: Regular rate and rhythm without murmurs. RESPIRATORY: Breath sounds equal bilaterally. No accessory muscle use. GASTROINTESTINAL: Abdomen soft, non-tender, nondistended. EXTREMITIES: No cyanosis, or edema. MUSCULOSKELETAL: Adequate muscle tone. NEUROLOGICAL: No obvious focal deficit. Awake, alert, and oriented x3. PSYCHIATRIC: Appropriate mood and affect; insight and judgment normal. Assessment/Plan - Plan 1. High risk MDS: Not a candidate for intensive chemotherapy or allo stem cell transplant due to age, CKD, heart disease. Holding initiation of Vidaza therapy due to cardiac disease. Given declining performance and cardiac status patient is not currently a candidate for chemotherapy. 2. Cytopenias: due to disease. Goal hemoglobin 10. Hemoglobin 7.1 today, scheduled for 2 units PRBCs. Give 20 mg additional Lasix in between to avoid fluid overload. Discussed with RN. 3. Chronic renal disease: Continue to monitor, daily diuretics decreased given increase in creatinine. 4. 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 high risk for surgery given comorbidities. Evaluation pending by CT surgeon at [facility]. 5. Discussed with Dr. Valencia, Dr. Pena and patient's nurse - Attending Statement The exam, history, and the medical decision-making described in the above note were completed with the assistance of the mid-level provider. I reviewed and agree with the findings presented. I attest that I had a [id number] encounter with the patient on the same day, and personally performed and documented my assessment and findings in the medical record. Resting in bed. Oxygen at 6 L. Decline in performance status. ECOG currently 3 -4. He is not currently a candidate for chemotherapy due to declining performance status. Continue supportive care.
[2018-03-08] MEDS: Umeclindinium 62.5 MCG/Vilanterol 25 MCG Inhaler INH SCH ×2 (20:24→22:59)
[2018-03-08 21:45] LABS: ABG PCO2 32 mmHg (38-42); ABG PO2 56 mmHG (61-120)
--- NOTE | 2018-03-08 21:48 | P.PNADD ---
Addendum to Inpatient Note Reason for Addendum: Additional Documentation Additional information: Resident team called for Nica cat at 9:27 PM. Patient was in respiratory distress. The nurse reports that the patient has these episodes off and on. The nurse reports that he had a similar episode last night. The patient is waiting for a bed at [facility] due to a "kinking" in his previous coronary bypass. He was anemic today with a hemoglobin of 7.1 and received 2 units of packed red blood cells. The patient was on 6 L of a nonrebreather mask and was de-satting in the 80s, so a Nica Cat was called. When we entered the room the patient was on 15 L nonrebreather mask and visibly uncomfortable. He denies chest pain, dizziness, changes in vision. He did report shortness of breath. Objective: Heart rate 136 Respiratory rate 32 O2 sat 98% on 15 L nonrebreather Blood pressure 164/91 General: Patient sitting up in tripod position. visibly uncomfortable. diaphoretic. Cardio: tachycardic, no murmurs appreciated, JVD Respiratory: increased work of breathing, poor inspiratory airflow, minimal occasional crackles Extremities: minimal cyanosis in fingers bilaterally Assessment and Plan: -BiPAP -ABGs -Chest x-ray- wet read showed worsening airspace disease bilaterally -EKG -Cardiac enzymes -Spoke to supervisor contact lens, Dr. Cason, and transferred the patient to the ICU due to respiratory distress and the wet read of the CXR
--- NOTE | 2018-03-08 22:05 | XR ---
EXAM DATE: 03/08/2018 9:57 PM EST AGE/SEX: 82 years / Male INDICATIONS: Respiratory failure. CLINICAL DATA: This is the patient's subsequent encounter. Patient reports that signs and symptoms h ave been present for 2 days and indicates a pain score of 0/10. MEDICAL/SURGICAL HISTORY: . Hypertension. Diabetes. Anemia. AFIB. ASHD. Carotid stenosis. COPD. Hyperlipidemia. Myelodysplastic syndrome. SOB. . CABG. Stented coronary artery. COMPARISON: [facility] – [place] CHEST W/O CONTRAST, 03/04/2018. . FINDINGS: There is worsening airspace opacities which are now severe and essentially diffuse of both lungs, jus t slightly sparing the apices. At least small bilateral pleural effusions are likely. No pneumothorac es. Heart size stable, within normal limits. CONCLUSION: Worsening diffuse bilateral airspace opacities. Electronically signed by: Oli Pollard MD 03/08/2018 10:04 PM EST
[2018-03-08] MEDS ORDERED: Propofol 1000 mg/100 ml Inj 1,000 MG/100 ML BOTTLE IV.CONT PRN (22:23)
--- NOTE | 2018-03-08 22:51 | XR ---
EXAM DATE: 03/08/2018 10:47 PM EST AGE/SEX: 82 years / Male INDICATIONS: Post intubation and OG tube placement. CLINICAL DATA: This is the patient's subsequent encounter. Patient reports that signs and symptoms h ave been present for 2 days and indicates a pain score of Nonresponsive. MEDICAL/SURGICAL HISTORY: . Hypertension. Diabetes. Anemia. AFIB. ASHD. Carotid stenosis. COPD. Hyperlipidemia. Myelodysplastic syndrome. SOB. . CABG. Stented coronary artery. [place] [facility] [place]. . FINDINGS: Diffuse airspace opacities again seen of both lungs. Patient is now intubated. Endotracheal tube tip is approximately 3.3 cm above the jose ramon. There is an orogastric tube coursing into the stomach. CONCLUSION: Diffuse parenchymal opacities of both lungs persists. Endotracheal tube tip is appropriately positioned. Orogastric tube courses into the stomach, tip not included on the study. Electronically signed by: Oli Pollard MD 03/08/2018 10:50 PM EST
[2018-03-08] MEDS ORDERED: Pantoprazole Inj 40 MG Vial IV.PUSH SCH (23:00)
[2018-03-08] MEDS ORDERED: fentaNYL 10 mcg/mL Premix Drip 2,500 MCG/250 ML BAG IV.SIG PRN (23:05)
--- NOTE | 2018-03-08 23:23 | MB ---
cc: Etta Buchanan MD DATE: 03/08/2018 HISTORY OF PRESENT ILLNESS: The patient is an 82-year-old male with a past medical history of severe coronary artery disease with occlusion of graft after CABG in 2014, myelodysplastic syndrome, chronic kidney disease, and anemia requiring blood transfusion. The patient was admitted to the hospitalist service on 03/01/2018 with anemia and acute on chronic kidney disease. The patient has been seen by cardiology and hematology services. Echocardiogram was performed on 03/07/2018, which showed an EF of 60-65% with no regional wall motion abnormalities. He underwent a cardiac catheterization on 03/02/2018, which showed severe 3-vessel disease with left main disease and occluded grafts x 2. He was evaluated by cardiothoracic surgery and patient was deemed high risk for redo CABG and plan for possible transfer to [facility] for redo surgery. He underwent blood transfusions today with 2 units of packed red blood cells. Josefa catheterization was called for respiratory distress as the patient was tachypneic and tachycardic. Chest x-ray stat performed, which showed worsening diffuse bilateral airspace opacities. He was subsequently transferred to [facility] [place] where he was immediately intubated and placed on full mechanical ventilation for respiratory distress and worsening mental status. PAST MEDICAL HISTORY: Significant for: 1. Chronic atrial fibrillation. 2. Myelodysplastic syndrome. 3. Coronary artery disease with previous coronary artery bypass grafting x 3 in 2014. 4. CHF. 5. COPD. 6. Diabetes mellitus. 7. Hypertension. 8. Hyperlipidemia. PAST SURGICAL HISTORY: CABG and previous coronary stent placement. ALLERGIES: NO KNOWN DRUG ALLERGIES. FAMILY HISTORY: Coronary artery disease and diabetes mellitus runs in the family. SOCIAL HISTORY: Nonsmoker, nondrinker. MEDICATIONS: Reviewed, which include: 1. Lipitor. 2. Lasix. 3. Requip. 4. Kyleigh-Colace. REVIEW OF SYSTEMS: As per HPI, rest of review of systems limited. PHYSICAL EXAMINATION: GENERAL: An 82-year-old male, intubated for respiratory failure. VITAL SIGNS: Temperature 99.1, pulse of 114, blood pressure 108/55, saturation 100%. Vent settings PRVC rate of 14, tidal volume 500, PEEP of 8, FiO2 of 100%. HEENT: Atraumatic, normocephalic. Pupils equal, round and reactive to light and accommodation. Extraocular muscles intact. Conjunctivae pink. Nonicteric sclerae. Oral mucosa within normal. NECK: Supple. No JVD, adenopathy, or thyromegaly. Trachea midline. CARDIOVASCULAR: Tachycardic. Normal S1, S2. No murmurs, rubs or gallops noted. PULMONARY: Bilateral equal air entry with coarse breath sounds. ABDOMEN: Soft, nontender. No distention. Positive bowel sounds. EXTREMITIES: No cyanosis, clubbing or edema. NEUROLOGIC: Intubated. LABORATORY DATA: WBC 6.7, hemoglobin 7.1, hematocrit 21, platelet count 35. Sodium 135, potassium 4.1, chloride 104, CO2 of 22, BUN 58, creatinine 1.86, glucose of 250. ABG on a nonrebreather mask showed a pH of 7.32, CO2 32, PaO2 56, bicarbonate 16, sats of 83%. RADIOGRAPHIC STUDIES: Chest x-ray shows diffuse bilateral interstitial disease. Doppler ultrasound of lower extremity on 03/04/2018 negative for [address]VT. A CT chest on 03/04/2018 showed bilateral alveolar infiltrates characteristic of pulmonary edema, pleural effusions, right greater than left. ASSESSMENT AND PLAN: 1. Acute hypoxemic respiratory failure requiring intubation. 2. Pulmonary edema. 3. CHF. 4. Anemia, status post a transfusion of 2 units PRBCs. 5. Thrombocytopenia. 6. History of myelodysplastic syndrome. 7. Coronary artery disease with previous coronary artery bypass grafting in 2014. 8. Atrial fibrillation. 9. Diabetes mellitus. 10. Chronic obstructive pulmonary disease. 11. Hyperlipidemia. RECOMMENDATIONS: 1. Place on Diprivan infusion if needed for sedation and vent synchrony. Daily sedation vacation when appropriate. 2. Continue with vent support in the daytime, maintain sats above 92% 3. Bronchodilators in the form of DuoNeb every 4 hours plus every 2 hours p.r.n. We will initiate ICU vent bundle. Check chest x-ray and ABG post-intubation. 4. Monitor heart rate and blood pressure closely and maintain MAP greater than 65 mmHg. We will give Lasix 80 mg IV push x 1 now. He is on Lasix 40 mg IV daily. Continue with Imdur 60 mg daily, Lopressor 25 mg b.i.d., lipitor 40 mg daily. Cardiology and thoracic and cardiothoracic surgery are following for evaluation of a redo CABG. The patient underwent a cardiac catheterization on 03/02/2018, which showed severe 3-vessel disease with occluded grafts x 2. 5. Monitor renal function, I's and O's and avoid nephrotoxins. Continue with diuretics as stated above. 6. Place on Protonix 40 mg daily and keep n.p.o. for now. 7. Monitor CBC. The patient is status post transfusion 2 units of red blood cells today. We will recheck CBC now. Hematology is following. Hematology is following for MDS. He is not a candidate for treatment due to his age, chronic kidney disease and cardiac disease. transfuse to keep hemoglobin greater than 8.0, sliding scale insulin with Accu-Cheks if needed for glycemic control. 8. Gastrointestinal prophylaxis with Protonix 40 mg daily and deep venous thrombosis prophylaxis with SCDs. The patient is not a candidate for anticoagulation chemical prophylaxis due to severe thrombocytopenia. Critical care time: 45 minutes, excluding procedures. MD DANAE Church/paty , 10:39 PM , 10:54 PM
[2018-03-08 23:24] LABS: Albumin 2.3 g/dL (3.4-5.0); Calcium 7.4 mg/dL (8.5-10.1); Carbon Dioxide 18.9 meq/L (21.0-32.0); Potassium 4.2 meq/L (3.5-5.1); Total Protein 6.1 g/dL (6.4-8.2)
[2018-03-08 23:26] LABS: Troponin I 3.58 ng/mL (0.02-0.05)
[2018-03-09 00:14] LABS: Hematocrit 32.3 % (39.0-51.0); Hemoglobin 11.1 gm/dL (13.0-17.0); Mean Corpuscular HGB Conc 34.2 % (32.0-36.0); Mean Corpuscular Volume 87.5 fL (80.0-100.0); Mean Platelet Volume 9.5 fL (7.0-11.0); Platelet Count 33 th/mm3 (150-450); Red Blood Count 3.69 mil/mm3 (4.50-5.90); Red Cell Distribution Width 15.5 % (11.6-17.2); White Blood Count 11.2 th/mm3 (4.0-11.0)
[2018-03-09] MEDS: Insulin NovoLOG Aspart Correctional Sugar Inj SQ SCH ×4 (03:26→16:31)
[2018-03-09] MEDS ORDERED: Chlorhexidine Gluconate 2% 1 Pack (2 Cloths) TOPICAL PRN (04:00)
[2018-03-09] MEDS ORDERED: Chlorhexidine Gluconate 2% 1 Pack (2 Cloths) TOPICAL SCH (04:00)
[2018-03-09 04:45] LABS: Hematocrit 31.1 % (39.0-51.0); Hemoglobin 10.8 gm/dL (13.0-17.0); Mean Corpuscular HGB Conc 34.9 % (32.0-36.0); Mean Corpuscular Hemoglobin 29.9 pg (27.0-34.0); Mean Corpuscular Volume 85.8 fL (80.0-100.0); Mean Platelet Volume 10.6 fL (7.0-11.0); Platelet Count 25 th/mm3 (150-450); Red Blood Count 3.62 mil/mm3 (4.50-5.90); Red Cell Distribution Width 15.6 % (11.6-17.2); White Blood Count 11.5 th/mm3 (4.0-11.0)
[2018-03-09 04:50] LABS: ABG Base Excess -4.2 mmol/L (-2-2); ABG PCO2 35 mmHg (38-42); ABG PO2 69 mmHG (61-120)
[2018-03-09 04:56] LABS: Albumin 2.4 g/dL (3.4-5.0); Anion Gap 10 meq/L (5-15); Aspartate Aminotransferase 28 U/L (15-37); Blood Urea Nitrogen 68 mg/dL (7-18); Calcium 7.9 mg/dL (8.5-10.1); Carbon Dioxide 23.6 meq/L (21.0-32.0); Chloride 104 meq/L (98-107); Glomerular Filtration Rate 32 mL/min (>89); Glucose,Random 234 mg/dL (74-106); Potassium 3.9 meq/L (3.5-5.1); Sodium 138 meq/L (136-145)
[2018-03-09 04:58] LABS: Alanine Aminotransferase 11 U/L (12-78)
[2018-03-09 04:59] LABS: Alkaline Phosphatase 55 U/L (45-117); Total Protein 6.1 g/dL (6.4-8.2)
[2018-03-09] MEDS: Senna/Docusate Sodium 8.6/50 MG Tablet PO SCH (08:06)
[2018-03-09 08:10] LABS: Lymphocytes 9 % (9-44); Metamyelocytes 1 % (0-1); Monocytes 16 % (0-8); Myelocytes 2 % (0-0); Promyelocyte 1 % (0-0); Tallied Nucleated RBC 1 (0-0)
[2018-03-09 08:11] LABS: Ovalocytes 1+; Platelet Morphology Normal (Normal)
[2018-03-09] MEDS ORDERED: Chlorothiazide Inj 500 MG Vial IV.PUSH ONE (08:30)
--- NOTE | 2018-03-09 08:51 | P.PNCC ---
Subjective Subjective Remarks/Hospital Course: 03/09: in florid pulmonary edema and cardiogenic shock secondary to ischemic disease and volume overload. has been net + with rising weights since admission. now intubated. I have started bumex infusion. discussed with CT surgery team: awaiting decision from [facility]. have also discussed with Dr. Pena: if we do not respond to diuretic therapy, will be forced to pursue mechanical support with IABP vs. percutaneous LVAD support. However, if there is no surgical option for him, then any mechanical support will not improve his overall outcome, and much wiser to pursue palliation if no definitive surgical treatment option. very critically ill this morning. Objective Vital Signs / I&O: Vital Signs 03/08/18 09:00 03/08/18 10:00 03/08/18 11:00 Temperature Pulse Rate 95 H 99 H 100 H Respiratory Rate Blood Pressure Pulse Oximetry 03/08/18 11:01 03/08/18 11:17 03/08/18 12:00 Temperature 36.4 C L 36.4 C 36.4 C L Pulse Rate 101 H 100 H 101 H Respiratory Rate 20 20 22 Blood Pressure 102/65 100/54 L 100/55 L Pulse Oximetry 90 L 90 L 94 L 03/08/18 13:00 03/08/18 13:53 03/08/18 13:56 Temperature 36.4 C L 36.4 C Pulse Rate 94 H 92 H 93 H Respiratory Rate 20 Blood Pressure 119/62 119/62 Pulse Oximetry 94 L 92 L 03/08/18 14:00 03/08/18 14:18 03/08/18 15:00 Temperature 36.6 C Pulse Rate 86 96 H 96 H Respiratory Rate 20 Blood Pressure 121/60 Pulse Oximetry 93 L 03/08/18 16:00 03/08/18 16:43 03/08/18 17:00 Temperature 36.4 C L 36.5 C Pulse Rate 97 H 95 H 99 H Respiratory Rate 22 20 Blood Pressure 121/73 122/76 Pulse Oximetry 93 L 94 L 03/08/18 18:00 03/08/18 19:00 03/08/18 21:40 Temperature 37.3 C Pulse Rate 85 124 H Respiratory Rate 28 H Blood Pressure 156/87 H Pulse Oximetry 88 L 98 03/08/18 22:12 03/08/18 22:54 03/08/18 22:57 Temperature Pulse Rate 108 H 105 H Respiratory Rate 27 H 58 H 61 H Blood Pressure 89/55 L 87/54 L Pulse Oximetry 92 L 100 100 03/08/18 23:00 03/08/18 23:03 03/08/18 23:06 Temperature Pulse Rate 105 H 108 H 107 H Respiratory Rate 63 H 54 H 65 H Blood Pressure 87/50 L 101/51 L 95/50 L Pulse Oximetry 100 100 100 03/08/18 23:09 03/08/18 23:12 03/08/18 23:15 Temperature Pulse Rate 106 H 104 H 104 H Respiratory Rate 48 H 33 H 51 H Blood Pressure 97/55 L 91/53 L 95/52 L Pulse Oximetry 100 100 100 03/08/18 23:18 03/08/18 23:42 03/08/18 23:45 Temperature Pulse Rate 107 H 108 H 108 H Respiratory Rate 41 H 33 H 43 H Blood Pressure 103/59 L 112/57 L 113/61 Pulse Oximetry 100 100 100 03/08/18 23:50 03/08/18 23:55 03/09/18 00:00 Temperature 37.6 C H Pulse Rate 106 H 105 H 106 H Respiratory Rate 61 H 59 H 59 H Blood Pressure 115/57 L 106/59 L 106/57 L Pulse Oximetry 100 100 100 03/09/18 00:05 03/09/18 00:10 03/09/18 00:15 Temperature Pulse Rate 108 H 106 H 105 H Respiratory Rate 46 H 29 H 34 H Blood Pressure 110/62 112/61 105/60 Pulse Oximetry 100 100 100 03/09/18 00:20 03/09/18 00:25 03/09/18 00:30 Temperature Pulse Rate 104 H 104 H 104 H Respiratory Rate 28 H 27 H 26 H Blood Pressure 103/57 L 104/58 L 105/60 Pulse Oximetry 100 100 100 03/09/18 00:35 03/09/18 00:40 03/09/18 00:45 Temperature Pulse Rate 104 H 104 H 104 H Respiratory Rate 26 H 25 H 24 Blood Pressure 102/60 109/61 106/63 Pulse Oximetry 100 100 100 03/09/18 00:50 03/09/18 00:55 03/09/18 01:00 Temperature Pulse Rate 103 H 103 H 101 H Respiratory Rate 25 H 25 H 22 Blood Pressure 100/59 L 102/60 99/59 L Pulse Oximetry 100 100 100 03/09/18 01:30 03/09/18 02:00 03/09/18 02:30 Temperature Pulse Rate 100 H 97 H 94 H Respiratory Rate 23 7 L 22 Blood Pressure 98/54 L 102/67 95/55 L Pulse Oximetry 100 100 100 03/09/18 03:00 03/09/18 03:30 03/09/18 03:35 Temperature Pulse Rate 93 H 92 H Respiratory Rate 24 25 H 26 H Blood Pressure 103/58 L 101/65 Pulse Oximetry 100 100 100 03/09/18 04:00 03/09/18 04:30 03/09/18 05:00 Temperature 37.0 C Pulse Rate 92 H 92 H 93 H Respiratory Rate 25 H 25 H 26 H Blood Pressure 103/57 L 99/53 L 106/55 L Pulse Oximetry 100 96 96 03/09/18 06:00 03/09/18 07:46 Temperature Pulse Rate 92 H 98 H Respiratory Rate 25 H Blood Pressure Pulse Oximetry 100 Intake & Output 03/08/18 03/09/18 03/09/18 18:59 06:59 18:59 Intake Total 1930 / 1930 250 / 250 Output Total 950 / 950 275 / 275 Balance 980 / 980 -275 / -275 250 / 250 Weight 71.2 kg Intake: IV 250 / 250 250 / 250 NS Inj 250 ML @ 15 mls/hr IV. 250 / 250 250 / 250 SIG ONCE ANDREA Rx#:[id number] Oral 480 / 480 Other 400 / 400 Rbc As-3 Leukoreduced Unit 400 / 400 [id number] Intake (Blood Product) Amt 800 / 800 Rbc As-3 Leukoreduced Unit 400 / 400 [id number] Rbc As-3 Leukoreduced Unit 400 / 400 [id number] Output: Urine 950 / 950 275 / 275 Other: Date of Last Bowel Movement 03/07/18 03/07/18 # Bowel Movements 0 Result Diagrams: 03/09/18 03:39 03/09/18 03:39 Objective Remarks: GENERAL: frail, elderly male, lying in bed, intubated, sedated, critically ill. HEENT: Normocephalic. Atraumatic. Pupils equal, round, reactive, conjugate. Mucous membranes are moist NECK: Trachea is midline. + JVD. CHEST: equal chest rise. PRVC. fio2 60%. peep 10. bilateral coarse rales. CARDIOVASCULAR: normal rate, regular rhythm. ABDOMEN: Soft, nontender, nondistended. No guarding. MUSCULOSKELETAL: Pulses 2+. 1+ edema. NEUROLOGICAL: RASS -3. withdraws to pain. does not follow commands. Assessment and Plan - Assessment and Plan Plan: Assessment: 82yM with multivessel disease, myelodysplastic syndrome, and now acute decompensated congestive heart failure and pumonary edema with associated cardiogenic shock, acute hypoxic respiratory failure and end-organ injury including congestive hepatopathy and acute kidney injury. All secondary to ischemic cardiomyopathy. Critically ill. Neuro: Acute metabolic encephalopathy - prop, fent for goal RASS -2 - avoid long-acting sedatives - check ammonia- may be developing hepatic encephalopathy Resp: Acute hypoxic and hypercarbic respiratory failure Acute severe pulmonary edema - worse today than yesterday - intubated 03/08 for decompensation - CXR 03/09 with almost complete white-out secondary to pulmonary edema - vent bundle, hob elevated, nebs - no SBT today - wean fio2 for goal spo2 > 90% - leave PEEP at 10. - forced diuresis as below. CV: Cardiogenic Shock Pulmonary Edema Ischemic Cardiomyopathy NSTEMI- likely demand ischemia Multi-vessel CAD Acute severe Congestive Heart Failure Exacerbation- mixed type, secondary to ischemia - trend lactates - bnp severely elevated - weights are increasing - end organ perfusion worsening - start bumex drip, 4mg bolus, 2mg/hr. - add 1 dose diuril iv. - have discussed with Dr. Pena: if aggressive goals continue, likely needs mechanical support with IABP vs. perc LVAD (Impella) - have discussed with CT surgery team: reaching out to [facility] again and awaiting decision on transfer for high risk CABG, if a candidate. - if patient is not a candidate for high risk CABG, and there are no surgical options available to him, then most appropriate for palliation. If that were the case, I would not pursue mechanical support, as these would not achieve any long-term goals of care. Renal: Acute kidney injury- worsening - secondary to cardiogenic shock and renal vein hypertension - place watson - q1h uop - bumex drip as above - trend Cr FEN/GI: Acute protein calorie malnutrition- severe Acute intravascular volume overload- severe Lactic Acidosis Congestive Hepatopathy Acute Liver Injury - NPO while in shock - check ammonia - trend CMP, mg, phos - forced diuresis as above - trend lactates - aggressively replace electrolytes - liver injury combination of poor perfusion in cardiogenic shock and congestion Heme/ID: Myelodysplastic syndrome Thrombocytopenia Anemia secondary to chronic disease - heme consulted and following - likely cannot tolerate much more of osmotic load associated with blood products today while in cardiogenic shock. if we can show improvement in hemodynamics, can receive blood products along with ongoing diuresis. - daily cbc - transfusions per Heme. - no infectious etiology suspected at this time Endo: SSI Prophylaxis: SCDs Lines: piv watson may require central access. may require RHC to facilitate mechanical support. Dispo: remain in ICU. very critically ill. This patient remains critically ill with one or more organ systems which are or may become a threat to life. I have spent in excess of 80 minutes discontinuously in the care and management of this patient. This time is exclusive of procedures, and includes, but is not limited to, evaluation of the patient, review of the medical record, discussions with family, consultants, nursing staff, or respiratory therapy, and documentation in the medical record.
--- NOTE | 2018-03-09 08:58 | P.PNCA ---
Subjective Interval history: Patient went into respiratory distress overnight, now intubated. Vital signs stable this AM. Hct 10.8, platelets 25. Rales noted, chest xray worsening. Bumex drip initiated. Nitro drip initiated. Patients family is at the bedside. Medications and Allergies Allergies Allergy/AdvReac Type Severity Reaction Status Date / Time No Known Allergies Allergy Verified 02/07/18 11:24 Home Medications Medication Instructions Recorded Confirmed Type Multi Vitamin 1 cap PO DAILY 02/07/18 03/01/18 History aspirin 81 mg PO DAILY 02/07/18 03/01/18 History atorvastatin 40 mg PO DAILY 02/07/18 03/01/18 History clonidine HCl 0.1 mg PO DAILY 02/07/18 03/01/18 History clopidogrel [Plavix] 75 mg PO DAILY 02/07/18 03/02/18 History enalapril maleate 20 mg PO BID 02/07/18 03/01/18 History famotidine 20 mg PO DAILY 02/07/18 03/01/18 History glipizide-metformin 1 tab PO BID 02/07/18 03/01/18 History isosorbide mononitrate 120 mg PO DAILY 02/07/18 03/01/18 History metoprolol tartrate 25 mg PO BID 02/07/18 03/01/18 History omeprazole 40 mg PO DAILY 02/07/18 03/01/18 History ranolazine [Ranexa] 500 mg PO Q12H 02/07/18 03/01/18 History ropinirole [Requip] 1 mg PO HS 02/07/18 03/01/18 History sitagliptin [Januvia] 100 mg PO DAILY 02/07/18 03/01/18 History solifenacin [Vesicare] 5 mg PO DAILY 02/07/18 03/01/18 History torsemide 20 mg PO DAILY 02/07/18 03/01/18 History umeclidinium-vilanterol [Anoro 1 inh INHALATION Q24H 02/07/18 03/01/18 History Ellipta] clopidogrel [Plavix] 75 mg PO DAILY 03/01/18 03/01/18 History Active Medications: Active Medications Acetaminophen (Tylenol) 650 mg PO Q4H PRN PRN Reason: Temp > 100.4 Last Admin: 03/08/18 10:42 Dose: 650 mg Acetaminophen (Tylenol) 650 mg PO Q4H PRN PRN Reason: SEE LABEL COMMENTS Al Hydroxide/Mg Hydroxide (Milk Of Magnrasheeda Liq) 30 ml PO Q12H PRN PRN Reason: Mild Constipation Albuterol (Duoneb Neb ([facility])) 1 ampul NEB Q4HR NEB [facility] Last Admin: 03/09/18 07:46 Dose: 1 ampul Atorvastatin Calcium (Lipitor) 40 mg PO DAILY [facility] Last Admin: 03/09/18 08:06 Dose: 40 mg Bisacodyl (Dulcolax Supp) 10 mg RECTAL DAILY PRN PRN Reason: SEVERE CONSITIPATION Chlorhexidine Gluconate (Chlorhexidine 2% Cloth) 3 pack TOPICAL DAILY@0400 PRN PRN Reason: Extra cloth needed Stop: 03/14/18 03:59 Chlorhexidine Gluconate (Chlorhexidine 2% Cloth) 3 pack TOPICAL DAILY@0400 [facility] Stop: 03/14/18 03:59 Last Admin: 03/09/18 03:28 Dose: 3 pack Clonidine HCl (Catapres) 0.1 mg PO DAILY PRN PRN Reason: HYPERTENSION Dextrose (D50w Vial) 50 ml IV.PUSH UNSCH PRN PRN Reason: PER HYPOGLYCEMIA PROTOCOL Glucagon (Glucagon Inj) 1 mg OTHER PRN PRN PRN Reason: for Hypoglycemia Protocol Propofol (Diprivan 1000 Mg/100 Ml Inj) 1,000 mg in 100 mls @ 2.073 mls/hr IV.CONT TITRATE PRN; Protocol PRN Reason: Per Protocol Fentanyl (Fentanyl 10 Mcg/Ml Premix Drip) 2,500 mcg in 250 mls @ 5 mls/hr IV.SIG TITRATE PRN; Protocol PRN Reason: Per Protocol Last Titration: 03/09/18 03:25 Dose: 50 mcg/hr, 5 mls/hr Albumin Human (Flexbumin 25% Inj) 100 mls @ 12.5 mls/hr IV.SIG Q8H [facility] Stop: 03/10/18 08:59 Bumetanide (Bumex Inj) 25 mg in 100 mls @ 8 mls/hr IV.CONT .[id number] [facility] Insulin Aspart (Novolog Insulin Correctional Sugar Inj) 0 unit SQ ACHS AND 3AM ANDREA; Protocol Last Admin: 03/09/18 03:26 Dose: 3 unit Isosorbide Mononitrate (Imdur) 60 mg PO DAILY@0700 [facility] Last Admin: 03/08/18 10:15 Dose: 60 mg Lactulose (Lactulose Liq) 30 ml PO DAILY PRN PRN Reason: SEVERE CONSITIPATION Last Admin: 03/06/18 21:25 Dose: 30 ml Metoprolol Tartrate (Lopressor) 25 mg PO BID [facility] Last Admin: 03/08/18 23:00 Dose: Not Given Ondansetron HCl (Zofran Inj) 4 mg IV.PUSH Q6H PRN PRN Reason: NAUSEA OR VOMITING Pantoprazole Sodium (Protonix Inj) 40 mg IV.PUSH Q24H [facility] Last Admin: 03/08/18 23:16 Dose: 40 mg Ropinirole HCl (Requip) 1 mg PO HS [facility] Last Admin: 03/08/18 23:00 Dose: Not Given Senna/Docusate Sodium (Kyleigh-Colace) 1 tab PO BID [facility] Last Admin: 03/09/18 08:06 Dose: 1 tab Sennosides (Senokot) 17.2 mg PO Q12H PRN PRN Reason: Moderate Constipation Sodium Chloride (Ns Flush) 2 ml IV.FLUSH BID [facility] Last Admin: 03/09/18 08:06 Dose: 2 ml Sodium Chloride (Ns Flush) 2 ml IV.FLUSH PRN PRN PRN Reason: FLUSH AFTER USING IV ACCESS Umeclidinium/Vilanterol (Anoro-Ellipta 62.5/25 Mcg Inh) 1 inhalation INH Q24H [facility] Last Admin: 03/08/18 22:59 Dose: Not Given Physical Exam Vital signs: Vital Signs 03/08/18 09:00 03/08/18 10:00 03/08/18 11:00 Temperature Pulse Rate 95 H 99 H 100 H Respiratory Rate Blood Pressure Pulse Oximetry 03/08/18 11:01 03/08/18 11:17 03/08/18 12:00 Temperature 97.5 F L 97.6 F 97.5 F L Pulse Rate 101 H 100 H 101 H Respiratory Rate 20 20 22 Blood Pressure 102/65 100/54 L 100/55 L Pulse Oximetry 90 L 90 L 94 L 03/08/18 13:00 03/08/18 13:53 03/08/18 13:56 Temperature 97.5 F L 97.6 F Pulse Rate 94 H 92 H 93 H Respiratory Rate 20 Blood Pressure 119/62 119/62 Pulse Oximetry 94 L 92 L 03/08/18 14:00 03/08/18 14:18 03/08/18 15:00 Temperature 97.8 F Pulse Rate 86 96 H 96 H Respiratory Rate 20 Blood Pressure 121/60 Pulse Oximetry 93 L 03/08/18 16:00 03/08/18 16:43 03/08/18 17:00 Temperature 97.5 F L 97.7 F Pulse Rate 97 H 95 H 99 H Respiratory Rate 22 20 Blood Pressure 121/73 122/76 Pulse Oximetry 93 L 94 L 03/08/18 18:00 03/08/18 19:00 03/08/18 21:40 Temperature 99.1 F Pulse Rate 85 124 H Respiratory Rate 28 H Blood Pressure 156/87 H Pulse Oximetry 88 L 98 03/08/18 22:12 03/08/18 22:54 03/08/18 22:57 Temperature Pulse Rate 108 H 105 H Respiratory Rate 27 H 58 H 61 H Blood Pressure 89/55 L 87/54 L Pulse Oximetry 92 L 100 100 03/08/18 23:00 03/08/18 23:03 03/08/18 23:06 Temperature Pulse Rate 105 H 108 H 107 H Respiratory Rate 63 H 54 H 65 H Blood Pressure 87/50 L 101/51 L 95/50 L Pulse Oximetry 100 100 100 03/08/18 23:09 03/08/18 23:12 03/08/18 23:15 Temperature Pulse Rate 106 H 104 H 104 H Respiratory Rate 48 H 33 H 51 H Blood Pressure 97/55 L 91/53 L 95/52 L Pulse Oximetry 100 100 100 03/08/18 23:18 03/08/18 23:42 03/08/18 23:45 Temperature Pulse Rate 107 H 108 H 108 H Respiratory Rate 41 H 33 H 43 H Blood Pressure 103/59 L 112/57 L 113/61 Pulse Oximetry 100 100 100 03/08/18 23:50 03/08/18 23:55 03/09/18 00:00 Temperature 99.7 F H Pulse Rate 106 H 105 H 106 H Respiratory Rate 61 H 59 H 59 H Blood Pressure 115/57 L 106/59 L 106/57 L Pulse Oximetry 100 100 100 03/09/18 00:05 03/09/18 00:10 03/09/18 00:15 Temperature Pulse Rate 108 H 106 H 105 H Respiratory Rate 46 H 29 H 34 H Blood Pressure 110/62 112/61 105/60 Pulse Oximetry 100 100 100 03/09/18 00:20 03/09/18 00:25 03/09/18 00:30 Temperature Pulse Rate 104 H 104 H 104 H Respiratory Rate 28 H 27 H 26 H Blood Pressure 103/57 L 104/58 L 105/60 Pulse Oximetry 100 100 100 03/09/18 00:35 03/09/18 00:40 03/09/18 00:45 Temperature Pulse Rate 104 H 104 H 104 H Respiratory Rate 26 H 25 H 24 Blood Pressure 102/60 109/61 106/63 Pulse Oximetry 100 100 100 03/09/18 00:50 03/09/18 00:55 03/09/18 01:00 Temperature Pulse Rate 103 H 103 H 101 H Respiratory Rate 25 H 25 H 22 Blood Pressure 100/59 L 102/60 99/59 L Pulse Oximetry 100 100 100 03/09/18 01:30 03/09/18 02:00 03/09/18 02:30 Temperature Pulse Rate 100 H 97 H 94 H Respiratory Rate 23 7 L 22 Blood Pressure 98/54 L 102/67 95/55 L Pulse Oximetry 100 100 100 03/09/18 03:00 03/09/18 03:30 03/09/18 03:35 Temperature Pulse Rate 93 H 92 H Respiratory Rate 24 25 H 26 H Blood Pressure 103/58 L 101/65 Pulse Oximetry 100 100 100 03/09/18 04:00 03/09/18 04:30 03/09/18 05:00 Temperature 98.6 F Pulse Rate 92 H 92 H 93 H Respiratory Rate 25 H 25 H 26 H Blood Pressure 103/57 L 99/53 L 106/55 L Pulse Oximetry 100 96 96 03/09/18 06:00 03/09/18 07:46 Temperature Pulse Rate 92 H 98 H Respiratory Rate 25 H Blood Pressure Pulse Oximetry 100 Intake & Output 03/08/18 03/09/18 03/09/18 18:59 06:59 18:59 Intake Total 1930 / 1930 250 / 250 Output Total 950 / 950 275 / 275 Balance 980 / 980 -275 / -275 250 / 250 Weight 71.2 kg Intake: IV 250 / 250 250 / 250 NS Inj 250 ML @ 15 mls/hr IV. 250 / 250 250 / 250 SIG ONCE ANDREA Rx#:[id number] Oral 480 / 480 Other 400 / 400 Rbc As-3 Leukoreduced Unit 400 / 400 [id number] Intake (Blood Product) Amt 800 / 800 Rbc As-3 Leukoreduced Unit 400 / 400 [id number] Rbc As-3 Leukoreduced Unit 400 / 400 [id number] Output: Urine 950 / 950 275 / 275 Other: Date of Last Bowel Movement 03/07/18 03/07/18 # Bowel Movements 0 Narrative: Objective Remarks: GENERAL: Intubated, alert SKIN: Warm and dry. HEAD: Normocephalic. EYES: No scleral icterus. No injection or drainage. NECK: Supple, trachea midline. CARDIOVASCULAR: Regular rate and rhythm without murmurs. RESPIRATORY: Intubated, crackles GASTROINTESTINAL: Abdomen soft, non-tender, nondistended. EXTREMITIES: No cyanosis, or edema. MUSCULOSKELETAL: Adequate muscle tone. NEUROLOGICAL: No obvious focal deficit. Awake, alert, and oriented x3. PSYCHIATRIC: Appropriate mood and affect; insight and judgment normal. - Routine Respiratory Exam Comments: intubated Results 03/09/18 03:39 03/09/18 03:39 Cardiac Enzymes 03/08/18 03/08/18 03/09/18 Range/Units 22:49 22:49 03:39 AST 23 28 (15-37) U/L Troponin I 3.58 H* (0.02-0.05) ng/mL B-Natriuretic Peptide 3886 H (0-100) pg/mL Coagulation 03/08/18 Range/Units 22:49 B-Natriuretic Peptide 3886 H (0-100) pg/mL CBC 03/07/18 03/08/18 03/08/18 Range/Units 12:53 05:50 22:49 WBC 12.7 H 6.7 11.2 H D (4.0-11.0) th/mm3 RBC 2.75 L 2.40 L 3.69 L (4.50-5.90) mil/mm3 Hgb 8.1 L 7.1 L 11.1 L D (13.0-17.0) gm/dL Hct 25.0 L 21.5 L 32.3 L (39.0-51.0) % Plt Count 16 L* 35 L D 33 L (150-450) th/mm3 03/09/18 Range/Units 03:39 WBC 11.5 H (4.0-11.0) th/mm3 RBC 3.62 L (4.50-5.90) mil/mm3 Hgb 10.8 L (13.0-17.0) gm/dL Hct 31.1 L (39.0-51.0) % Plt Count 25 L (150-450) th/mm3 Comprehensive Metabolic Panel 03/08/18 03/08/18 03/09/18 Range/Units 05:50 22:49 03:39 Sodium 135 L 137 138 (136-145) meq/L Potassium 4.1 4.2 3.9 (3.5-5.1) meq/L Chloride 104 105 104 (98-107) meq/L Carbon Dioxide 22.2 18.9 L 23.6 (21.0-32.0) meq/L BUN 58 H 62 H 68 H (7-18) mg/dL Creatinine 1.86 H 2.07 H 2.03 H (0.60-1.30) mg/dL Calcium 8.0 L 7.4 L* 7.9 L (8.5-10.1) mg/dL AST 23 28 (15-37) U/L ALT 9 L 11 L (12-78) U/L Alkaline Phosphatase 61 55 (45-117) U/L Total Protein 6.1 L 6.1 L (6.4-8.2) g/dL Albumin 2.3 L 2.4 L (3.4-5.0) g/dL Intake and Output 03/08/18 03/09/18 03/09/18 22:59 06:59 14:59 Intake Total 880 / 880 250 / 250 Output Total 950 / 950 275 / 275 Balance -70 / -70 -275 / -275 250 / 250 Intake: IV 250 / 250 NS Inj 250 ML @ 15 mls/hr IV. 250 / 250 SIG ONCE ANDREA Rx#:[id number] Oral 480 / 480 Intake (Blood Product) Amt 400 / 400 Rbc As-3 Leukoreduced Unit 400 / 400 [id number] Output: Urine 950 / 950 275 / 275 Other: Date of Last Bowel Movement 03/07/18 03/07/18 # Bowel Movements 0 Weight 71.2 kg - Imaging and Cardiology Imaging: Impressions Chest X-Ray 03/07/18 00:00 CONCLUSION: Bilateral interstitial and airspace disease characteristic of pulmonary edema versus pneumonia. Chest X-Ray 03/08/18 00:00 CONCLUSION: Diffuse parenchymal opacities of both lungs persists. Endotracheal tube tip is appropriately positioned. Orogastric tube courses into the stomach, tip not included on the study. Chest X-Ray 03/08/18 21:37 CONCLUSION: Worsening diffuse bilateral airspace opacities. Assessment and Plan - Plan Assessment ASHD Chest pain Myelodysplastic syndrome CKD Plan Intubated overnight, now on Bumex drip. Nitro drip initiated. Hematology following. Creatinine trending up May consider balloon pump, Dr. Pena had long discussion with gut carrier. Patient is critically ill. -CV has evaluated patient, his records have been sent to [facility] for evaluation, awaiting their recommendations. Dr. Pena has spoke to Dr. Maya and Dr. Raza in detail. The patient was seen and evaluated by Dr. Pena who participated in care, management and decision making. The exam, history, and the medical decision-making described in the above note were completed with the assistance of the mid-level provider. I reviewed and agree with the findings presented. I attest that I had a [id number] encounter with the patient on the same day, and personally performed and documented my assessment and findings in the medical record. Discussed with Dr Wes Raza and Dr Haynes will plan to transfer to [facility] for CABG. Code Status: Full Code Discussed Condition With: Dr. Pena, Ling SEYMOUR, BENJAMIN and family.
--- NOTE | 2018-03-09 08:58 | US ---
EXAM DATE: 03/09/2018 8:55 AM EST AGE/SEX: 82 years / Male INDICATIONS: Acute kidney injury. CLINICAL DATA: This is the patient's subsequent encounter. Patient reports that signs and symptoms h ave been present for 1 month and indicates a pain score of Nonresponsive. MEDICAL/SURGICAL HISTORY: Congestive heart failure. Chronic obstructive pulmonary disease. Hy pertension. Abnormal nuclear stress test. Atrial fibrillation. ASHD. Carotid stenosis. Chest pain. D iabetes. Edema. Fatigue. Glaucoma. Hyperlipidemia. Myelodysplastic syndrome. Osteoarthritis. Shortnes s of breath. CABG. Coronary artery stent. COMPARISON: [facility] [place], KIDNEY/RENAL/BLADDER, 02/08/2018. . MEASUREMENTS: Right Kidney:__8.6 x 4.0 x 4.3 cm Left Kidney:__10.8 x 4.5 x 5.3 cm FINDINGS: Right Kidney: Increased echotexture with thin renal cortex. No mass or hydronephrosis. Left Kidney: Increased echotexture with thin renal cortex. No mass or hydronephrosis. Bladder: Within normal limits given the degree of distension. Other: None. CONCLUSION: 1. Small kidneys with thin renal cortex consistent with chronic renal disease 2. No hydronephrosis Electronically signed by: Cash Jackson MD 03/09/2018 8:57 AM EST
[2018-03-09] MEDS ORDERED: Bumetanide Inj 25 MG/100 ML BAG IV.CONT SCH (09:00)
[2018-03-09] MEDS: Albumin Human 25% Inj 100 ML IV.SIG SCH ×2 (09:10→16:31)
[2018-03-09] MEDS ORDERED: Nitroglycerin Drip Premix 50 MG/250 ML BOTTLE IV.CONT PRN (09:20)
--- NOTE | 2018-03-09 09:54 | P.PNONC ---
Subjective Interval history: Patient transferred to ICU for flash pulmonary edema and cardiogenic shock secondary to ischemic disease and fluid overload. He is currently intubated, he is alert and shakes his head to answer questions. Cardiology and RN are presently at the bedside. RN has not noticed any bleeding. Objective Vital Signs/Intake & Output: Vital Signs 03/08/18 10:00 03/08/18 11:00 03/08/18 11:01 Temperature 97.5 F L Pulse Rate 99 H 100 H 101 H Respiratory Rate 20 Blood Pressure 102/65 Pulse Oximetry 90 L 03/08/18 11:17 03/08/18 12:00 03/08/18 13:00 Temperature 97.6 F 97.5 F L Pulse Rate 100 H 101 H 94 H Respiratory Rate 20 22 Blood Pressure 100/54 L 100/55 L Pulse Oximetry 90 L 94 L 03/08/18 13:53 03/08/18 13:56 03/08/18 14:00 Temperature 97.5 F L 97.6 F Pulse Rate 92 H 93 H 86 Respiratory Rate 20 Blood Pressure 119/62 119/62 Pulse Oximetry 94 L 92 L 03/08/18 14:18 03/08/18 15:00 03/08/18 16:00 Temperature 97.8 F 97.5 F L Pulse Rate 96 H 96 H 97 H Respiratory Rate 20 22 Blood Pressure 121/60 121/73 Pulse Oximetry 93 L 93 L 03/08/18 16:43 03/08/18 17:00 03/08/18 18:00 Temperature 97.7 F Pulse Rate 95 H 99 H 85 Respiratory Rate 20 Blood Pressure 122/76 Pulse Oximetry 94 L 03/08/18 19:00 03/08/18 21:40 03/08/18 22:12 Temperature 99.1 F Pulse Rate 124 H Respiratory Rate 28 H 27 H Blood Pressure 156/87 H Pulse Oximetry 88 L 98 92 L 03/08/18 22:54 03/08/18 22:57 03/08/18 23:00 Temperature Pulse Rate 108 H 105 H 105 H Respiratory Rate 58 H 61 H 63 H Blood Pressure 89/55 L 87/54 L 87/50 L Pulse Oximetry 100 100 100 03/08/18 23:03 03/08/18 23:06 03/08/18 23:09 Temperature Pulse Rate 108 H 107 H 106 H Respiratory Rate 54 H 65 H 48 H Blood Pressure 101/51 L 95/50 L 97/55 L Pulse Oximetry 100 100 100 03/08/18 23:12 03/08/18 23:15 03/08/18 23:18 Temperature Pulse Rate 104 H 104 H 107 H Respiratory Rate 33 H 51 H 41 H Blood Pressure 91/53 L 95/52 L 103/59 L Pulse Oximetry 100 100 100 03/08/18 23:42 03/08/18 23:45 03/08/18 23:50 Temperature Pulse Rate 108 H 108 H 106 H Respiratory Rate 33 H 43 H 61 H Blood Pressure 112/57 L 113/61 115/57 L Pulse Oximetry 100 100 100 03/08/18 23:55 03/09/18 00:00 03/09/18 00:05 Temperature 99.7 F H Pulse Rate 105 H 106 H 108 H Respiratory Rate 59 H 59 H 46 H Blood Pressure 106/59 L 106/57 L 110/62 Pulse Oximetry 100 100 100 03/09/18 00:10 03/09/18 00:15 03/09/18 00:20 Temperature Pulse Rate 106 H 105 H 104 H Respiratory Rate 29 H 34 H 28 H Blood Pressure 112/61 105/60 103/57 L Pulse Oximetry 100 100 100 03/09/18 00:25 03/09/18 00:30 03/09/18 00:35 Temperature Pulse Rate 104 H 104 H 104 H Respiratory Rate 27 H 26 H 26 H Blood Pressure 104/58 L 105/60 102/60 Pulse Oximetry 100 100 100 03/09/18 00:40 03/09/18 00:45 03/09/18 00:50 Temperature Pulse Rate 104 H 104 H 103 H Respiratory Rate 25 H 24 25 H Blood Pressure 109/61 106/63 100/59 L Pulse Oximetry 100 100 100 03/09/18 00:55 03/09/18 01:00 03/09/18 01:30 Temperature Pulse Rate 103 H 101 H 100 H Respiratory Rate 25 H 22 23 Blood Pressure 102/60 99/59 L 98/54 L Pulse Oximetry 100 100 100 03/09/18 02:00 03/09/18 02:30 03/09/18 03:00 Temperature Pulse Rate 97 H 94 H 93 H Respiratory Rate 7 L 22 24 Blood Pressure 102/67 95/55 L 103/58 L Pulse Oximetry 100 100 100 03/09/18 03:30 03/09/18 03:35 03/09/18 04:00 Temperature 98.6 F Pulse Rate 92 H 92 H Respiratory Rate 25 H 26 H 25 H Blood Pressure 101/65 103/57 L Pulse Oximetry 100 100 100 03/09/18 04:30 03/09/18 05:00 03/09/18 06:00 Temperature Pulse Rate 92 H 93 H 92 H Respiratory Rate 25 H 26 H Blood Pressure 99/53 L 106/55 L Pulse Oximetry 96 96 03/09/18 07:46 Temperature Pulse Rate 98 H Respiratory Rate 25 H Blood Pressure Pulse Oximetry 100 Intake & Output 03/08/18 03/09/18 03/09/18 18:59 06:59 18:59 Intake Total 1930 / 1930 250 / 250 Output Total 950 / 950 275 / 275 Balance 980 / 980 -275 / -275 250 / 250 Weight 71.2 kg Intake: IV 250 / 250 250 / 250 NS Inj 250 ML @ 15 mls/hr IV. 250 / 250 250 / 250 SIG ONCE BÁRBARA Rx#:[id number] Oral 480 / 480 Other 400 / 400 Rbc As-3 Leukoreduced Unit 400 / 400 [id number] Intake (Blood Product) Amt 800 / 800 Rbc As-3 Leukoreduced Unit 400 / 400 [id number] Rbc As-3 Leukoreduced Unit 400 / 400 [id number] Output: Urine 950 / 950 275 / 275 Other: Date of Last Bowel Movement 03/07/18 03/07/18 # Bowel Movements 0 Result Diagrams: 03/09/18 03:39 03/09/18 03:39 Laboratory Results: Laboratory Results - last 24 hr 03/02/18 03/08/18 03/08/18 10:37 09:41 12:14 WBC RBC Hgb Hct MCV MCH MCHC RDW Plt Count MPV Prelim Diff (Auto) WBC Differential Seg Neuts % (Manual) Band Neuts % (Manual) Lymphocytes % (Manual) Monocytes % (Manual) Metamyelocytes % (Man) Myelocytes % (Man) Promyelocytes % (Man) Abs Neuts (Manual) Nucleated RBCs/100 WBC Differential Comment Platelet Estimate Platelet Morphology Ovalocytes Keratocytes Puncture Site Patient Temperature O2 Saturation ABG pH ABG pCO2 ABG pO2 ABG HCO3 ABG O2 Content ABG Base Excess ABG Methemoglobin Hemoglobin Carboxyhemoglobin O2 Delivery Device Liter Flow Vent Setting Inspired O2 Critical Value Sodium Potassium Chloride Carbon Dioxide Anion Gap BUN Creatinine Estimated GFR POC Glucose 279 H Random Glucose Calcium Calcium Adj for Albumin Total Bilirubin AST ALT Alkaline Phosphatase Total Creatine Kinase Troponin I B-Natriuretic Peptide Total Protein Albumin Nasal Screen MRSA (PCR) Blood Type AB Positive Antibody Screen Negative MTS Gel Crossmatch See Detail See Detail 03/08/18 03/08/18 03/08/18 17:27 20:22 21:30 WBC RBC Hgb Hct MCV MCH MCHC RDW Plt Count MPV Prelim Diff (Auto) WBC Differential Seg Neuts % (Manual) Band Neuts % (Manual) Lymphocytes % (Manual) Monocytes % (Manual) Metamyelocytes % (Man) Myelocytes % (Man) Promyelocytes % (Man) Abs Neuts (Manual) Nucleated RBCs/100 WBC Differential Comment Platelet Estimate Platelet Morphology Ovalocytes Keratocytes Puncture Site Right brachial Patient Temperature 98.6 O2 Saturation 83 L* ABG pH 7.32 L ABG pCO2 32 L ABG pO2 56 L* ABG HCO3 16 L* ABG O2 Content 13.6 ABG Base Excess -9.0 L ABG Methemoglobin 1.8 Hemoglobin 11.7 L Carboxyhemoglobin 2.4 O2 Delivery Device Nrb mask Liter Flow 15.00 Vent Setting Inspired O2 100 Critical Value Yes Sodium Potassium Chloride Carbon Dioxide Anion Gap BUN Creatinine Estimated GFR POC Glucose 191 H 250 H Random Glucose Calcium Calcium Adj for Albumin Total Bilirubin AST ALT Alkaline Phosphatase Total Creatine Kinase Troponin I B-Natriuretic Peptide Total Protein Albumin Nasal Screen MRSA (PCR) Blood Type Antibody Screen MTS Gel Crossmatch 03/08/18 03/08/18 03/08/18 22:15 22:49 22:49 WBC 11.2 H D RBC 3.69 L Hgb 11.1 L D Hct 32.3 L MCV 87.5 MCH 30.0 MCHC 34.2 RDW 15.5 Plt Count 33 L MPV 9.5 Prelim Diff (Auto) WBC Differential Seg Neuts % (Manual) Band Neuts % (Manual) Lymphocytes % (Manual) Monocytes % (Manual) Metamyelocytes % (Man) Myelocytes % (Man) Promyelocytes % (Man) Abs Neuts (Manual) Nucleated RBCs/100 WBC Differential Comment Platelet Estimate Platelet Morphology Ovalocytes Keratocytes Puncture Site Patient Temperature O2 Saturation ABG pH ABG pCO2 ABG pO2 ABG HCO3 ABG O2 Content ABG Base Excess ABG Methemoglobin Hemoglobin Carboxyhemoglobin O2 Delivery Device Liter Flow Vent Setting Inspired O2 Critical Value Sodium 137 Potassium 4.2 Chloride 105 Carbon Dioxide 18.9 L Anion Gap 13 BUN 62 H Creatinine 2.07 H Estimated GFR 31 L POC Glucose Random Glucose 317 H Calcium 7.4 L* Calcium Adj for Albumin 8.8 Total Bilirubin 3.2 H AST 23 ALT 9 L Alkaline Phosphatase 61 Total Creatine Kinase 68 Troponin I 3.58 H* B-Natriuretic Peptide Total Protein 6.1 L Albumin 2.3 L Nasal Screen MRSA (PCR) Not detected Blood Type Antibody Screen MTS Gel Crossmatch 03/08/18 03/09/18 03/09/18 22:49 03:02 03:39 WBC RBC Hgb Hct MCV MCH MCHC RDW Plt Count MPV Prelim Diff (Auto) WBC Differential Seg Neuts % (Manual) Band Neuts % (Manual) Lymphocytes % (Manual) Monocytes % (Manual) Metamyelocytes % (Man) Myelocytes % (Man) Promyelocytes % (Man) Abs Neuts (Manual) Nucleated RBCs/100 WBC Differential Comment Platelet Estimate Platelet Morphology Ovalocytes Keratocytes Puncture Site Patient Temperature O2 Saturation ABG pH ABG pCO2 ABG pO2 ABG HCO3 ABG O2 Content ABG Base Excess ABG Methemoglobin Hemoglobin Carboxyhemoglobin O2 Delivery Device Liter Flow Vent Setting Inspired O2 Critical Value Sodium 138 Potassium 3.9 Chloride 104 Carbon Dioxide 23.6 Anion Gap 10 BUN 68 H Creatinine 2.03 H Estimated GFR 32 L POC Glucose 241 H Random Glucose 234 H Calcium 7.9 L Calcium Adj for Albumin Total Bilirubin 4.8 H AST 28 ALT 11 L Alkaline Phosphatase 55 Total Creatine Kinase Troponin I B-Natriuretic Peptide 3886 H Total Protein 6.1 L Albumin 2.4 L Nasal Screen MRSA (PCR) Blood Type Antibody Screen MTS Gel Crossmatch 03/09/18 03/09/18 03/09/18 03:39 04:39 09:21 WBC 11.5 H RBC 3.62 L Hgb 10.8 L Hct 31.1 L MCV 85.8 MCH 29.9 MCHC 34.9 RDW 15.6 Plt Count 25 L MPV 10.6 Prelim Diff (Auto) Manual diff required WBC Differential Manual diff final Seg Neuts % (Manual) 70 Band Neuts % (Manual) 1 Lymphocytes % (Manual) 9 Monocytes % (Manual) 16 H Metamyelocytes % (Man) 1 Myelocytes % (Man) 2 H Promyelocytes % (Man) 1 H Abs Neuts (Manual) 8.6 H Nucleated RBCs/100 WBC 1 H Differential Comment . Platelet Estimate Low L Platelet Morphology Normal Ovalocytes 1+ H Keratocytes Occ H Puncture Site Right brachial Patient Temperature 98.6 O2 Saturation 90 ABG pH 7.38 ABG pCO2 35 L ABG pO2 69 ABG HCO3 20 L ABG O2 Content 13.5 ABG Base Excess -4.2 L ABG Methemoglobin 1.7 Hemoglobin 10.6 L Carboxyhemoglobin 1.7 O2 Delivery Device Ventilator Liter Flow Vent Setting Prvc/ac 14/500/ Inspired O2 60 Critical Value No Sodium Potassium Chloride Carbon Dioxide Anion Gap BUN Creatinine Estimated GFR POC Glucose 250 H Random Glucose Calcium Calcium Adj for Albumin Total Bilirubin AST ALT Alkaline Phosphatase Total Creatine Kinase Troponin I B-Natriuretic Peptide Total Protein Albumin Nasal Screen MRSA (PCR) Blood Type Antibody Screen MTS Gel Crossmatch Culture Results: Microbiology 03/07/18 05:38 Aerobic Blood Culture - Preliminary Blood - Peripheral No growth in 1 day Anaerobic Blood Culture - Preliminary No growth in 1 day 03/07/18 05:49 Aerobic Blood Culture - Preliminary Blood - Peripheral No growth in 1 day Anaerobic Blood Culture - Preliminary No growth in 1 day Imaging Studies: Impressions Chest X-Ray 03/08/18 00:00 CONCLUSION: Diffuse parenchymal opacities of both lungs persists. Endotracheal tube tip is appropriately positioned. Orogastric tube courses into the stomach, tip not included on the study. Chest X-Ray 03/08/18 21:37 CONCLUSION: Worsening diffuse bilateral airspace opacities. Abdomen/Bladder Ultrasound 03/09/18 00:00 CONCLUSION: 1. Small kidneys with thin renal cortex consistent with chronic renal disease 2. No hydronephrosis Medications: Active Medications Generic Name Dose Route Start Last Admin Trade Name Freq PRN Reason Stop Dose Admin Acetaminophen 650 mg 03/01/18 20:22 03/08/18 10:42 Tylenol PO 650 mg Q4H PRN Administration Temp > 100.4 Albuterol 1 ampul 03/09/18 00:00 03/09/18 07:46 Duoneb Neb (Bárbara) NEB 1 ampul Q4HR NEB BÁRBARA Administration Atorvastatin Calcium 40 mg 03/02/18 09:00 03/09/18 08:06 Lipitor PO 40 mg DAILY BÁRBARA Administration Chlorhexidine Gluconate 3 pack 03/09/18 04:00 03/09/18 03:28 Chlorhexidine 2% Cloth TOPICAL 03/14/18 03:59 3 pack DAILY@0400 BÁRBARA Administration Fentanyl 2,500 mcg in 250 mls @ 5 mls/hr 03/08/18 23:05 03/09/18 03:25 Fentanyl 10 Mcg/Ml Premix Drip IV.SIG 50 mcg/hr TITRATE PRN 5 mls/hr Per Protocol Titration Protocol 50 MCG/HR Albumin Human 100 mls @ 12.5 mls/hr 03/09/18 09:00 03/09/18 09:10 Flexbumin 25% Inj IV.SIG 03/10/18 08:59 12.5 mls/hr Q8H BÁRBARA Administration Bumetanide 25 mg in 100 mls @ 8 mls/hr 03/09/18 09:00 03/09/18 09:10 Bumex Inj IV.CONT 2 mg/hr .[id number] BÁRBARA 8 mls/hr Administration 2 MG/HR Insulin Aspart 0 unit 03/01/18 21:00 03/09/18 03:26 Novolog Insulin Correctional Sugar Inj SQ 3 unit ACHS AND 3AM BÁRBARA Administration Protocol Isosorbide Mononitrate 60 mg 03/08/18 09:25 03/08/18 10:15 Imdur PO 60 mg DAILY@0700 BÁRBARA Administration Lactulose 30 ml 03/01/18 20:22 03/06/18 21:25 Lactulose Liq PO 30 ml DAILY PRN Administration [employer] Metoprolol Tartrate 25 mg 03/01/18 21:00 03/08/18 23:00 Lopressor PO Not Given BID BÁRBARA Pantoprazole Sodium 40 mg 03/08/18 23:00 03/08/18 23:16 Protonix Inj IV.PUSH 40 mg Q24H BÁRBARA Administration Ropinirole HCl 1 mg 03/01/18 21:00 03/08/18 23:00 Requip PO Not Given HS BÁRBARA Senna/Docusate Sodium 1 tab 03/01/18 21:00 03/09/18 08:06 Kyleigh-Colace PO 1 tab BID BÁRBARA Administration Sodium Chloride 2 ml 03/04/18 21:00 03/09/18 08:06 Ns Flush IV.FLUSH 2 ml BID BÁRBARA Administration Umeclidinium/Vilanterol 1 inhalation 03/01/18 21:00 03/08/18 22:59 Anoro-Ellipta 62.5/25 Mcg Inh INH Not Given Q24H BÁRBARA Objective Remarks: GENERAL: Elderly male patient, intubated, in no acute distress. SKIN: Warm and dry. HEAD: Normocephalic. EYES: No scleral icterus. No injection or drainage. NECK: Supple, trachea midline. CARDIOVASCULAR: Regular rate and rhythm without murmurs. RESPIRATORY: Breath sounds scattered coarse crackles, equal bilaterally. FiO2 60%. GASTROINTESTINAL: Abdomen soft, non-tender, nondistended. English catheter draining clear yellow urine. EXTREMITIES: No cyanosis, or edema. MUSCULOSKELETAL: Adequate muscle tone. NEUROLOGICAL: No obvious focal deficit. Awake, alert. PSYCHIATRIC: Appropriate mood and affect; insight and judgment normal. 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 2. Cytopenias: Due to disease process. Hemoglobin 10.8 today, s/p 2u pRBC yesterday. Blood products should be given judiciously to prevent fluid overload. 3. Chronic renal disease: Continue to monitor, daily diuretics decreased given increase in creatinine. 4. 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 Evaluation pending by CT surgeon at [facility]. Patient currently in ICU with cardiogenic shock and flash pulmonary edema. 5. Cardiogenic shock and flash pulmonary edema, cardiology is starting nitro drip and he is currently on a Bumex drip. Discussed with Dr. Donell Robbins and the patient's nurse.
[2018-03-09] MEDS ORDERED: Potassium Chloride 25 MEQ Effervescent Tablet PO STA (10:06)
[2018-03-09] MEDS ORDERED: Magnesium Sulfate Inj 4 GM in Sodium Chlor 0.9% Inj 92 ML IV.SIG STA (10:09)
[2018-03-09] MEDS ORDERED: Amiodarone Inj 150 MG in Dextrose 5% in Water Inj 97 ML IV.SIG ONE ×2 (11:00)
[2018-03-09] MEDS ORDERED: dilTIAZem Inj 125 MG in Sodium Chlor 0.9% Inj 100 ML IV.CONT PRN (11:00)
--- NOTE | 2018-03-09 12:07 | P.PNCV ---
- Note Subjective/Hospital Course: pt seen and evaluated / full consult to follow sts risk score RISK SCORES Procedure: Isolated CAB CALCULATE Risk of Mortality: 5.369% Renal Failure: 10.692% Permanent Stroke: 0.678% Prolonged Ventilation: 12.823% DSW Infection: 0.528% Reoperation: 4.493% Morbidity or Mortality: 21.192% Short Length of Stay: 17.520% Long Length of Stay: 18.282% 82-year-old male who was apparently recently in the hospital, was scheduled for outpatient cardiac catheterization when he was found to have pancytopenia on his last admission. He had some chest pain, which resolved after receiving some blood transfusions. The patient was apparently followed by Hematology/ Oncology. The patient presented to the emergency room as a direct admit and was told that he needed to come into the hospital for transfusion prior to his cardiac catheterization. The patient received 2 units of packed RBCs, 1 unit of platelets for initial hemoglobin of 8.4, hematocrit of 24, platelet count was 42. He underwent a cardiac catheterization by Dr. Pena and showed a 90% left main, mid distal LAD 95%. The CONCEPCION graft was patent to the LAD. The circumflex was 100%. The RCA had 2 spots of stenosis of 90% and the ramus was 95%. Further catheterization showed saphenous vein graft to the OM had evidence of prior stent that was totally occluded. The saphenous vein graft to the RCA showed evidence of an occluded stump. We were consulted to evaluate for redo coronary artery bypass grafting. His prior surgery was in 2014. He had a CABG x 3 with a CONCEPCION to the LAD, reverse saphenous vein graft to the distal RCA, reverse saphenous vein graft to the OM1. He also had a stent placed in 2015. PAST MEDICAL HISTORY: Includes paroxysmal atrial fibrillation, non-insulin dependent diabetes mellitus, hypertension, hyperlipidemia, carotid stenosis. He was recently diagnosed with myelodysplastic syndrome and is followed by Dr. Shaye Valencia and there is discussion of when to start chemotherapy with the patient. Other history includes diabetes mellitus type 2, COPD. 03/07 pt high risk of mortality and co-morbities we have asked our colleague Dr Wes Raza to eval pt records to see if he would be accepted at [facility] in [place] for possible surgery pt is very SOB with any exertion , FEV1 0.99 47% predicted ECHO pending records and CD's have been forwarded to [place] 03/09 Dr Pena / spoke with Dr Wes Raza at [facility] willing to accept pt for transfer pt intubated last night for Resp Failure CHF exacerbation and pulm edema / cardiogenic shock Case management consulted to pursue transfer on amiodarone, Cardizem, Bumex and fentanyl gtt Objective: Vital Signs - 24 hr 03/08/18 12:00 03/08/18 13:00 03/08/18 13:53 Temperature 97.5 F L 97.5 F L Pulse Rate 101 H 94 H 92 H Respiratory Rate 22 Blood Pressure 100/55 L 119/62 Pulse Oximetry 94 L 94 L 03/08/18 13:56 03/08/18 14:00 03/08/18 14:18 Temperature 97.6 F 97.8 F Pulse Rate 93 H 86 96 H Respiratory Rate 20 20 Blood Pressure 119/62 121/60 Pulse Oximetry 92 L 93 L 03/08/18 15:00 03/08/18 16:00 03/08/18 16:43 Temperature 97.5 F L 97.7 F Pulse Rate 96 H 97 H 95 H Respiratory Rate 22 20 Blood Pressure 121/73 122/76 Pulse Oximetry 93 L 94 L 03/08/18 17:00 03/08/18 18:00 03/08/18 19:00 Temperature 99.1 F Pulse Rate 99 H 85 124 H Respiratory Rate 28 H Blood Pressure 156/87 H Pulse Oximetry 88 L 03/08/18 21:40 03/08/18 22:12 03/08/18 22:54 Temperature Pulse Rate 108 H Respiratory Rate 27 H 58 H Blood Pressure 89/55 L Pulse Oximetry 98 92 L 100 03/08/18 22:57 03/08/18 23:00 03/08/18 23:03 Temperature Pulse Rate 105 H 105 H 108 H Respiratory Rate 61 H 63 H 54 H Blood Pressure 87/54 L 87/50 L 101/51 L Pulse Oximetry 100 100 100 03/08/18 23:06 03/08/18 23:09 03/08/18 23:12 Temperature Pulse Rate 107 H 106 H 104 H Respiratory Rate 65 H 48 H 33 H Blood Pressure 95/50 L 97/55 L 91/53 L Pulse Oximetry 100 100 100 03/08/18 23:15 03/08/18 23:18 03/08/18 23:42 Temperature Pulse Rate 104 H 107 H 108 H Respiratory Rate 51 H 41 H 33 H Blood Pressure 95/52 L 103/59 L 112/57 L Pulse Oximetry 100 100 100 03/08/18 23:45 03/08/18 23:50 03/08/18 23:55 Temperature Pulse Rate 108 H 106 H 105 H Respiratory Rate 43 H 61 H 59 H Blood Pressure 113/61 115/57 L 106/59 L Pulse Oximetry 100 100 100 03/09/18 00:00 03/09/18 00:05 03/09/18 00:10 Temperature 99.7 F H Pulse Rate 106 H 108 H 106 H Respiratory Rate 59 H 46 H 29 H Blood Pressure 106/57 L 110/62 112/61 Pulse Oximetry 100 100 100 03/09/18 00:15 03/09/18 00:20 03/09/18 00:25 Temperature Pulse Rate 105 H 104 H 104 H Respiratory Rate 34 H 28 H 27 H Blood Pressure 105/60 103/57 L 104/58 L Pulse Oximetry 100 100 100 03/09/18 00:30 03/09/18 00:35 03/09/18 00:40 Temperature Pulse Rate 104 H 104 H 104 H Respiratory Rate 26 H 26 H 25 H Blood Pressure 105/60 102/60 109/61 Pulse Oximetry 100 100 100 03/09/18 00:45 03/09/18 00:50 03/09/18 00:55 Temperature Pulse Rate 104 H 103 H 103 H Respiratory Rate 24 25 H 25 H Blood Pressure 106/63 100/59 L 102/60 Pulse Oximetry 100 100 100 03/09/18 01:00 03/09/18 01:30 03/09/18 02:00 Temperature Pulse Rate 101 H 100 H 97 H Respiratory Rate 22 23 7 L Blood Pressure 99/59 L 98/54 L 102/67 Pulse Oximetry 100 100 100 03/09/18 02:30 03/09/18 03:00 03/09/18 03:30 Temperature Pulse Rate 94 H 93 H 92 H Respiratory Rate 22 24 25 H Blood Pressure 95/55 L 103/58 L 101/65 Pulse Oximetry 100 100 100 03/09/18 03:35 03/09/18 04:00 03/09/18 04:30 Temperature 98.6 F Pulse Rate 92 H 92 H Respiratory Rate 26 H 25 H 25 H Blood Pressure 103/57 L 99/53 L Pulse Oximetry 100 100 96 03/09/18 05:00 03/09/18 06:00 03/09/18 07:46 Temperature Pulse Rate 93 H 92 H 98 H Respiratory Rate 26 H 25 H Blood Pressure 106/55 L Pulse Oximetry 96 100 03/09/18 08:00 03/09/18 10:00 03/09/18 11:23 Temperature 98.8 F Pulse Rate 97 H 148 H 100 H Respiratory Rate 24 29 H Blood Pressure 117/58 L Pulse Oximetry 97 03/09/18 11:24 Temperature Pulse Rate Respiratory Rate 29 H Blood Pressure Pulse Oximetry 98 GENERAL: pt intubated and sedated on vent , will nod head appropriately / Rass - 2 SKIN: Warm and dry. HEAD: Normocephalic. EYES: No scleral icterus. No injection or drainage. NECK: Supple, trachea midline. + JVD CARDIOVASCULAR: irregular Regular rate and rhythm without murmurs, gallops, or rubs, slightly tachycardic RESPIRATORY: coarse bilateral breath sounds , equal bilaterally. orally intubated on vent / PRVC/ AC mode Fio2 60%/ rate 14 GASTROINTESTINAL: Abdomen slightly distended, hypoactive bowel sounds soft, non-tender, nondistended. MUSCULOSKELETAL: No cyanosis, or edema. BACK: Nontender without obvious deformity. No CVA tenderness. Labs: Laboratory Results - last 12 hr 03/08/18 03/08/18 03/09/18 22:15 22:49 03:02 WBC 11.2 H D RBC 3.69 L Hgb 11.1 L D Hct 32.3 L MCV 87.5 MCH 30.0 MCHC 34.2 RDW 15.5 Plt Count 33 L MPV 9.5 Prelim Diff (Auto) WBC Differential Seg Neuts % (Manual) Band Neuts % (Manual) Lymphocytes % (Manual) Monocytes % (Manual) Metamyelocytes % (Man) Myelocytes % (Man) Promyelocytes % (Man) Abs Neuts (Manual) Nucleated RBCs/100 WBC Differential Comment Platelet Estimate Platelet Morphology Ovalocytes Keratocytes Puncture Site Patient Temperature O2 Saturation ABG pH ABG pCO2 ABG pO2 ABG HCO3 ABG O2 Content ABG Base Excess ABG Methemoglobin Hemoglobin Carboxyhemoglobin O2 Delivery Device Vent Setting Inspired O2 Critical Value Sodium Potassium Chloride Carbon Dioxide Anion Gap BUN Creatinine Estimated GFR POC Glucose 241 H Random Glucose Lactic Acid Calcium Total Bilirubin AST ALT Alkaline Phosphatase Ammonia Total Protein Albumin Nasal Screen MRSA (PCR) Not detected 03/09/18 03/09/18 03/09/18 03:39 03:39 04:39 WBC 11.5 H RBC 3.62 L Hgb 10.8 L Hct 31.1 L MCV 85.8 MCH 29.9 MCHC 34.9 RDW 15.6 Plt Count 25 L MPV 10.6 Prelim Diff (Auto) Manual diff required WBC Differential Manual diff final Seg Neuts % (Manual) 70 Band Neuts % (Manual) 1 Lymphocytes % (Manual) 9 Monocytes % (Manual) 16 H Metamyelocytes % (Man) 1 Myelocytes % (Man) 2 H Promyelocytes % (Man) 1 H Abs Neuts (Manual) 8.6 H Nucleated RBCs/100 WBC 1 H Differential Comment . Platelet Estimate Low L Platelet Morphology Normal Ovalocytes 1+ H Keratocytes Occ H Puncture Site Right brachial Patient Temperature 98.6 O2 Saturation 90 ABG pH 7.38 ABG pCO2 35 L ABG pO2 69 ABG HCO3 20 L ABG O2 Content 13.5 ABG Base Excess -4.2 L ABG Methemoglobin 1.7 Hemoglobin 10.6 L Carboxyhemoglobin 1.7 O2 Delivery Device Ventilator Vent Setting Prvc/ac 14/500/ Inspired O2 60 Critical Value No Sodium 138 Potassium 3.9 Chloride 104 Carbon Dioxide 23.6 Anion Gap 10 BUN 68 H Creatinine 2.03 H Estimated GFR 32 L POC Glucose Random Glucose 234 H Lactic Acid Calcium 7.9 L Total Bilirubin 4.8 H AST 28 ALT 11 L Alkaline Phosphatase 55 Ammonia Total Protein 6.1 L Albumin 2.4 L Nasal Screen MRSA (PCR) 03/09/18 03/09/18 03/09/18 09:21 09:31 09:31 WBC RBC Hgb Hct MCV MCH MCHC RDW Plt Count MPV Prelim Diff (Auto) WBC Differential Seg Neuts % (Manual) Band Neuts % (Manual) Lymphocytes % (Manual) Monocytes % (Manual) Metamyelocytes % (Man) Myelocytes % (Man) Promyelocytes % (Man) Abs Neuts (Manual) Nucleated RBCs/100 WBC Differential Comment Platelet Estimate Platelet Morphology Ovalocytes Keratocytes Puncture Site Patient Temperature O2 Saturation ABG pH ABG pCO2 ABG pO2 ABG HCO3 ABG O2 Content ABG Base Excess ABG Methemoglobin Hemoglobin Carboxyhemoglobin O2 Delivery Device Vent Setting Inspired O2 Critical Value Sodium Potassium Chloride Carbon Dioxide Anion Gap BUN Creatinine Estimated GFR POC Glucose 250 H Random Glucose Lactic Acid 1.8 Calcium Total Bilirubin AST ALT Alkaline Phosphatase Ammonia 41 H Total Protein Albumin Nasal Screen MRSA (PCR) Result Diagrams: 03/09/18 03:39 03/09/18 03:39 Telemetry: afib - Plan (5) Coronary artery disease Plan: Neuro: Acute metabolic encephalopathy - prop, fent for goal RASS -2 - avoid long-acting sedatives - check ammonia- may be developing hepatic encephalopathy Resp: Acute hypoxic and hypercarbic respiratory failure Acute severe pulmonary edema - worse today than yesterday - intubated 03/08 for decompensation - CXR 03/09 with almost complete white-out secondary to pulmonary edema - CV: Cardiogenic Shock Pulmonary Edema Ischemic Cardiomyopathy NSTEMI- likely demand ischemia Multi-vessel CAD Acute severe Congestive Heart Failure Exacerbation- mixed type, secondary to ischemia - trend lactates - bnp severely elevated - weights are increasing - end organ perfusion worsening - start bumex drip, - add 1 dose diuril iv. -accepted at [facility] per Dr Wes Raza consult CM to pursue transfer - Renal: Acute kidney injury- worsening - secondary to cardiogenic shock and renal vein hypertension - - bumex drip as above FEN/GI: Acute protein calorie malnutrition- severe Acute intravascular volume overload- severe Lactic Acidosis Congestive Hepatopathy Acute Liver Injury Heme/ID: Myelodysplastic syndrome Thrombocytopenia Anemia secondary to chronic disease - heme consulted and following - transfusions per Heme.
--- NOTE | 2018-03-09 16:27 | P.DS ---
Date of admission: 03/01/18 17:38 Primary care physician: UNKNOWN Attending physician on discharge: Abrahan Lucero Anticipated date of discharge: 03/09/18 Brief History from admission: 82-year-old male with a past medical history significant for A. fib, myelodysplastic syndrome, coronary artery disease, congestive heart failure, COPD, diabetes, hypertension and hyperlipidemia presents to the emergency department as a direct admission. The patient reports that he was sent by both Dr. Pena and Dr. Valencia for evaluation of anemia prior to a planned cardiac catheterization tomorrow. The patient reports that he had routine lab work done yesterday and was called stating that he needed to come to the hospital for transfusion prior to his catheterization. He does not have his lab work results with him and reports that they were done at an outside lab. Patient denies any chest pain at this time. He endorses shortness of breath that is worse with exertion. No abdominal pain. No nausea/vomiting/diarrhea. No focal neurologic deficits. The patient has required multiple transfusions in the past for anemia, most recently on 02/22 for a hemoglobin of 7.9. DS: Diagnosis - Discharge Diagnosis (1) Acute renal failure Status: Acute (2) Chronic kidney disease Status: Acute (3) Diabetes Status: Acute (4) Hypertension Status: Acute (5) Coronary artery disease Status: Acute (6) Pancytopenia Status: Acute DS: Summary Hospital Course: 03/09: in [place] pulmonary edema and cardiogenic shock secondary to ischemic disease and volume overload. has been net + with rising weights since admission. now intubated. I have started bumex infusion. discussed with CT [facility] have also discussed with Dr. Pena: if we do not respond to diuretic therapy, will be forced to pursue mechanical support with IABP vs. percutaneous LVAD support. However, if there is no surgical option for him, then any mechanical support will not improve his overall outcome, and much wiser to pursue palliation if no definitive surgical treatment option. very critically ill this morning. accepted by [facility]. - Time Spent with Patient Total time spent providing and/or coordinating discharge services: Greater than 30 minutes - Quality: VTE Deep Vein Thrombosis/Pulmonary Embolism Present on Admission: No Exam Vital signs: Vital Signs 03/08/18 16:43 03/08/18 17:00 03/08/18 18:00 Temperature 36.5 C Pulse Rate 95 H 99 H 85 Respiratory Rate 20 Blood Pressure 122/76 Pulse Oximetry 94 L 03/08/18 19:00 03/08/18 21:40 03/08/18 22:12 Temperature 37.3 C Pulse Rate 124 H Respiratory Rate 28 H 27 H Blood Pressure 156/87 H Pulse Oximetry 88 L 98 92 L 03/08/18 22:54 03/08/18 22:57 03/08/18 23:00 Temperature Pulse Rate 108 H 105 H 105 H Respiratory Rate 58 H 61 H 63 H Blood Pressure 89/55 L 87/54 L 87/50 L Pulse Oximetry 100 100 100 03/08/18 23:03 03/08/18 23:06 03/08/18 23:09 Temperature Pulse Rate 108 H 107 H 106 H Respiratory Rate 54 H 65 H 48 H Blood Pressure 101/51 L 95/50 L 97/55 L Pulse Oximetry 100 100 100 03/08/18 23:12 03/08/18 23:15 03/08/18 23:18 Temperature Pulse Rate 104 H 104 H 107 H Respiratory Rate 33 H 51 H 41 H Blood Pressure 91/53 L 95/52 L 103/59 L Pulse Oximetry 100 100 100 03/08/18 23:42 03/08/18 23:45 03/08/18 23:50 Temperature Pulse Rate 108 H 108 H 106 H Respiratory Rate 33 H 43 H 61 H Blood Pressure 112/57 L 113/61 115/57 L Pulse Oximetry 100 100 100 03/08/18 23:55 03/09/18 00:00 03/09/18 00:05 Temperature 37.6 C H Pulse Rate 105 H 106 H 108 H Respiratory Rate 59 H 59 H 46 H Blood Pressure 106/59 L 106/57 L 110/62 Pulse Oximetry 100 100 100 03/09/18 00:10 03/09/18 00:15 03/09/18 00:20 Temperature Pulse Rate 106 H 105 H 104 H Respiratory Rate 29 H 34 H 28 H Blood Pressure 112/61 105/60 103/57 L Pulse Oximetry 100 100 100 03/09/18 00:25 03/09/18 00:30 03/09/18 00:35 Temperature Pulse Rate 104 H 104 H 104 H Respiratory Rate 27 H 26 H 26 H Blood Pressure 104/58 L 105/60 102/60 Pulse Oximetry 100 100 100 03/09/18 00:40 03/09/18 00:45 03/09/18 00:50 Temperature Pulse Rate 104 H 104 H 103 H Respiratory Rate 25 H 24 25 H Blood Pressure 109/61 106/63 100/59 L Pulse Oximetry 100 100 100 03/09/18 00:55 03/09/18 01:00 03/09/18 01:30 Temperature Pulse Rate 103 H 101 H 100 H Respiratory Rate 25 H 22 23 Blood Pressure 102/60 99/59 L 98/54 L Pulse Oximetry 100 100 100 03/09/18 02:00 03/09/18 02:30 03/09/18 03:00 Temperature Pulse Rate 97 H 94 H 93 H Respiratory Rate 7 L 22 24 Blood Pressure 102/67 95/55 L 103/58 L Pulse Oximetry 100 100 100 03/09/18 03:30 03/09/18 03:35 03/09/18 04:00 Temperature 37.0 C Pulse Rate 92 H 92 H Respiratory Rate 25 H 26 H 25 H Blood Pressure 101/65 103/57 L Pulse Oximetry 100 100 100 03/09/18 04:30 03/09/18 05:00 03/09/18 06:00 Temperature Pulse Rate 92 H 93 H 92 H Respiratory Rate 25 H 26 H Blood Pressure 99/53 L 106/55 L Pulse Oximetry 96 96 03/09/18 07:46 03/09/18 08:00 03/09/18 10:00 Temperature 37.1 C Pulse Rate 98 H 97 H 148 H Respiratory Rate 25 H 24 Blood Pressure 117/58 L Pulse Oximetry 100 97 03/09/18 11:23 03/09/18 11:24 03/09/18 12:00 Temperature 36.6 C Pulse Rate 100 H 97 H Respiratory Rate 29 H 29 H 24 Blood Pressure 115/58 L Pulse Oximetry 98 98 03/09/18 14:00 03/09/18 15:32 03/09/18 16:00 Temperature 36.9 C Pulse Rate 91 H 92 H 96 H Respiratory Rate 27 H 26 H Blood Pressure 110/56 L Pulse Oximetry 97 96 Intake & Output 03/08/18 03/09/18 03/09/18 18:59 06:59 18:59 Intake Total 1930 / 1930 550 / 550 Output Total 950 / 950 275 / 275 1115 / 1115 Balance 980 / 980 -275 / -275 -565 / -565 Weight 71.2 kg Intake: IV 250 / 250 550 / 550 Flexbumin 25% Inj 100 ML @ 12.5 100 / 100 mls/hr IV.SIG Q8H ANDREA Rx#: [id number] Cordarone Inj 150 MG In D5W Inj 100 / 100 97 ML @ 600 mls/hr IV.SIG ONCE ONE Rx#:[id number] Magnesium Sulfate Inj 4 GM In 100 / 100 NS Inj 92 ML @ 25 mls/hr IV.SIG ONCE STA Rx#:[id number] NS Inj 250 ML @ 15 mls/hr IV. 250 / 250 250 / 250 SIG ONCE ANDREA Rx#:[id number] Oral 480 / 480 Other 400 / 400 Rbc As-3 Leukoreduced Unit 400 / 400 [id number] Intake (Blood Product) Amt 800 / 800 Rbc As-3 Leukoreduced Unit 400 / 400 [id number] Rbc As-3 Leukoreduced Unit 400 / 400 [id number] Output: Urine 950 / 950 275 / 275 Urine Amount (Catheter) 1115 / 1115 Indwelling Urethral Catheter 1115 / 1115 Other: Date of Last Bowel Movement 03/07/18 03/07/18 03/07/18 # Bowel Movements 0 Results Procedures completed during hospitalization: 03/02- cardiac cath- severe 3V disease Labs on day of discharge: Labs from last 24 hours 03/09/18 03/09/18 03/09/18 12:24 09:31 09:31 WBC RBC Hgb Hct MCV MCH MCHC RDW Plt Count MPV Prelim Diff (Auto) WBC Differential Seg Neuts % (Manual) Band Neuts % (Manual) Lymphocytes % (Manual) Monocytes % (Manual) Metamyelocytes % (Man) Myelocytes % (Man) Promyelocytes % (Man) Abs Neuts (Manual) Nucleated RBCs/100 WBC Differential Comment Platelet Estimate Platelet Morphology Ovalocytes Keratocytes Puncture Site Patient Temperature O2 Saturation ABG pH ABG pCO2 ABG pO2 ABG HCO3 ABG O2 Content ABG Base Excess ABG Methemoglobin Hemoglobin Carboxyhemoglobin O2 Delivery Device Liter Flow Vent Setting Inspired O2 Critical Value Sodium Potassium Chloride Carbon Dioxide Anion Gap BUN Creatinine Estimated GFR POC Glucose 323 H Random Glucose Lactic Acid 1.8 Calcium Calcium Adj for Albumin Total Bilirubin AST ALT Alkaline Phosphatase Ammonia 41 H Total Creatine Kinase Troponin I B-Natriuretic Peptide Total Protein Albumin Nasal Screen MRSA (PCR) MTS Gel Crossmatch 03/09/18 03/09/18 03/09/18 09:21 04:39 03:39 WBC 11.5 H RBC 3.62 L Hgb 10.8 L Hct 31.1 L MCV 85.8 MCH 29.9 MCHC 34.9 RDW 15.6 Plt Count 25 L MPV 10.6 Prelim Diff (Auto) Manual diff required WBC Differential Manual diff final Seg Neuts % (Manual) 70 Band Neuts % (Manual) 1 Lymphocytes % (Manual) 9 Monocytes % (Manual) 16 H Metamyelocytes % (Man) 1 Myelocytes % (Man) 2 H Promyelocytes % (Man) 1 H Abs Neuts (Manual) 8.6 H Nucleated RBCs/100 WBC 1 H Differential Comment . Platelet Estimate Low L Platelet Morphology Normal Ovalocytes 1+ H Keratocytes Occ H Puncture Site Right brachial Patient Temperature 98.6 O2 Saturation 90 ABG pH 7.38 ABG pCO2 35 L ABG pO2 69 ABG HCO3 20 L ABG O2 Content 13.5 ABG Base Excess -4.2 L ABG Methemoglobin 1.7 Hemoglobin 10.6 L Carboxyhemoglobin 1.7 O2 Delivery Device Ventilator Liter Flow Vent Setting Prvc/ac 14/500/ Inspired O2 60 Critical Value No Sodium Potassium Chloride Carbon Dioxide Anion Gap BUN Creatinine Estimated GFR POC Glucose 250 H Random Glucose Lactic Acid Calcium Calcium Adj for Albumin Total Bilirubin AST ALT Alkaline Phosphatase Ammonia Total Creatine Kinase Troponin I B-Natriuretic Peptide Total Protein Albumin Nasal Screen MRSA (PCR) MTS Gel Crossmatch 03/09/18 03/09/18 03/08/18 03:39 03:02 22:49 WBC RBC Hgb Hct MCV MCH MCHC RDW Plt Count MPV Prelim Diff (Auto) WBC Differential Seg Neuts % (Manual) Band Neuts % (Manual) Lymphocytes % (Manual) Monocytes % (Manual) Metamyelocytes % (Man) Myelocytes % (Man) Promyelocytes % (Man) Abs Neuts (Manual) Nucleated RBCs/100 WBC Differential Comment Platelet Estimate Platelet Morphology Ovalocytes Keratocytes Puncture Site Patient Temperature O2 Saturation ABG pH ABG pCO2 ABG pO2 ABG HCO3 ABG O2 Content ABG Base Excess ABG Methemoglobin Hemoglobin Carboxyhemoglobin O2 Delivery Device Liter Flow Vent Setting Inspired O2 Critical Value Sodium 138 Potassium 3.9 Chloride 104 Carbon Dioxide 23.6 Anion Gap 10 BUN 68 H Creatinine 2.03 H Estimated GFR 32 L POC Glucose 241 H Random Glucose 234 H Lactic Acid Calcium 7.9 L Calcium Adj for Albumin Total Bilirubin 4.8 H AST 28 ALT 11 L Alkaline Phosphatase 55 Ammonia Total Creatine Kinase Troponin I B-Natriuretic Peptide 3886 H Total Protein 6.1 L Albumin 2.4 L Nasal Screen MRSA (PCR) MTS Gel Crossmatch 03/08/18 03/08/18 03/08/18 22:49 22:49 22:15 WBC 11.2 H D RBC 3.69 L Hgb 11.1 L D Hct 32.3 L MCV 87.5 MCH 30.0 MCHC 34.2 RDW 15.5 Plt Count 33 L MPV 9.5 Prelim Diff (Auto) WBC Differential Seg Neuts % (Manual) Band Neuts % (Manual) Lymphocytes % (Manual) Monocytes % (Manual) Metamyelocytes % (Man) Myelocytes % (Man) Promyelocytes % (Man) Abs Neuts (Manual) Nucleated RBCs/100 WBC Differential Comment Platelet Estimate Platelet Morphology Ovalocytes Keratocytes Puncture Site Patient Temperature O2 Saturation ABG pH ABG pCO2 ABG pO2 ABG HCO3 ABG O2 Content ABG Base Excess ABG Methemoglobin Hemoglobin Carboxyhemoglobin O2 Delivery Device Liter Flow Vent Setting Inspired O2 Critical Value Sodium 137 Potassium 4.2 Chloride 105 Carbon Dioxide 18.9 L Anion Gap 13 BUN 62 H Creatinine 2.07 H Estimated GFR 31 L POC Glucose Random Glucose 317 H Lactic Acid Calcium 7.4 L* Calcium Adj for Albumin 8.8 Total Bilirubin 3.2 H AST 23 ALT 9 L Alkaline Phosphatase 61 Ammonia Total Creatine Kinase 68 Troponin I 3.58 H* B-Natriuretic Peptide Total Protein 6.1 L Albumin 2.3 L Nasal Screen MRSA (PCR) Not detected MTS Gel Crossmatch 03/08/18 03/08/18 03/08/18 21:30 20:22 17:27 WBC RBC Hgb Hct MCV MCH MCHC RDW Plt Count MPV Prelim Diff (Auto) WBC Differential Seg Neuts % (Manual) Band Neuts % (Manual) Lymphocytes % (Manual) Monocytes % (Manual) Metamyelocytes % (Man) Myelocytes % (Man) Promyelocytes % (Man) Abs Neuts (Manual) Nucleated RBCs/100 WBC Differential Comment Platelet Estimate Platelet Morphology Ovalocytes Keratocytes Puncture Site Right brachial Patient Temperature 98.6 O2 Saturation 83 L* ABG pH 7.32 L ABG pCO2 32 L ABG pO2 56 L* ABG HCO3 16 L* ABG O2 Content 13.6 ABG Base Excess -9.0 L ABG Methemoglobin 1.8 Hemoglobin 11.7 L Carboxyhemoglobin 2.4 O2 Delivery Device Nrb mask Liter Flow 15.00 Vent Setting Inspired O2 100 Critical Value Yes Sodium Potassium Chloride Carbon Dioxide Anion Gap BUN Creatinine Estimated GFR POC Glucose 250 H 191 H Random Glucose Lactic Acid Calcium Calcium Adj for Albumin Total Bilirubin AST ALT Alkaline Phosphatase Ammonia Total Creatine Kinase Troponin I B-Natriuretic Peptide Total Protein Albumin Nasal Screen MRSA (PCR) MTS Gel Crossmatch 03/08/18 09:41 WBC RBC Hgb Hct MCV MCH MCHC RDW Plt Count MPV Prelim Diff (Auto) WBC Differential Seg Neuts % (Manual) Band Neuts % (Manual) Lymphocytes % (Manual) Monocytes % (Manual) Metamyelocytes % (Man) Myelocytes % (Man) Promyelocytes % (Man) Abs Neuts (Manual) Nucleated RBCs/100 WBC Differential Comment Platelet Estimate Platelet Morphology Ovalocytes Keratocytes Puncture Site Patient Temperature O2 Saturation ABG pH ABG pCO2 ABG pO2 ABG HCO3 ABG O2 Content ABG Base Excess ABG Methemoglobin Hemoglobin Carboxyhemoglobin O2 Delivery Device Liter Flow Vent Setting Inspired O2 Critical Value Sodium Potassium Chloride Carbon Dioxide Anion Gap BUN Creatinine Estimated GFR POC Glucose Random Glucose Lactic Acid Calcium Calcium Adj for Albumin Total Bilirubin AST ALT Alkaline Phosphatase Ammonia Total Creatine Kinase Troponin I B-Natriuretic Peptide Total Protein Albumin Nasal Screen MRSA (PCR) MTS Gel Crossmatch See Detail Preliminary micro results at discharge 03/07/18 05:38 Aerobic Blood Culture - Preliminary Blood - Peripheral No growth in 2 days Anaerobic Blood Culture - Preliminary No growth in 2 days 03/07/18 05:49 Aerobic Blood Culture - Preliminary Blood - Peripheral No growth in 2 days Anaerobic Blood Culture - Preliminary No growth in 2 days - Impressions ITS Impressions Chest CT 03/04/18 00:00 CONCLUSION: 1. Bilateral alveolar infiltrates right greater than left. This has an appearance most characteristic of pulmonary edema. The findings could indicate congestive heart failure. 2. Bilateral pleural effusions right greater than left. 3. Status post median sternotomy. Carotid Doppler Study 03/04/18 15:05 CONCLUSION: Mild plaque is seen in the grayscale images of the carotids bilaterally. However , there is elevated peak systolic velocity in the internal carotid arteries bilaterally and elevated ICA/CCA ratio on the right. A more significant stenosis may be present. The carotid system could be further evaluated with a CTA of the neck. Lower Extremity Ultrasound 03/04/18 15:05 CONCLUSION: 1. Greater saphenous vein mapping has been performed with measurements above. Saphenous veins are small in caliber bilaterally. There is nonvisualization of the saphenous vein within the left calf. Venous Doppler Study 03/04/18 15:05 CONCLUSION: 1. The study is negative for bilateral lower extremity deep venous thrombosis. Chest X-Ray 03/08/18 21:37 CONCLUSION: Worsening diffuse bilateral airspace opacities. Abdomen/Bladder Ultrasound 03/09/18 00:00 CONCLUSION: 1. Small kidneys with thin renal cortex consistent with chronic renal disease 2. No hydronephrosis Discharge Plan - Discharge Disposition Patient Disposition: 70 Transfer To Other Facility - Discharge Condition Condition: Critical - Discharge Order Discharge Orders: Discharge Order (Routine); Ordered 03/09/18 Ordered By: Abrahan Lucero - Discharge Details Anticipated Discharge Date: 03/09/18 Discharge Comment: to [facility] - Physicians Team Primary Care Provider: UNKNOWN, Attending Provider: Etta Buchanan Other Providers: Lianna Pena MD ; [facility] ; Peace Maya MD ; Shaye Valencia ; Etta Buchanan MD - Rxs /Orders / Referrals /Forms Prescriptions: New amiodarone 50 mg/mL Solution 450 mg IV.CONT TITRATE PRN (Reason: Per Protocol) RF: 0 bumetanide 0.25 mg/mL Solution 25 mg IV.CONT .[id number] RF: 0 diltiazem HCl 5 mg/mL Solution 125 mg IV.CONT TITRATE PRN (Reason: Per Protocol) RF: 0 fentanyl citrate (PF)-0.9%NaCl 10 mcg/mL Solution 2,500 mcg IV TITRATE PRN (Reason: Per Protocol) RF: 0 propofol [Diprivan] 10 mg/mL Emulsion 1,000 mg IV.CONT TITRATE PRN (Reason: Per Protocol) RF: 0 Continue aspirin 81 mg Tablet,Chewable 81 mg PO DAILY atorvastatin 40 mg Tablet 40 mg PO DAILY famotidine 20 mg Tablet 20 mg PO DAILY ropinirole [Requip] 1 mg Tablet 1 mg PO HS umeclidinium-vilanterol [Anoro Ellipta] 62.5-25 mcg/actuation Blister With Device 1 inh INHALATION Q24H Discontinued clonidine HCl 0.1 mg Tablet 0.1 mg PO DAILY clopidogrel [Plavix] 75 mg Tablet 75 mg PO DAILY clopidogrel [Plavix] 75 mg Tablet 75 mg PO DAILY enalapril maleate 20 mg Tablet 20 mg PO BID enalapril maleate 10 mg Tablet 5 mg PO BID Qty: 30 RF: 0 glipizide-metformin 5-500 mg Tablet 1 tab PO BID isosorbide mononitrate 60 mg Tablet Extended Release 24 Hr 120 mg PO DAILY metoprolol tartrate 25 mg Tablet 25 mg PO BID Multi Vitamin 1 cap PO DAILY omeprazole 40 mg Capsule,Delayed Release(Dr/Ec) 40 mg PO DAILY ranolazine [Ranexa] 500 mg Tablet Extended Release 12 Hr 500 mg PO Q12H sitagliptin [Januvia] 100 mg Tablet 100 mg PO DAILY solifenacin [Vesicare] 5 mg Tablet 5 mg PO DAILY torsemide 20 mg Tablet 20 mg PO DAILY Referrals: UNKNOWN, [Primary Care Provider] - See Instructions - Discharge Instructions Patient Printed Instructions: Heart Catheterization (DC)
--- NOTE | 2018-03-09 17:15 | ECG ---
Date Performed: 03/08/2018 Time Performed: 22:08:50 PTAGE: 82 years EKG: Atrial fibrillation/flutter with rapid ventricular response and PVCs vs sinus tachycardia. Right axis deviation IV conduction defect Inferior ST elevation Abnormal ECG PREVIOUS TRACING : 03/07/2018 14.14 Compared to previous tracing, NSR no longer present DOCTOR: Natan Sherman Interpretating Date/Time 03/09/2018 17:14:05
== END 2018-03-09 17:15 | disposition short-term general hospital (02) ==
LOC: NEPFCDU 17:38 → HCIS 03-02 12:53 → HIMC 03-08 22:00
PROVIDERS: ADMIT Internal Medicine Critical Care Medicine; ATTEND Internal Medicine Critical Care Medicine